=== PATIENT | male | born 1955 ===

== ENCOUNTER 2020-08-02 | Outpatient (REF) | payer MEDICARE, MEDICAID, SELFPAY ==
[2020-08-02 14:32] LABS: Alanine Aminotransferase 22 U/L (0-40); Albumin Level 4.6 g/dL (3.5-5.0); Alkaline Phosphatase 84 U/L (39-117); Anion Gap 13 (12-20); Aspartate Amino Transferase 15 U/L (5-37); Bilirubin Total 0.4 mg/dL (0.0-1.0); Blood Urea Nitrogen 16 mg/dL (9-16); Calcium 9.2 mg/dL (8.4-10.2); Carbon Dioxide 32 mmol/L (22-29); Chloride 97 mmol/L (96-108); Cholesterol 198 mg/dL; Estimated Glomerular Filt Rate > 60; Glucose Fasting 120 mg/dL (60-99); HDL Cholesterol 45 mg/dL; LDL Cholesterol Calculated 120 mg/dl; Potassium 3.4 mmol/l (3.3-5.1); Sodium 139 mmol/L (135-145); Total Protein 7.5 g/dL (6.5-8.0); Triglycerides 167 mg/dL
[2020-08-02 14:53] LABS: Estimated Average Glucose 140 mg/dL; Hemoglobin A1c % 6.5 %
[2020-08-02 14:56] LABS: TSH reflex Free T4 0.88 mIU/mL (0.32-4.0)
[2020-08-03 19:42] LABS: LDL Cholesterol Direct 146 mg/dL (<100)
== END 2020-08-02 00:01 | disposition home or self-care (01) ==
LOC: HO.WFDLDS
PROVIDERS: Visit Provider Family Medicine
DX: Z00.00 Encounter for general adult medical examination without abnormal findings (principal); E11.9 Type 2 diabetes mellitus without complications; E78.00 Pure hypercholesterolemia, unspecified; I10 Essential (primary) hypertension; R03.0 Elevated blood-pressure reading, without diagnosis of hypertension
CPT/HCPCS: 80053; 80061; 83036; 83721; 84443

== ENCOUNTER 2020-10-31 13:04 | Outpatient (REF) | payer MEDICARE, MEDICAID, SELFPAY ==
[2020-10-31 14:03] LABS: Alanine Aminotransferase 23 U/L (0-40); Albumin Level 4.5 g/dL (3.5-5.0); Alkaline Phosphatase 82 U/L (39-117); Aspartate Amino Transferase 24 U/L (5-37); Bilirubin Direct < 0.2 mg/dL (0.0-0.5); Bilirubin Total 0.4 mg/dL (0.0-1.0); Total Protein 7.4 g/dL (6.5-8.0)
== END 2020-10-31 13:05 | disposition home or self-care (01) ==
LOC: HO.LAB 13:04
PROVIDERS: PCP Family Medicine; Visit Provider Psychiatry & Neurology Neurology
DX: Q01.9 Encephalocele, unspecified (principal)
CPT/HCPCS: 36415; 80076

== ENCOUNTER 2021-02-09 18:25 | Outpatient (REF) | payer MEDICARE, MEDICAID, SELFPAY | END 2021-02-09 18:26 | disposition home or self-care (01) | LOC: HO.LNP 18:25 | PROVIDERS: Visit Provider Family Medicine | DX: R05 Cough (principal); Z20.822 Contact with and (suspected) exposure to COVID-19 | CPT/HCPCS: U0003; U0005 ==

== ENCOUNTER 2021-02-23 12:40 | Outpatient (REF) | payer MEDICARE, MEDICAID, SELFPAY ==
[2021-02-23 14:35] LABS: Anion Gap 12 (12-20); Blood Urea Nitrogen 19 mg/dL (9-16); Carbon Dioxide 33 mmol/L (22-29); Chloride 96 mmol/L (96-108); Estimated Glomerular Filt Rate > 60; Glucose Random 108 mg/dL (60-115); Potassium 3.3 mmol/L (3.3-5.1); Sodium 138 mmol/L (135-145)
== END 2021-02-23 12:41 | disposition home or self-care (01) ==
LOC: HO.WFDLDS 12:40
PROVIDERS: Visit Provider Family Medicine
DX: Z00.00 Encounter for general adult medical examination without abnormal findings (principal); I10 Essential (primary) hypertension
CPT/HCPCS: 36415; 80048

== ENCOUNTER 2021-05-24 10:01 | Outpatient (REF) | payer MEDICARE, MEDICAID, SELFPAY ==
[2021-05-24 13:34] LABS: MANUAL DIFF FLAG NO
[2021-05-24 13:38] LABS: Basophils Percent Auto 0.3 % (0-2); Eosinophils Absolute Auto 0.1 X10*3/uL (0.0-0.4); Eosinophils Percent Auto 1.3 % (0-4); Hemoglobin 12.8 g/dl (14.0-18.0); Imm Gran Abs Auto 0.05 X10*3/uL (0.00-0.03); Imm Gran Pct Auto 0.5 % (0.0-0.4); Lymphocytes Percent Auto 32.4 % (20-40); Mean Corpuscular HGB Conc 33.7 g/dl (31.0-36.0); Mean Corpuscular Hemoglobin 30.2 pg (27.0-33.0); Mean Corpuscular Volume 89.6 fL (80-98); Mean Platelet Volume 10.6 fL (9.4-12.4); Monocytes Absolute Auto 0.7 X10*3/uL (0.1-1.2); Monocytes Percent Auto 7.2 % (2-11); Neutrophils Absolute Auto 5.4 X10*3/uL (2.0-8.3); Neutrophils Percent Auto 58.3 % (45-73); Platelet Count 233 X10*3/uL (160-400); Red Blood Count 4.24 X10*6/uL (4.60-5.80); Red Cell Distribution Width 13.5 % (11.0-16.0); White Blood Count 9.3 X10*3/uL (4.8-10.8)
[2021-05-24 14:19] LABS: Alanine Aminotransferase 22 U/L (0-40); Albumin Level 4.4 g/dL (3.5-5.0); Alkaline Phosphatase 70 U/L (39-117); Anion Gap 13 (12-20); Aspartate Amino Transferase 20 U/L (5-37); Bilirubin Total 0.5 mg/dL (0.0-1.0); Blood Urea Nitrogen 18 mg/dL (9-16); Calcium 9.9 mg/dL (8.4-10.2); Carbon Dioxide 32 mmol/L (22-29); Chloride 99 mmol/L (96-108); Estimated Glomerular Filt Rate > 60; Glucose Random 119 mg/dL (60-115); Potassium 3.4 mmol/L (3.3-5.1); Sodium 141 mmol/L (135-145); Total Protein 7.2 g/dL (6.5-8.0)
[2021-05-24 14:42] LABS: TSH reflex Free T4 1.02 uIU/mL (0.32-4.0)
[2021-05-29 10:19] LABS: Levetiracetam Keppra 20.2 mcg/mL (12.0-46.0)
== END 2021-05-24 10:02 | disposition home or self-care (01) ==
LOC: HO.WFDLDS 10:01
PROVIDERS: Visit Provider Family Medicine
DX: Z00.00 Encounter for general adult medical examination without abnormal findings (principal); E11.9 Type 2 diabetes mellitus without complications; G40.909 Epilepsy, unspecified, not intractable, without status epilepticus
CPT/HCPCS: 36415; 80053; 80177; 84443; 85025

== ENCOUNTER 2021-05-30 12:21 | Outpatient (REF) | payer MEDICARE, MEDICAID, SELFPAY ==
[2021-05-30 13:49] LABS: MANUAL DIFF FLAG NO
[2021-05-30 14:03] LABS: Basophils Percent Auto 0.3 % (0-2); Eosinophils Absolute Auto 0.1 X10*3/uL (0.0-0.4); Eosinophils Percent Auto 0.9 % (0-4); Hematocrit 36.5 % (42-52); Hemoglobin 12.3 g/dl (14.0-18.0); Imm Gran Abs Auto 0.05 X10*3/uL (0.00-0.03); Imm Gran Pct Auto 0.6 % (0.0-0.4); Lymphocytes Absolute Auto 2.6 X10*3/uL (1.2-4.9); Lymphocytes Percent Auto 29.6 % (20-40); Mean Corpuscular HGB Conc 33.7 g/dl (31.0-36.0); Mean Corpuscular Hemoglobin 30.1 pg (27.0-33.0); Mean Corpuscular Volume 89.2 fL (80-98); Mean Platelet Volume 10.7 fL (9.4-12.4); Monocytes Absolute Auto 0.6 X10*3/uL (0.1-1.2); Monocytes Percent Auto 6.5 % (2-11); Neutrophils Absolute Auto 5.5 X10*3/uL (2.0-8.3); Neutrophils Percent Auto 62.1 % (45-73); Platelet Count 244 X10*3/uL (160-400); Red Blood Count 4.09 X10*6/uL (4.60-5.80); Red Cell Distribution Width 13.3 % (11.0-16.0); White Blood Count 8.8 X10*3/uL (4.8-10.8)
[2021-05-30 14:41] LABS: Anion Gap 15 (12-20); Blood Urea Nitrogen 16 mg/dL (9-16); Calcium 9.2 mg/dL (8.4-10.2); Carbon Dioxide 26 mmol/L (22-29); Chloride 100 mmol/L (96-108); Estimated Glomerular Filt Rate 57; Glucose Random 244 mg/dL (60-115); Potassium 3.5 mmol/L (3.3-5.1); Sodium 137 mmol/L (135-145)
== END 2021-05-30 12:22 | disposition home or self-care (01) ==
LOC: HO.WFDLDS 12:21
PROVIDERS: Visit Provider Family Medicine
DX: I10 Essential (primary) hypertension (principal); D64.9 Anemia, unspecified
CPT/HCPCS: 36415; 80048; 85025

== ENCOUNTER → 2021-07-10 13:22 | Outpatient (BNVA) | payer MEDICARE, MEDICAID, SELFPAY | PROVIDERS: PCP Family Medicine; Referring Provider Family Medicine; Visit Provider Internal Medicine Cardiovascular Disease | DX: I48.0 Paroxysmal atrial fibrillation (principal); I10 Essential (primary) hypertension | CPT/HCPCS: 93005; 99212 ==

== ENCOUNTER → 2021-08-30 13:01 | Outpatient (REF) | payer MEDICARE, MEDICAID, SELFPAY ==
--- NOTE | 2021-08-30 13:10 | CA_ITS ---
Transthoracic Echocardiogram Patient (Last, First, Middle): Amrik Bateman, Gender: Male Date of : 1955 Age: 65 Procedure Date: 08/30/2021 Procedure Type: Transthoracic Echocardiogram Location: OP Height: 167.64 cm Weight: 77.11 kg BSA: 1.87 m2 Heart Rate: bpm BP: 118 / 70 mmHg Fishing Worker: ELLE Barlow MD: Brijesh Arriola MD Technician Trainee: Samuel Seya MD Symptoms: I48.0 - Paroxysmal atrial fibrillation Study Quality: Good ECG Rhythm: Sinus Conclusions: - 1. Normal LV systolic function with grade 1 diastolic dysfunction with possible inferior wall motion abnormality 2. Mild aortic regurgitation 3. Normal RV systolic pressure 4. No gross pericardial effusion Findings Left Ventricle Normal left ventricular size, thickness, and systolic function. The visually estimated ejection fraction is between 55-60%. Spectral Doppler is indicative of an impaired relaxation filling pattern. E/E prime ratio is <8, consistent with normal filling pressures. Evidence suggests grade I (mild) diastolic dysfunction. Wall Motion Rest Echo Findings The inferoseptal wall, the basal inferior, and mid inferior segments are hypokinetic. All other scored wall segments showed normal motion. Right Ventricle Normal right ventricular cavity size and systolic function. Atria The left atrium is normal in size. There is lipomatous hypertrophy of the interatrial septum. There is no evidence of interatrial shunt. The right atrium is normal in size. Aortic Valve There is mild calcification of the aortic valve. There is mild thickening of the aortic valve. There is no aortic valve stenosis. There is mild aortic valve regurgitation. Mitral Valve There is mild anterior and moderate posterior mitral leaflet thickening. There is moderate mitral annular calcification. There is trace mitral valve regurgitation. There is no mitral valve stenosis. Pulmonic Valve The pulmonic valve was not well visualized. Tricuspid Valve Likely normal tricuspid valve structure and function. There is trace tricuspid valve regurgitation. The right ventricular systolic pressure is normal. The right ventricular systolic pressure is 23 mmHg. Normal right atrial pressure. There is no evidence of pulmonary hypertension. Great Vessels All visible segments of the aorta are normal in size. The pulmonary artery was not well visualized. Venous The inferior vena cava is normal in size and collapses greater than 50% with inspiration. Pericardium/Pleural There is no evidence of pericardial effusion. Prior Study Comparison Changes noted compared to prior study dated: 07/22/2019. Inferior wall motion abnormality noted Measurements 2D Linear Measurements IVSd: 1.07 0.6-0.9/0.6-1.0 cm LVIDd: 3.22 3.9-5.3/4.2-5.9 cm LVIDd Index: 1.72 2.4-3.2/2.2-3.1 cm/m2 LVIDs: 2.12 2.0-3.6 cm LVPWd: 1.01 0.7-1.1 cm Ao Root: 3.90 2.1-3.5 cm LA Diam: 2.70 2.7-3.8/3.0-4.0 cm LAIDs Index: 1.44 1.5-2.3 cm/m2 LV Mass: 120.11 67-162/88-224 g LV Mass Index: 64.23 43-95/49-115 g/m2 LVOT Diam: 2.00 3.0+(-)1.3 cm 2D Systolic Function EF 4C: 56.20 >55% EF 2C: 54.10 >55% EF BiP: 55.90 >55% Mitral Valve MV Pk E: 0.65 MV PK A: 0.97 MV Decel Time: 201.00 E/A: 0.70 E'Lateral: 5.55 E'Medial: 5.98 E/E' Med: 10.90 E/E' Lat: 11.70 PHT: 59.00 MVA PHT: 3.73 Decel Yolo: 3.24 Aortic Valve AoV Pk Curtis: 1.42 AoV Mn Curtis: 0.99 AoV VTI: 0.26 AoV Pk Grad: 8.00 Aov Mn Grad: 4.00 SHEILA Cont.VTI: 3.03 LVOT LVOT Pk Curtis: 1.38 LVOT Mn Curtis: 0.89 LVOT VTI: 0.25 LVOT Pk Grad: 8.00 LVOT Mn Grad: 4.00 LVOT Diam: 2.00 LVOT Area: 3.14 Diastolic Function MV Pk E: 0.65 MV Pk A: 0.97 E/A: 0.70 E'Medial: 5.98 E/E' Med: 10.90 E' Laterial: 5.55 E/E' Lat: 11.70 Right Ventricle TAPSE (mm): 1.65 Tricuspid Valve TR Pk Curtis: 2.24 TR Pk Grad: 20.00 RA Press: 3.00 RVSP: 23.00 Great Vessels Aorta Ao Root-2D: 3.90 2.0-3.7 cm Ao Asc: 3.40 2.1-3.4 cm Ao Arch: 2.20 Updated in Other Vendor System with Status of Final Samuel Seay MD electronically signed on 09/06/2021 9:03:04 AM with status of Final
--- NOTE | 2021-08-30 13:10 | CA_ITS ---
INDICATIONS: PAROXYSMAL ATRIAL FIBRILLATION HT: 5'6 WT: 170 BP: 118/70 STENOGRAPHER: YR STUDY QUALITY: ECG RHYTHM: CONCLUSIONS: FINDINGS: M-MODE/2D MEASUREMENTS: LVd: 3.22 LVs: 2.12 IVSd: 1.07 IVSs: LVPWd: 1.01 ASC Aorta: 3..4 RVd: 2.81 AO Root: 3.9 LA: 2.7 LVOT: 2.0 EF%: TAPSE: 1.65 OTHER: RVSP: 23 mmHg Mitral E/A: 65.1 / 96.8 = 0.7 E Med: 5.98 E Lat. 5.55 DOPPLER MEASUREMENTS: AORTIC PP mmHg MP mmHg Velocity: 142 m/s Valve Area: 3.03 cm^2 TRICUSPID: PP mmHg Velocity: 224 m/s RA Vol: 11.6 IVC: 1.53 LA Vol.` 25.2 RVS: 12.5 MTDD
== END ==
LOC: HO.CARD 13:01
PROVIDERS: Visit Provider Internal Medicine
DX: I48.0 Paroxysmal atrial fibrillation (principal)
CPT/HCPCS: 93306

== ENCOUNTER → 2021-09-27 09:51 | Outpatient (REF) | payer MEDICARE, MEDICAID, SELFPAY ==
--- NOTE | ~2021-09-27 | NM_ITS ---
Exercise Myocardial perfusion study Indication: Abnormal stress test evaluate for myocardial ischemia Technique: The patient was brought in for an exercise perfusion study on 09/27/2021. Patient performed exercise as per Jesu protocol and was injected 25 mCi of sestamibi was given intravenously one target HR was achieved. Images were obtained using the SPECT gamma camera interlaced with the gating device. Images were obtained in supine position. Resting perfusion study was performed on 09/28/2021. Patient was administered 25 mCi of sestamibi intravenously at rest. Images were then obtained in supine position. Images obtained with and without CT attenuation. Total DLP 84 mGy-cm. Images were processed with the software and compared side to side in short axis, horizontal long axis and vertical long axis views. Findings: The stress perfusion study showed non attenuated images show mildly reduced in the basal septum as well as mildly reduced uptake in the basal inferior wall of the LV myocardium. Remainder of the LV myocardium is normally perfused. Attenuation corrected images show some thinning of the apex of the LV myocardium. The gated study shows normal LV systolic function with calculated LVEF of 60%. LV cavity is normal in size. The gated study shows normal systolic wall thickening and contraction of all segments. There is no transient ischemic dilation. Resting study shows attenuated corrected images show some thinning of the apex of the LV myocardium.. Gating at rest reveals normal systolic wall motion with ejection fraction at 65%. The findings are consistent with no clear significant reversible defect suggestive of ischemia.. NM/NM cardiolite stress test Impression: 1. Likely normal myocardial perfusion 2. Gated LVEF is 60% 3. Transient ischemic dilatation not present Stress EKG is equivocal for ischemia
--- NOTE | 2021-09-27 09:54 | CA_ITS ---
Acquisition Time: 2021-09-27 10:51:27 Total Exercise Time: 00:05:01 Test Indications: ABN ECHO, R/O CAD Medications: SEE CHART Protocol: ALVAREZ Max HR: 166 BPM 106% of Pred: 156 BPM Max BP: 210/068 mmHG Max Work Load: 4.6 METS Exercise stress test with exercise 5 min 1 sec of Alvarez stage 1, without anginal symptoms, with rare isolated PVC, with brisk chronotropic (85% MPHR at 42 sec of walking) and hypertensive response ( max BP 210/68) to exercise, with EKG showing ST/ T wave abnormality leads III, aVF, V5-V6 at baseline which then involves lead II and V4 during exercise and recovery with borderline ST depression. He was recovered for 22 minutes and had no concerning symptoms. Heart rate was elevated at baseline and remained elevated during the entire test. Pulse was down to 116 , BP 150/70 when test ended. He reports that he is not taking Metoprolol any longer. Call placed to Dr Arriola and informed of the above. Nuclear images pending. IV access left in place at this time. EKG tracings brought to Dr Arriola for his review. Referred By: Brijesh Arriola Overread By: SAYDA NAVARRO
== END ==
LOC: HO.CARD 09:51
PROVIDERS: PCP Family Medicine; Visit Provider Internal Medicine Cardiovascular Disease
DX: R93.1 Abnormal findings on diagnostic imaging of heart and coronary circulation (principal)
CPT/HCPCS: 78452; 93017; A9500

== ENCOUNTER → 2021-10-05 12:30 | Outpatient (BNVA) | payer MEDICARE, MEDICAID, SELFPAY | PROVIDERS: PCP Family Medicine; Referring Provider Family Medicine; Visit Provider Nurse Practitioner Family | DX: I48.0 Paroxysmal atrial fibrillation (principal); I10 Essential (primary) hypertension; R00.0 Tachycardia, unspecified; R93.1 Abnormal findings on diagnostic imaging of heart and coronary circulation | CPT/HCPCS: 99212 ==

== ENCOUNTER 2021-12-21 11:10 | Outpatient (REF) | payer MEDICARE, MEDICAID, SELFPAY ==
[2021-12-21 14:39] LABS: Appearance Urine CLEAR; Color Urine YELLOW; Glucose Urine UA NEG (NEG); Leukocyte Esterase Urine NEG (NEG); Nitrite Urine NEG (NEG); Urine Blood NEG (NEG); Urine Ketones NEG (NEG); Urine Protein TRACE MG/DL (NEG-TRACE)
[2021-12-21 14:40] LABS: Alanine Aminotransferase 15 U/L (0-40); Albumin Level 4.3 g/dL (3.5-5.0); Alkaline Phosphatase 76 U/L (39-117); Anion Gap 14 (12-20); Aspartate Amino Transferase 14 U/L (5-37); Bilirubin Total 0.6 mg/dL (0.0-1.0); Blood Urea Nitrogen 13 mg/dL (9-16); Carbon Dioxide 31 mmol/L (22-29); Chloride 97 mmol/L (96-108); Estimated Glomerular Filt Rate > 60; Glucose Fasting 109 mg/dL (60-99); Potassium 3.4 mmol/L (3.3-5.1); Sodium 139 mmol/L (135-145); Total Protein 7.2 g/dL (6.5-8.0)
[2021-12-21 14:41] LABS: Estimated Average Glucose 151 mg/dL; Hemoglobin A1c % 6.9 %
[2021-12-21 14:54] LABS: Creatinine Urine 83.36 mg/dL; Microalbum/Creatinine Ratio Ur 136.7 ug/mg cr
[2021-12-21 15:01] LABS: TSH reflex Free T4 1.22 uIU/mL (0.32-4.0)
== END 2021-12-21 11:11 | disposition home or self-care (01) ==
LOC: HO.WFDLDS 11:10
PROVIDERS: Visit Provider Family Medicine
DX: Z00.00 Encounter for general adult medical examination without abnormal findings (principal); E11.9 Type 2 diabetes mellitus without complications; I10 Essential (primary) hypertension
CPT/HCPCS: 36415; 80053; 81003; 82043; 83036; 84443

== ENCOUNTER → 2022-01-04 12:27 | Outpatient (BNVA) | payer MEDICARE, MEDICAID, SELFPAY | PROVIDERS: PCP Family Medicine; Referring Provider Family Medicine; Visit Provider Internal Medicine Cardiovascular Disease | DX: I48.0 Paroxysmal atrial fibrillation (principal); I10 Essential (primary) hypertension; R93.1 Abnormal findings on diagnostic imaging of heart and coronary circulation; Z79.01 Long term (current) use of anticoagulants | CPT/HCPCS: 99212 ==

== ENCOUNTER 2022-02-06 11:18 | Outpatient (REF) | payer MEDICARE, MEDICAID, SELFPAY ==
[2022-02-06 14:02] LABS: Creatinine Urine 64.47 mg/dL; Microalbum/Creatinine Ratio Ur 229.5 ug/mg cr
[2022-02-06 14:07] LABS: Anion Gap 11 (12-20); Blood Urea Nitrogen 16 mg/dL (9-16); Calcium 9.9 mg/dL (8.4-10.2); Carbon Dioxide 32 mmol/L (22-29); Chloride 97 mmol/L (96-108); Estimated Glomerular Filt Rate 60; Glucose Random 283 mg/dL (60-115); Potassium 3.2 mmol/L (3.3-5.1); Sodium 137 mmol/L (135-145); Uric Acid 7.8 mg/dL (3.4-7.0)
[2022-02-06 14:30] LABS: Prostate Specific Antigen Scr 1.01 ng/mL (<0.05-4.0)
== END 2022-02-06 11:19 | disposition home or self-care (01) ==
LOC: HO.WFDLDS 11:18
PROVIDERS: Visit Provider Family Medicine
DX: Z00.00 Encounter for general adult medical examination without abnormal findings (principal); M10.9 Gout, unspecified; I10 Essential (primary) hypertension; Z12.5 Encounter for screening for malignant neoplasm of prostate
CPT/HCPCS: 36415; 80048; 82043; 84153; 84550

== ENCOUNTER → 2022-08-23 14:34 | Outpatient (BNVA) | payer MEDICARE, MEDICAID, SELFPAY | PROVIDERS: PCP Family Medicine; Referring Provider Family Medicine; Visit Provider Nurse Practitioner Family | DX: R93.1 Abnormal findings on diagnostic imaging of heart and coronary circulation (principal); I48.0 Paroxysmal atrial fibrillation; I10 Essential (primary) hypertension | CPT/HCPCS: 93005; 99212 ==

== ENCOUNTER 2022-10-04 09:30 | Outpatient (REF) | payer MEDICARE, MEDICAID, SELFPAY ==
[2022-10-04 11:42] LABS: Alanine Aminotransferase 14 U/L (0-40); Albumin Level 4.5 g/dL (3.5-5.0); Alkaline Phosphatase 80 U/L (39-117); Anion Gap 15 (12-20); Aspartate Amino Transferase 13 U/L (5-37); Bilirubin Total 0.4 mg/dL (0.0-1.0); Blood Urea Nitrogen 20 mg/dL (9-16); Calcium 9.8 mg/dL (8.4-10.2); Carbon Dioxide 31 mmol/L (22-29); Chloride 100 mmol/L (96-108); Cholesterol 202 mg/dL; Estimated Glomerular Filt Rate > 60; Glucose Random 137 mg/dL (60-115); HDL Cholesterol 40 mg/dL; LDL Cholesterol Calculated 142 mg/dl; Potassium 3.6 mmol/L (3.3-5.1); Sodium 142 mmol/L (135-145); Total Protein 7.3 g/dL (6.5-8.0); Triglycerides 101 mg/dL
[2022-10-04 12:04] LABS: Creatinine Urine 84.73 mg/dL; Microalbum/Creatinine Ratio Ur 311.5 ug/mg cr
== END 2022-10-04 09:31 | disposition home or self-care (01) ==
LOC: HO.WFDLDS 09:30
PROVIDERS: Visit Provider Family Medicine
DX: Z00.00 Encounter for general adult medical examination without abnormal findings (principal); I10 Essential (primary) hypertension; R80.9 Proteinuria, unspecified; Z87.39 Personal history of other diseases of the musculoskeletal system and connective tissue
CPT/HCPCS: 36415; 80053; 80061; 82043; 84550

== ENCOUNTER 2022-12-20 08:28 | Outpatient (REF) | payer MEDICARE, MEDICAID, SELFPAY ==
[2022-12-20 12:09] LABS: Appearance Urine Clear; Color Urine Yellow; Glucose Urine UA Negative (Negative); Leukocyte Esterase Urine Negative (Negative); Nitrite Urine Negative (Negative); Specific Gravity - Urine 1.015 (1.005-1.025); UMIC TRIGGER UA YES; Urine Blood Negative (Negative); Urine Ketones Negative (Negative); Urine Protein 100 (2+) mg/dL (Neg-Trace)
[2022-12-20 12:12] LABS: Bacteria Urine None Seen (None Seen); Hyaline Casts Urine 0-2 /LPF (0-2); RBC Urine 0-2 /HPF (0-2); Squamous Epithelial Cell Urine 0-2 /HPF (0-2); WBC Urine 0-5 /HPF (0-5)
[2022-12-20 12:49] LABS: Creatinine Urine 66.07 mg/dL
[2022-12-20 15:14] LABS: Microalbum/Creatinine Ratio Ur 800.6 ug/mg cr
[2022-12-20 16:07] LABS: Alanine Aminotransferase 12 U/L (0-40); Albumin Level 4.3 g/dL (3.5-5.0); Alkaline Phosphatase 71 U/L (39-117); Anion Gap 15 (12-20); Aspartate Amino Transferase 12 U/L (5-37); Bilirubin Total 0.6 mg/dL (0.0-1.0); Blood Urea Nitrogen 15 mg/dL (9-16); Calcium 9.8 mg/dL (8.4-10.2); Carbon Dioxide 30 mmol/L (22-29); Chloride 100 mmol/L (96-108); Estimated Glomerular Filt Rate > 60; Glucose Fasting 128 mg/dL (60-99); Potassium 3.2 mmol/L (3.3-5.1); Sodium 142 mmol/L (135-145); Total Protein 6.9 g/dL (6.5-8.0)
[2022-12-20 16:12] LABS: Prostate Specific Antigen Scr 1.08 ng/mL (<0.05-4.0); TSH reflex Free T4 1.31 uIU/mL (0.32-4.0)
== END 2022-12-20 08:29 | disposition home or self-care (01) ==
LOC: HO.WFDLDS 08:28
PROVIDERS: Visit Provider Family Medicine
DX: Z00.00 Encounter for general adult medical examination without abnormal findings (principal); I10 Essential (primary) hypertension; Z12.5 Encounter for screening for malignant neoplasm of prostate
CPT/HCPCS: 36415; 80053; 81001; 81003; 82043; 84153; 84443

== ENCOUNTER 2023-01-10 12:03 | Outpatient (REF) | payer MEDICARE, MEDICAID, SELFPAY ==
[2023-01-10 14:43] LABS: Color Urine Yellow; Glucose Urine UA 100 mg/dL (Negative); Leukocyte Esterase Urine Negative (Negative); Nitrite Urine Negative (Negative); PH 8.5 (5.0-9.0); UMIC TRIGGER UA YES; Urine Blood Negative (Negative); Urine Ketones Negative (Negative); Urine Protein 30 (1+) mg/dL (Neg-Trace)
[2023-01-10 14:44] LABS: Appearance Urine Clear
[2023-01-10 14:47] LABS: Bacteria Urine None Seen (None Seen); Hyaline Casts Urine 0-2 /LPF (0-2); RBC Urine 0-2 /HPF (0-2); Squamous Epithelial Cell Urine 0-2 /HPF (0-2); WBC Urine 0-5 /HPF (0-5)
[2023-01-10 14:59] LABS: Anion Gap 14 (12-20); Blood Urea Nitrogen 11 mg/dL (9-16); Calcium 9.6 mg/dL (8.4-10.2); Carbon Dioxide 30 mmol/L (22-29); Chloride 99 mmol/L (96-108); Estimated Glomerular Filt Rate > 60; Glucose Random 142 mg/dL (60-115); Potassium 3.5 mmol/L (3.3-5.1); Sodium 139 mmol/L (135-145)
== END 2023-01-10 12:04 | disposition home or self-care (01) ==
LOC: HO.WFDLDS 12:03
PROVIDERS: Visit Provider Family Medicine
DX: E87.6 Hypokalemia (principal)
CPT/HCPCS: 36415; 80048; 81001

== ENCOUNTER → 2023-02-28 12:51 | Outpatient (BNVA) | payer MEDICARE, MEDICAID, SELFPAY | PROVIDERS: PCP Family Medicine; Referring Provider Family Medicine; Visit Provider Nurse Practitioner Family | DX: I48.0 Paroxysmal atrial fibrillation (principal); I10 Essential (primary) hypertension; R93.1 Abnormal findings on diagnostic imaging of heart and coronary circulation; I35.1 Nonrheumatic aortic (valve) insufficiency; Z79.01 Long term (current) use of anticoagulants; Z79.899 Other long term (current) drug therapy | CPT/HCPCS: 99212 ==

== ENCOUNTER 2023-04-23 12:08 | Outpatient (AMB) | payer MEDICARE, MEDICAID, SELFPAY ==
[2023-04-23 12:18] VITALS: BP 128/70; PULSE 99; O2SAT 98; BMI 26.3
--- NOTE | 2023-04-23 12:18 | MHC.PC.OV ---
Vital Signs 04/23/23 12:18 Height 5 ft 6 in Weight 163 lb BMI 26.3 BP 128/70 Blood Pressure Location Lt brachial Position Sitting Pulse 99 Pulse Source Pulse Oximeter Pulse Oximetry (%) 98 Oxygen Delivery Method Room Air Intake Visit Reasons: f/u chronic conditions Intake Note: Patient is here to follow up on chronic conditions. Allergies No Known Allergies [No Known Allergies*] Allergy (Verified 04/23/23 12:27) Medication List - Last Reconciled 04/23/23 by Wiley Pablo MD acetaminophen ER 1,300 mg (2 x 650 mg) PO Q8H PRN 90 days allopurinol 100 mg PO QAM 30 days apixaban (Eliquis) 5 mg PO BID 90 days blood sugar diagnostic (FreeStyle Lite Strips) check blood sugar daily and daily prn blood-glucose meter (FreeStyle Lite Meter kit) As directed carvedilol 6.25 mg PO BID 90 days cholecalciferol (vitamin D3) (Vitamin D3) 50 mcg PO QAM ezetimibe (Zetia) 10 mg PO DAILY 90 days fluoride (sodium) 1.1% 0 appl dental glimepiride 1 mg PO QAM hydrochlorothiazide 25 mg PO DAILY 90 days lacosamide (Vimpat) 50 mg (1/2 x 100 mg) PO BEDTIME 90 days lancets As directed levetiracetam 500 mg PO QAM levetiracetam 250 mg PO BEDTIME 90 days lisinopril 40 mg PO DAILY nifedipine ER 60 mg PO BID omega [id number] oil 1,000 mg (120 mg-180 mg) 1 cap PO DAILY 90 days varicella-zoster [id number] (PF) 50 mcg/0.5 mL IM Tobacco use date assessed: 04/23/23 Fall risk assessment: No Falls in past year Last assessed Fall Risk: 04/23/23 Dental Screening Dental Screen Date: 04/23/23 Did you have a dental visit in the last 12 months?: Yes Did you have a dental problem in the last 6 months where you did not have access to dental care?: Yes Was dental information given to patient?: No HPI f/u chronic conditions HPI Details 67 y/o male presents to f/u chronic conditions. Had started him on Zetia for his hyperlipidemia and microalbuminuria. Blood pressure today is 128/70. He is on lisinopril 40mg, hydrochlorothiazide 25mg daily and nifedipine 60mg b.i.d. A1c today 04/23/23 is 6.3%. [facility] Medical History Diabetes type 2, controlled Epilepsy Essential hypertension History of CVA (cerebrovascular accident) History of gout History of seizures Paroxysmal atrial fibrillation White coat syndrome with diagnosis of hypertension Surgical History No pertinent past surgical history Family History Father No problems noted. Mother No problems noted. Brother No problems noted. Sister No problems noted. Sister No problems noted. Social History Housing: House Alcohol intake: current Alcohol intake frequency: holidays/special occasions only Patient Tobacco Use Status: Never used Tobacco e-Cigarette/Vaping Use: Never Used Second Hand Smoke Exposure: No Advance Directives Date on File: 08/02/20 service: No Current occupational status: unemployed Current occupation: Patient does not want to answer Current occupational exposures/hazards: No Cognitive needs: No Hearing needs: No Vision needs: No Questionnaire PHQ-9 Over the last 2 weeks, how often have you been bothered by any of the following problems? 1. Little interest or pleasure in doing things: not at all 2. Feeling down, depressed, or hopeless: not at all 3. Trouble falling or staying asleep, or sleeping too much: not at all 4. Feeling tired or having little energy: not at all 5. Poor appetite or overeating: not at all 6. Feeling bad about yourself - or that you are a failure or have let yourself or your family down: not at all 7. Trouble concentrating on things, such as reading the newspaper or watching television: not at all 8. Moving or speaking so slowly that other people could have noticed. Or the opposite - being so fidgety or restless that you have been moving around a lot more than usual: not at all 9. Thoughts that you would be better off or of hurting yourself in some way: not at all Total score: 0 Source: Developed by Drs. Darien Higginbotham, Erin Vargas, Dony Arevalo and colleagues, with an educational otilia from [employer]. FRANC-7 AMB Questionnaire FRANC-7 Date FRANC - 7 assessed: 07/03/22 Source: Developed by Drs. Darien Higginbotham, Erin Vargas, Dony Arevalo and colleagues, with an educational otilia from [employer]. Review of Systems Const Denies chills, Denies fatigue, Denies fever(s), Denies headache(s) and Denies weakness ENT Denies dizziness and Denies headache(s) Card Denies chest pain, Denies lightheadedness, Denies dyspnea and Denies other (Palpitations) Resp Denies cough, Denies dyspnea, Denies wheezing and Denies other ( shortness of breath) Musc Denies numbness and Denies tingling Neuro Denies dizziness, Denies headache(s), Denies numbness, Denies tingling, Denies paresthesias and Denies weakness Psych Denies anxiety and Denies depression Endo Denies fatigue Aller/Immun Denies wheezing Physical exam (Primary Care) Vital Signs: Last Vital Signs Pulse 99 04/23/23 12:18 BP 128/70 04/23/23 12:18 Pulse Ox 98 04/23/23 12:18 Oxygen Delivery Method Room Air 04/23/23 12:18 BMI result Body Mass Index 26.3 Tobacco/Smoking Status: Tobacco use Status Tobacco use date assessed 04/23/23 04/23/23 12:29 Patient Tobacco Use Status Never used Tobacco 04/23/23 12:27 e-Cigarette/Vaping Use Never Used 04/23/23 12:27 PHQ-9: PHQ-9 Score PHQ-9: Total score 0 04/23/23 12:35 Const General: no acute distress and well developed Nutritional Appearance: well nourished Orientation/consciousness: patient oriented x3 HENMT Head: Yes normocephalic and Yes atraumatic Eyes General: appearance normal, both eyes and all related structures Pupils: Equal, round and reactive pupils present EOM: EOMs intact bilaterally Resp Effort & Inspection: normal respiratory effort Auscultation: clear to auscultation bilaterally Cardio Rate: regular rate Rhythm: regular rhythm Heart sounds: S1 normal heart sound present, S2 normal heart sound present, no gallops, no murmurs and no rubs Neuro General: patient oriented x3 and gait normal Cranial nerves: Yes Equal, round and reactive pupils present Psych Affect: normal affect Results AMB Hemoglobin A1c AMB Hemoglobin A1c 6.3 % Last Edit by Bety Pride CMA on 04/23/23 12:53 Assessment and Plan Assessment & Plan (1) Diabetes type 2, controlled: Code(s): E11.9 - Type 2 diabetes mellitus without complications Plan: A1c is 6.3%. Stable and well controlled. Goal is less than 7.0% Continue current medication regimen (2) Essential hypertension: Code(s): I10 - Essential (primary) hypertension Plan: Blood pressure is well controlled. Goal is less than 130/80 Continue current medication regimen (3) Hypercholesterolemia: Code(s): E78.00 - Pure hypercholesterolemia, unspecified Plan: As well and has not had his lipids drawn yet but can do so today or this week and we can follow-up at his next visit. (4) History of CVA (cerebrovascular accident): Code(s): Z86.73 - Personal history of transient ischemic attack (TIA), and cerebral infarction without residual deficits Plan: Patient receives services and programs through [facility]. He had previously had guardianship placed over him by [employer] and his brother was ordered as his guardian. Amrik is able to manage his own medications and financial affairs. He speaks with me with understanding and is able to articulate the consequences of his actions had decisions. [employer] personnel inform me that his brother is no longer involved with his care at all. [facility] also feel that he is able to make his own decisions competently. I will write a letter to this effect in support of having removal of a guardian for this patient. Orders: Orders AMB Hemoglobin A1c Today Z13.9 - Encounter for screening, unspecified Coding Level of Care Code Est Pt Level 4 (70871) Diagnoses Diabetes type 2, controlled E11.9 Essential hypertension I10 Hypercholesterolemia E78.00 History of CVA (cerebrovascular accident) Z86.73
== END 2023-04-23 13:09 | disposition home or self-care (01) ==
PROVIDERS: Visit Provider Family Medicine
DX: E11.9 Type 2 diabetes mellitus without complications (principal); I10 Essential (primary) hypertension; E78.00 Pure hypercholesterolemia, unspecified; Z86.73 Personal history of transient ischemic attack (TIA), and cerebral infarction without residual deficits; Z13.9 Encounter for screening, unspecified
CPT/HCPCS: 83036; 99214

== ENCOUNTER 2023-07-11 07:31 | Outpatient (REF) | payer MEDICARE, MEDICAID, SELFPAY ==
[2023-07-11 11:24] LABS: Appearance Urine Clear; Color Urine Yellow; Glucose Urine UA Negative (Negative); Leukocyte Esterase Urine Negative (Negative); Nitrite Urine Negative (Negative); PH 7.5 (5.0-9.0); Specific Gravity - Urine 1.015 (1.005-1.025); UMIC TRIGGER UA YES; Urine Blood Negative (Negative); Urine Ketones Negative (Negative); Urine Protein 30 (1+) mg/dL (Neg-Trace)
[2023-07-11 11:56] LABS: Bacteria Urine None Seen (None Seen); Hyaline Casts Urine 0-2 /LPF (0-2); RBC Urine 0-2 /HPF (0-2); Squamous Epithelial Cell Urine 0-2 /HPF (0-2); WBC Urine 0-5 /HPF (0-5)
[2023-07-11 12:11] LABS: Creatinine Urine 73.99 mg/dL; Microalbum/Creatinine Ratio Ur 374.3 ug/mg cr (<30)
[2023-07-11 14:56] LABS: Alanine Aminotransferase 13 U/L (0-40); Albumin Level 4.3 g/dL (3.5-5.0); Alkaline Phosphatase 69 U/L (39-117); Anion Gap 18 (12-20); Aspartate Amino Transferase 14 U/L (5-37); Bilirubin Total 0.4 mg/dL (0.0-1.0); Blood Urea Nitrogen 14 mg/dL (9-16); Carbon Dioxide 27 mmol/L (22-29); Chloride 102 mmol/L (96-108); Cholesterol 171 mg/dL (<200); Estimated Glomerular Filt Rate > 60; Glucose Fasting 137 mg/dL (60-99); HDL Cholesterol 40 mg/dL (>40); LDL Cholesterol Calculated 113 mg/dL (<100); Potassium 3.5 mmol/L (3.3-5.1); Sodium 143 mmol/L (135-145); Total Protein 7.5 g/dL (6.5-8.0); Triglycerides 91 mg/dL (<150)
== END 2023-07-11 07:32 | disposition home or self-care (01) ==
LOC: HO.WFDLDS 07:31
PROVIDERS: Visit Provider Family Medicine
DX: Z00.00 Encounter for general adult medical examination without abnormal findings (principal); E78.00 Pure hypercholesterolemia, unspecified; I10 Essential (primary) hypertension; R80.9 Proteinuria, unspecified
CPT/HCPCS: 36415; 80053; 80061; 81001; 82043; 82570

== ENCOUNTER 2023-07-23 11:35 | Outpatient (AMB) | payer MEDICARE, MEDICAID, SELFPAY ==
--- NOTE | 2023-07-23 11:36 | MHC.PC.OV ---
Vital Signs 07/23/23 11:39 07/23/23 12:36 Height 5 ft 6 in Weight 166 lb BMI 26.8 BP 160/84 H 132/62 Blood Pressure Location Lt brachial Rt brachial Position Sitting Respiration 13 Pulse 104 H Pulse Source Pulse Oximeter Temp 97.8 F Temp Source Temporal Artery Scan Pulse Oximetry (%) 99 Oxygen Delivery Method Room Air Intake Visit Reasons: Follow-up diabetes, hypertension and lipids Intake Note: Patient would like to go over blood work. Managing Manager Required: No Accompanied by: Self / Same As Patient Allergies No Known Allergies [No Known Allergies*] Allergy (Verified 07/23/23 11:44) Tobacco use date assessed: 04/23/23 Fall risk assessment: No Falls in past year Last assessed Fall Risk: 07/23/23 Dental Screening Dental Screen Date: 07/23/23 Did you have a dental visit in the last 12 months?: Yes Did you have a dental problem in the last 6 months where you did not have access to dental care?: No Was dental information given to patient?: Patient has dentist HPI Follow-up diabetes, hypertension and lipids HPI Details 67 y/o male presents to f/u diabetes, hypertension and lipids. Blood pressure today is 160/84, 104p. He is on lisinopril 40mg and hydrochlorothiazide 25mg daily. Also on nifedipine and carvedilol. BP upon relaxation is 132/62. He notes he does get stressed out whenever he sees new faces. A1c today 07/23/23 is 6.8%. Labs were drawn 07/11/23. TC 171. Triglycerides 91. TC 113. HDL 40. He is on Zetia 10mg daily. [facility] Medical History Epilepsy History of gout Paroxysmal atrial fibrillation History of seizures History of CVA (cerebrovascular accident) White coat syndrome with diagnosis of hypertension Essential hypertension Diabetes type 2, controlled Surgical History No pertinent past surgical history Family History Father No problems noted. Mother No problems noted. Brother No problems noted. Sister No problems noted. Sister No problems noted. Social History Housing: House Alcohol intake: current Alcohol intake frequency: holidays/special occasions only Patient Tobacco Use Status: Never used Tobacco e-Cigarette/Vaping Use: Never Used Second Hand Smoke Exposure: No Advance Directives Date on File: 08/02/20 service: No Current occupational status: unemployed Current occupation: Patient does not want to answer Current occupational exposures/hazards: No Cognitive needs: No Hearing needs: No Vision needs: No Questionnaire FRANC-7 AMB Questionnaire FRANC-7 Date FRANC - 7 assessed: 07/03/22 Source: Developed by Drs. Darien Higginbotham, Erin Vargas, Dony Arevalo and colleagues, with an educational otilia from [employer]. Review of Systems Const Denies chills, Denies fatigue, Denies fever(s), Denies headache(s) and Denies weakness ENT Denies dizziness and Denies headache(s) Card Denies chest pain, Denies lightheadedness, Denies dyspnea and Denies other (Palpitations) Resp Denies cough, Denies dyspnea, Denies wheezing and Denies other ( shortness of breath) Musc Denies numbness and Denies tingling Neuro Denies dizziness, Denies headache(s), Denies numbness, Denies tingling, Denies paresthesias and Denies weakness Psych Denies anxiety and Denies depression Endo Denies fatigue Aller/Immun Denies wheezing Physical exam (Primary Care) Vital Signs: Last Vital Signs Temp 97.8 F 07/23/23 11:39 Pulse 104 H 07/23/23 11:39 Resp 13 07/23/23 11:39 BP 160/84 H 07/23/23 11:39 Pulse Ox 99 07/23/23 11:39 Oxygen Delivery Method Room Air 07/23/23 11:39 BMI result Body Mass Index 26.8 Tobacco/Smoking Status: Tobacco use Status Tobacco use date assessed 04/23/23 07/23/23 11:43 Patient Tobacco Use Status Never used Tobacco 07/23/23 11:43 e-Cigarette/Vaping Use Never Used 07/23/23 11:43 Const General: no acute distress and well developed Nutritional Appearance: well nourished Orientation/consciousness: patient oriented x3 HENMT Head: Yes normocephalic and Yes atraumatic Eyes General: appearance normal, both eyes and all related structures Pupils: Equal, round and reactive pupils present EOM: EOMs intact bilaterally Resp Effort & Inspection: normal respiratory effort Auscultation: clear to auscultation bilaterally Cardio Rate: regular rate Rhythm: regular rhythm Heart sounds: S1 normal heart sound present, S2 normal heart sound present, no gallops, no murmurs and no rubs Neuro General: patient oriented x3 and gait normal Cranial nerves: Yes Equal, round and reactive pupils present Psych Affect: normal affect Results AMB Hemoglobin A1c AMB Hemoglobin A1c 6.8 % Last Edit by Bety Pride CMA on 07/23/23 12:03 Results Reviewed Results Reviewed: Laboratory Last Values Hgb A1c (Clinic) 6.8 % (4.0-6.0) H 07/23/23 11:59 Assessment and Plan Assessment & Plan (1) Diabetes type 2, controlled: Code(s): E11.9 - Type 2 diabetes mellitus without complications Plan: A1c?shows?good?control. Goal?is?less?than?7.0% Continue?current?medication?regimen Work?at?diabetic?diet,?exercise?and?weight?loss (2) Essential hypertension: Code(s): I10 - Essential (primary) hypertension Plan: He?has?always?had?a?volatile?blood?pressures?when?he?gets?upset/irritate?or?anxious. Blood?pressure?returns?to?controlled?range?with?relaxation.??Goal?is?less?than 130/80 Continue?current?medication?regimen (3) Hypercholesterolemia: Code(s): E78.00 - Pure hypercholesterolemia, unspecified Plan: LDL?cholesterol?is?above?goal?of?less?than?100?for?patient?with?diabetes?and?goal?may?need?to?be?as?low?as?less?than?70?for?patient?with?history?of?CVA He?is?on?Zetia He?will?work?on?a?diet?low?in?saturated?fats?and?cholesterol. We?can?recheck?this?prior?to?his?physical?and?if?still?elevated?we?can?discuss?additional?medication. (4) Microalbuminuria: Code(s): R80.9 - Proteinuria, unspecified Plan: Currently?following?this. Keeping?blood?sugars?controlled?and?advised?that?he?work?on?keeping?his?blood?pressure?is?controlled?with?good?relaxation?and?continuing?blood?pressure?medications. He?is?already?on?an?KAY?inhibitor We?will?continue?to?follow Creatinine?and?GFR?are?okay.??If?this?changes,?will?refer Orders: Orders AMB Hemoglobin A1c Today Z13.9 - Encounter for screening, unspecified Coding Level of Care Code Est Pt Level 4 (03154) Diagnoses Diabetes type 2, controlled E11.9 Essential hypertension I10 Hypercholesterolemia E78.00 Microalbuminuria R80.9
[2023-07-23 11:39] VITALS: BP 160/84; PULSE 104; RESP 13; TEMP 36.6; O2SAT 99; BMI 26.8
[2023-07-23 12:36] VITALS: BP 132/62
== END 2023-07-23 13:01 | disposition home or self-care (01) ==
PROVIDERS: PCP Family Medicine; Visit Provider Family Medicine
DX: E11.9 Type 2 diabetes mellitus without complications (principal); I10 Essential (primary) hypertension; E78.00 Pure hypercholesterolemia, unspecified; R80.9 Proteinuria, unspecified
CPT/HCPCS: 83036; 99214

== ENCOUNTER → 2023-08-08 12:55 | Outpatient (REF) | payer MEDICARE, MEDICAID, SELFPAY ==
--- NOTE | 2023-08-08 12:58 | CA_ITS ---
Transthoracic Echocardiogram Patient (Last, First, Middle): Amrik Baetman, Gender: Male Date of : 1955 Age: 67 Procedure Date: 08/08/2023 Procedure Type: Transthoracic Echocardiogram Location: OP Height: 167.64 cm Weight: 77.11 kg BSA: 1.87 m2 Heart Rate: bpm BP: 124 / 68 mmHg [employer] Vendor: MALI Referring MD: Sara Nickerson JOINT MACHINE OPERATOR-C Music Publisher: Samuel Seay MD Symptoms: I48.0 - Paroxysmal atrial fibrillation Study Quality: Fair ECG Rhythm: Sinus Conclusions: - 1. Normal LV ejection fraction of 60-65% with impaired relaxation filling pattern 2. Mild aortic regurgitation 3. Normal RV systolic pressure 4. No gross pericardial effusion Findings Left Ventricle Normal left ventricular size, thickness, and systolic function. The visually estimated ejection fraction is between 60-65%. Spectral Doppler is indicative of an impaired relaxation filling pattern. E/E prime ratio is between 8 and 15 consistent with indeterminate filling pressures. Peak GLS is -17.7%, borderline normal. Right Ventricle Normal right ventricular cavity size and systolic function. Atria The left atrium is normal in size. There is lipomatous hypertrophy of the interatrial septum. Interatrial shunt cannot be excluded. The right atrium is normal in size. Aortic Valve Normal aortic valve structure and function. There is no aortic valve stenosis. There is mild aortic valve regurgitation. Mitral Valve There is mild anterior and posterior mitral leaflet thickening. There is mild mitral annular calcification. There is trace mitral valve regurgitation. There is no mitral valve stenosis. Pulmonic Valve The pulmonic valve was not well visualized. Tricuspid Valve Likely normal tricuspid valve structure and function. There is trace tricuspid valve regurgitation. The right ventricular systolic pressure is normal. The right ventricular systolic pressure is 17 mmHg. Normal right atrial pressure. There is no evidence of pulmonary hypertension. Great Vessels All visible segments of the aorta are normal in size. The pulmonary artery was not well visualized. There is no dilatation of the ascending aorta. Venous The inferior vena cava is normal in size and collapses greater than 50% with inspiration. Pericardium/Pleural There is no evidence of pericardial effusion. Prior Study Comparison No significant change compared to prior study dated: 08/30/2021. Measurements 2D Linear Measurements IVSd: 0.99 0.6-0.9/0.6-1.0 cm LVIDd: 4.11 3.9-5.3/4.2-5.9 cm LVIDd Index: 2.20 2.4-3.2/2.2-3.1 cm/m2 LVIDs: 2.84 2.0-3.6 cm LVPWd: 0.95 0.7-1.1 cm LA Diam: 2.70 2.7-3.8/3.0-4.0 cm LAIDs Index: 1.44 1.5-2.3 cm/m2 LV Mass: 157.41 67-162/88-224 g LV Mass Index: 84.18 43-95/49-115 g/m2 LVOT Diam: 2.00 3.0+(-)1.3 cm 2D Systolic Function EF 4C: 59.00 >55% EF 2C: 63.90 >55% EF BiP: 61.80 >55% Mitral Valve MV Pk E: 0.73 MV PK A: 0.87 MV Decel Time: 210.00 E/A: 0.80 E'Lateral: 6.74 E'Medial: 4.90 E/E' Med: 15.00 E/E' Lat: 10.90 PHT: 61.00 MVA PHT: 3.61 Decel [place]: 3.49 Aortic Valve AoV Pk Curtis: 1.29 AoV Mn Curtis: 0.94 AoV VTI: 0.31 AoV Pk Grad: 7.00 Aov Mn Grad: 4.00 SHEILA Cont.VTI: 2.21 LVOT LVOT Pk Curtis: 1.05 LVOT Mn Curtis: 0.69 LVOT VTI: 0.22 LVOT Pk Grad: 4.00 LVOT Mn Grad: 2.00 LVOT Diam: 2.00 LVOT Area: 3.14 Diastolic Function MV Pk E: 0.73 MV Pk A: 0.87 E/A: 0.80 E'Medial: 4.90 E/E' Med: 15.00 E' Laterial: 6.74 E/E' Lat: 10.90 Right Ventricle TAPSE (mm): 20.80 TVS' Curtis: 11.50 Tricuspid Valve TR Pk Curtis: 1.50 TR Pk Grad: 9.00 RA Press: 8.00 RVSP: 17.00 Great Vessels Aorta Sinus of Valsalva: 3.95 2.0-3.[address] [place]: 2.59 1.7-3.4 cm Ao Asc: 3.30 2.1-3.4 cm Updated in Other Vendor System with Status of Final Samuel Seay MD electronically signed on 08/09/2023 4:14:55 PM with status of Final
== END ==
LOC: HO.CARD 12:55
PROVIDERS: PCP Family Medicine; Visit Provider Nurse Practitioner Family
DX: I48.0 Paroxysmal atrial fibrillation (principal); I35.1 Nonrheumatic aortic (valve) insufficiency
CPT/HCPCS: 93306; 93356

== ENCOUNTER → 2023-08-08 12:58 | Outpatient (BNV) | payer MEDICARE, MEDICAID, SELFPAY | PROVIDERS: PCP Family Medicine; Visit Provider Internal Medicine Cardiovascular Disease | DX: I35.1 Nonrheumatic aortic (valve) insufficiency (principal); I48.0 Paroxysmal atrial fibrillation | CPT/HCPCS: 93306 ==

== ENCOUNTER 2023-08-22 13:10 | Outpatient (AMB) | payer MEDICARE, MEDICAID, SELFPAY ==
[2023-08-22 13:14] VITALS: BP 120/82; PULSE 80; BMI 27.5
--- NOTE | 2023-08-22 13:14 | MHC.OFFVIS ---
Intake Vital Signs 08/22/23 13:14 Height 5 ft 6 in Weight 170 lb 3.15 oz BMI 27.5 BP 120/82 Blood Pressure Location Lt brachial Position Sitting Pulse 80 Intake Visit Reasons: 6 month follow up Radio Commentator Required: No Allergies No Known Allergies [No Known Allergies*] Allergy (Verified 08/22/23 13:16) Medication List - Last Reconciled 08/22/23 by Sara Nickerson POWER LINE INSTALLER AND REPAIRER-C acetaminophen ER 1,300 mg (2 x 650 mg) PO Q8H PRN 90 days allopurinol 100 mg PO QAM 30 days apixaban (Eliquis) 5 mg PO BID 90 days blood sugar diagnostic (FreeStyle Lite Strips) check blood sugar daily and daily prn blood-glucose meter (FreeStyle Lite Meter kit) As directed carvedilol 6.25 mg PO BID 90 days cholecalciferol (vitamin D3) (Vitamin D3) 50 mcg PO QAM ezetimibe (Zetia) 10 mg PO DAILY 90 days glimepiride 1 mg PO QAM hydrochlorothiazide 25 mg PO DAILY 90 days lacosamide (Vimpat) 50 mg (1/2 x 100 mg) PO BEDTIME 90 days lancets As directed levetiracetam 500 mg PO QAM levetiracetam 250 mg PO BEDTIME 90 days lisinopril 40 mg PO DAILY nifedipine ER 60 mg PO BID omega [id number]-[id number]-fish oil 1,000 mg (120 mg-180 mg) 1 cap PO DAILY 90 days HPI 6 month follow up HPI Details Amrik is a 67-year-old male with past medical history of hypertension, hyperlipidemia, diabetes, paroxysmal AFib who presents for follow-up after recent echocardiogram. Today he reports been doing well since his last visit. He denies having any chest discomfort at rest with activity. No heart palpitations. No shortness of breath, PND, orthopnea, edema, presyncope, syncope, falls. He does light physical activity. Takes all meds as directed. No bleeding issues reported with Eliquis use. [facility] Medical History Epilepsy History of gout Paroxysmal atrial fibrillation History of seizures History of CVA (cerebrovascular accident) White coat syndrome with diagnosis of hypertension Essential hypertension Diabetes type 2, controlled Surgical History No pertinent past surgical history Family History Father No problems noted. Mother No problems noted. Brother No problems noted. Sister No problems noted. Sister No problems noted. Social History Housing: House Alcohol intake: current Alcohol intake frequency: holidays/special occasions only Patient Tobacco Use Status: Never used Tobacco e-Cigarette/Vaping Use: Never Used Second Hand Smoke Exposure: No Advance Directives Date on File: 08/02/20 service: No Current occupational status: unemployed Current occupation: Patient does not want to answer Current occupational exposures/hazards: No Cognitive needs: No Hearing needs: No Vision needs: No Review of Systems Const All systems reviewed & are unremarkable except as noted in HPI and below ENT Denies dizziness Card Denies chest pain, Denies chest pain at rest, Denies chest pain with activity, Denies rapid heart rate, Denies pedal edema, Denies edema, Denies leg edema, Denies lightheadedness, Denies palpitations, Denies dyspnea, Denies dyspnea on exertion and Denies orthopnea Resp Denies cough, Denies dyspnea and Denies dyspnea on exertion GI Denies hematochezia and Denies change in stool character Musc Denies abnormal gait, Denies limited range of motion, Denies muscle cramps, Denies muscle weakness, Denies numbness, Denies radiating pain into limb, Denies stiffness and Denies tingling Neuro Denies abnormal gait, Denies dizziness, Denies numbness and Denies tingling Endo Denies palpitations Physical Exam Vital Signs: Last Vital Signs Pulse 80 08/22/23 13:14 BP 120/82 08/22/23 13:14 BMI result Body Mass Index 27.5 Const General: cooperative, healthy appearing, comfortable and no acute distress Orientation/consciousness: patient oriented x3 Neck Neck: Yes normal visual inspection Resp Effort & Inspection: normal respiratory effort Auscultation: clear to auscultation bilaterally, no crackles, no rales, no rhonchi and no wheezes Cardio Jugular venous distension: no JVD Rate: regular rate Rhythm: regular rhythm Heart sounds: S1 normal heart sound present, S2 normal heart sound present, no murmurs and no rubs Neuro General: patient oriented x3 Extrem General: Yes normal to inspection and No no pedal edema Psych Appearance: grossly normal Mental Status: mental status grossly normal Speech and movement: Normal speech and movement present Office Procedures EKG Details: Today, read by me, normal sinus rhythm, first-degree AV block, minimal voltage criteria for LVH, nonspecific T-wave abnormality, rate 80, QTC 422 millisecond [id number], Complete Assessment & Plan Assessment & Plan (1) Paroxysmal atrial fibrillation: Code(s): I48.0 - Paroxysmal atrial fibrillation Plan: History of paroxysmal atrial fibrillation. EKG done today showing normal sinus rhythm, first-degree AV block, minimal voltage for LVH, nonspecific T-wave abnormality, rate 80, QTC 422 millisecond. Echocardiogram done 08/08/2023 showing EF 60-65%, mild aortic regurgitation, normal RV. Patient denies any heart palpitations or chest discomfort. He continues on carvedilol for heart rate and blood pressure control. He is on Eliquis for anticoagulation. No bleeding issues reported. Labs done 07/11/2023 shows creatinine 0.99. Continue current meds without change. (2) Essential hypertension: Code(s): I10 - Essential (primary) hypertension Plan: History of hypertension. BP adequately controlled at present. Continue carvedilol, hydrochlorothiazide, lisinopril, nifedipine. Labs 07/11/23 K 3.5. normal Cr. He should have repeat labs followed twice yearly. Cardiology follow-up in 1 year sooner if needed (3) Abnormal echocardiogram: Code(s): R93.1 - Abnormal findings on diagnostic imaging of heart and coronary circulation Plan: Echocardiogram done 08/30/2021 showing EF 55-60%, grade 1 diastolic dysfunction, possible inferior wall motion abnormality, mild AR. Followed by Nuclear stress test on 10/08/21 showing normal myocardial perfusion imaging. Repeat echo recently done, as above, no reported wall motion abnormality . Denies any concerning symptoms today. Does not appear fluid overloaded. (4) Aortic regurgitation: Code(s): I35.1 - Nonrheumatic aortic (valve) insufficiency Plan: Mild aortic regurgitation. Did not change between 2020 and now. Patient Instructions: Time this visit spent on chart review, documentation, interview and assessment Coding Level of Care Code Est Pt Level 3 (74495) Diagnoses Paroxysmal atrial fibrillation I48.0 Essential hypertension I10 Abnormal echocardiogram R93.1 Aortic regurgitation I35.1 CPT Codes EKG - CPT: [id number], Complete ([id number]) Time Spent (min) 24
== END 2023-08-22 13:43 | disposition home or self-care (01) ==
PROVIDERS: Visit Provider Nurse Practitioner Family
DX: I48.0 Paroxysmal atrial fibrillation (principal); I10 Essential (primary) hypertension; R93.1 Abnormal findings on diagnostic imaging of heart and coronary circulation; I35.1 Nonrheumatic aortic (valve) insufficiency
CPT/HCPCS: 93010; 99213

== ENCOUNTER → 2023-08-22 13:10 | Outpatient (BNVA) | payer MEDICARE, MEDICAID, SELFPAY | PROVIDERS: Visit Provider Nurse Practitioner Family | DX: I48.0 Paroxysmal atrial fibrillation (principal); I35.1 Nonrheumatic aortic (valve) insufficiency; I10 Essential (primary) hypertension; R93.1 Abnormal findings on diagnostic imaging of heart and coronary circulation | CPT/HCPCS: 93005; 99212 ==

== ENCOUNTER 2023-10-22 11:51 | Outpatient (AMB) | payer MEDICARE, MEDICAID, SELFPAY ==
--- NOTE | 2023-10-22 12:05 | MHC.PC.OV ---
Vital Signs 10/22/23 12:07 Height 5 ft 6 in Weight 170 lb BMI 27.4 BP 150/80 H Blood Pressure Location Lt brachial Position Sitting Respiration 12 Pulse 90 Pulse Source Pulse Oximeter Pulse Oximetry (%) 97 Oxygen Delivery Method Room Air Intake Visit Reasons: Follow-up diabetes, hypertension Intake Note: Patient is here to follow up for diabetes and high blood pressure. Patient is concerned about his blood pressure being elevated. Patient has paperwork for todays visit for provider to review and sign. Inspector Final Assembly Conveyor Line Required: No Accompanied by: Self / Same As Patient Allergies No Known Allergies [No Known Allergies*] Allergy (Verified 10/22/23 12:17) Tobacco use date assessed: 04/23/23 HPI Follow-up diabetes, hypertension HPI Details 67 y/o male presents to f/u diabetes, hypertension. Hx of CVA. A1c today 10/22/23 7.0%, which worsened from 6.8%. He is on glimepiride 1mg. Blood pressure today 150/80. He is on lisinopril 40mg, nifedipine 60mg b.i.d., carvedilol 6.25mg b.i.d, hydrochlorothiazide 25mg. Pt states he is able to check his blood pressure at home. It has been in the 120s systolic at home. [facility] Medical History Epilepsy History of gout Paroxysmal atrial fibrillation History of seizures History of CVA (cerebrovascular accident) White coat syndrome with diagnosis of hypertension Essential hypertension Diabetes type 2, controlled Surgical History No pertinent past surgical history Family History Father No problems noted. Mother No problems noted. Brother No problems noted. Sister No problems noted. Sister No problems noted. Social History Housing: House Alcohol intake: current Alcohol intake frequency: holidays/special occasions only Patient Tobacco Use Status: Never used Tobacco e-Cigarette/Vaping Use: Never Used Second Hand Smoke Exposure: No Advance Directives Date on File: 08/02/20 service: No Current occupational status: unemployed Current occupation: Patient does not want to answer Current occupational exposures/hazards: No Cognitive needs: No Hearing needs: No Vision needs: No Questionnaire FRANC-7 AMB Questionnaire FRANC-7 Date FRANC - 7 assessed: 07/03/22 Source: Developed by Drs. Darien Higginbotham, Erin Vargas, Dony Arevalo and colleagues, with an educational otilia from [employer]. Review of Systems Const Denies chills, Denies fatigue, Denies fever(s), Denies headache(s) and Denies weakness ENT Denies dizziness and Denies headache(s) Card Denies dyspnea Resp Denies cough, Denies dyspnea, Denies wheezing and Denies other (shortness of breath) Musc Denies numbness and Denies tingling Neuro Denies dizziness, Denies headache(s), Denies numbness, Denies tingling and Denies weakness Psych Denies anxiety and Denies depression Endo Denies fatigue Aller/Immun Denies wheezing Physical exam (Primary Care) Vital Signs: Last Vital Signs Pulse 90 10/22/23 12:07 Resp 12 10/22/23 12:07 BP 150/80 H 10/22/23 12:07 Pulse Ox 97 10/22/23 12:07 Oxygen Delivery Method Room Air 10/22/23 12:07 BMI result Body Mass Index 27.4 Tobacco/Smoking Status: Tobacco use Status Tobacco use date assessed 04/23/23 10/22/23 12:16 Patient Tobacco Use Status Never used Tobacco 10/22/23 12:16 e-Cigarette/Vaping Use Never Used 10/22/23 12:16 Const General: well developed; No acute distress Nutritional Appearance: well nourished Orientation/consciousness: patient oriented x3 HENMT Head: Yes normocephalic and Yes atraumatic Eyes General: appearance normal, both eyes and all related structures Pupils: Equal, round and reactive pupils present EOM: EOMs intact bilaterally Resp Effort & Inspection: normal respiratory effort Auscultation: clear to auscultation bilaterally Cardio Rate: regular rate Rhythm: regular rhythm Heart sounds: S1 normal heart sound present, S2 normal heart sound present, no gallops, no murmurs and no rubs Neuro General: patient oriented x3 and gait normal Cranial nerves: Yes Equal, round and reactive pupils present Psych Affect: normal affect Results AMB Hemoglobin A1c AMB Hemoglobin A1c 7.0 % Last Edit by Krupa Grover CMA on 10/22/23 12:30 Results Reviewed Results Reviewed: Laboratory Last Values Hgb A1c (Clinic) 7.0 % (4.0-6.0) H 10/22/23 12:28 Assessment and Plan Assessment & Plan (1) Diabetes type 2, controlled: Code(s): E11.9 - Type 2 diabetes mellitus without complications Plan: A1c?7.0%.??Fairly?good?control. ?Goal?7.0%?or?less Continue?glyburide?as?prescribed Encouraged?diabetic?diet (2) Essential hypertension: Code(s): I10 - Essential (primary) hypertension Plan: Patient?has?history?of?white?coat?syndrome?and?fluctuating?blood?pressures?in?office. Prior?logs?of?his?blood?pressures?at?home?have?shown?good?control?and?patient?is?able?to?monitor?this. He?notes?blood?pressures?at?home?show?good?control?with?systolic?blood?pressures?in?the?120s. Blood?pressure?in?the?office?is?elevated. Encouraged?him?to?watch?blood?pressures?at?home?and?let?me?know?if?still?high. (3) History of CVA (cerebrovascular accident): Code(s): Z86.73 - Personal history of transient ischemic attack (TIA), and cerebral infarction without residual deficits Plan: Known?history?of?CVA. Stable Orders: Orders AMB Hemoglobin A1c Today E11.9 - Type 2 diabetes mellitus without complications Coding Level of Care Code Est Pt Level 3 (35336) Diagnoses Diabetes type 2, controlled E11.9 Essential hypertension I10 History of CVA (cerebrovascular accident) Z86.73
[2023-10-22 12:07] VITALS: BP 150/80; PULSE 90; RESP 12; O2SAT 97; BMI 27.4
== END 2023-10-22 13:05 | disposition home or self-care (01) ==
PROVIDERS: PCP Family Medicine; Visit Provider Family Medicine
DX: E11.9 Type 2 diabetes mellitus without complications (principal); I10 Essential (primary) hypertension; Z86.73 Personal history of transient ischemic attack (TIA), and cerebral infarction without residual deficits
CPT/HCPCS: 83036; 99213

== ENCOUNTER 2024-01-09 09:09 | Outpatient (REF) | payer MEDICARE, MEDICAID, SELFPAY ==
[2024-01-09 11:25] LABS: MANUAL DIFF FLAG NO
[2024-01-09 11:28] LABS: Basophils Percent Auto 0.4 % (0-2); Eosinophils Absolute Auto 0.1 X10*3/uL (0.0-0.4); Eosinophils Percent Auto 1.4 % (0-4); Hemoglobin 13.6 g/dl (14.0-18.0); Imm Gran Abs Auto 0.04 X10*3/uL (0.00-0.03); Imm Gran Pct Auto 0.4 % (0.0-0.4); Lymphocytes Percent Auto 31.3 % (20-40); Mean Corpuscular HGB Conc 33.2 g/dl (31.0-36.0); Mean Corpuscular Hemoglobin 29.2 pg (27.0-33.0); Mean Corpuscular Volume 88.2 fL (80.0-98.0); Mean Platelet Volume 10.5 fL (9.4-12.4); Monocytes Absolute Auto 0.7 X10*3/uL (0.1-1.2); Monocytes Percent Auto 7.1 % (2-11); Neutrophils Absolute Auto 5.7 x10*3/uL (2.0-8.3); Neutrophils Percent Auto 59.4 % (45-73); Platelet Count 257 X10*3/uL (160-400); Red Blood Count 4.65 X10*6/uL (4.60-5.80); Red Cell Distribution Width 13.9 % (11.0-16.0); White Blood Count 9.5 X10*3/uL (4.8-10.8)
[2024-01-09 11:29] LABS: Appearance Urine Clear; Color Urine Yellow; Glucose Urine UA Negative (Negative); Leukocyte Esterase Urine Negative (Negative); Nitrite Urine Negative (Negative); UMIC TRIGGER UA YES; Urine Blood Negative (Negative); Urine Ketones Negative (Negative); Urine Protein 100 (2+) mg/dL (Neg-Trace)
[2024-01-09 11:32] LABS: Bacteria Urine None Seen (None Seen); Hyaline Casts Urine 0-2 /LPF (0-2); RBC Urine 0-2 /HPF (0-2); Squamous Epithelial Cell Urine 0-2 /HPF (0-2); WBC Urine 0-5 /HPF (0-5)
[2024-01-09 11:37] LABS: Estimated Average Glucose 146 mg/dL; Hemoglobin A1c % 6.7 % (<6.0)
[2024-01-09 12:03] LABS: Microalbum/Creatinine Ratio Ur 738.7 ug/mg cr (<30)
[2024-01-09 12:07] LABS: Alanine Aminotransferase 23 U/L (0-40); Albumin Level 4.5 g/dL (3.5-5.0); Alkaline Phosphatase 77 U/L (39-117); Anion Gap 16 (12-20); Aspartate Amino Transferase 20 U/L (5-37); Bilirubin Total 0.5 mg/dL (0.0-1.0); Blood Urea Nitrogen 11 mg/dL (9-16); Calcium 10.2 mg/dL (8.4-10.2); Carbon Dioxide 31 mmol/L (22-29); Chloride 99 mmol/L (96-108); Cholesterol 199 mg/dL (<200); Estimated Glomerular Filt Rate > 60; Glucose Fasting 143 mg/dL (60-99); HDL Cholesterol 51 mg/dL (>40); LDL Cholesterol Calculated 130 mg/dL (<100); Potassium 3.3 mmol/L (3.3-5.1); Sodium 143 mmol/L (135-145); TSH reflex Free T4 1.75 uIU/mL (0.32-4.0); Total Protein 7.9 g/dL (6.5-8.0); Triglycerides 90 mg/dL (<150); Vitamin D 25-OH Total 60.9 ng/mL (>30)
[2024-01-09 12:20] LABS: Prostate Specific Antigen Scr 1.38 ng/mL (<0.05-4.0)
== END 2024-01-09 09:10 | disposition home or self-care (01) ==
LOC: HO.WFDLDS 09:09
PROVIDERS: Visit Provider Family Medicine
DX: Z00.00 Encounter for general adult medical examination without abnormal findings (principal); E55.9 Vitamin D deficiency, unspecified; I10 Essential (primary) hypertension; R73.01 Impaired fasting glucose; Z12.5 Encounter for screening for malignant neoplasm of prostate
CPT/HCPCS: 36415; 80053; 80061; 81001; 82043; 82306; 82570; 83036; 84153; 84443; 85025

== ENCOUNTER 2024-01-20 15:55 | Outpatient (AMB) | payer MEDICARE, MEDICAID, SELFPAY ==
--- NOTE | 2024-01-20 16:00 | MHC.PC.OV ---
Vital Signs 01/20/24 16:01 01/20/24 16:53 Height 5 ft 6 in Weight 169 lb 8 oz BMI 27.4 BP 140/78 H Blood Pressure Location Lt brachial Position Sitting Respiration 14 Pulse 108 H 96 Pulse Source Pulse Oximeter Auscultation Pulse Oximetry (%) 98 Oxygen Delivery Method Room Air Intake Visit Reasons: PE Intake Note: Patient is here for his physical today. Allergies No Known Allergies [No Known Allergies*] Allergy (Verified 01/20/24 16:07) Medication List - Last Reconciled 01/20/24 by Wiley Pablo MD acetaminophen ER 1,300 mg (2 x 650 mg) PO Q8H PRN 90 days allopurinol 100 mg PO QAM 30 days apixaban (Eliquis) 5 mg PO BID 90 days blood sugar diagnostic (FreeStyle Lite Strips) check blood sugar daily and daily prn blood-glucose meter (FreeStyle Lite Meter kit) As directed carvedilol 6.25 mg PO BID 90 days cholecalciferol (vitamin D3) (Vitamin D3) 50 mcg PO QAM ezetimibe (Zetia) 10 mg PO DAILY 90 days glimepiride 1 mg PO QAM hydrochlorothiazide 25 mg PO DAILY 90 days lacosamide (Vimpat) 50 mg (1/2 x 100 mg) PO BEDTIME 90 days lancets As directed levetiracetam 500 mg PO QAM levetiracetam 250 mg PO BEDTIME 90 days lisinopril 40 mg PO DAILY miscellaneous medical supply Diabetic Shoes, Daily As directed, 999 days nifedipine ER 60 mg PO BID omega 9-osc-atj-fish oil 1,000 mg (120 mg-180 mg) 1 cap PO DAILY 90 days Tobacco use date assessed: 01/20/24 Fall risk assessment: No Falls in past year Last assessed Fall Risk: 01/20/24 Dental Screening Dental Screen Date: 07/23/23 HPI PE HPI Details 68 y/o male presents for an extended exam with f/u labs and health maintenance. Labs were drawn 01/09/24. Reviewed labs with pt. Mild anemia. Fasting glucose of 143 - A1c 6.7%. He is on glimepiride 1mg. Triglycerides 90. TC 190. LDL 130. HDL 51. Microalbuminuria. Blood pressure today 140/78, 108p. He is on nifedipine 60mg b.i.d, lisinopril 40mg, carvedilol 6.25mg b.i.d. Mental status exam shows some mild concentration/memory difficulties. Pt is unsteady today and pt states he is waiting for custom shoes from podiatry. HPI Comments History of Present Illness Details Documentation assistance for Wiley Pablo MD, was provided by Idris Wayne,? Hvac Mechanical Engineer on 01/20/2024 4:29 PM EST. I, Dr. Pablo, have read, observed, and verified documentation. [facility] Medical History Epilepsy History of gout Paroxysmal atrial fibrillation History of seizures History of CVA (cerebrovascular accident) White coat syndrome with diagnosis of hypertension Essential hypertension Diabetes type 2, controlled Surgical History No pertinent past surgical history Family History Father No problems noted. Mother No problems noted. Brother No problems noted. Sister No problems noted. Sister No problems noted. Social History Housing: House Alcohol intake: current Alcohol intake frequency: holidays/special occasions only Patient Tobacco Use Status: Never used Tobacco e-Cigarette/Vaping Use: Never Used Second Hand Smoke Exposure: No Advance Directives Date on File: 08/02/20 service: No Current occupational status: unemployed Current occupation: Patient does not want to answer Current occupational exposures/hazards: No Cognitive needs: No Hearing needs: No Vision needs: No Questionnaire PHQ-9 Over the last 2 weeks, how often have you been bothered by any of the following problems? 1. Little interest or pleasure in doing things: nearly every day 2. Feeling down, depressed, or hopeless: more than half the days 3. Trouble falling or staying asleep, or sleeping too much: several days 4. Feeling tired or having little energy: not at all 5. Poor appetite or overeating: not at all 6. Feeling bad about yourself - or that you are a failure or have let yourself or your family down: not at all 7. Trouble concentrating on things, such as reading the newspaper or watching television: not at all 8. Moving or speaking so slowly that other people could have noticed. Or the opposite - being so fidgety or restless that you have been moving around a lot more than usual: not at all 9. Thoughts that you would be better off or of hurting yourself in some way: not at all Total score: 6 Depression Screening Interpretation: Positive Depression Screening Follow-up: Declines treatment Depression Screening Done: Yes 30751 - PHQ-9 Billing: Yes Source: Developed by Drs. Darien Higginbotham, Erin Vargas, Dony Arevalo and colleagues, with an educational otilia from [employer]. AUDIT C Alcohol Use Questionnaire (AUDIT-C) 1. How often do you have a drink containing alcohol?: Never 3. How often do you have six or more drinks on one occasion?: Never Total Score: 0 FRANC-7 AMB Questionnaire FRANC-7 Date FRANC - 7 assessed: 01/20/24 Feeling nervous, anxious, or on edge: 3 = Nearly every day Not being able to stop or control worryin = Nearly every day Worrying too much about different things: 3 = Nearly every day Trouble relaxin = Nearly every day Being so restless that it is hard to sit still: 3 = Nearly every day Becoming easily annoyed or irritable: 3 = Nearly every day Feeling afraid as if something awful might happen: 3 = Nearly every day Total FRANC-7 score (0-4 normal; 5-9 mild; 10-14 moderate; 15-21 severe): 21 Source: Developed by Drs. Darien Higginbotham, Erin Vargas, Dony Arevalo and colleagues, with an educational otilia from [employer]. FRANC-7 Assessment Billing FRANC-7 Assessment Tool: FRANC-7 Assessment 25807 Review of Systems Const Denies chills, Denies fatigue, Denies fever(s), Denies headache(s) and Denies weakness Eyes Denies change in vision ENT Denies dizziness, Denies headache(s), Denies hearing loss, Denies nasal congestion, Denies sinus pain, Denies sinus pressure and Denies sore throat Card Denies chest pain, Denies lightheadedness, Denies dyspnea and Denies other (palpitations) Resp Denies cough, Denies dyspnea and Denies wheezing GI Denies abdominal pain, Denies melena, Denies hematochezia, Denies change in bowel habits, Denies dyspepsia and Denies nausea Denies hematuria and Denies dysuria Musc Denies abnormal gait, Denies myalgias, Denies arthralgias, Denies numbness and Denies tingling Skin/Breast Denies rash, Denies unusual bruising and Denies wounds Neuro Denies abnormal gait, Denies dizziness, Denies headache(s), Denies memory loss, Denies numbness, Denies Sensory deficit (Neuro), Denies tingling and Denies weakness Psych Denies anxiety, Denies depression and Denies memory loss Endo Denies cold intolerance, Denies fatigue, Denies heat intolerance, Denies polydipsia and Denies polyuria Ashish/Lymph Denies easy bleeding and Denies easy bruising Aller/Immun Denies wheezing Physical exam (Primary Care) Vital Signs: Last Vital Signs Pulse 108 H 01/20/24 16:01 Resp 14 01/20/24 16:01 BP 140/78 H 01/20/24 16:01 Pulse Ox 98 01/20/24 16:01 Oxygen Delivery Method Room Air 01/20/24 16:01 BMI result Body Mass Index 27.4 Tobacco/Smoking Status: Tobacco use Status Tobacco use date assessed 01/20/24 01/20/24 16:12 Patient Tobacco Use Status Never used Tobacco 01/20/24 16:04 e-Cigarette/Vaping Use Never Used 01/20/24 16:04 PHQ-9: PHQ-9 Score PHQ-9: Total score 6 01/20/24 16:28 Depression Screening Interpretation: Positive Depression Screening Follow-up: Declines treatment Const General: no acute distress, well developed, alert and awake Nutritional Appearance: well nourished Orientation/consciousness: patient oriented x3 HENMT Head: Yes normocephalic and Yes atraumatic Ears: hearing grossly normal bilaterally and TM's normal bilaterally General nose exam: Normal external nose present and Normal nares present Mouth: Normal oral and palatal mucosa present and moist mucous membranes Teeth and gingiva: dentition normal Throat: Yes posterior oropharynx normal Eyes General: appearance normal, both eyes and all related structures Pupils: Equal, round and reactive pupils present and Pupil accommodation reflex normal EOM: EOMs intact bilaterally Neck Neck: Yes normal visual inspection, Yes no lymphadenopathy and Yes trachea midline Thyroid: Thyroid normal Carotids: no bruits Lymphatic: no lymphadenopathy noted Chest Chest palpation & inspection: normal inspection of the chest Resp Effort & Inspection: normal respiratory effort Auscultation: clear to auscultation bilaterally Cardio Rate: regular rate Rhythm: regular rhythm Heart sounds: S1 normal heart sound present, S2 normal heart sound present, no gallops, no murmurs and no rubs Bruits: no abdominal aortic bruits and no carotid bruits GI Palpation (GI): No Abdominal aortic bruit present, Soft to palpation, nontender, No hepatosplenomegaly present and No Rebound tenderness present Auscultation: normal bowel sounds General: Yes no CVA tenderness Back/Spine/Pelvis Back: no CVA tenderness Cervical Spine: cervical ROM normal and No Cervical spine tenderness Thoracic/Lumbar Spine: thoraco-lumbar ROM normal, No pain with thoraco-lumbar ROM, No thoracic spinal tenderness and No lumbar spinal tenderness Skin Lesions: no lesions Rashes: no rashes Trauma: no lacerations or abrasions Wounds: no wounds Nails: normal Neuro Other: MMSE 2/3 on 3-item recall. Some difficulties with Serial 7s. Good orientation and judgment appropriate. General: patient oriented x3 and No gait normal Cranial nerves: Yes Equal, round and reactive pupils present Cognition (Neuro): normal cognition Gait exam (Neuro): gait abnormal Motor exam (neuro): 5/5 motor strength present throughout Sensory Exam: No Sensory deficit (Neuro) Deep tendon reflexes (DTR's): Right patellar reflex intensity grade: 2+ and Left patellar reflex intensity grade: 2+ Extrem General: Yes normal to inspection and No edema Psych Appearance: grossly normal Affect: normal affect Attitude: cooperative Thought process: Normal thought process present Results AMB Hemoglobin A1c AMB Hemoglobin A1c 7.8 % Last Edit by Bety Pride CMA on 01/20/24 16:45 Assessment and Plan Assessment & Plan (1) Essential hypertension: Code(s): I10 - Essential (primary) hypertension Plan: Blood?pressure?mildly?elevated Encouraged?weight?loss?and?lifestyle?changes.??Continue?current?medications (2) Mild anemia: Code(s): D64.9 - Anemia, unspecified Plan: No?bleeding Stable (3) Diabetes type 2, controlled: Code(s): E11.9 - Type 2 diabetes mellitus without complications Plan: A1c?by?blood?was?6.7%?recently. His?blood?sugars?at?home?show?good?control Will?have?him?return?to?follow-up?on?this?in?a?month Continue?current?medications?and?work?at?a?diet?low?in?sugars?and?starches (4) Hypercholesterolemia: Code(s): E78.00 - Pure hypercholesterolemia, unspecified Plan: He?is?on?Zetia Encouraged?diet?lower?in?saturated?fats?and?cholesterol (5) Unsteady gait: Code(s): R26.81 - Unsteadiness on feet Plan: Patient?is?awaiting?custom?shoes?from?Podiatry Will?request?report (6) Memory changes: Code(s): R41.3 - Other amnesia Plan: History?of?CVA?and?some?mild?issues?with?memory?and?focus. Good?orientation Good?judgment (7) History of CVA (cerebrovascular accident): Code(s): Z86.73 - Personal history of transient ischemic attack (TIA), and cerebral infarction without residual deficits Plan: History?of?CVA Now?stable (8) Microalbuminuria: Code(s): R80.9 - Proteinuria, unspecified Plan: Discussed?improving?blood?sugar,?blood?pressure?and?cholesterol?control Encouraged?lifestyle?changes (9) Screening for colon cancer: Code(s): Z12.11 - Encounter for screening for malignant neoplasm of colon Plan: Due?for?follow-up?and?referred?to?Gastroenterology (10) Screening for prostate cancer: Code(s): Z12.5 - Encounter for screening for malignant neoplasm of prostate Plan: PSA?is?within?normal (11) Adult general medical exam: Code(s): Z00.00 - Encounter for general adult medical examination without abnormal findings Plan: 68-year-old?male?presents?for?an?extended?exam Stable (12) Anxiety: Code(s): F41.9 - Anxiety disorder, unspecified Plan: Have?discussed?with?patient?before. Declines?treatment Encouraged?relaxation Orders: Orders AMB Hemoglobin A1c Today Z13.9 - Encounter for screening, unspecified Lipid Panel Today Z00.00 - Encounter for general adult medical examination without abnormal findings Uric Acid Today Z87.39 - Personal history of other diseases of the musculoskeletal system and connective tissue Hemoglobin A1c Today R73.01 - Impaired fasting glucose Comprehensive [place]. Panel Fast Today Z00.00 - Encounter for general adult medical examination without abnormal findings Microalbumin, Random (w Creat) Today I10 - Essential (primary) hypertension Referrals Gastroenterology Referral Z12.11 - Encounter for screening for malignant neoplasm of colon Coding Level of Care Code Est Pt Level 4 (99536) Diagnoses Essential hypertension I10 Mild anemia D64.9 Diabetes type 2, controlled E11.9 Hypercholesterolemia E78.00 Unsteady gait R26.81 Memory changes R41.3 History of CVA (cerebrovascular accident) Z86.73 Microalbuminuria R80.9 Screening for colon cancer Z12.11 Screening for prostate cancer Z12.5 Adult general medical exam Z00.00 Anxiety F41.9 Additional Codes FRANC-7 Assessment Billing - FRANC-7 Assessment Tool: FRANC-7 Assessment [id number] ([id number])
[2024-01-20 16:01] VITALS: BP 140/78; PULSE 108; RESP 14; O2SAT 98; BMI 27.4
[2024-01-20 16:53] VITALS: PULSE 96
== END 2024-01-20 17:11 | disposition home or self-care (01) ==
PROVIDERS: PCP Family Medicine; Visit Provider Family Medicine
DX: E11.9 Type 2 diabetes mellitus without complications (principal)
CPT/HCPCS: 83036; 99397

== ENCOUNTER 2024-02-27 09:33 | Outpatient (REF) | payer MEDICARE, MEDICAID, SELFPAY ==
[2024-02-27 11:55] LABS: Estimated Average Glucose 148 mg/dL; Hemoglobin A1c % 6.8 % (<6.0)
[2024-02-27 12:27] LABS: Appearance Urine Clear; Color Urine Yellow; Glucose Urine UA Negative (Negative); Leukocyte Esterase Urine Negative (Negative); Nitrite Urine Negative (Negative); Specific Gravity - Urine 1.015 (1.005-1.025); UMIC TRIGGER UA YES; Urine Blood Negative (Negative); Urine Ketones Negative (Negative); Urine Protein 100 (2+) mg/dL (Neg-Trace)
[2024-02-27 12:36] LABS: Alanine Aminotransferase 17 U/L (0-40); Albumin Level 4.3 g/dL (3.5-5.0); Alkaline Phosphatase 65 U/L (39-117); Anion Gap 12 (12-20); Aspartate Amino Transferase 13 U/L (5-37); Bilirubin Total 0.3 mg/dL (0.0-1.0); Blood Urea Nitrogen 14 mg/dL (9-16); Calcium 9.8 mg/dL (8.4-10.2); Carbon Dioxide 31 mmol/L (22-29); Chloride 102 mmol/L (96-108); Cholesterol 181 mg/dL (<200); Estimated Glomerular Filt Rate > 60; Glucose Fasting 118 mg/dL (60-99); HDL Cholesterol 42 mg/dL (>40); LDL Cholesterol Calculated 118 mg/dL (<100); Potassium 3.2 mmol/L (3.3-5.1); Sodium 142 mmol/L (135-145); Total Protein 7.4 g/dL (6.5-8.0); Triglycerides 106 mg/dL (<150); Uric Acid 7.2 mg/dL (3.4-7.0)
[2024-02-27 13:00] LABS: Creatinine Urine 146.58 mg/dL; Microalbum/Creatinine Ratio Ur 302.2 ug/mg cr (<30)
[2024-02-27 13:16] LABS: Bacteria Urine None Seen (None Seen); Hyaline Casts Urine 0-2 /LPF (0-2); RBC Urine 0-2 /HPF (0-2); Squamous Epithelial Cell Urine 0-2 /HPF (0-2); WBC Urine 0-5 /HPF (0-5)
== END 2024-02-27 09:34 | disposition home or self-care (01) ==
LOC: HO.WFDLDS 09:33
PROVIDERS: Visit Provider Family Medicine
DX: Z00.00 Encounter for general adult medical examination without abnormal findings (principal); R73.01 Impaired fasting glucose; I10 Essential (primary) hypertension; Z87.39 Personal history of other diseases of the musculoskeletal system and connective tissue
CPT/HCPCS: 36415; 80053; 80061; 81001; 81003; 82043; 82570; 83036; 84550

== ENCOUNTER 2024-03-12 10:45 | Outpatient (AMB) | payer MEDICARE, MEDICAID, SELFPAY ==
--- NOTE | 2024-03-12 10:56 | MHC.PC.OV ---
Vital Signs 03/12/24 10:57 03/12/24 11:07 Height 5 ft 6 in Weight 172 lb 8 oz BMI 27.8 BP 154/80 H 140/80 H Blood Pressure Location Rt brachial Lt brachial Position Sitting Sitting Respiration 14 Pulse Source Pulse Oximeter Temp 98 F Temp Source Temporal Artery Scan Pulse Oximetry (%) 99 Oxygen Delivery Method Room Air Intake Visit Reasons: Hypertension/Diabetes/Lipids?and?uric?acid Logging Assistant Required: No Accompanied by: Self / Same As Patient Allergies No Known Allergies [No Known Allergies*] Allergy (Verified 03/12/24 11:02) Medication List - Last Reconciled 03/12/24 by Wiley Pablo MD acetaminophen ER 1,300 mg (2 x 650 mg) PO Q8H PRN 90 days allopurinol 100 mg PO QAM 30 days apixaban (Eliquis) 5 mg PO BID 90 days blood sugar diagnostic (FreeStyle Lite Strips) check blood sugar daily and daily prn blood-glucose meter (FreeStyle Lite Meter kit) As directed carvedilol 6.25 mg PO BID 90 days cholecalciferol (vitamin D3) (Vitamin D3) 50 mcg PO QAM ezetimibe (Zetia) 10 mg PO DAILY 90 days glimepiride 1 mg PO QAM hydrochlorothiazide 25 mg PO DAILY 90 days lacosamide (Vimpat) 50 mg (1/2 x 100 mg) PO BEDTIME 90 days lancets As directed levetiracetam 500 mg PO QAM levetiracetam 250 mg PO BEDTIME 90 days lisinopril 40 mg PO DAILY miscellaneous medical supply Diabetic Shoes, Daily As directed, 999 days nifedipine ER 60 mg PO BID omega 5-twz-chx-fish oil 1,000 mg (120 mg-180 mg) 1 cap PO DAILY 90 days Tobacco use date assessed: 01/20/24 Fall risk assessment: No Falls in past year Last assessed Fall Risk: 03/12/24 Dental Screening Dental Screen Date: 03/12/24 Did you have a dental visit in the last 12 months?: Yes Did you have a dental problem in the last 6 months where you did not have access to dental care?: No HPI Hypertension/Diabetes/Lipids?and?uric?acid HPI Details 68 y/o male presents to f/u hypertension, diabetes, lipids and uric acid. Blood pressure today 140/80. He is on lisinopril 40mg, nifedipine 60mg b.i.d, HCTZ 25 mg, carvedilol 6.25mg b.i.d. Labs were drawn 02/27/24. Reviewed labs with pt. A1c 6.8%. Uric acid elevated at 7.2. Trigycerides 106. TC 181. LDL 118. HDL 42. HPI Comments History of Present Illness Details Documentation assistance for Wiley Pablo MD, was provided by Idris Wayne,? Fleet Manager/Dispatch on 03/12/2024 at 11:55 AM EST. I, Dr. Pablo, have read, observed, and verified documentation. [facility] Medical History Epilepsy History of gout Paroxysmal atrial fibrillation History of seizures History of CVA (cerebrovascular accident) White coat syndrome with diagnosis of hypertension Essential hypertension Diabetes type 2, controlled Surgical History No pertinent past surgical history Family History Father No problems noted. Mother No problems noted. Brother No problems noted. Sister No problems noted. Sister No problems noted. Social History Housing: House Alcohol intake: current Alcohol intake frequency: holidays/special occasions only Patient Tobacco Use Status: Never used Tobacco e-Cigarette/Vaping Use: Never Used Second Hand Smoke Exposure: No Advance Directives Date on File: 08/02/20 service: No Current occupational status: unemployed Current occupation: Patient does not want to answer Current occupational exposures/hazards: No Cognitive needs: No Hearing needs: No Vision needs: No Questionnaire FRANC-7 AMB Questionnaire FRANC-7 Date FRANC - 7 assessed: 01/20/24 Source: Developed by Drs. Darien Higginbotham, Erin Vargas, Dony Arevalo and colleagues, with an educational otilia from [employer]. Physical exam (Primary Care) Vital Signs: Last Vital Signs Temp 98 F 03/12/24 10:57 Resp 14 03/12/24 10:57 BP 140/80 H 03/12/24 11:07 Pulse Ox 99 03/12/24 10:57 Oxygen Delivery Method Room Air 03/12/24 10:57 BMI result Body Mass Index 27.8 Tobacco/Smoking Status: Tobacco use Status Tobacco use date assessed 01/20/24 03/12/24 10:57 Patient Tobacco Use Status Never used Tobacco 03/12/24 10:57 e-Cigarette/Vaping Use Never Used 03/12/24 10:57 Assessment and Plan Assessment & Plan (1) Diabetes type 2, controlled: Code(s): E11.9 - Type 2 diabetes mellitus without complications Plan: A1c?6.8%.??Good?control.??Goal?is?less?than?7.0% Continue?glimepiride?as?prescribed (2) Essential hypertension: Code(s): I10 - Essential (primary) hypertension Plan: Log?of?blood?pressures?shows?good?control?at?home. White?coat?syndrome?and?his?blood?pressure?is?in?the?office?are?often?elevated. He?is?at?goal?at?home?of?less?than?130/80 Continue?current?medication?regimen He?may?have?his?blood?pressures?monitored?3?times?a?week?in?the?mornings (3) Hypercholesterolemia: Code(s): E78.00 - Pure hypercholesterolemia, unspecified Plan: LDL?cholesterol?is?above?goal?for?patient?with?history?of?CVA He?is?on?Zetia Declines?statin?medication?at?this?time I?encouraged?a?diet?lower?in?saturated?fats?and?cholesterol,?exercise?and?weight?loss. Will?recheck?lipids?prior?to?next?visit (4) History of CVA (cerebrovascular accident): Code(s): Z86.73 - Personal history of transient ischemic attack (TIA), and cerebral infarction without residual deficits Plan: Stable (5) History of gout: Code(s): Z87.39 - Personal history of other diseases of the musculoskeletal system and connective tissue Plan: Uric?acid?level?is?elevated?but?he?has?not?had?any?flare-ups No?changes?to?allopurinol Orders: Orders Lipid Panel Today Z00.00 - Encounter for general adult medical examination without abnormal findings Comprehensive [place]. Panel Fast Today Z00.00 - Encounter for general adult medical examination without abnormal findings Hemoglobin A1c Today R73.01 - Impaired fasting glucose Microalbumin, Random (w Creat) Today I10 - Essential (primary) hypertension Coding Level of Care Code Est Pt Level 4 (00161) Diagnoses Diabetes type 2, controlled E11.9 Essential hypertension I10 Hypercholesterolemia E78.00 History of CVA (cerebrovascular accident) Z86.73 History of gout Z87.39
[2024-03-12 10:57] VITALS: BP 154/80; RESP 14; TEMP 36.6; O2SAT 99; BMI 27.8
[2024-03-12 11:07] VITALS: BP 140/80
== END 2024-03-12 12:26 | disposition home or self-care (01) ==
PROVIDERS: PCP Family Medicine; Visit Provider Family Medicine
DX: E11.9 Type 2 diabetes mellitus without complications (principal); I10 Essential (primary) hypertension; E78.00 Pure hypercholesterolemia, unspecified; Z86.73 Personal history of transient ischemic attack (TIA), and cerebral infarction without residual deficits; Z87.39 Personal history of other diseases of the musculoskeletal system and connective tissue
CPT/HCPCS: 99214

== ENCOUNTER 2024-05-28 09:36 | Outpatient (REF) | payer MEDICARE, MEDICAID, SELFPAY ==
[2024-05-28 11:19] LABS: Appearance Urine Clear; Color Urine Yellow; Glucose Urine UA Negative (Negative); Leukocyte Esterase Urine Negative (Negative); Nitrite Urine Negative (Negative); PH 7.5 (5.0-9.0); Specific Gravity - Urine 1.015 (1.005-1.025); UMIC TRIGGER UA YES; Urine Blood Negative (Negative); Urine Ketones Negative (Negative); Urine Protein 100 (2+) mg/dL (Neg-Trace)
[2024-05-28 11:29] LABS: Bacteria Urine None Seen (None Seen); Hyaline Casts Urine 0-2 /LPF (0-2); RBC Urine 0-2 /HPF (0-2); Squamous Epithelial Cell Urine 0-2 /HPF (0-2); WBC Urine 0-5 /HPF (0-5)
[2024-05-28 11:39] LABS: Estimated Average Glucose 148 mg/dL; Hemoglobin A1c % 6.8 % (<6.0)
[2024-05-28 11:53] LABS: Alanine Aminotransferase 18 U/L (0-40); Albumin Level 4.3 g/dL (3.5-5.0); Alkaline Phosphatase 69 U/L (39-117); Anion Gap 12 (12-20); Aspartate Amino Transferase 15 U/L (5-37); Bilirubin Total 0.4 mg/dL (0.0-1.0); Blood Urea Nitrogen 14 mg/dL (9-16); Carbon Dioxide 31 mmol/L (22-29); Chloride 101 mmol/L (96-108); Cholesterol 187 mg/dL (<200); Estimated Glomerular Filt Rate > 60; Glucose Fasting 137 mg/dL (60-99); HDL Cholesterol 41 mg/dL (>40); LDL Cholesterol Calculated 127 mg/dL (<100); Potassium 3.4 mmol/L (3.3-5.1); Sodium 141 mmol/L (135-145); Total Protein 7.4 g/dL (6.5-8.0); Triglycerides 98 mg/dL (<150)
[2024-05-28 12:05] LABS: Creatinine Urine 108.43 mg/dL
[2024-05-28 12:30] LABS: Microalbum/Creatinine Ratio Ur 490.6 ug/mg cr (<30)
== END 2024-05-28 09:37 | disposition home or self-care (01) ==
LOC: HO.WFDLDS 09:36
PROVIDERS: Visit Provider Family Medicine
DX: Z00.00 Encounter for general adult medical examination without abnormal findings (principal); I10 Essential (primary) hypertension; R73.01 Impaired fasting glucose
CPT/HCPCS: 36415; 80053; 80061; 81001; 82043; 82570; 83036

== ENCOUNTER 2024-06-04 08:29 | Emergency (ER) | payer MEDICARE, MEDICAID, SELFPAY ==
--- NOTE | ~2024-06-04 | XR_ITS ---
EXAMINATION: XR CHEST CLINICAL INFORMATION: Fall, chest trauma. COMPARISON: None available. TECHNIQUE: Frontal view of the chest was obtained. FINDINGS: Normal appearance of the cardiomediastinal silhouette. No focal consolidation, pleural effusion or pneumothorax. No displaced osseous fractures. Visualized upper abdomen is within normal limits. XR/XR chest 1V IMPRESSION: 1. No acute cardiopulmonary findings. 2. No displaced osseous fractures. Electronically signed by: Althea Jasso MD 06/04/2024 11:23 AM EDT
--- NOTE | ~2024-06-04 | CT_ITS ---
EXAMINATION: CT HEAD WITHOUT CONTRAST CT CERVICAL SPINE WITHOUT CONTRAST CLINICAL INFORMATION: Pain, fall. COMPARISON: MR brain 10/23/2019. TECHNIQUE: Contiguous axial imaging was performed from the skull base to vertex without intravenous administration of contrast. Contiguous axial imaging was performed from the upper chest through the skull base without intravenous administration of contrast. Coronal and sagittal reformats were obtained at the acquisition workstation. This CT examination was performed using dose optimization techniques as appropriate, variously including the following: *Automated exposure control *Adjustment of mA and/or kV according to patient size (this includes techniques or standardized protocols for targeted exams where dose is matched to indication/reason for exam; i.e. extremities or head) *Use of iterative reconstruction technique DLP: 1110 mGy-cm FINDINGS: Head: There is no evidence of acute intracranial hemorrhage or edematous territorial infarction. A few foci of hypoattenuation in the periventricular and deep white matter are consistent with mild microangiopathy. Few chronic bilateral lacunar infarcts are noted in the basal ganglia. Salazar-white matter differentiation is preserved. Proportional prominence of the ventricles and sulcal spaces. No evidence for obstructive hydrocephalus. No abnormal mass effect or midline shift. No extra-axial fluid collections. Trace mineralization of the bilateral basal ganglia. Scalp hematoma and laceration in the right parieto-occipital region. No displaced calvarial fracture. Redemonstration of prominent arachnoid granulations along the floor of the middle cranial fossa. Again seen focal osseous defect along the floor of the left middle cranial fossa with a small portion of the left inferior temporal gyrus herniating through the defect as well as additional very small cephalocele in the floor of the left middle cranial fossa with associated encephalomalacia, these changes are best characterized on prior MRI from 2019. There is redemonstration of fluid opacification of the left middle ear and left mastoid. Cervical Spine: The atlantooccipital and atlantoaxial articulations remain well aligned. No evidence of acute compression deformity or subluxation. Moderate multilevel cervical spondylosis with intervertebral disc height loss, marginal osteophyte complexes and uncovertebral hypertrophy leading to varying degrees of neural foraminal encroachment. There is no prevertebral soft tissue swelling. Nonspecific asymmetric fullness in the left base of the tongue, possibly related with patient's positioning. The thyroid gland and remaining cervical soft tissues are normal in appearance. The lung apices demonstrate no abnormalities. CT/CT cervical spine wo IV con IMPRESSION: 1. Scalp hematoma and laceration in the right parieto-occipital region without acute intracranial abnormalities. 2. Chronic microangiopathy with generalized cerebral volume loss. Chronic bilateral lacunar infarcts. 3. No acute cervical spinal fractures or malalignment. 4. Cervical spondylosis. 5. Redemonstration of left middle cranial fossa osseous defects with regions of herniation/encephalomalacia and associated fluid opacification of the left middle ear and left mastoid, suspicious for chronic CSF leak. These would be better characterized with MRI as clinically warranted. 6. Nonspecific asymmetric fullness in the left base of the tongue, possibly related with patient's positioning. Correlate with direct visualization. Electronically signed by: Althea Jasso MD 06/04/2024 09:52 AM EDT
[2024-06-04 08:36] VITALS: BP 170/90; BP 170/92; PULSE 107; PULSE 118; RESP 18; TEMP 36.6; O2SAT 95; O2SAT 97; BMI 22.8
--- NOTE | 2024-06-04 08:39 | ED_ITS ---
HPI - General Adult General Chief complaint: Fall Stated complaint: UNWIT FALL,HIT HEAD,+LOC,+ELIQUIS FROM [facility] Source: patient and EMS Mode of arrival: EMS Limitations: no limitations History of Present Illness ED Provider: Sekou JOE HPI narrative: 67-year-old male with past medical history of HTN, diabetes, aortic regurgitation, anemia, epilepsy, BPH, GERD, gout, atrial fibrillation (on eliquis) presenting to the emergency department after fall this morning at assisted. Per EMS, staff members at the assisted report patient did lose consciousness for about 1 minute and that his fall was unwitnessed stating that he might have fainted or tripped, last known well time per EMS was 0745 this morning. Patient currently has no medical complaints states that he does everything independently at the assisted. Patient denies any symptoms leading up to fall such as dizziness, vision changes, weakness. Denies cp, sob, nausea, vomiting, headaches, visual changes, dizziness. Related Data Home Medications ?Medication ?Instructions ?Recorded ?Confirmed lancets 28 gauge #100 ea 08/02/20 03/12/24 Previous Rx's ?Medication ?Instructions ?Recorded blood-glucose meter (FreeStyle #1 ea 03/26/22 Lite Meter kit) cholecalciferol (vitamin D3) 50 50 mcg PO QAM #90 caps 01/03/23 mcg (2,000 unit) capsule (Vitamin D3) lisinopril 40 mg tablet 40 mg PO DAILY #90 tabs 08/01/23 acetaminophen 650 mg 1,300 mg (2 x 650 mg) PO Q8H PRN 09/18/23 tablet,extended release pain 90 days #180 tabs omega 1-tvp-ihx-fish oil 1,000 mg 1 cap PO DAILY 90 days #90 caps 10/04/23 (120 mg-180 mg) capsule lacosamide 100 mg tablet (Vimpat) 50 mg (1/2 x 100 mg) PO BEDTIME 90 12/20/23 days #45 tabs levetiracetam 250 mg tablet 250 mg PO BEDTIME 90 days #90 tabs 12/28/23 miscellaneous medical supply #1 ea 01/02/24 apixaban 5 mg tablet (Eliquis) 5 mg PO BID 90 days #180 tabs 01/21/24 allopurinol 100 mg tablet 100 mg PO QAM 30 days #30 tabs 01/22/24 blood sugar diagnostic (FreeStyle #50 ea 03/11/24 Lite Strips) carvedilol 6.25 mg tablet 6.25 mg PO BID 90 days #180 tabs 04/09/24 hydrochlorothiazide 25 mg tablet 25 mg PO DAILY 90 days #90 tabs 04/10/24 ezetimibe 10 mg tablet (Zetia) 10 mg PO DAILY 90 days #90 tabs 04/29/24 glimepiride 1 mg tablet 1 mg PO QAM #30 tabs 05/25/24 levetiracetam 500 mg tablet 500 mg PO QAM #30 tabs 05/25/24 nifedipine 60 mg tablet,extended 60 mg PO BID #60 tabs 05/25/24 release Allergies Allergy/AdvReac Type Severity Reaction Status Date / Time No Known Allergies Allergy Verified 06/04/24 08:45 [No Known Allergies*] Review of Systems 2 Review of Systems: Yes all other systems are reviewed and are negative [facility] Past Medical History Attestation statement: The following information was validated with the patient. Source: old records reviewed and nursing notes reviewed Medical History Epilepsy History of gout Paroxysmal atrial fibrillation History of seizures History of CVA (cerebrovascular accident) White coat syndrome with diagnosis of hypertension Essential hypertension Diabetes type 2, controlled Surgical History No pertinent past surgical history Family History Family History Father No problems noted. Mother No problems noted. Brother No problems noted. Sister No problems noted. Sister No problems noted. Social History Social History Housing: House Alcohol intake: current Alcohol intake frequency: holidays/special occasions only Patient Tobacco Use Status: Never used Tobacco Smoked in Last 30 Days: No e-Cigarette/Vaping Use: Never Used Second Hand Smoke Exposure: No Use of substances other than those prescribed or required for medical reasons: No Advance Directives: Yes Advance Directives on File: Yes Advance Directives Date on File: 08/02/20 Do you have a plan to hurt others: No Plan service: No Current occupational status: unemployed Current occupation: Patient does not want to answer Current occupational exposures/hazards: No Cognitive needs: No Hearing needs: No Vision needs: No Physical Exam ED Vital Signs: Vital Signs - 24 hr 06/04/24 08:36 06/04/24 10:40 Temperature 97.9 F 97.9 F Pulse Rate 107 H 94 Respiratory Rate 18 15 Blood Pressure 170/92 H 143/77 H Pulse Oximetry 97 95 Oxygen Delivery Method Room Air Room Air BMI result Body Mass Index 22.8 vss Appearance: Alert.? Oriented X3.? No acute distress.? Head: Normocephalic, no step-offs or deformities. + head laceration to posterior right side of scalp Eyes: Pupils equal, round and reactive to light.? CVS: Normal heart rate and rhythm.? Pulses normal.? Respiratory: No respiratory distress.? Breath sounds normal.? Abdomen: Soft and nontender.? Skin: Skin warm and dry.? Normal skin color.? Normal skin turgor.? Extremities: No lower extremity edema.? No calf ttp. 5/5 strength to bilateral upper and lower extremities Back: No midline tenderness, no C-spine tenderness, full range of motion, no CVA tenderness bilaterally Neuro: Oriented X 3.? No motor deficit.? No sensory deficit. CN 2-12 intact Course Reevaluation(s) Reevaluation #1: About 5 mins ago nursing reprots patient became altered and ? seizure like activity. AMS present patient went from speaking normally to not speaking at all and becoming confused and diaphoretic. Time: 08:59 Reevaluation #2: Patient now alert and awake, CBC unremarkable normocytic anemia at baseline noted. Chemistry with no acute findings needing intervention. Chronically mild elevation in creatinine however nothing deviating from patient's baseline. Coags unremarkable. CT head with scalp hematoma laceration in the right parietal occipital region without acute intracranial abnormalities chronic microangiopathy with generalized cerebral volume loss, no acute cervical spine fractures or malalignment question chronic CSF leak would be better categorize with an MRI however not emergent at this time as this appears to be chronic. This is likely stemming from left middle cranial fossa osseous defects. Isometric fullness in the left base of the tongue not clinically appreciated. Will repair head lack at this time. Time: 10:03 Reevaluation #3: 4 denis to head. no complicaitons. CXR unremarkable. UA pending Time: 11:19 Additional Reevaluation(s): Ua negative. Mentating well. Plan is for discharge home. Educated patient on diagnosis and treatment plan, answered all question, patient verbalizes understanding. At this time patient will be discharged home, advised to return with new or worsening symptoms. Educated on worrisome signs and symptoms and when to return. At this time I feel comfortable discharge home. Medications Administered Discontinued Medications Generic Name Dose Route Start Last Admin Trade Name Freq PRN Reason Stop Dose Admin Diphtheria/Tetanus/Acell Pertussis 0.5 ml 06/04/24 10:04 06/04/24 10:28 Diphth,Pertus(Acell),Tet Adult 0.5 Ml Syringe IM 06/04/24 10:05 0.5 ml .ONCE ONE Administration Levetiracetam 1,000 mg in 100 mls @ 400 mls/hr 06/04/24 08:59 06/04/24 09:45 Keppra IV 06/04/24 09:13 Infused ONCE ONE Infusion Lorazepam 2 mg 06/04/24 09:00 06/04/24 09:19 Lorazepam 2 Mg/Ml Vial IVPUSH 06/04/24 09:01 2 mg ONCE ONE Administration Procedures Laceration Laceration 1: Site: scalp Side (If applicable): right Size (cm): 4 Description: linear Depth: simple, single layer Medical Decision Making Medical Decision Making [facility] Narrative: 0850 68 year old female presents w/ fall w/ head strike PE benign Hx and pe concenring were concussion with possible intracranial hemorrhage as he is anticoagulated. Will rule this out. Other differentials include trip and fall. Unlikely ACS, PE, dissection, acute respiratory distress. Will rule out metabolic derangements and urinary infection. Plan- labs, urine Differential Diagnosis Differential Diagnoses: The differential diagnosis associated with the presentation includes Hx and pe concenring were concussion with possible intracranial hemorrhage as he is anticoagulated. Will rule this out. Other differentials include trip and fall. Unlikely ACS, PE, dissection, acute respiratory distress. Will rule out metabolic derangements and urinary infection. Admission/Observation Consideration of admission/observation: Escalation of care including admission/observation considered possible Lab Data [facility] Lab Attestation statement: I reviewed the patient's lab results. 06/04/24 09:08 06/04/24 09:08 Labs: Lab Results 06/04/24 06/04/24 Range/Units 09:08 11:34 WBC 9.5 (4.8-10.8) X10*3/uL RBC 4.46 L (4.60-5.80) X10*6/uL Hgb 13.4 L (14.0-18.0) g/dl Hct 38.5 L (42.0-52.0) % MCV 86.3 (80.0-98.0) fL MCH 30.0 (27.0-33.0) pg MCHC 34.8 (31.0-36.0) g/dl RDW 12.9 (11.0-16.0) % Plt Count 227 (160-400) X10*3/uL MPV 9.9 (9.4-12.4) fL Immature Gran % (Auto) 0.4 (0.0-0.4) % Neut % (Auto) 70.4 (45-73) % Lymph % (Auto) 21.4 (20-40) % Davison % (Auto) 6.3 (2-11) % Eos % (Auto) 1.1 (0-4) % Baso % (Auto) 0.4 (0-2) % Lymph # (Auto) 2.0 (1.2-4.9) X10*3/uL Davison # (Auto) 0.6 (0.1-1.2) X10*3/uL Eos # (Auto) 0.1 (0.0-0.4) X10*3/uL Baso # (Auto) 0.0 (0.0-0.2) X10*3/uL Abs Immat Gran (auto) 0.04 H (0.00-0.03) X10*3/uL Absolute Neuts (auto) 6.7 (2.0-8.3) x10*3/uL Absolute Nucleated RBC 0.000 (0.0-0.012) X10*3/uL Nucleated RBC % (auto) 0.0 (0.0-0.2) /100WBC PT 15.9 H (11.1-13.3) SEC INR 1.3 H (0.9-1.1) Sodium 142 (135-145) mmol/L Potassium 3.3 (3.3-5.1) mmol/L Chloride 103 (96-108) mmol/L Carbon Dioxide 30 H (22-29) mmol/L Anion Gap 12 (12-20) BUN 18 H (9-16) mg/dL Creatinine 1.02 (0.5-1.4) mg/dL Estim Creat Clear Calc 75.7 Estimated GFR > 60 Random Glucose 183 H (60-115) mg/dL Calcium 10.1 (8.4-10.2) mg/dL Magnesium 1.9 (1.6-2.6) mg/dL Total Bilirubin 0.4 (0.0-1.0) mg/dL AST 14 (5-37) U/L ALT 16 (0-40) U/L Alkaline Phosphatase 75 (39-117) U/L Total Creatine Kinase 105 (38-174) U/L Total Protein 7.7 (6.5-8.0) g/dL Albumin 4.4 (3.5-5.0) g/dL Urine Color Yellow Urine Appearance Clear Urine pH 7.5 (5.0-9.0) Ur Specific [place] 1.010 (1.005-1.025) Urine Protein 100 (2+) H (Neg-Trace) mg/dL Urine Glucose (UA) Negative (Negative) mg/dL Urine Ketones Negative (Negative) mg/dL Urine Blood Negative (Negative) Urine Nitrite Negative (Negative) Ur Leukocyte Esterase Negative (Negative) Urine RBC 0-2 (0-2) /HPF Urine WBC 0-5 (0-5) /HPF Ur Squamous Epith Cells 0-2 (0-2) /HPF Urine Bacteria None Seen (None Seen) Hyaline Casts 0-2 (0-2) /LPF Independent Interpretation I performed an independent interpretation of an: EKG (Blood Pressure : / mmHG Vent. Rate : 090 BPM Atrial Rate : 090 BPM P-R Int : 194 ms QRS Dur : 080 ms QT Int : 358 ms P-R-T Axes : 046 026 052 degrees QTc Int : 437 ms Normal sinus rhythm Nonspecific T wave abnormality Abnormal ECG No previous ECGs available), Plain X-Ray ( XR/XR chest 1V IMPRESSION: 1. No acute cardiopulmonary findings. 2. No displaced osseous fractures. ) and CT Scan (CT/CT cervical spine wo IV con IMPRESSION: 1. Scalp hematoma and laceration in the right parieto-occipital region without acute intracranial abnormalities. 2. Chronic microangiopathy with generalized cerebral volume loss. Chronic bilateral lacunar infarcts. 3. No acute cervical spinal fractures) Radiology Impression Discussion of test interpretation with radiology: I have reviewed the radiologist's reading. External Record Review External record reviewed: Inpatient record, Office record, Outpatient record, Prior outpatient labs, Prior outpatient radiology, Primary care record and Outside ED record Chronic Conditions Patient?s care impacted by: Hypertension and Other (diabetes, aortic regurgitation, anemia, epilepsy, BPH, GERD, gout, atrial fibrillation (on eliquis) ) Critical Care Time Critical Care Time Critical Care Time: No Discharge Plan Discharge Clinical Impression: Fall on same level from tripping, Concussion, Laceration of head Patient Disposition: Home, Self-Care Instructions: Concussion (ED), Post Concussion Syndrome (ED), Head Laceration (ED) Additional Instructions: Take your medications as prescribed. If you were prescribed antibiotics today, it is important that you take your medication to their entirety, do not skip any doses, do not finish them early. Follow-up with your primary care provider this week. Return to the emergency department with new or worsening symptoms. Such as fevers, chills, chest pain, shortness of breath, nausea, vomiting, dizziness, headache, vision changes, lethargy In case of emergency call 911 Return in a week for staple removal. XR/XR chest 1V IMPRESSION: 1. No acute cardiopulmonary findings. 2. No displaced osseous fractures. Cervical Spine: The atlantooccipital and atlantoaxial articulations remain well aligned. No evidence of acute compression deformity or subluxation. Moderate multilevel cervical spondylosis with intervertebral disc height loss, marginal osteophyte complexes and uncovertebral hypertrophy leading to varying degrees of neural foraminal encroachment. There is no prevertebral soft tissue swelling. Nonspecific asymmetric fullness in the left base of the tongue, possibly related with patient's positioning. The thyroid gland and remaining cervical soft tissues are normal in appearance. The lung apices demonstrate no abnormalities. CT/CT head/brain wo IV con IMPRESSION: 1. Scalp hematoma and laceration in the right parieto-occipital region without acute intracranial abnormalities. 2. Chronic microangiopathy with generalized cerebral volume loss. Chronic bilateral lacunar infarcts. 3. No acute cervical spinal fractures or malalignment. 4. Cervical spondylosis. 5. Redemonstration of left middle cranial fossa osseous defects with regions of herniation/encephalomalacia and associated fluid opacification of the left middle ear and left mastoid, suspicious for chronic CSF leak. These would be better characterized with MRI as clinically warranted. 6. Nonspecific asymmetric fullness in the left base of the tongue, possibly related with patient's positioning. Correlate with direct visualization. Electronically signed by: Althea Jasso MD 06/04/2024 09:52 AM EDT Prescriptions: No Action (DME) blood-glucose meter [FreeStyle Lite Meter] Kit See Rx Instructions .ROUTE .MEDSUPPLY Qty: 1 0RF Rx Instructions: As directed cholecalciferol (vitamin D3) [Vitamin D3] 50 mcg (2,000 unit) capsule 50 mcg PO QAM Qty: 90 3RF lisinopril 40 mg tablet 40 mg PO DAILY Qty: 90 3RF acetaminophen 650 mg tablet extended release 1,300 mg PO Q8H PRN (Reason: pain) 90 Days Qty: 180 1RF omega 1-wmz-xvx-fish oil 1,000 mg (120 mg-180 mg) capsule 1 cap PO DAILY 90 Days Qty: 90 3RF lacosamide [Vimpat] 100 mg tablet 50 mg PO BEDTIME 90 Days Qty: 45 2RF levetiracetam 250 mg tablet 250 mg PO BEDTIME 90 Days Qty: 90 2RF (DME) miscellaneous medical supply Misc See Rx Instructions .ROUTE .MEDSUPPLY Qty: 1 0RF Rx Instructions: Diabetic Shoes, Daily As directed, 999 days Eliquis 5 mg tablet 5 mg PO BID 90 Days Qty: 180 2RF allopurinol 100 mg tablet 100 mg PO QAM 30 Days Qty: 30 10RF (DME) FreeStyle Lite Strips Strip See Rx Instructions .ROUTE .MEDSUPPLY Qty: 50 11RF Rx Instructions: check blood sugar daily and daily prn carvedilol 6.25 mg tablet 6.25 mg PO BID 90 Days Qty: 180 3RF Rx Instructions: must administer with a meal/food hydrochlorothiazide 25 mg tablet 25 mg PO DAILY 90 Days Qty: 90 3RF ezetimibe [Zetia] 10 mg tablet 10 mg PO DAILY 90 Days Qty: 90 2RF glimepiride 1 mg tablet 1 mg PO QAM Qty: 30 3RF Rx Instructions: Take one tablet every morning with food. levetiracetam 500 mg tablet 500 mg PO QAM Qty: 30 2RF Rx Instructions: Take one tablet every morning with or without food. nifedipine 60 mg tablet extended release 60 mg PO BID Qty: 60 3RF Rx Instructions: Take one tablet in the morning and one tablet in the evening, without food. (DME) lancets 28 gauge misc See Rx Instructions topical DAILY Qty: 100 Rx Instructions: As directed Referrals: Wiley Pablo MD [Primary Care Provider] - 2 days Print Language: Japanese
--- NOTE | 2024-06-04 08:46 | PC.NURSE ---
Upon arrival pt was a/ox4, speaking in full sentences, equal strength bilaterally, neuros intact. During assessment this RN noticed pt to start shaking and became non-verbal. Pt O2 sat down to 60s with good pleth. Pt placed on NC at 3L. JEREMIAH and MD Quiroga at bedside for assistance. Pt taken to CT scan. Per EMS pt was a/ox4 en route. Per assisted staff, LKW was around 0745. Pt noted to be pulling BP cuff, O2 monitor off, repeating questions.
[2024-06-04 09:12] LABS: MANUAL DIFF FLAG NO
[2024-06-04 09:13] LABS: Basophils Percent Auto 0.4 % (0-2); Eosinophils Absolute Auto 0.1 X10*3/uL (0.0-0.4); Eosinophils Percent Auto 1.1 % (0-4); Hematocrit 38.5 % (42.0-52.0); Hemoglobin 13.4 g/dl (14.0-18.0); Imm Gran Abs Auto 0.04 X10*3/uL (0.00-0.03); Imm Gran Pct Auto 0.4 % (0.0-0.4); Lymphocytes Percent Auto 21.4 % (20-40); Mean Corpuscular HGB Conc 34.8 g/dl (31.0-36.0); Mean Corpuscular Volume 86.3 fL (80.0-98.0); Mean Platelet Volume 9.9 fL (9.4-12.4); Monocytes Absolute Auto 0.6 X10*3/uL (0.1-1.2); Monocytes Percent Auto 6.3 % (2-11); Neutrophils Absolute Auto 6.7 x10*3/uL (2.0-8.3); Neutrophils Percent Auto 70.4 % (45-73); Platelet Count 227 X10*3/uL (160-400); Red Blood Count 4.46 X10*6/uL (4.60-5.80); Red Cell Distribution Width 12.9 % (11.0-16.0); White Blood Count 9.5 X10*3/uL (4.8-10.8)
[2024-06-04 09:18] LABS: INTERNATIONAL NORM RATIO 1.3 (0.9-1.1); Prothrombin Time 15.9 SEC (11.1-13.3)
[2024-06-04] MEDS: levETIRAcetam in NaCl (iso-os) 1,000 MG/100 ML PIGGYBACK 400 MG IV (09:19)
[2024-06-04] MEDS: LORazepam 2 MG/ML VIAL IVPUSH (09:19)
[2024-06-04 09:26] LABS: Alanine Aminotransferase 16 U/L (0-40); Albumin Level 4.4 g/dL (3.5-5.0); Alkaline Phosphatase 75 U/L (39-117); Anion Gap 12 (12-20); Aspartate Amino Transferase 14 U/L (5-37); Bilirubin Total 0.4 mg/dL (0.0-1.0); Blood Urea Nitrogen 18 mg/dL (9-16); Calcium 10.1 mg/dL (8.4-10.2); Carbon Dioxide 30 mmol/L (22-29); Chloride 103 mmol/L (96-108); Creatinine Clr Calc Pharmacy 75.7; Estimated Glomerular Filt Rate > 60; Glucose Random 183 mg/dL (60-115); Magnesium 1.9 mg/dL (1.6-2.6); Potassium 3.3 mmol/L (3.3-5.1); Sodium 142 mmol/L (135-145); Total Protein 7.7 g/dL (6.5-8.0)
--- NOTE | 2024-06-04 09:57 | PC.NURSE ---
Pt back to his baseline, a/ox4, speaking in full sentences. O2 sat maintained 95%-98% on RA. Pt medicated per MAR with Keppra IV and Ativan IV. Family member at bedside, pending CT scan report. Call jenkins within reach, all needs met at this time.
--- NOTE | 2024-06-04 10:01 | ECG_ITS ---
Test Reason : FALL Blood Pressure : / mmHG Vent. Rate : 090 BPM Atrial Rate : 090 BPM P-R Int : 194 ms QRS Dur : 080 ms QT Int : 358 ms P-R-T Axes : 046 026 052 degrees QTc Int : 437 ms Poor data quality, interpretation may be adversely affected Normal sinus rhythm Nonspecific T wave abnormality Abnormal ECG No previous ECGs available Referred By: Tammy Murcia Electronically Signed By:JUVENAL JACOBO
--- NOTE | 2024-06-04 10:07 | PC.NURSE ---
C-Collar removed per provider okay. Stapler and suture kit at bedside for PA
[2024-06-04] MEDS: Diphth,Pertus(ACell),Tet Adult 0.5 ML SYRINGE IM (10:28)
[2024-06-04 10:40] VITALS: BP 143/77; PULSE 94; RESP 15; TEMP 36.6; O2SAT 95
[2024-06-04 11:41] LABS: Appearance Urine Clear; Color Urine Yellow; Glucose Urine UA Negative (Negative); Leukocyte Esterase Urine Negative (Negative); Nitrite Urine Negative (Negative); PH 7.5 (5.0-9.0); UMIC TRIGGER UACC YES; Urine Blood Negative (Negative); Urine Ketones Negative (Negative); Urine Protein 100 (2+) mg/dL (Neg-Trace)
[2024-06-04 11:43] LABS: Bacteria Urine None Seen (None Seen); Hyaline Casts Urine 0-2 /LPF (0-2); RBC Urine 0-2 /HPF (0-2); Squamous Epithelial Cell Urine 0-2 /HPF (0-2); WBC Urine 0-5 /HPF (0-5)
[2024-06-04 12:09] VITALS: BP 150/75; PULSE 92; RESP 13; O2SAT 97
[2024-06-04 12:59] VITALS: BP 150/75; PULSE 72; RESP 18; TEMP 36.7; O2SAT 98
== END 2024-06-04 13:00 | disposition home or self-care (01) ==
PROVIDERS: Physician Assistant; Emergency Provider Emergency Medicine; PCP Family Medicine
DX: S06.0X1A Concussion with loss of consciousness of 30 minutes or less, initial encounter (principal); S01.01XA Laceration without foreign body of scalp, initial encounter; W01.0XXA Fall on same level from slipping, tripping and stumbling without subsequent striking against object, initial encounter; Y93.89 Activity, other specified; Y92.049 Unspecified place in boarding-house as the place of occurrence of the external cause; Y99.9 Unspecified external cause status; Z23 Encounter for immunization; E11.9 Type 2 diabetes mellitus without complications; I10 Essential (primary) hypertension; E78.00 Pure hypercholesterolemia, unspecified; I48.0 Paroxysmal atrial fibrillation; Z79.01 Long term (current) use of anticoagulants; Z79.899 Other long term (current) drug therapy
CPT/HCPCS: 12002; 36415; 70450; 71045; 72125; 80053; 81001; 82550; 83735; 85025; 85610; 90471; 90715; 93005; 96365; 96375; 99285; J1953; J2060

== ENCOUNTER 2024-06-11 12:52 | Outpatient (AMB) | payer MEDICARE, MEDICAID, SELFPAY ==
--- NOTE | 2024-06-11 13:08 | MHC.PC.OV ---
Vital Signs 06/11/24 13:12 06/11/24 13:15 Height 5 ft 6 in Weight 169 lb 8 oz BMI 27.4 BP 172/88 H 139/76 Blood Pressure Location Rt brachial Rt brachial Position Sitting Sitting Respiration 16 Pulse 100 Pulse Source Pulse Oximeter Temp 96.2 F L Temp Source Tympanic Pulse Oximetry (%) 98 Oxygen Delivery Method Room Air Intake Visit Reasons: 3 MN F/U Diabetes hnt/hld Intake Note: follow up with DM and ER f/u Allergies No Known Allergies [No Known Allergies*] Allergy (Verified 06/04/24 08:45) Medication List - Last Reconciled 06/11/24 by Wiley Pablo MD acetaminophen ER 1,300 mg (2 x 650 mg) PO Q8H PRN 90 days allopurinol 100 mg PO QAM 30 days apixaban (Eliquis) 5 mg PO BID 90 days blood sugar diagnostic (FreeStyle Lite Strips) check blood sugar daily and daily prn blood-glucose meter (FreeStyle Lite Meter kit) As directed carvedilol 6.25 mg PO BID 90 days ezetimibe (Zetia) 10 mg PO DAILY 90 days glimepiride 1 mg PO QAM hydrochlorothiazide 25 mg PO DAILY 90 days lacosamide (Vimpat) 50 mg (1/2 x 100 mg) PO BEDTIME 90 days lancets As directed levetiracetam 500 mg PO QAM levetiracetam 250 mg PO BEDTIME 90 days lisinopril 40 mg PO DAILY miscellaneous medical supply Diabetic Shoes, Daily As directed, 999 days nifedipine ER 60 mg PO BID omega 6-vcq-cng-fish oil 1,000 mg (120 mg-180 mg) 1 cap PO DAILY 90 days Tobacco use date assessed: 01/20/24 Dental Screening Dental Screen Date: 03/12/24 HPI 3 MN F/U Diabetes hnt/hld HPI Details 68 y/o male presents to f/u diabetes, hypertension, HLD. Blood pressure today 139/76, 100p. He is on lisinopril 40mg, nifedipine 60mg b.i.d, hydrochlorothiazide 25mg. Labs drawn 06/04/24. Lipid panel drawn 05/28/24. Reviewed labs with pt. Mild anemia. Triglycerides 98. TC 187. LDL 127. HDL 41. A1c 6.8%. Recent ED visit 06/04/24 for a fall. Had lost consciousness x [address] head showed scalp helmatoma and laceration in R parieto-occipital region without acute intracranial abnormalities. Scalp laceration repaired with 4 denis. Denies any fogginess today and cognition/mental faculties at baseline. HPI Comments History of Present Illness Details Documentation assistance for Wiley Pablo MD, was provided by Idris Wayne,? Investment Accountant on 06/11/2024 at 1:43 PM EST. I, Dr. Pablo, have read, observed, and verified documentation. [facility] Medical History Epilepsy History of gout Paroxysmal atrial fibrillation History of seizures History of CVA (cerebrovascular accident) White coat syndrome with diagnosis of hypertension Essential hypertension Diabetes type 2, controlled Surgical History No pertinent past surgical history Family History Father No problems noted. Mother No problems noted. Brother No problems noted. Sister No problems noted. Sister No problems noted. Social History Housing: House Alcohol intake: current Alcohol intake frequency: holidays/special occasions only Patient Tobacco Use Status: Never used Tobacco e-Cigarette/Vaping Use: Never Used Second Hand Smoke Exposure: No Advance Directives Date on File: 08/02/20 service: No Current occupational status: unemployed Current occupation: Patient does not want to answer Current occupational exposures/hazards: No Cognitive needs: No Hearing needs: No Vision needs: No Questionnaire FRANC-7 AMB Questionnaire FRANC-7 Date FRANC - 7 assessed: 01/20/24 Source: Developed by Drs. Darien Higginbotham, Erin Vargas, Dony Arevalo and colleagues, with an educational otilia from [employer]. Review of Systems Const Denies chills, Denies fatigue, Denies fever(s), Denies headache(s) and Denies weakness ENT Denies dizziness and Denies headache(s) Card Denies dyspnea Resp Denies cough, Denies dyspnea, Denies wheezing and Denies other (shortness of breath) Musc Denies numbness and Denies tingling Neuro Denies dizziness, Denies headache(s), Denies numbness, Denies tingling and Denies weakness Psych Reports anxiety and Reports depression Endo Denies fatigue Aller/Immun Denies wheezing Physical exam (Primary Care) Vital Signs: Last Vital Signs Temp 96.2 F L 06/11/24 13:12 Pulse 100 06/11/24 13:12 Resp 16 06/11/24 13:12 BP 139/76 06/11/24 13:15 Pulse Ox 98 06/11/24 13:12 Oxygen Delivery Method Room Air 06/11/24 13:12 BMI result Body Mass Index 27.4 Tobacco/Smoking Status: Tobacco use Status Tobacco use date assessed 01/20/24 06/11/24 13:17 Patient Tobacco Use Status Never used Tobacco 06/11/24 13:17 e-Cigarette/Vaping Use Never Used 06/11/24 13:17 Const General: well developed; No acute distress Nutritional Appearance: well nourished Orientation/consciousness: patient oriented x3 HENMT Head: Yes normocephalic and Yes atraumatic Eyes General: appearance normal, both eyes and all related structures Pupils: Equal, round and reactive pupils present EOM: EOMs intact bilaterally Resp Effort & Inspection: normal respiratory effort Neuro General: patient oriented x3 and gait normal Cranial nerves: Yes Equal, round and reactive pupils present Psych Affect: normal affect Assessment and Plan Assessment & Plan (1) Essential hypertension: Code(s): I10 - Essential (primary) hypertension Plan: Blood?pressure?today?is?controlled.??Goal?is?less?than?140/90 Continue?current?medications Patient?has?white?coat?and?often?has?elevated?blood?pressures?initially?in?the?office. Blood?pressure?is?also?spike?when?he?is?frustrated. Offered?referral?to?a?therapist?and?patient?agrees. (2) Diabetes type 2, controlled: Code(s): E11.9 - Type 2 diabetes mellitus without complications (3) Concussion: Code(s): S06.0XAA - Concussion with loss of consciousness status unknown, initial encounter Plan: Mechanical?trip?and?fall?1?week?ago?with?impact?to?head?and?loss?of?consciousness?for?about?1?minute. +concussion.??+scalp?laceration. Scalp?laceration?repaired?with?4?denis?and?these?were?removed?today.??Wound?is?healing?well. Can?shower.??Do?not?scrub?yet. Cognition/mental?faculties?at?baseline. No?need?for?changes?in?level?of?care - he?lives?in?assisted?living?and?is?able?to?manage?his?own?affairs?and?take?his?medications?on?his?own. (4) History of CVA (cerebrovascular accident): Code(s): Z86.73 - Personal history of transient ischemic attack (TIA), and cerebral infarction without residual deficits Plan: Stable (5) Anxiety with depression: Code(s): F41.8 - Other specified anxiety disorders Plan: Patient?notes?that?he?sometimes?gets?frustrated?and?blood?pressures?spike?quite?high. He?would?like?referral?to?a?therapist?for?help?with?relaxation?techniques. Orders: Referrals Psychiatry Outpatient Consultation Service F41.8 - Other specified anxiety disorders Coding Level of Care Code TCM Mod MDM <= 7 Days Diagnoses Essential hypertension I10 Diabetes type 2, controlled E11.9 Concussion S06.0XAA History of CVA (cerebrovascular accident) Z86.73 Anxiety with depression F41.8
[2024-06-11 13:12] VITALS: BP 172/88; PULSE 100; RESP 16; TEMP 35.7; O2SAT 98; BMI 27.4
[2024-06-11 13:15] VITALS: BP 139/76
== END 2024-06-11 13:57 | disposition home or self-care (01) ==
PROVIDERS: PCP Family Medicine; Visit Provider Family Medicine
DX: I10 Essential (primary) hypertension (principal); E11.9 Type 2 diabetes mellitus without complications; S06.0XAA Concussion with loss of consciousness status unknown, initial encounter; Z86.73 Personal history of transient ischemic attack (TIA), and cerebral infarction without residual deficits; F41.8 Other specified anxiety disorders
CPT/HCPCS: 99214

== ENCOUNTER 2024-07-18 17:26 | Observation (INO) | payer MEDICARE, MEDICAID, SELFPAY ==
[2024-07-18] VITALS (8 sets, daily range): BP systolic 150–196; BP diastolic 82–100; PULSE 81–105; RESP 18–22; TEMP 36.5; O2SAT 97–99; BMI 28.0
--- NOTE | ~2024-07-18 | XR_ITS ---
EXAMINATION: XR CHEST CLINICAL INFORMATION: Syncope COMPARISON: A 2220 TECHNIQUE: AP portable upright (time stamped 1600) view of the chest was obtained. FINDINGS: Stable heart and mediastinum within normal limits for technique. Clear lungs without consolidation, effusion or pneumothorax. Normal gas pattern. Stable degenerative changes in the spine. XR/XR chest 1V IMPRESSION: No acute cardiopulmonary process. Electronically signed by: French Holguin MD 07/18/2024 06:09 PM EDT
--- NOTE | ~2024-07-18 | CT_ITS ---
EXAMINATION: CT CERVICAL SPINE WITHOUT CONTRAST; UNENHANCED CT OF THE HEAD. CLINICAL INFORMATION: Fall with head strike. On thinners. COMPARISON: CT head and cervical spine 07/18/2024. CT head 06/04/2024. TECHNIQUE: Routine unenhanced CT of the head with multiple coronal and sagittal reformatted images; routine unenhanced CT of the cervical spine with multiple coronal and sagittal reformatted images. This CT examination was performed using dose optimization techniques as appropriate, variously including the following: *Automated exposure control *Adjustment of mA and/or kV according to patient size (this includes techniques or standardized protocols for targeted exams where dose is matched to indication/reason for exam; i.e. extremities or head) *Use of iterative reconstruction technique DLP: 1267 mGy-cm FINDINGS: No intracranial hemorrhage, tumors or acute infarcts identified. Moderate diffuse a prominence of ventricles and sulci. Mild scattered subcortical and periventricular white matter patchy hypodensities. Focal cystic encephalomalacia consistent with a chronic lacunar infarct within the head of the left caudate nucleus. Moderate segmental calcific atherosclerosis of the cavernous portions of the internal carotid arteries. Normal appearance of the orbits and globes. No gross extracranial soft tissue inflammatory changes. Opacification of the left mastoid air cells and left middle ear cavity. CT cervical spine: The visualized lung apices are clear. No fractures or acute-appearing subluxations identified. Prominent posterior broad-based disc-osteophyte complex C3-C4 which may result in at least moderate central canal stenosis. Elsewhere, mild-moderate multilevel endplate osteophytosis and facet hypertrophic changes. No prevertebral fluid collections or soft tissue inflammatory changes. Mild bilateral carotid bulb calcific atherosclerosis. CT/CT cervical spine wo IV con IMPRESSION: CT HEAD: 1. No acute intracranial abnormalities. 2. Opacification of the left mastoid air cells and left middle ear cavity which may represent otomastoiditis or aseptic effusions. Findings are unchanged compared with 06/04/2024. 3. Mild white matter chronic small vessel ischemic disease and chronic lacunar infarct within the head of the left caudate nucleus. CT CERVICAL SPINE: 1. No acute abnormalities. 2. Multilevel chronic spondylosis. 3. Prominent posterior broad-based disc-osteophyte complex at C3-C4 which may result in at least moderate central canal stenosis. Electronically signed by: Jese Patrick MD 07/19/2024 04:54 AM EDT
--- NOTE | ~2024-07-18 | CT_ITS ---
EXAMINATION: CT HEAD WITHOUT CONTRAST CT CERVICAL SPINE WITHOUT CONTRAST CLINICAL INFORMATION: Syncope. Fall. COMPARISON: CT head and cervical spine from 06/04/2024. TECHNIQUE: Contiguous axial imaging was performed from the skull base to vertex without intravenous administration of contrast. Contiguous axial imaging was performed from the upper chest through the skull base without intravenous administration of contrast. Coronal and sagittal reformats were obtained at the acquisition workstation. This CT examination was performed using dose optimization techniques as appropriate, variously including the following: *Automated exposure control. *Adjustment of mA and/or kV according to patient size (this includes techniques or standardized protocols for targeted exams where dose is matched to indication/reason for exam; i.e. extremities or head). *Use of iterative reconstruction technique. DLP: 1085 mGy-cm FINDINGS: Head: There is no evidence of acute intracranial hemorrhage or edematous territorial infarction. Salazar-white matter differentiation is preserved. Scattered and partially confluent hypoattenuation in the periventricular and deep white matter are consistent with moderate microangiopathy. Proportional prominence of the ventricles and sulcal spaces without evidence of obstructive hydrocephalus. No abnormal mass effect or midline shift. No extra-axial fluid collections. Calcific atherosclerotic disease of the intracranial internal carotid and vertebral arteries. No hyperdense vessel sign. No acute soft tissue or osseous abnormalities. Mild mucosal thickening of the paranasal sinuses. Chronic moderate left-sided mastoid/middle ear effusion. The right-sided mastoid air cells/middle ear cavity are clear. Cervical Spine: The atlantooccipital and atlantoaxial articulations remain well aligned. Straightening of the normal cervical lordosis. Otherwise, there is anatomic alignment of the vertebral bodies and posterior elements. No evidence of acute fracture or subluxation. The vertebral body heights are maintained. Advanced degenerative disc disease from C2-C4. Moderate degenerative disc disease from C4-C6. Facet and uncovertebral joint arthropathy leads to osseous encroachment on the neural foramina from C2-C6. There is no prevertebral soft tissue swelling. The thyroid gland and remaining cervical soft tissues are within normal limits. Chronic hyperostotic appearance of the cortex of the left 3rd rib. The lung apices demonstrate no abnormalities. CT/CT cervical spine wo IV con IMPRESSION: 1. No evidence of acute intracranial hemorrhage or edematous territorial infarction. Moderate underlying microangiopathy and generalized cerebral volume loss. 2. No evidence of acute fracture or traumatic subluxation of the cervical spine. Moderate multilevel degenerative spondyloarthropathy of the cervical spine. 3. Chronic moderate left-sided mastoid/middle ear effusion. Electronically signed by: Clemente Howard DO 07/18/2024 07:35 PM EDT
--- NOTE | 2024-07-18 17:44 | ECG_ITS ---
Test Reason : SYNCOPE Blood Pressure : / mmHG Vent. Rate : 093 BPM Atrial Rate : 093 BPM P-R Int : 194 ms QRS Dur : 086 ms QT Int : 378 ms P-R-T Axes : 071 038 038 degrees QTc Int : 469 ms Poor data quality, interpretation may be adversely affected Normal sinus rhythm Normal ECG When compared with ECG of 04-JUN-2024 10:31, No significant change was found Referred By: Verito Almendarez Electronically Signed By:JUVENAL JACOBO
--- NOTE | 2024-07-18 17:55 | ED.GENADULT ---
HPI - General Adult General Chief complaint: General Medical Stated complaint: fall wit headstrike Time Seen by Provider: 07/18/24 17:32 Source: patient, family and EMS Mode of arrival: EMS Limitations: no limitations History of Present Illness ED Provider: DR. Almendarez HPI narrative: 68-year-old male PMH significant for seizure, gout, paroxysmal AFib on Eliquis, seizure taking Keppra, CVA, HTN, dm type 2 patient normally active live in independent living, was doing grocery shopping today and witnessed falling down with LOC for 1 minute was no seizure activity No tongue bites, no urinary incontinence was reported, patient regained consciousness immediately after 3-4 minutes with no postictal period, patient do not remember the event of falling or losing consciousness, witnessed by his housing staff who called 911, patient had no headache, no CP, no SOB, no abdominal pain, no rectal bleeding. Related Data Home Medications ?Medication ?Instructions ?Recorded ?Confirmed lancets 28 gauge #100 ea 08/02/20 06/11/24 Previous Rx's ?Medication ?Instructions ?Recorded blood-glucose meter ([employer]Style #1 ea 03/26/22 Lite Meter kit) acetaminophen 650 mg 1,300 mg (2 x 650 mg) PO Q8H PRN 09/18/23 tablet,extended release pain 90 days #180 tabs omega 4-cfl-hcd-fish oil 1,000 mg 1 cap PO DAILY 90 days #90 caps 10/04/23 (120 mg-180 mg) capsule lacosamide 100 mg tablet (Vimpat) 50 mg (1/2 x 100 mg) PO BEDTIME 90 12/20/23 days #45 tabs levetiracetam 250 mg tablet 250 mg PO BEDTIME 90 days #90 tabs 12/28/23 miscellaneous medical supply #1 ea 01/02/24 apixaban 5 mg tablet (Eliquis) 5 mg PO BID 90 days #180 tabs 01/21/24 allopurinol 100 mg tablet 100 mg PO QAM 30 days #30 tabs 01/22/24 blood sugar diagnostic (FreeStyle #50 ea 03/11/24 Lite Strips) carvedilol 6.25 mg tablet 6.25 mg PO BID 90 days #180 tabs 04/09/24 hydrochlorothiazide 25 mg tablet 25 mg PO DAILY 90 days #90 tabs 04/10/24 ezetimibe 10 mg tablet (Zetia) 10 mg PO DAILY 90 days #90 tabs 04/29/24 glimepiride 1 mg tablet 1 mg PO QAM #30 tabs 05/25/24 levetiracetam 500 mg tablet 500 mg PO QAM #30 tabs 05/25/24 nifedipine 60 mg tablet,extended 60 mg PO BID #60 tabs 05/25/24 release lisinopril 40 mg tablet 40 mg PO DAILY #90 tabs 06/30/24 Allergies Allergy/AdvReac Type Severity Reaction Status Date / Time No Known Allergies Allergy Verified 07/18/24 17:36 [No Known Allergies*] Review of Systems Review of Systems: All other systems are reviewed and are negative Constitutional: Reports as per HPI and Reports no additional constitutional complaints Eyes: Reports as per HPI and Reports no additional eye complaints Reports system reviewed and no additional complaints, except as documented Cardiovascular: Reports as per HPI and Reports no additional cardiovascular complaints Respiratory: Reports as per HPI and Reports no additional respiratory complaints Gastrointestinal: Reports as per HPI and Reports no additional gastrointestinal complaints Genitourinary: Reports no additional female genitourinary complaints Musculoskeletal: Reports no additional musculoskeletal complaints Skin/Breast: Reports system reviewed and no additional complaints, except as docu Psychiatric: Reports no additional psychiatric complaints Endocrine: Reports no additional endocrine complaints Hematologic/Lymphatic: Reports no additional hematologic/lymphatic complaints Allergic/Immunologic: Reports no additional allergic/immunologic complaints Reports system reviewed and no additional complaints, except as documented and Reports Abnormal speech present [facility] Past Medical History Medical History Epilepsy History of gout Paroxysmal atrial fibrillation History of seizures History of CVA (cerebrovascular accident) White coat syndrome with diagnosis of hypertension Essential hypertension Diabetes type 2, controlled Surgical History No pertinent past surgical history Family History Family History Father No problems noted. Mother No problems noted. Brother No problems noted. Sister No problems noted. Sister No problems noted. Social History Social History Housing: House Alcohol intake: current Alcohol intake frequency: holidays/special occasions only Patient Tobacco Use Status: Never used Tobacco Smoked in Last 30 Days: No e-Cigarette/Vaping Use: Never Used Second Hand Smoke Exposure: No Use of substances other than those prescribed or required for medical reasons: No Advance Directives: No Advance Directives Information Provided: No Advance Directives Date on File: 08/02/20 service: No Current occupational status: unemployed Current occupation: Patient does not want to answer Current occupational exposures/hazards: No Cognitive needs: No Hearing needs: No Vision needs: No Physical Exam ED Vital Signs: Vital Signs - 24 hr 07/18/24 17:33 07/18/24 17:45 07/18/24 17:48 Temperature 97.7 F Pulse Rate 104 H 99 105 H Respiratory Rate 18 Blood Pressure 178/95 H 181/86 H 181/100 H Pulse Oximetry 97 Oxygen Delivery Method Oxygen Flow Rate 07/18/24 17:51 07/18/24 18:18 Temperature Pulse Rate 105 H 96 Respiratory Rate 22 H Blood Pressure 174/86 H Pulse Oximetry 99 Oxygen Delivery Method Nasal Cannula Oxygen Flow Rate 2 BMI result Body Mass Index 28.0 Vital signs have been reviewed and appear to be correct. Blood pressure elevated. Heart rate normal. Respiratory rate normal. Temperature normal. Oxygen saturation normal. Appearance: Alert. Oriented X3. No acute distress. Head: Normal external exam. Normocephalic. Atraumatic. No Stuart signs noted. No raccoon eyes noted Eyes: PERRLA. EOMI. Conjunctiva and sclera normal. Eyelids normal. ENT: TM's Normal. Pharynx normal. Uvula midline. Moist mucous membranes. No trismus noted. No drooling noted. No muffled voice noted. Neck: Normal inspection. Neck supple. FROM. No adenopathy. Thyroid Normal. No meningeal signs. No neck mass noted. CVS: Normal heart rate and rhythm. Heart sound normal. No murmurs noted. Pulses normal throughout. Respiratory: No respiratory distress. Painless inspiration. Breath sounds normal. No wheezes/rales/rhonchi noted. Chest nontender. No accessory muscle usage noted or decreased air movement noted. Abdomen: Soft and nontender. Bowel sounds normal in all 4 quadrants. No distention noted. No organomegaly noted. No visible injury noted. Back: No CVA tenderness. Full range of motion noted. Skin: Skin warm and dry. Normal skin color. Normal skin turgor. No rashes/lesions/lacerations noted. Extremities: No lower extremity edema. Extremities exhibit normal range of motion. Extremities nontender. Neuro: Oriented X 3. Cranial nerve exam: II-XII are grossly intact No motor deficit. No sensory deficit. Reflexes normal. Course Reevaluation(s) Reevaluation #1: multiple seizure and head injury, Keppra level is pending, otherwise labs are unremarkable, will load 1 dose of Keppra, and will admit the patient. Time: 20:32 Medications Administered Discontinued Medications Generic Name Dose Route Start Last Admin Trade Name Freq PRN Reason Stop Dose Admin Sodium Chloride 1,000 mls @ 999 mls/hr 07/18/24 17:44 07/18/24 18:05 Ns IV 07/18/24 18:44 999 mls/hr .Q1H1M ONE Administration Lorazepam 2 mg 07/18/24 18:31 07/18/24 18:15 Lorazepam 2 Mg/Ml Vial IVPUSH 07/18/24 18:32 2 mg ONCE ONE Administration Medical Decision Making Differential Diagnosis Differential Diagnoses: The differential diagnosis associated with the presentation includes ( Seizure, syncopal episode, ACS, electrolyte derangement, severe anemia.) Admission/Observation Consideration of admission/observation: Escalation of care including admission/observation considered Lab Data MDM Lab Attestation statement: I reviewed the patient's lab results. 07/18/24 18:37 07/18/24 18:37 Labs: Lab Results 07/18/24 Range/Units 18:37 WBC 9.8 (4.8-10.8) X10*3/uL RBC 3.97 L (4.60-5.80) X10*6/uL Hgb 11.9 L (14.0-18.0) g/dl Hct 35.2 L (42.0-52.0) % MCV 88.7 (80.0-98.0) fL MCH 30.0 (27.0-33.0) pg MCHC 33.8 (31.0-36.0) g/dl RDW 13.1 (11.0-16.0) % Plt Count 211 (160-400) X10*3/uL MPV 9.9 (9.4-12.4) fL Immature Gran % (Auto) 0.7 H (0.0-0.4) % Neut % (Auto) 69.3 (45-73) % Lymph % (Auto) 20.8 (20-40) % Kinney % (Auto) 7.9 (2-11) % Eos % (Auto) 1.0 (0-4) % Baso % (Auto) 0.3 (0-2) % Lymph # (Auto) 2.0 (1.2-4.9) X10*3/uL Kinney # (Auto) 0.8 (0.1-1.2) X10*3/uL Eos # (Auto) 0.1 (0.0-0.4) X10*3/uL Baso # (Auto) 0.0 (0.0-0.2) X10*3/uL Abs Immat Gran (auto) 0.07 H (0.00-0.03) X10*3/uL Absolute Neuts (auto) 6.8 (2.0-8.3) x10*3/uL Absolute Nucleated RBC 0.000 (0.0-0.012) X10*3/uL Nucleated RBC % (auto) 0.0 (0.0-0.2) /100WBC Hold Purple Top SEE NOTE PT 12.7 H (10.9-12.4) SEC INR 1.1 (0.9-1.1) Sodium 143 (135-145) mmol/L Potassium 3.4 (3.3-5.1) mmol/L Chloride 103 (96-108) mmol/L Carbon Dioxide 30 H (22-29) mmol/L Anion Gap 13 (12-20) BUN 13 (9-16) mg/dL Creatinine 1.08 (0.5-1.4) mg/dL Estim Creat Clear Calc 63.2 Estimated GFR > 60 Random Glucose 132 H (60-115) mg/dL Calcium 9.2 D (8.4-10.2) mg/dL Total Bilirubin 0.3 (0.0-1.0) mg/dL Direct Bilirubin 0.1 (0.0-0.5) mg/dL AST 16 (5-37) U/L ALT 16 (0-40) U/L Alkaline Phosphatase 68 (39-117) U/L Troponin I High Sens < 2.7 (<3.5-35.0) ng/L B-Natriuretic Peptide 17 (<100) pg/mL Total Protein 6.9 (6.5-8.0) g/dL Albumin 4.1 (3.5-5.0) g/dL Lipase 32 (8-78) U/L Influenza Type A (PCR) NEGATIVE (Negative) Influenza Type B (PCR) NEGATIVE (Negative) RSV RNA Qual (PCR) NEGATIVE (Negative) SARS-CoV-2 RNA (RT-PCR) NEGATIVE (Negative) Independent Interpretation I performed an independent interpretation of an: Plain X-Ray ( Chest: No acute cardiopulmonary disease.) and CT Scan ( Head/C-spine:1. No evidence of acute intracranial hemorrhage or edematous territorial infarction. Moderate underlying microangiopathy and generalized cerebral volume loss. 2. No evidence of acute fracture or traumatic subluxation of the cervical spine. Moderate multilevel degenerative spondyl) Radiology Impression Discussion of test interpretation with radiology: I have reviewed the radiologist's reading. Discharge Plan Discharge Clinical Impression: Seizure Patient Disposition: Admitted As Inpatient Print Language: Stateless
[2024-07-18] MEDS: 0.9 % Sodium Chloride 1,000 ML 999 ML IV (18:05)
[2024-07-18] MEDS: LORazepam 2 MG/ML VIAL IVPUSH (18:15)
--- NOTE | 2024-07-18 18:20 | PC.NURSE ---
at approximately 1810 tech called another RN into the room while she was doing an EKG due to a possible seizure. MD Almendarez also called into the room. Pt has a witnessed seizure lasting approximately one minute. This RN gave IVP ativan 2mg per verbal order by Dr. Almendarez. O2 applied, 100% on 2L.
[2024-07-18 18:42] LABS: MANUAL DIFF FLAG NO
[2024-07-18 18:50] LABS: INTERNATIONAL NORM RATIO 1.1 (0.9-1.1); Prothrombin Time 12.7 SEC (10.9-12.4)
[2024-07-18 18:51] LABS: Basophils Percent Auto 0.3 % (0-2); Eosinophils Absolute Auto 0.1 X10*3/uL (0.0-0.4); Hematocrit 35.2 % (42.0-52.0); Hemoglobin 11.9 g/dl (14.0-18.0); Imm Gran Abs Auto 0.07 X10*3/uL (0.00-0.03); Imm Gran Pct Auto 0.7 % (0.0-0.4); Lymphocytes Percent Auto 20.8 % (20-40); Mean Corpuscular HGB Conc 33.8 g/dl (31.0-36.0); Mean Corpuscular Volume 88.7 fL (80.0-98.0); Mean Platelet Volume 9.9 fL (9.4-12.4); Monocytes Absolute Auto 0.8 X10*3/uL (0.1-1.2); Monocytes Percent Auto 7.9 % (2-11); Neutrophils Absolute Auto 6.8 x10*3/uL (2.0-8.3); Neutrophils Percent Auto 69.3 % (45-73); Platelet Count 211 X10*3/uL (160-400); Red Blood Count 3.97 X10*6/uL (4.60-5.80); Red Cell Distribution Width 13.1 % (11.0-16.0); White Blood Count 9.8 X10*3/uL (4.8-10.8)
[2024-07-18 18:58] LABS: Alanine Aminotransferase 16 U/L (0-40); Albumin Level 4.1 g/dL (3.5-5.0); Alkaline Phosphatase 68 U/L (39-117); Anion Gap 13 (12-20); Aspartate Amino Transferase 16 U/L (5-37); Bilirubin Direct 0.1 mg/dL (0.0-0.5); Bilirubin Total 0.3 mg/dL (0.0-1.0); Blood Urea Nitrogen 13 mg/dL (9-16); Calcium 9.2 mg/dL (8.4-10.2); Carbon Dioxide 30 mmol/L (22-29); Chloride 103 mmol/L (96-108); Creatinine Clr Calc Pharmacy 63.2; Estimated Glomerular Filt Rate > 60; Glucose Random 132 mg/dL (60-115); Lipase 32 U/L (8-78); Potassium 3.4 mmol/L (3.3-5.1); Sodium 143 mmol/L (135-145); Total Protein 6.9 g/dL (6.5-8.0)
[2024-07-18 19:04] LABS: B Type Natriuretic Peptide 17 pg/mL (<100)
[2024-07-18 19:10] LABS: Troponin-I High Sensitivity < 2.7 ng/L (<3.5-35.0)
[2024-07-18 19:24] LABS: Influenza A PCR NEGATIVE (Negative); Influenza B PCR NEGATIVE (Negative); Resp Syncy Virus RNA Qual PCR NEGATIVE (Negative); SARS COV2 PCR INHOUSE NEGATIVE (Negative)
[2024-07-18] MEDS: levETIRAcetam in NaCl (iso-os) 500 MG/100 ML PIGGYBACK 400 MG IV (20:50)
--- NOTE | 2024-07-18 21:19 | P.HPHOSP_ITS ---
History of Present Illness Date of Service: 07/18/24 Attending physician on admission: Aury Moscoso Chief Complaint: Breakthrough seizure Pt is a 68-year-old male with a PMH significant for?HTN, HLD, paroxysmal AFib on Eliquis, unspecified seizure disorder, [id number] type 2 diabetes, hx of gout, hx of TBI with moderate cognitive impairment living at a assisted who presents to the ED for evaluation of episode of unresponsiveness at the grocery store concerning for syncope versus breakthrough seizure. Patient seen and evaluated in his room where he appears with obvious cognitive impairment with delayed response and slow speech. Pt remembers assisted staff bringing him to the store earlier today but uncertain what brought him to the ED. Thinks he fell down while in the store. EMS report having witnessed episode of falling down with LOC for approximately 1 minute without tonic-clonic activity. No reported tongue bite or urinary incontinence, nor apparent postictal . After 3- 4 minutes. Patient had another episode while in the ED of seizure-like activity without generalized tonic clonic movements, that was broken with Ativan 2 mg IV. Was noted to have a postictal state following episode in the ED. Pt himself has no acute medical complaints, and says he feels ?good?. Denies lightheadedness or dizziness. No headache. Denies chest pain/pressure, palpitations. No shortness a breath or difficulty breathing. Denies fever, chills, nausea, vomiting, abdominal pain. Pt is largely independent at assisted but medications are administered by staff and pt reports medication compliance. Does not remember when he last had a seizure. Remembers seeing Dr. Spangler two years ago but does not think he has seen a neurologist since then.? In the ED pt was tachycardic up to 105, tachypneic up to 22, hypertensive up to 181/100. Labs were grossly unremarkable and around baseline for patient. Stable normocytic anemia of 11.9/35.2, around baseline. No leukocytosis. No significant electrolyte abnormalities. Renal function around baseline. Hepatic function WNL. Troponin negative. BNP WNL. Tested negative for flu, RSV, COVID. CXR showed no acute cardiopulmonary process.CT?of head found no evidence of acute intracranial hemorrhage or edematous territorial infarction, but showed moderate underlying microangiopathy and generalized cerebral volume loss, as well as chronic moderate left-sided mastoid/middle ear effusion. CT of cervical spine found no evidence of acute fracture or traumatic subluxation, but showed moderate multilevel degenerative spondyloarthropathy. EKG demonstrated normal sinus rhythm without evidence of significant ST elevations or depressions. Pt was treated with IVF, lorazepam 2 mg IV, and Keppra 500 mg IV. Pt will be admitted to the hospital under observation for treatment and further evaluation of breakthrough seizure. Review of Systems 2 Review of Systems: Seizure-like activity x2 episodes LOC with headstrike No lightheadedness or dizziness Denies headache or acute vision changes No fever, chills, nausea, vomiting, abdominal pain Denies chest pain/pressure, palpitations Denies shortness a breath or difficulty breathing [facility] Medical History Epilepsy History of gout Paroxysmal atrial fibrillation History of seizures History of CVA (cerebrovascular accident) White coat syndrome with diagnosis of hypertension Essential hypertension Diabetes type 2, controlled Family History Father No problems noted. Mother No problems noted. Brother No problems noted. Sister No problems noted. Sister No problems noted. Surgical History No pertinent past surgical history Social History Housing: House Alcohol intake: current Alcohol intake frequency: holidays/special occasions only Patient Tobacco Use Status: Never used Tobacco Smoked in Last 30 Days: No e-Cigarette/Vaping Use: Never Used Second Hand Smoke Exposure: No Use of substances other than those prescribed or required for medical reasons: No Advance Directives: No Advance Directives Information Provided: No Advance Directives Date on File: 08/02/20 service: No Current occupational status: unemployed Current occupation: Patient does not want to answer Current occupational exposures/hazards: No Cognitive needs: No Hearing needs: No Vision needs: No Meds Allergies Allergy/AdvReac Type Severity Reaction Status Date / Time No Known Allergies Allergy Verified 07/18/24 17:36 [No Known Allergies*] Home Medications ?Medication ?Instructions ?Recorded ?Confirmed ?Last Taken ?Type lancets 28 gauge #100 ea 08/02/20 06/11/24 Unknown History Physical Exam 2 Vital Signs and Narrative: Vital Signs: Last Vital Signs Temp 97.7 F 07/18/24 17:33 Pulse 96 07/18/24 18:18 Resp 22 H 07/18/24 18:18 BP 174/86 H 07/18/24 17:51 Pulse Ox 99 07/18/24 18:18 O2 Del Method Nasal Cannula 07/18/24 18:18 O2 Flow Rate 2 07/18/24 18:18 BMI result Body Mass Index 28.0 Constitutional: Alert, in no acute distress. Mental Status: Oriented to person, place and time. Eyes: Pupils are equal, round, and reactive to light. Ear, Nose, and Throat: Oropharynx clear, mucous membranes moist. Ears and nose without deformities. Trachea midline. Respiratory: Clear to auscultation bilaterally. No wheezing, rales, or rhonchi. Cardiovascular: S1, S2 regular. No murmurs, rubs, or gallops. Gastrointestinal: Abdomen soft, non-tender, non-distended. Normal bowel sounds. Neurologic: Moves all extremities spontaneously. Left gaze nystagmus. EOM unable to track to the right. Obvious cognitive impairment with delayed response and slow speech. Skin: Warm, dry. Extremities: No edema. Psychiatric: Pleasantly cooperative, flat affect. Results Labs 07/18/24 18:37 07/18/24 18:37 Labs: Laboratory Results - last 24 hr 07/18/24 18:37 MCV 88.7 MCH 30.0 MCHC 33.8 RDW 13.1 Plt Count 211 MPV 9.9 Immature Gran % (Auto) 0.7 H Neut % (Auto) 69.3 Lymph % (Auto) 20.8 Drew % (Auto) 7.9 Eos % (Auto) 1.0 Baso % (Auto) 0.3 Lymph # (Auto) 2.0 Drew # (Auto) 0.8 Eos # (Auto) 0.1 Baso # (Auto) 0.0 Abs Immat Gran (auto) 0.07 H Absolute Neuts (auto) 6.8 Absolute Nucleated RBC 0.000 Nucleated RBC % (auto) 0.0 Hold Purple Top SEE NOTE PT 12.7 H INR 1.1 Anion Gap 13 Estim Creat Clear Calc 63.2 Estimated GFR > 60 Random Glucose 132 H Calcium 9.2 D Total Bilirubin 0.3 Direct Bilirubin 0.1 AST 16 ALT 16 Alkaline Phosphatase 68 Troponin I High Sens < 2.7 B-Natriuretic Peptide 17 Total Protein 6.9 Albumin 4.1 Lipase 32 Influenza Type A (PCR) NEGATIVE Influenza Type B (PCR) NEGATIVE RSV RNA Qual (PCR) NEGATIVE SARS-CoV-2 RNA (RT-PCR) NEGATIVE Imaging Radiologist's Impressions: Impressions Cervical Spine CT 07/18/24 17:44 IMPRESSION: 1. No evidence of acute intracranial hemorrhage or edematous territorial infarction. Moderate underlying microangiopathy and generalized cerebral volume loss. 2. No evidence of acute fracture or traumatic subluxation of the cervical spine. Moderate multilevel degenerative spondyloarthropathy of the cervical spine. 3. Chronic moderate left-sided mastoid/middle ear effusion. Electronically signed by: Clemente Howard DO 07/18/2024 07:35 PM EDT RP Chest X-Ray 07/18/24 17:44 IMPRESSION: No acute cardiopulmonary process. Electronically signed by: French Holguin MD 07/18/2024 06:09 PM EDT RP Head CT 07/18/24 17:44 IMPRESSION: 1. No evidence of acute intracranial hemorrhage or edematous territorial infarction. Moderate underlying microangiopathy and generalized cerebral volume loss. 2. No evidence of acute fracture or traumatic subluxation of the cervical spine. Moderate multilevel degenerative spondyloarthropathy of the cervical spine. 3. Chronic moderate left-sided mastoid/middle ear effusion. Electronically signed by: Clemente Howard DO 07/18/2024 07:35 PM EDT RP Assessment and Plan (1) Breakthrough seizure: Status: Acute Plan Pt is a 68-year-old male with a PMH significant for?HTN, HLD, paroxysmal AFib on Eliquis, unspecified seizure disorder, [id number]-[id number] type 2 diabetes, hx of gout, hx of TBI with moderate cognitive impairment living at a assisted who presents to the ED for evaluation of episode of unresponsiveness at the grocery store concerning for syncope versus breakthrough seizure. Pt will be admitted to the hospital under observation for treatment and further evaluation of breakthrough seizure. Breakthrough seizures Patient with 2 episodes LOC and seizure-like activity without tonic-clonic movements Episode witnessed in the ED, broken by Ativan IV and followed by postictal state Patient given meds by assisted staff, medication noncompliance less likely Orthostatics negative, patient denies lightheadedness or dizziness CTA of head and cervical spine negative Patient given 500 mg Keppra IV in the ED Will check Keppra levels Patient on Keppra 500 mg in the morning and 250 mg at night, continue for now Seizure precautions Neurology consult Monitor on telemetry Paroxysmal AFib Continue Eliquis, carvedilol HTN Continue lisinopril, hydrochlorothiazide, carvedilol, and nifedipine HLD Continue ezetimibe Gkq-vsvfszg-ufmzmatqg type 2 diabetes Sliding-scale insulin Continue glimepiride Diabetic diet Hx of gout Continue allopurinol Hx of TBI Mentation appears at baseline Full Code Attending:? DVT Prophylaxis: [place] Patient will be admitted to the hospital under observation for treatment of breakthrough seizures that will require overnight cardiac monitoring and Neurology consultation in the morning. Quality Stroke Does the patient have a stroke diagnosis?: No VTE Prior VTE?: No VTE Risk Level:: Medical - moderate - high VTE Device Contraindication: Treatment Not Indicated VTE Drug Contraindication: N/A - Med Ordered
[2024-07-18] MEDS: lisinopriL 40 MG TABLET PO (22:38)
[2024-07-18] MEDS: carvediloL 6.25 MG TABLET PO (22:38)
[2024-07-18] MEDS: Apixaban 5 MG TABLET PO (22:38)
[2024-07-18] MEDS: NIFEdipine ER 60 MG TAB.ER.24 PO (22:39)
--- NOTE | 2024-07-18 23:27 | PC.NURSE ---
Pt requested to use bathroom, t/w encouraged pt to use urinal or bedside commode, pt refused x2 stated he wanted to use the bathroom as he was not able effectively use bathroom otherwise. T/w assisted pt out of bed and to the bathroom to also utilize the opportunity to assess gait. PT gait slow but steady. He denied any lightheadedness or dizziness. PT standing at toilet not swaying or any change in status, while stepping back to provide pt with some privacy, pt fell back and hit the wall. PT assisted to wheelchair with additional staff. PT again denied feeling dizzy or lightheaded just prior to fall. PT brought back to room. Hospitalist and charge notified of inicident. CT scan ordered. PT denies pain, neuro intact. Plan of care ongoing.
--- NOTE | 2024-07-18 23:37 | PM.EVENT ---
Event Note Date of Service: 07/18/24 Event Note: Notified by nursing patient fell while in the bathroom. Patient was being ambulated to the bathroom with a slow and steady gait. Normally ambulates on his own without assistance at home. Was being observed urinating when he tipped back and fell, striking his head on the wall. No loss of consciousness or seizure-like activity. Patient is on Eliquis. Patient denies any acute medical complaints: No lightheadedness or dizziness, no headache. No focal deficits noted upon examination. Will get repeat CT of head and cervical spine. Patient should be on bed rest and urinate with urinal pending PT evaluation. Will repeat orthostatics in the morning. Time Spent With Patient Time: Total time managing care of this patient today ____ minutes.
[2024-07-19] VITALS (8 sets, daily range): BP systolic 138–170; BP diastolic 64–91; PULSE 82–106; RESP 14–18; TEMP 36.2–37.3; O2SAT 95–100
[2024-07-19] MEDS: 0.9 % Sodium Chloride Flush 3 ML SYRINGE IVFLUSH ×4 (00:18→21:10)
[2024-07-19] MEDS: LORazepam 1 MG TABLET PO (00:18)
--- NOTE | 2024-07-19 09:10 | PHA.MEDREC ---
Addendum entered by Mega Lucia 07/19/24 09:40: reviewed Original Note: Pharmacy Consult ? Medication Reconciliation Pharmacy has completed the medication reconciliation.
[2024-07-19 09:18] LABS: Hemoglobin 13.5 g/dl (14.0-18.0); Mean Corpuscular HGB Conc 34.6 g/dl (31.0-36.0); Mean Corpuscular Volume 86.7 fL (80.0-98.0); Platelet Count 259 X10*3/uL (160-400); Red Cell Distribution Width 13.1 % (11.0-16.0); White Blood Count 11.3 X10*3/uL (4.8-10.8)
[2024-07-19 09:25] LABS: Appearance Urine Clear; Color Urine Yellow; Glucose Urine UA Negative (Negative); Leukocyte Esterase Urine Negative (Negative); Nitrite Urine Negative (Negative); PH 8.5 (5.0-9.0); UMIC TRIGGER UACC YES; Urine Blood Negative (Negative); Urine Ketones Negative (Negative); Urine Protein 100 (2+) mg/dL (Neg-Trace)
[2024-07-19 09:30] LABS: Bacteria Urine None Seen (None Seen); Hyaline Casts Urine 0-2 /LPF (0-2); RBC Urine 0-2 /HPF (0-2); Squamous Epithelial Cell Urine 0-2 /HPF (0-2); WBC Urine 0-5 /HPF (0-5)
[2024-07-19 09:50] LABS: Alanine Aminotransferase 18 U/L (0-40); Albumin Level 4.7 g/dL (3.5-5.0); Alkaline Phosphatase 80 U/L (39-117); Anion Gap 14 (12-20); Aspartate Amino Transferase 17 U/L (5-37); Bilirubin Total 0.5 mg/dL (0.0-1.0); Blood Urea Nitrogen 11 mg/dL (9-16); Calcium 9.6 mg/dL (8.4-10.2); Carbon Dioxide 30 mmol/L (22-29); Chloride 100 mmol/L (96-108); Estimated Glomerular Filt Rate > 60; Glucose Random 211 mg/dL (60-115); Potassium 2.9 mmol/L (3.3-5.1); Sodium 141 mmol/L (135-145)
--- NOTE | 2024-07-19 10:12 | PM.NEUROCN ---
History of Present Illness Data of Consult Service Date: 07/19/24 Primary Care Provider: Wiley Pablo MD HPI Reason for consult: Seizure disorder 68-year-old male with a PMH significant for?HTN, HLD, paroxysmal AFib on Eliquis, unspecified seizure disorder, [id number] type 2 diabetes, hx of gout, hx of TBI with moderate cognitive impairment living at a [facility] who presents to the ED for evaluation of episode of unresponsiveness at the grocery store concerning for syncope versus breakthrough seizure. He is known to have a left temporal lesion of unknown etiology, which might be related to a previous injury. Related to that, he suffered from seizure disorder and was maintained on Keppra 500 mg twice a day. I have not seen him for couple of years. This time he was here after he passed out and a departmental store. He said that he was at home when he checked his sugar and it was 60 any took some juice and some other things and then went to the store. Apparently he passed out for about a minute but no convulsion was noted. Review of Systems Review of Systems: No recent cold or flu-like illness. He denied drinking alcohol. [facility] Past Medical History Medical History Epilepsy History of gout Paroxysmal atrial fibrillation History of seizures History of CVA (cerebrovascular accident) White coat syndrome with diagnosis of hypertension Essential hypertension Diabetes type 2, controlled Family History Family History Father No problems noted. Mother No problems noted. Brother No problems noted. Sister No problems noted. Sister No problems noted. Surgical History Surgical History No pertinent past surgical history Social History Social History Household Members: Other Housing: Other Do you presently have visiting nurse or other home services: No Alcohol intake: current Alcohol intake frequency: holidays/special occasions only Patient Tobacco Use Status: Never used Tobacco e-Cigarette/Vaping Use: Never Used Second Hand Smoke Exposure: No Advance Directives Date on File: 08/02/20 service: No Current occupational status: unemployed Current occupation: Patient does not want to answer Current occupational exposures/hazards: No Cognitive needs: No Hearing needs: No Vision needs: No Meds Allergies Allergy/AdvReac Type Severity Reaction Status Date / Time No Known Allergies Allergy Verified 07/18/24 17:36 [No Known Allergies*] Active Medications: Current Medications Acetaminophen (Acetaminophen 325 Mg Tablet) 650 mg PO Q6H PRN PRN Reason: Pain, Mild (Pain Scale 1-3), fever or headache Allopurinol (Allopurinol 100 Mg Tablet) 100 mg PO DAILY AD Apixaban (Apixaban 5 Mg Tablet) 5 mg PO BID AD Benzonatate (Benzonatate 100 Mg Capsule) 100 mg PO TID PRN PRN Reason: Cough Calcium Carbonate (Calcium Carbonate 750 Mg Tab.Chew) 750 mg PO Q4H PRN PRN Reason: Heartburn Carvedilol (Carvedilol 6.25 Mg Tablet) 6.25 mg PO BIDWM AD; Protocol Ezetimibe (Ezetimibe 10 Mg Tablet) 10 mg PO DAILY AD Hydrochlorothiazide (Hydrochlorothiazide 25 Mg Tablet) 25 mg PO DAILY AD; Protocol Potassium Chloride (Potassium Chloride/H20) 10 meq in 100 mls @ 100 mls/hr IV Q1H AD Stop: 07/19/24 13:59 Levetiracetam (Levetiracetam 500 Mg Tablet) 500 mg PO DAILY AD Levetiracetam (Levetiracetam 250 Mg Tablet) 250 mg PO BEDTIME AD Lisinopril (Lisinopril 40 Mg Tablet) 40 mg PO BEDTIME AD; Protocol Magnesium Hydroxide (Milk Of Magnesia 30 Ml Oral.Susp) 30 ml PO DAILY PRN PRN Reason: Constipation Melatonin (Melatonin 3 Mg Tablet) 6 mg PO BEDTIME PRN PRN Reason: Insomnia Nifedipine (Nifedipine Er 60 Mg Tab.Er.24) 60 mg PO BID [facility] Non-Formulary Medication ( Lacosamide 50mg Tablet) 50 each PO BEDTIME [facility] Ondansetron HCl (Ondansetron Hcl 4 Mg/2 Ml Vial) 4 mg IVPUSH Q8H PRN PRN Reason: Nausea and Vomiting Sodium Chloride (0.9 % Sodium Chloride Flush 3 Ml Syringe) 3 ml IVFLUSH QSHIFT [facility] Last Admin: 07/19/24 00:18 Dose: 3 ml Home Medications ?Medication ?Instructions ?Recorded ?Confirmed ?Last Taken ?Type lancets 28 gauge #100 ea 08/02/20 07/19/24 07/18/24 History allopurinol 100 mg tablet 100 mg PO DAILY 07/19/24 07/19/24 07/18/24 History carvedilol 6.25 mg tablet 6.25 mg PO BIDWM 07/19/24 07/19/24 07/18/24 History glimepiride 1 mg tablet 1 mg PO DAILY 07/19/24 07/19/24 07/18/24 History lacosamide 50 mg tablet 50 mg PO BEDTIME 07/19/24 07/19/24 07/18/24 History levetiracetam 500 mg tablet 500 mg PO DAILY 07/19/24 07/19/24 07/18/24 History lisinopril 40 mg tablet 40 mg PO BEDTIME 07/19/24 07/19/24 07/18/24 History omega 5-bfz-ekh-fish oil 1,000 mg 1 cap PO BEDTIME 07/19/24 07/19/24 07/18/24 History (120 mg-180 mg) capsule Physical Exam Vital Signs: Vital Signs: Last Vital Signs Temp 97.6 F 07/19/24 08:00 Pulse 106 H 07/19/24 08:00 Resp 17 07/19/24 08:00 BP 150/80 H 07/19/24 08:00 Pulse Ox 95 07/19/24 08:00 O2 Del Method Room Air 07/19/24 08:00 O2 Flow Rate 2 07/18/24 18:18 BMI result Body Mass Index 28.0 Neuro: Other: He is alert and awake with slightly slow spontaneity and fluency of speech. Comprehension was intact. Affect was flat. Facial expression blinking were diminished. Generalized bradykinesia was noted. Otherwise there was no focal finding. Results Labs 07/19/24 08:45 07/19/24 08:45 Labs: Short CBC 07/18/24 07/19/24 Range/Units 18:37 08:45 WBC 9.8 11.3 H (4.8-10.8) X10*3/uL Hgb 11.9 L 13.5 L (14.0-18.0) g/dl Hct 35.2 L 39.0 L (42.0-52.0) % Plt Count 211 259 (160-400) X10*3/uL BMP 07/18/24 07/19/24 18:37 08:45 Sodium 143 141 Potassium 3.4 2.9 L* Chloride 103 100 Carbon Dioxide 30 H 30 H BUN 13 11 Creatinine 1.08 1.05 Calcium 9.2 D 9.6 Liver Function 07/18/24 07/19/24 Range/Units 18:37 08:45 Total Bilirubin 0.3 0.5 (0.0-1.0) mg/dL Direct Bilirubin 0.1 (0.0-0.5) mg/dL AST 16 17 (5-37) U/L ALT 16 18 (0-40) U/L Alkaline Phosphatase 68 80 (39-117) U/L Albumin 4.1 4.7 (3.5-5.0) g/dL Urine 07/19/24 Range/Units 08:45 Urine Color Yellow Urine Appearance Clear Urine pH 8.5 (5.0-9.0) Ur Specific [place] 1.010 (1.005-1.025) Urine Protein 100 (2+) H (Neg-Trace) mg/dL Urine Glucose (UA) Negative (Negative) mg/dL Kaga-hx-towficlw generalized cerebral atrophy is noted without any acute lesion. Assessment and Plan (1) Breakthrough seizure: Status: Acute 68 years old man with seizure disorder usually treated with Keppra 500 mg twice a day. He might have missed his doses. At this time my recommendation is to increase his regular does to 750 twice a day if he was taking 500,000 twice a day if he was taking 750 twice a day. He should pay attention to hydration and diabetic medicines. Also, he should not drink alcohol. He can make a follow-up appointment in 2-3 weeks for further guidance. Procedures Date of Service Date of Service: 07/19/24
[2024-07-19] MEDS: Ezetimibe 10 MG TABLET PO (10:16)
[2024-07-19] MEDS: Potassium Chloride ER 20 MEQ TAB.ER.PRT 40 MEQ PO ×2 (10:16→21:00)
[2024-07-19] MEDS: levETIRAcetam 500 MG TABLET PO (10:17)
[2024-07-19] MEDS: allopurinoL 100 MG TABLET PO (10:17)
[2024-07-19] MEDS: carvediloL 6.25 MG TABLET PO ×2 (10:17→16:20)
[2024-07-19] MEDS: Apixaban 5 MG TABLET PO ×2 (10:17→21:01)
[2024-07-19] MEDS: NIFEdipine ER 60 MG TAB.ER.24 PO ×2 (10:18→21:00)
[2024-07-19] MEDS: hydroCHLOROthiazide 25 MG TABLET PO (10:19)
[2024-07-19] MEDS: Potassium Chloride/H20 10 MEQ/100 ML PIGGYBACK 100 MEQ IV ×3 (10:20→13:03)
[2024-07-19 10:33] LABS: Estimated Average Glucose 146 mg/dL; Hemoglobin A1C 168.0026 umol/L; Hemoglobin A1c % 6.7 % (<6.0); Total Hemoglobin (HGBA1C) 3413.7034 umol/L
[2024-07-19 10:37] LABS: Amphetamine Screen Urine Not Detected (Not Detect); Barbiturates, Urine Not Detected (Not Detect); Benzodiazepines Screen Urine Not Detected (Not Detect); Buprenorphine Scr Not Detected (Not Detect); Cannabinoid Screen Urine Not Detected (Not Detect); Cocaine Screen Urine Not Detected (Not Detect); Fentanyl, urine Not Detected (Not Detect); Methadone Screen, Urine Not Detected (Not Detect); Opiate Screen Urine Not Detected (Not Detect); Oxycodone Screen Urine Not Detected (Not Detect); Phencyclidine Screen Urine Not Detected (Not Detect)
--- NOTE | 2024-07-19 10:52 | MHC.CM.PN ---
Patient is documented to be moderately Cognitively Impaired; LEONEL attempted to address YEH with only listed Contact/Kira @ [phone], but her VM is full. Original YEH will be mailed to Kira and a copy has been placed on the chart. Patient is from a Custodial and tentative dc plan will be for him to return there. LEONEL has initiated and will follow for dc planning.
[2024-07-19 11:51] LABS: Glucose, Whole Blood 147 mg/dL (60-115)
--- NOTE | 2024-07-19 13:02 | P.PNIM_ITS ---
Subjective Subjective Date of Service: 07/19/24 Interval History: pt denies headache or seizures per [facility] staff member, pt has periodic hypoglycemia to 60s-70s no further seizures fell in bathroom last night because he thought someone was on guard behind him; no LOC Review of Systems Review of Systems: Yes all other systems are reviewed and are negative Physical Exam 2 Vital Signs: Vital Signs: Last Vital Signs Temp 98.6 F 07/19/24 12:00 Pulse 89 07/19/24 12:00 Resp 16 07/19/24 12:00 BP 162/82 H 07/19/24 12:00 Pulse Ox 97 07/19/24 12:00 O2 Del Method Room Air 07/19/24 12:00 O2 Flow Rate 2 07/18/24 18:18 BMI result Body Mass Index 28.0 Gen: in no acute distress HEENT: sclera anicteric, moist mucus membranes Neck: supple Lungs: clear to auscultation bilaterally Heart: regular rate and rhythm, no murmurs Abd: soft, non-tender, non-distended Ext: no edema Skin: warm/well-perfused Neuro: alert and oriented x3, no focal findings Psych: appropriate affect Objective Data Active Medications Acetaminophen (Acetaminophen 325 Mg Tablet) 650 mg PO Q6H PRN PRN Reason: Pain, Mild (Pain Scale 1-3), fever or headache Allopurinol (Allopurinol 100 Mg Tablet) 100 mg PO DAILY [facility] Last Admin: 07/19/24 10:17 Dose: 100 mg Documented By: ELIZ Apixaban (Apixaban 5 Mg Tablet) 5 mg PO BID [facility] Last Admin: 07/19/24 10:17 Dose: 5 mg Documented By: ELIZ Benzonatate (Benzonatate 100 Mg Capsule) 100 mg PO TID PRN PRN Reason: Cough Calcium Carbonate (Calcium Carbonate 750 Mg Tab.Chew) 750 mg PO Q4H PRN PRN Reason: Heartburn Carvedilol (Carvedilol 6.25 Mg Tablet) 6.25 mg PO BIDWM [facility]; Protocol Last Admin: 07/19/24 10:17 Dose: 6.25 mg Documented By: ELIZ Ezetimibe (Ezetimibe 10 Mg Tablet) 10 mg PO DAILY [facility] Last Admin: 07/19/24 10:16 Dose: 10 mg Documented By: ELIZ Hydrochlorothiazide (Hydrochlorothiazide 25 Mg Tablet) 25 mg PO DAILY [facility]; Protocol Last Admin: 07/19/24 10:19 Dose: 25 mg Documented By: ELIZ Potassium Chloride (Potassium Chloride/H20) 10 meq in 100 mls @ 100 mls/hr IV Q1H AD Stop: 07/19/24 13:59 Last Admin: 07/19/24 12:05 Dose: 100 mls/hr Documented By: ELIZ Levetiracetam (Levetiracetam 500 Mg Tablet) 500 mg PO DAILY [facility] Last Admin: 07/19/24 10:17 Dose: 500 mg Documented By: ELIZ Levetiracetam (Levetiracetam 250 Mg Tablet) 250 mg PO BEDTIME AD Lisinopril (Lisinopril 40 Mg Tablet) 40 mg PO BEDTIME [facility]; Protocol Magnesium Hydroxide (Milk Of Magnesia 30 Ml Oral.Susp) 30 ml PO DAILY PRN PRN Reason: Constipation Melatonin (Melatonin 3 Mg Tablet) 6 mg PO BEDTIME PRN PRN Reason: Insomnia Nifedipine (Nifedipine Er 60 Mg Tab.Er.24) 60 mg PO BID [facility] Last Admin: 07/19/24 10:18 Dose: 60 mg Documented By: ELIZ Non-Formulary Medication ( Lacosamide 50mg Tablet) 50 each PO BEDTIME [facility] Ondansetron HCl (Ondansetron Hcl 4 Mg/2 Ml Vial) 4 mg IVPUSH Q8H PRN PRN Reason: Nausea and Vomiting Sodium Chloride (0.9 % Sodium Chloride Flush 3 Ml Syringe) 3 ml IVFLUSH QSHIFT [facility] Last Admin: 07/19/24 10:19 Dose: 3 ml Documented By: ELIZ Labs 07/19/24 08:45 07/19/24 08:45 Labs: Laboratory Results - last 24 hr 07/18/24 07/19/24 07/19/24 18:37 08:45 11:47 MCV 88.7 86.7 MCH 30.0 30.0 MCHC 33.8 34.6 RDW 13.1 13.1 Plt Count 211 259 MPV 9.9 10.0 Immature Gran % (Auto) 0.7 H Neut % (Auto) 69.3 Lymph % (Auto) 20.8 Owen % (Auto) 7.9 Eos % (Auto) 1.0 Baso % (Auto) 0.3 Lymph # (Auto) 2.0 Owen # (Auto) 0.8 Eos # (Auto) 0.1 Baso # (Auto) 0.0 Abs Immat Gran (auto) 0.07 H Absolute Neuts (auto) 6.8 Absolute Nucleated RBC 0.000 0.000 Nucleated RBC % (auto) 0.0 0.0 Hold Purple Top SEE NOTE PT 12.7 H INR 1.1 Anion Gap 13 14 Estim Creat Clear Calc 63.2 65.0 Estimated GFR > 60 > 60 POC Glucose 147 H Random Glucose 132 H 211 H Estimat Average Glucose 146 Hemoglobin A1c % 6.7 H Calcium 9.2 D 9.6 Magnesium 2.0 Total Bilirubin 0.3 0.5 Direct Bilirubin 0.1 AST 16 17 ALT 16 18 Alkaline Phosphatase 68 80 Troponin I High Sens < 2.7 B-Natriuretic Peptide 17 Total Protein 6.9 8.0 Albumin 4.1 4.7 Lipase 32 Urine Color Yellow Urine Appearance Clear Urine pH 8.5 Ur Specific [place] 1.010 Urine Protein 100 (2+) H Urine Glucose (UA) Negative Urine Ketones Negative Urine Blood Negative Urine Nitrite Negative Ur Leukocyte Esterase Negative Urine RBC 0-2 Urine WBC 0-5 Ur Squamous Epith Cells 0-2 Urine Bacteria None Seen Hyaline Casts 0-2 Urine Opiates Screen Not Detected Ur Buprenorphine Scrn Not Detected Ur Oxycodone Screen Not Detected Urine Methadone Screen Not Detected Urine Fentanyl Screen Not Detected Ur Barbiturates Screen Not Detected Ur Phencyclidine Scrn Not Detected Ur Amphetamines Screen Not Detected U Benzodiazepines Scrn Not Detected Urine Cocaine Screen Not Detected U Marijuana (THC) Screen Not Detected Influenza Type A (PCR) NEGATIVE Influenza Type B (PCR) NEGATIVE RSV RNA Qual (PCR) NEGATIVE SARS-CoV-2 RNA (RT-PCR) NEGATIVE ITS Impressions Cervical Spine CT 07/18/24 17:44 IMPRESSION: 1. No evidence of acute intracranial hemorrhage or edematous territorial infarction. Moderate underlying microangiopathy and generalized cerebral volume loss. 2. No evidence of acute fracture or traumatic subluxation of the cervical spine. Moderate multilevel degenerative spondyloarthropathy of the cervical spine. 3. Chronic moderate left-sided mastoid/middle ear effusion. Electronically signed by: Clemente Howard DO 07/18/2024 07:35 PM EDT RP Chest X-Ray 07/18/24 17:44 IMPRESSION: No acute cardiopulmonary process. Electronically signed by: French Holguin MD 07/18/2024 06:09 PM EDT RP Head CT 07/18/24 17:44 IMPRESSION: 1. No evidence of acute intracranial hemorrhage or edematous territorial infarction. Moderate underlying microangiopathy and generalized cerebral volume loss. 2. No evidence of acute fracture or traumatic subluxation of the cervical spine. Moderate multilevel degenerative spondyloarthropathy of the cervical spine. 3. Chronic moderate left-sided mastoid/middle ear effusion. Electronically signed by: Clemente Howard DO 07/18/2024 07:35 PM EDT RP Cervical Spine CT 07/18/24 23:49 IMPRESSION: CT HEAD: 1. No acute intracranial abnormalities. 2. Opacification of the left mastoid air cells and left middle ear cavity which may represent otomastoiditis or aseptic effusions. Findings are unchanged compared with 06/04/2024. 3. Mild white matter chronic small vessel ischemic disease and chronic lacunar infarct within the head of the left caudate nucleus. CT CERVICAL SPINE: 1. No acute abnormalities. 2. Multilevel chronic spondylosis. 3. Prominent posterior broad-based disc-osteophyte complex at C3-C4 which may result in at least moderate central canal stenosis. Electronically signed by: Jese Patrick MD 07/19/2024 04:54 AM EDT RP Head CT 07/18/24 23:49 IMPRESSION: CT HEAD: 1. No acute intracranial abnormalities. 2. Opacification of the left mastoid air cells and left middle ear cavity which may represent otomastoiditis or aseptic effusions. Findings are unchanged compared with 06/04/2024. 3. Mild white matter chronic small vessel ischemic disease and chronic lacunar infarct within the head of the left caudate nucleus. CT CERVICAL SPINE: 1. No acute abnormalities. 2. Multilevel chronic spondylosis. 3. Prominent posterior broad-based disc-osteophyte complex at C3-C4 which may result in at least moderate central canal stenosis. Electronically signed by: Jese Patrick MD 07/19/2024 04:54 AM EDT RP Assessment and Plan (1) Breakthrough seizure: Status: Acute Plan d2 68[facility] M [facility] with HTN, HLD, pAF on apixaban, seizure disorder, DM2, gout, TBI with moderate cognitive impairment presenting after episode of unresponsiveness, LOC per EMS, and witnessed tonic- clonic seizure with postictal state in ED admitted for breakthrough seizure breakthrough seizure - given IV lorazepam in ED - continue levetiracetam + lacosamide; Neurology consult pending hypoK - replete IV/PO, recheck level in AM DM2 with reported hypoglycemia - A1c only 6.7; will d/c glimepiride to avoid hypoglycemia pAF - continue apixaban + carvedilol HTN - continue lisinopril + HCTZ + carvedilol + nifedipine HLD - continue ezetimibe gout - allopurinol dispo - eventual return to VTE prophylaxis - enoxaparin In my clinical judgment, the patient requires continued inpatient hospitalization for the following reasons: neuro workup, K replacement Total time managing care of this patient today: 35 minutes. Quality Stroke Does the patient have a stroke diagnosis?: No VTE Prior VTE?: No VTE Risk Level:: Medical - moderate - high VTE Device Contraindication: Treatment Not Indicated VTE Drug Contraindication: N/A - Med Ordered
[2024-07-19 17:07] LABS: Glucose, Whole Blood 150 mg/dL (60-115)
[2024-07-19 20:51] LABS: Glucose, Whole Blood 175 mg/dL (60-115)
[2024-07-19] MEDS: levETIRAcetam 250 MG TABLET PO (21:00)
[2024-07-19] MEDS: lisinopriL 40 MG TABLET PO (21:00)
[2024-07-19] MEDS: LACOSAMIDE 50 MG 50 EACH PO (21:01)
[2024-07-20 03:44] VITALS: BP 140/77; PULSE 94; RESP 20; TEMP 36.6; O2SAT 97
[2024-07-20 06:39] LABS: Anion Gap 10 (12-20); Blood Urea Nitrogen 14 mg/dL (9-16); Calcium 9.3 mg/dL (8.4-10.2); Carbon Dioxide 27 mmol/L (22-29); Chloride 106 mmol/L (96-108); Creatinine Clr Calc Pharmacy 73.4; Estimated Glomerular Filt Rate > 60; Glucose Random 176 mg/dL (60-115); Magnesium 1.8 mg/dL (1.6-2.6); Potassium 3.1 mmol/L (3.3-5.1); Sodium 140 mmol/L (135-145)
[2024-07-20 07:02] VITALS: BP 136/88; PULSE 98; RESP 17; TEMP 36.4; O2SAT 98
[2024-07-20 07:35] LABS: Glucose, Whole Blood 144 mg/dL (60-115)
[2024-07-20] MEDS: NIFEdipine ER 60 MG TAB.ER.24 PO (07:47)
[2024-07-20] MEDS: hydroCHLOROthiazide 25 MG TABLET PO (07:48)
[2024-07-20] MEDS: levETIRAcetam 500 MG TABLET PO (07:48)
[2024-07-20] MEDS: allopurinoL 100 MG TABLET PO (07:48)
[2024-07-20] MEDS: carvediloL 6.25 MG TABLET PO (07:48)
[2024-07-20] MEDS: Ezetimibe 10 MG TABLET PO (07:48)
[2024-07-20] MEDS: Apixaban 5 MG TABLET PO (07:48)
[2024-07-20] MEDS: 0.9 % Sodium Chloride Flush 3 ML SYRINGE IVFLUSH (07:54)
[2024-07-20] MEDS: Potassium Chloride ER 20 MEQ TAB.ER.PRT 40 MEQ PO (08:07)
[2024-07-20] MEDS: levETIRAcetam 250 MG TABLET 750 MG PO (08:07)
--- NOTE | 2024-07-20 10:45 | PM.DS ---
DS: Providers Provider Date of Service: 07/20/24 Date of admission: 07/18/24 22:11 Date of discharge: 07/20/24 Primary care physician: Wiley Pablo MD Consults: 07/18/24 22:11 Consult to Neurology Routine Consulting Provider: [facility] Reason for consultation: Breakthrough seizures DS: Diagnosis Discharge Diagnosis (1) Breakthrough seizure: Status: Acute (2) Type 2 diabetes mellitus with hypoglycemia: Status: Acute (3) Hypokalemia: Status: Acute DS: Summary Hospital Course Hospital Course: From the history and physical by the admitting hospitalist, JEREMIAH Menard, 07/18/24: Pt is a 68-year-old male with a PMH significant for?HTN, HLD, paroxysmal AFib on Eliquis, unspecified seizure disorder, pvu-wwibkol-pmaubjxtu type 2 diabetes, hx of gout, hx of TBI with moderate cognitive impairment living at a jail who presents to the ED for evaluation of episode of unresponsiveness at the grocery store concerning for syncope versus breakthrough seizure. Patient seen and evaluated in his room where he appears with obvious cognitive impairment with delayed response and slow speech. Pt remembers jail staff bringing him to the store earlier today but uncertain what brought him to the ED. Thinks he fell down while in the store. EMS report having witnessed episode of falling down with LOC for approximately 1 minute without tonic-clonic activity. No reported tongue bite or urinary incontinence, nor apparent postictal . After 3-4 minutes. Patient had another episode while in the ED of seizure-like activity without generalized tonic clonic movements, that was broken with Ativan 2 mg IV. Was noted to have a postictal state following episode in the ED. Pt himself has no acute medical complaints, and says he feels ?good?. Denies lightheadedness or dizziness. No headache. Denies chest pain/pressure, palpitations. No shortness a breath or difficulty breathing. Denies fever, chills, nausea, vomiting, abdominal pain. Pt is largely independent at jail but medications are administered by staff and pt reports medication compliance. Does not remember when he last had a seizure. Remembers seeing Dr. Spangler two years ago but does not think he has seen a neurologist since then.? In the ED pt was tachycardic up to 105, tachypneic up to 22, hypertensive up to 181/100. Labs were grossly unremarkable and around baseline for patient. Stable normocytic anemia of 11.9/35.2, around baseline. No leukocytosis. No significant electrolyte abnormalities. Renal function around baseline. Hepatic function WNL. Troponin negative. BNP WNL. Tested negative for flu, RSV, COVID. CXR showed no acute cardiopulmonary process.CT?of head found no evidence of acute intracranial hemorrhage or edematous territorial infarction, but showed moderate underlying microangiopathy and generalized cerebral volume loss, as well as chronic moderate left-sided mastoid/middle ear effusion. CT of cervical spine found no evidence of acute fracture or traumatic subluxation, but showed moderate multilevel degenerative spondyloarthropathy. EKG demonstrated normal sinus rhythm without evidence of significant ST elevations or depressions. Pt was treated with IVF, lorazepam 2 mg IV, and Keppra 500 mg IV. Pt will be admitted to the hospital under observation for treatment and further evaluation of breakthrough seizure. 68yo M jail resident with HTN, HLD, pAF on apixaban, seizure disorder, DM2, gout, and TBI with moderate cognitive impairment presenting after episode of unresponsiveness, LOC per EMS, and witnessed tonic-clonic seizure with postictal state in ED; admitted to telemetry unit for breakthrough seizure. Seizures did not recur. No orthostasis. Neurology was consulted. Keppra was increased from 500 to 750 mg qam, and from 250 to 500 mg qpm. Lacosamide [Vimpat] was continued. He should follow up with Neurology in 2-3 weeks. nursing home staff reported recurrent hypoglycemia; A1c was only 6.7, so glimepiride was discontinued. He was started on potassium supplementation for hypokalemia and BMP should be repeated in 1 week. Time Attestation Discharge Coordination Time (in mins): 40 Quality: Safe Use of Opioids Does Pt have an Active Cancer Diagnosis on the Problem List?: No Quality: Stroke Does the patient have a stroke diagnosis?: No Physical Exam Vital Signs: Vital Signs: Last Vital Signs Temp 97.6 F 07/20/24 07:02 Pulse 98 07/20/24 07:02 Resp 17 07/20/24 07:02 BP 136/88 07/20/24 07:02 Pulse Ox 98 07/20/24 07:02 O2 Del Method Room Air 07/20/24 07:02 O2 Flow Rate 2 07/18/24 18:18 BMI result Body Mass Index 28.0 Gen: in no acute distress HEENT: sclera anicteric, moist mucus membranes Neck: supple Lungs: clear to auscultation bilaterally Heart: regular rate and rhythm, no murmurs Abd: soft, non-tender, non-distended Ext: no edema Skin: warm/well-perfused Neuro: alert and oriented x3, no focal findings Psych: appropriate affect DS: Data Data Completed and Pending Completed studies during hospitalization [Text1]: Laboratory Results WBC 11.3 X10*3/uL (4.8-10.8) H 07/19/24 08:45 RBC 4.50 X10*6/uL (4.60-5.80) L 07/19/24 08:45 Hgb 13.5 g/dl (14.0-18.0) L 07/19/24 08:45 Hct 39.0 % (42.0-52.0) L 07/19/24 08:45 MCV 86.7 fL (80.0-98.0) 07/19/24 08:45 MCH 30.0 pg (27.0-33.0) 07/19/24 08:45 MCHC 34.6 g/dl (31.0-36.0) 07/19/24 08:45 RDW 13.1 % (11.0-16.0) 07/19/24 08:45 Plt Count 259 X10*3/uL (160-400) 07/19/24 08:45 MPV 10.0 fL (9.4-12.4) 07/19/24 08:45 Immature Gran % (Auto) 0.7 % (0.0-0.4) H 07/18/24 18:37 Neut % (Auto) 69.3 % (45-73) 07/18/24 18:37 Lymph % (Auto) 20.8 % (20-40) 07/18/24 18:37 Falls % (Auto) 7.9 % (2-11) 07/18/24 18:37 Eos % (Auto) 1.0 % (0-4) 07/18/24 18:37 Baso % (Auto) 0.3 % (0-2) 07/18/24 18:37 Lymph # (Auto) 2.0 X10*3/uL (1.2-4.9) 07/18/24 18:37 Falls # (Auto) 0.8 X10*3/uL (0.1-1.2) 07/18/24 18:37 Eos # (Auto) 0.1 X10*3/uL (0.0-0.4) 07/18/24 18:37 Baso # (Auto) 0.0 X10*3/uL (0.0-0.2) 07/18/24 18:37 Abs Immat Gran (auto) 0.07 X10*3/uL (0.00-0.03) H 07/18/24 18:37 Absolute Neuts (auto) 6.8 x10*3/uL (2.0-8.3) 07/18/24 18:37 Absolute Nucleated RBC 0.000 X10*3/uL (0.0-0.012) 07/19/24 08:45 Nucleated RBC % (auto) 0.0 /100WBC (0.0-0.2) 07/19/24 08:45 Hold Purple Top SEE NOTE 07/18/24 18:37 PT 12.7 SEC (10.9-12.4) H 07/18/24 18:37 INR 1.1 (0.9-1.1) 07/18/24 18:37 Sodium 140 mmol/L (135-145) 07/20/24 05:53 Potassium 3.1 mmol/L (3.3-5.1) L 07/20/24 05:53 Chloride 106 mmol/L (96-108) 07/20/24 05:53 Carbon Dioxide 27 mmol/L (22-29) 07/20/24 05:53 Anion Gap 10 (12-20) L 07/20/24 05:53 BUN 14 mg/dL (9-16) 07/20/24 05:53 Creatinine 0.93 mg/dL (0.5-1.4) 07/20/24 05:53 Estim Creat Clear Calc 73.4 07/20/24 05:53 Estimated GFR > 60 07/20/24 05:53 POC Glucose 144 mg/dL (60-115) H 07/20/24 07:04 Random Glucose 176 mg/dL (60-115) H 07/20/24 05:53 Estimat Average Glucose 146 mg/dL 07/19/24 08:45 Hemoglobin A1c % 6.7 % (<6.0) H 07/19/24 08:45 Calcium 9.3 mg/dL (8.4-10.2) 07/20/24 05:53 Magnesium 1.8 mg/dL (1.6-2.6) 07/20/24 05:53 Total Bilirubin 0.5 mg/dL (0.0-1.0) 07/19/24 08:45 Direct Bilirubin 0.1 mg/dL (0.0-0.5) 07/18/24 18:37 AST 17 U/L (5-37) 07/19/24 08:45 ALT 18 U/L (0-40) 07/19/24 08:45 Alkaline Phosphatase 80 U/L (39-117) 07/19/24 08:45 Troponin I High Sens < 2.7 ng/L (<3.5-35.0) 07/18/24 18:37 B-Natriuretic Peptide 17 pg/mL (<100) 07/18/24 18:37 Total Protein 8.0 g/dL (6.5-8.0) 07/19/24 08:45 Albumin 4.7 g/dL (3.5-5.0) 07/19/24 08:45 Lipase 32 U/L (8-78) 07/18/24 18:37 Urine Color Yellow 07/19/24 08:45 Urine Appearance Clear 07/19/24 08:45 Urine pH 8.5 (5.0-9.0) 07/19/24 08:45 Ur Specific [place] 1.010 (1.005-1.025) 07/19/24 08:45 Urine Protein 100 (2+) mg/dL (Neg-Trace) H 07/19/24 08:45 Urine Glucose (UA) Negative mg/dL (Negative) 07/19/24 08:45 Urine Ketones Negative mg/dL (Negative) 07/19/24 08:45 Urine Blood Negative (Negative) 07/19/24 08:45 Urine Nitrite Negative (Negative) 07/19/24 08:45 Ur Leukocyte Esterase Negative (Negative) 07/19/24 08:45 Urine RBC 0-2 /HPF (0-2) 07/19/24 08:45 Urine WBC 0-5 /HPF (0-5) 07/19/24 08:45 Ur Squamous Epith Cells 0-2 /HPF (0-2) 07/19/24 08:45 Urine Bacteria None Seen (None Seen) 07/19/24 08:45 Hyaline Casts 0-2 /LPF (0-2) 07/19/24 08:45 Urine Opiates Screen Not Detected (Not Detect) 07/19/24 08:45 Ur Buprenorphine Scrn Not Detected ng/mL (Not Detect) 07/19/24 08:45 Ur Oxycodone Screen Not Detected ng/mL (Not Detect) 07/19/24 08:45 Urine Methadone Screen Not Detected ng/mL (Not Detect) 07/19/24 08:45 Urine Fentanyl Screen Not Detected (Not Detect) 07/19/24 08:45 Ur Barbiturates Screen Not Detected (Not Detect) 07/19/24 08:45 Ur Phencyclidine Scrn Not Detected (Not Detect) 07/19/24 08:45 Ur Amphetamines Screen Not Detected (Not Detect) 07/19/24 08:45 U Benzodiazepines Scrn Not Detected (Not Detect) 07/19/24 08:45 Urine Cocaine Screen Not Detected (Not Detect) 07/19/24 08:45 U Marijuana (THC) Screen Not Detected (Not Detect) 07/19/24 08:45 Influenza Type A (PCR) NEGATIVE (Negative) 07/18/24 18:37 Influenza Type B (PCR) NEGATIVE (Negative) 07/18/24 18:37 RSV RNA Qual (PCR) NEGATIVE (Negative) 07/18/24 18:37 SARS-CoV-2 RNA (RT-PCR) NEGATIVE (Negative) 07/18/24 18:37 Impressions Chest X-Ray 07/18/24 17:44 IMPRESSION: No acute cardiopulmonary process. Electronically signed by: French Holguin MD 07/18/2024 06:09 PM EDT Cervical Spine CT 07/18/24 23:49 IMPRESSION: CT HEAD: 1. No acute intracranial abnormalities. 2. Opacification of the left mastoid air cells and left middle ear cavity which may represent otomastoiditis or aseptic effusions. Findings are unchanged compared with 06/04/2024. 3. Mild white matter chronic small vessel ischemic disease and chronic lacunar infarct within the head of the left caudate nucleus. CT CERVICAL SPINE: 1. No acute abnormalities. 2. Multilevel chronic spondylosis. 3. Prominent posterior broad-based disc-osteophyte complex at C3-C4 which may result in at least moderate central canal stenosis. Electronically signed by: Jese Patrick MD 07/19/2024 04:54 AM EDT RP Head CT 07/18/24 23:49 IMPRESSION: CT HEAD: 1. No acute intracranial abnormalities. 2. Opacification of the left mastoid air cells and left middle ear cavity which may represent otomastoiditis or aseptic effusions. Findings are unchanged compared with 06/04/2024. 3. Mild white matter chronic small vessel ischemic disease and chronic lacunar infarct within the head of the left caudate nucleus. CT CERVICAL SPINE: 1. No acute abnormalities. 2. Multilevel chronic spondylosis. 3. Prominent posterior broad-based disc-osteophyte complex at C3-C4 which may result in at least moderate central canal stenosis. Electronically signed by: Jese Patrick MD 07/19/2024 04:54 AM EDT RP Discharge Plan Discharge Anticipated Discharge Date/Time: 07/20/24 10:32 Patient Disposition: Xfer Other Discharge Diagnosis: breakthrough seizure diabetes with hypoglycemia hypokalemia Referrals: Wiley Pablo MD [Primary Care Provider] - 1 Week Indira Spangler MD [Physician] - 2 Weeks Discharge Medications: New levetiracetam 500 mg Tablet 500 mg PO BEDTIME Qty: 30 0RF Rx Instructions: replaces prior dose of 250 mg potassium chloride 20 mEq Tablet,Er Particles/Crystals 40 meq PO DAILY Qty: 30 0RF levetiracetam 250 mg Tablet 750 mg PO DAILY Qty: 90 0RF Continued (DME) blood-glucose meter [FreeStyle Lite Meter] Kit See Rx Instructions .ROUTE .MEDSUPPLY Qty: 1 0RF Rx Instructions: As directed (DME) miscellaneous medical supply Misc See Rx Instructions .ROUTE .MEDSUPPLY Qty: 1 0RF Rx Instructions: Diabetic Shoes, Daily As directed, 999 days Eliquis 5 mg tablet 5 mg PO BID 90 Days Qty: 180 2RF (DME) FreeStyle Lite Strips Strip See Rx Instructions .ROUTE .MEDSUPPLY Qty: 50 11RF Rx Instructions: check blood sugar daily and daily prn hydrochlorothiazide 25 mg tablet 25 mg PO DAILY 90 Days Qty: 90 3RF ezetimibe [Zetia] 10 mg tablet 10 mg PO DAILY 90 Days Qty: 90 2RF nifedipine 60 mg tablet extended release 60 mg PO BID Qty: 60 3RF Rx Instructions: Take one tablet in the morning and one tablet in the evening, without food. lacosamide 50 mg tablet 50 mg PO BEDTIME carvedilol 6.25 mg tablet 6.25 mg PO BIDWM Rx Instructions: must administer with a meal/food allopurinol 100 mg tablet 100 mg PO DAILY lisinopril 40 mg tablet 40 mg PO BEDTIME omega 3-oak-ovd-fish oil 1,000 mg (120 mg-180 mg) capsule 1 cap PO BEDTIME (DME) lancets 28 gauge misc See Rx Instructions topical DAILY Qty: 100 Rx Instructions: As directed Discontinued levetiracetam 250 mg tablet 250 mg PO BEDTIME 90 Days Qty: 90 2RF levetiracetam 500 mg tablet 500 mg PO DAILY Rx Instructions: Take one tablet every morning with or without food. glimepiride 1 mg tablet 1 mg PO DAILY Rx Instructions: Take one tablet every morning with food. Discharge Orders: Discharge Order (Routine); Ordered 07/20/24 Ordered By: Vandana Cody Diet: Diabetic diet Activity on Discharge: As tolerated Stand Alone Forms: Patient Portal Discharge page Print Language: Chinese Other Ambulatory Orders: Basic Metabolic Panel (Routine) Timeframe: 1 Week Facility: [facility] - Location: Laboratory Ordered By: Vandana Cody Care Plan Goals: seizure control avoid hypoglycemia normal potassium Health Concerns: breakthrough seizure diabetes with hypoglycemia hypokalemia Plan of Treatment: increase levetiracetam [Keppra] to 750 mg every morning, 500 mg at bedtime stop glimepiride; follow diabetic diet take potassium chloride 40 mEq daily and recheck BMP in 1 week Please follow up with your primary care doctor within 1 week. Return to the hospital if you experience recurrent or worsening symptoms. Assessment: See Discharge Summary.
--- NOTE | 2024-07-20 10:52 | MHC.CM.PN ---
RAO 07/19/24 Patient is discharged today. The snf was contacted. S/W spoke with staff member, Cori. She was notified of the discharge. She stated that she would provide transportation home. lieutenant shift supervisor is scheduled for 12:30pm. notified to send the Silvanora script to the pts pharmacy on file. Also informed of transport time.
[2024-07-20 11:42] LABS: Glucose, Whole Blood 184 mg/dL (60-115)
[2024-07-22 20:28] LABS: Levetiracetam Keppra 21.3 mcg/mL (6.0-46.0)
== END 2024-07-20 12:58 | disposition other institution (70) ==
LOC: HO.ED 20:35 → HO.EDOVER 22:17 → HO.IMC 07-19 02:49
PROVIDERS: Admitting Provider Student in an Organized Health Care Education/Training Program; Emergency Provider Emergency Medicine; PCP Family Medicine; Visit Provider Family Medicine
DX: G40.919 Epilepsy, unspecified, intractable, without status epilepticus (principal); E87.6 Hypokalemia; E11.649 Type 2 diabetes mellitus with hypoglycemia without coma; R55 Syncope and collapse; S09.90XA Unspecified injury of head, initial encounter; W01.0XXA Fall on same level from slipping, tripping and stumbling without subsequent striking against object, initial encounter; Y93.89 Activity, other specified; Y92.231 Patient bathroom in hospital as the place of occurrence of the external cause; Y99.9 Unspecified external cause status; I10 Essential (primary) hypertension; I48.0 Paroxysmal atrial fibrillation; M10.9 Gout, unspecified; Z79.01 Long term (current) use of anticoagulants; Z79.899 Other long term (current) drug therapy; Z87.820 Personal history of traumatic brain injury; Z03.818 Encounter for observation for suspected exposure to other biological agents ruled out
CPT/HCPCS: 0241U; 36415; 70450; 71045; 72125; 80048; 80053; 80076; 80177; 80307; 81001; 82947; 83036; 83690; 83735; 83880; 84484; 85025; 85027; 85610; 93005; 96361; 96365; 96366; 96375; 97162; 99222; 99285; J1953; J2060; J3480

== ENCOUNTER → 2024-07-18 22:11 | Outpatient (BNV) | payer MEDICARE, MEDICAID, SELFPAY | PROVIDERS: Admitting Provider Student in an Organized Health Care Education/Training Program; Emergency Provider Emergency Medicine; PCP Family Medicine; Visit Provider Student in an Organized Health Care Education/Training Program | DX: G40.919 Epilepsy, unspecified, intractable, without status epilepticus (principal); E11.649 Type 2 diabetes mellitus with hypoglycemia without coma; E87.6 Hypokalemia | CPT/HCPCS: 99222; 99232; 99239 ==

== ENCOUNTER → 2024-07-18 22:11 | Outpatient (BNV) | payer MEDICARE, MEDICAID, SELFPAY | PROVIDERS: Admitting Provider Student in an Organized Health Care Education/Training Program; Emergency Provider Emergency Medicine; PCP Family Medicine; Visit Provider Psychiatry & Neurology Neurology | DX: G40.919 Epilepsy, unspecified, intractable, without status epilepticus (principal) | CPT/HCPCS: 99222 ==

== ENCOUNTER 2024-07-27 09:24 | Outpatient (REF) | payer MEDICARE, MEDICAID, SELFPAY ==
[2024-07-27 10:40] LABS: Anion Gap 12 (12-20); Blood Urea Nitrogen 14 mg/dL (9-16); Carbon Dioxide 31 mmol/L (22-29); Chloride 100 mmol/L (96-108); Estimated Glomerular Filt Rate > 60; Glucose Random 206 mg/dL (60-115); Potassium 3.6 mmol/L (3.3-5.1); Sodium 139 mmol/L (135-145)
== END 2024-07-27 09:25 | disposition home or self-care (01) ==
LOC: HO.LAB 09:24
PROVIDERS: PCP Family Medicine; Visit Provider Family Medicine
DX: E87.6 Hypokalemia (principal)
CPT/HCPCS: 36415; 80048

== ENCOUNTER 2024-07-28 13:44 | Outpatient (AMB) | payer MEDICARE, MEDICAID, SELFPAY ==
--- NOTE | 2024-07-28 13:48 | MHC.PC.OV ---
Vital Signs 07/28/24 14:00 Height 5 ft 6 in Weight 171 lb 2 oz BMI 27.6 BP 133/77 Blood Pressure Location Lt brachial Position Sitting Respiration 16 Pulse 90 Pulse Source Pulse Oximeter Temp 98.6 F Temp Source Temporal Artery Scan Pulse Oximetry (%) 100 Oxygen Delivery Method Room Air Intake Visit Reasons: Discharged from [facility] Intake Note: discharge f/u Allergies No Known Allergies [No Known Allergies*] Allergy (Verified 07/28/24 14:00) Tobacco use date assessed: 01/20/24 Dental Screening Dental Screen Date: 03/12/24 HPI Discharged from [facility] HPI Details Date?of?admission: ?07/18/2024 Date?of?discharge: ?07/20/2024 Patient?went ?to the emergency department after fall with impact to head and loss of consciousness. At ED, patient was noted to have slowed verbal responses time and some confusion consistent with postictal state. Patient also had another episode of unresponsiveness which was broken by Ativan and diagnosed with breakthrough seizures. Had CT did not show acute finding except left mastoids/middle ear effusion. Cervical CT scan showed no trauma. EKG was negative for arrhythmia or ACS. Pt was treated with IVF, lorazepam 2 mg IV, and Keppra 500 mg IV. Pt was admitted to the hospital under observation for treatment and further evaluation of breakthrough seizure. Neurology increased his Keppra from 500 to 750 mg qam, and from 250 to 500 mg qpm. Lacosamide [Vimpat] was continued. He should follow up with Neurology in 2-3 weeks. senior living staff reported recurrent hypoglycemia; A1c was only 6.7, so glimepiride was discontinued. He was started on potassium supplementation for hypokalemia and BMP should be repeated in 1 week. Has complaints of a ? cellulitis today on his R reese. TCM TCM Information Date of Discharge 07/20/24 Discharged From [facility] Interactive Contact Date (Reference documentation from this date) 07/28/24 FORMERLY [facility], [facility] Medical History Epilepsy History of gout Paroxysmal atrial fibrillation History of seizures History of CVA (cerebrovascular accident) White coat syndrome with diagnosis of hypertension Essential hypertension Diabetes type 2, controlled Surgical History No pertinent past surgical history Family History Father No problems noted. Mother No problems noted. Brother No problems noted. Sister No problems noted. Sister No problems noted. Social History Household Members: Other Housing: Other Do you presently have visiting nurse or other home services: No Alcohol intake: current Alcohol intake frequency: holidays/special occasions only Patient Tobacco Use Status: Never used Tobacco e-Cigarette/Vaping Use: Never Used Second Hand Smoke Exposure: No Advance Directives Date on File: 08/02/20 service: No Current occupational status: unemployed Current occupation: Patient does not want to answer Current occupational exposures/hazards: No Cognitive needs: No Hearing needs: No Vision needs: No Questionnaire Thrive Questionnaire Date Thrive assessed: 07/19/24 I am a: Patient What is your living situation today?: I have a steady place to live Within the past 12 months, did the food you bought not last and you didn't have the money to get more?: I choose not to answer this question Within the past 12 months, did you worry whether your food would run out before you got money to buy more?: I choose not to answer this question Do you have trouble paying for medicines?: No Do you have trouble getting transportation to medical appointments?: No Do you have trouble paying your heating and electricity bill?: No Do you have trouble taking care of your child, family member or friend?: No Do you have trouble with day-to-day activities such as bathing, preparing meals, shopping, managing finances, etc.?: No Are you currently unemployed and looking for a job?: I choose not to answer this question Are you interested in more education?: I choose not to answer this question Please select the resources that you would like help with: None Currently or been in a relationship where the following occur: I choose not to answer THRIVE Score: 0 AUDIT C Alcohol Use Questionnaire (AUDIT-C) 1. How often do you have a drink containing alcohol?: Never Total Score: 0 FRANC-7 AMB Questionnaire FRANC-7 Date FRANC - 7 assessed: 01/20/24 Feeling nervous, anxious, or on edge: 0 = Not at all Not being able to stop or control worryin = Not at all Worrying too much about different things: 0 = Not at all Trouble relaxin = Not at all Being so restless that it is hard to sit still: 0 = Not at all Becoming easily annoyed or irritable: 0 = Not at all Feeling afraid as if something awful might happen: 0 = Not at all Total FRANC-7 score (0-4 normal; 5-9 mild; 10-14 moderate; 15-21 severe): 0 Source: Developed by Drs. Darien Higginbotham, Erin Vargas, Dony Arevalo and colleagues, with an educational otilia from [employer]. Review of Systems Const Denies chills, Denies fatigue, Denies fever(s), Denies headache(s) and Denies weakness ENT Denies dizziness and Denies headache(s) Card Denies dyspnea Resp Denies cough, Denies dyspnea, Denies wheezing and Denies other (shortness of breath) Musc Denies numbness and Denies tingling Skin/Breast Details: R reese cellulitis Neuro Denies dizziness, Denies headache(s), Denies numbness, Denies tingling and Denies weakness Psych Denies anxiety and Denies depression Endo Denies fatigue Aller/Immun Denies wheezing Physical exam (Primary Care) Vital Signs: Last Vital Signs Temp 98.6 F 07/28/24 14:00 Pulse 90 07/28/24 14:00 Resp 16 07/28/24 14:00 BP 133/77 07/28/24 14:00 Pulse Ox 100 07/28/24 14:00 Oxygen Delivery Method Room Air 07/28/24 14:00 BMI result Body Mass Index 27.6 Tobacco/Smoking Status: Tobacco use Status Tobacco use date assessed 01/20/24 07/28/24 13:50 Patient Tobacco Use Status Never used Tobacco 07/28/24 13:50 e-Cigarette/Vaping Use Never Used 07/28/24 13:50 Thrive Assessment: Date of Thrive Assessment Date Thrive assessed 07/19/24 07/28/24 13:50 Currently or been in a relationship where the following occur: I choose not to answer Const General: well developed; No acute distress Nutritional Appearance: well nourished Orientation/consciousness: patient oriented x3 HENMT Head: Yes normocephalic and Yes atraumatic Eyes General: appearance normal, both eyes and all related structures Pupils: Equal, round and reactive pupils present EOM: EOMs intact bilaterally Resp Effort & Inspection: normal respiratory effort Neuro General: patient oriented x3 and gait normal Cranial nerves: Yes Equal, round and reactive pupils present Psych Affect: normal affect Coding Level of Care Code TCM Mod MDM <= 7 Days Diagnoses Breakthrough seizure G40.919 Type 2 diabetes mellitus with hypoglycemia E11.649 Hypokalemia E87.6 Cellulitis L03.90 Assessment & Plan Assessment & Plan (1) Breakthrough seizure: Code(s): G40.919 - Epilepsy, unspecified, intractable, without status epilepticus Category: Medical Plan: Keppra?was?increased?to?750?mg?a.m.?and?500?mg?p.m. Vimpat?was?continued Follow-up?with?Neurology?as?recommended (2) Type 2 diabetes mellitus with hypoglycemia: Code(s): E11.649 - Type 2 diabetes mellitus with hypoglycemia without coma Category: Medical Plan: Glimepiride?was?discontinued?due?to?low?blood?sugars He?will?try?metformin. He?has?an?upcoming?appointment?we?can?follow-up?to?ensure?he?is?tolerating?metformin?and?ensure?that?blood?sugar?is?being?controlled (3) Hypokalemia: Code(s): E87.6 - Hypokalemia Category: Medical Plan: Potassium?was?low?and?he?was?started?on?a?potassium?supplement Checking?potassium?today (4) Cellulitis: Code(s): L03.90 - Cellulitis, unspecified Category: Medical Plan: Right?lower?extremity?swelling?readiness?excess?warmth?and?tenderness?at?anterior?reese Start?Bactrim?DS Elevate?leg Call?or?return?to?office?if?any?problems?occur?or?if?not?improving Orders: Orders Comprehensive Met. Panel Today G40.909 - Epilepsy, unspecified, not intractable, without status epilepticus Medications: New metformin 250 mg (1/2 x 500 mg) PO DAILY 30 days 15 tabs 3RF sulfamethoxazole-trimethoprim 800-160 mg (Bactrim DS) 1 tab PO Q12H 10 days 20 tabs 0RF Changed From lacosamide (Vimpat) Take in evening 50 mg (1/2 x 100 mg) PO DAILY 90 days 45 tabs 2RF G40.909 - Epilepsy, unspecified, not intractable, without status epilepticus To lacosamide Take in evening 50 mg PO DAILY 90 days 90 tabs 2RF G40.909 - Epilepsy, unspecified, not intractable, without status epilepticus
[2024-07-28 14:00] VITALS: BP 133/77; PULSE 90; RESP 16; TEMP 37; O2SAT 100; BMI 27.6
== END 2024-07-28 15:18 | disposition home or self-care (01) ==
PROVIDERS: PCP Family Medicine; Visit Provider Family Medicine
DX: G40.919 Epilepsy, unspecified, intractable, without status epilepticus (principal); E11.649 Type 2 diabetes mellitus with hypoglycemia without coma; E87.6 Hypokalemia; L03.90 Cellulitis, unspecified

== ENCOUNTER → 2024-07-28 13:44 | Outpatient (BNVA) | payer MEDICARE, MEDICAID, SELFPAY | PROVIDERS: PCP Family Medicine; Visit Provider Family Medicine | DX: G40.909 Epilepsy, unspecified, not intractable, without status epilepticus (principal) ==

== ENCOUNTER 2024-07-28 15:01 | Outpatient (REF) | payer MEDICARE, MEDICAID, SELFPAY ==
[2024-07-28 17:56] LABS: Alanine Aminotransferase 19 U/L (0-40); Albumin Level 4.4 g/dL (3.5-5.0); Alkaline Phosphatase 66 U/L (39-117); Anion Gap 14 (12-20); Aspartate Amino Transferase 14 U/L (5-37); Bilirubin Total 0.3 mg/dL (0.0-1.0); Blood Urea Nitrogen 13 mg/dL (9-16); Calcium 10.4 mg/dL (8.4-10.2); Carbon Dioxide 30 mmol/L (22-29); Chloride 102 mmol/L (96-108); Estimated Glomerular Filt Rate > 60; Glucose Random 108 mg/dL (60-115); Potassium 3.7 mmol/L (3.3-5.1); Sodium 142 mmol/L (135-145); Total Protein 7.7 g/dL (6.5-8.0)
== END 2024-07-28 15:02 | disposition home or self-care (01) ==
LOC: HO.WFDLDS 15:01
PROVIDERS: Visit Provider Family Medicine
DX: G40.919 Epilepsy, unspecified, intractable, without status epilepticus (principal); E11.649 Type 2 diabetes mellitus with hypoglycemia without coma; E87.6 Hypokalemia; L03.90 Cellulitis, unspecified; Z79.899 Other long term (current) drug therapy
CPT/HCPCS: 36415; 80053; 99212

== ENCOUNTER 2024-08-19 13:03 | Outpatient (AMB) | payer MEDICARE, MEDICAID, SELFPAY ==
[2024-08-19 13:17] VITALS: BP 126/62; PULSE 93; BMI 27.0
--- NOTE | 2024-08-19 13:17 | MHC.OFFVIS ---
Vital Signs 08/19/24 13:17 Height 5 ft 6 in Weight 167 lb 8.821 oz BMI 27.0 BP 126/62 Blood Pressure Location Lt brachial Position Sitting Pulse 93 Pulse Source Monitor Intake Visit Reasons: 1 yr fu Backroom Associate Required: No Allergies No Known Allergies [No Known Allergies*] Allergy (Verified 07/28/24 14:00) Medication List - Last Reconciled 08/19/24 by Brijesh Arriola MD allopurinol 100 mg PO DAILY apixaban (Eliquis) 5 mg PO BID 90 days blood sugar diagnostic (FreeStyle Lite Strips) check blood sugar daily and daily prn blood-glucose meter (FreeStyle Lite Meter kit) As directed carvedilol 6.25 mg PO BIDWM ezetimibe (Zetia) 10 mg PO DAILY 90 days hydrochlorothiazide 25 mg PO DAILY 90 days lacosamide 50 mg PO DAILY 90 days lancets As directed levetiracetam 750 mg (3 x 250 mg) PO DAILY levetiracetam 500 mg PO BEDTIME lisinopril 40 mg PO BEDTIME metformin 250 mg (1/2 x 500 mg) PO DAILY 30 days miscellaneous medical supply Diabetic Shoes, Daily As directed, 999 days nifedipine ER 60 mg PO BID omega 7-cfk-plu-fish oil 1,000 mg (120 mg-180 mg) 1 cap PO BEDTIME potassium chloride ER 40 mEq (2 x 20 mEq) PO DAILY sulfamethoxazole-trimethoprim 800-160 mg (Bactrim DS) 1 tab PO Q12H 10 days HPI Comments Details: 68-year-old gentleman who is here for follow-up. He has background history of hypertension, hyperlipidemia, diabetes and paroxysmal atrial fibrillation. He has been on Eliquis. He previously had stress test where he had hypertensive response to exercise with blood pressure of 210/68. he has EKG was abnormal before exercise any his baseline ST changes were exaggerated. Overall he had high blood pressure and tachycardia. His medications after that were adjusted. His blood pressure since then has been very well controlled. He is denying any chest pain or shortness of breath. He is saying his walking and has no issues with ambulation. Overall doing well. Tolerating medications well. 08/19/2024: He is here for follow-up. No chest pain or shortness of breath. Blood pressure is well controlled on multiple medications right now. He is on Eliquis for anticoagulation for atrial fibrillation. Clinically he has been doing well. [facility] Medical History Epilepsy History of gout Paroxysmal atrial fibrillation History of seizures History of CVA (cerebrovascular accident) White coat syndrome with diagnosis of hypertension Essential hypertension Diabetes type 2, controlled Surgical History No pertinent past surgical history Family History Father No problems noted. Mother No problems noted. Brother No problems noted. Sister No problems noted. Sister No problems noted. Social History Household Members: Other Housing: Other Do you presently have visiting nurse or other home services: No Alcohol intake: current Alcohol intake frequency: holidays/special occasions only Patient Tobacco Use Status: Never used Tobacco e-Cigarette/Vaping Use: Never Used Second Hand Smoke Exposure: No Advance Directives Date on File: 08/02/20 service: No Current occupational status: unemployed Current occupation: Patient does not want to answer Current occupational exposures/hazards: No Cognitive needs: No Hearing needs: No Vision needs: No Review of Systems Const Denies weakness ENT Denies dizziness Card Denies chest pain, Denies chest pain with activity, Denies syncope, Denies rapid heart rate, Denies pedal edema, Denies edema, Denies leg edema, Denies lightheadedness, Denies palpitations, Denies dyspnea, Denies dyspnea on exertion and Denies orthopnea Resp Denies cough, Denies dyspnea and Denies dyspnea on exertion GI Denies hematochezia and Denies change in stool character Musc Denies abnormal gait, Denies muscle cramps, Denies muscle weakness, Denies numbness, Denies radiating pain into limb and Denies tingling Neuro Denies abnormal gait, Denies dizziness, Denies syncope, Denies numbness, Denies tingling and Denies weakness Endo Denies palpitations Physical Exam Vital Signs: Last Vital Signs Pulse 93 08/19/24 13:17 BP 126/62 08/19/24 13:17 BMI result Body Mass Index 27.0 GENERAL APPEARANCE: in no acute distress, pleasant. NECK: no carotid bruit, no jugular venous distention. SKIN: no suspicious lesions, warm and dry. HEART: no murmurs, regular rate and rhythm. LUNGS: clear to auscultation bilaterally. ABDOMEN: soft, nontender. EXTREMITIES: no edema. PERIPHERAL PULSES: equal. NEUROLOGIC: No gross deficits, AAO X 3 Office Procedures EKG Details: Sinus rhythm 93 beats per minute, normal axis, nonspecific ST changes, QTC 430 milliseconds. [id number], Complete Assessment & Plan Assessment & Plan (1) Essential hypertension: Code(s): I10 - Essential (primary) hypertension Category: Medical (2) Paroxysmal atrial fibrillation: Code(s): I48.0 - Paroxysmal atrial fibrillation Category: Medical Plan 68-year-old gentleman who is here for follow-up. Blood pressure is well controlled on multiple medicines. He is compliant with medicines. No chest discomfort or shortness of breath. He is on Eliquis for anticoagulation. He has been noted to be hypokalemic and has been on potassium supplements. If this is an ongoing issue then 25 mg spironolactone can be added. He is saying that he will get repeat blood workup with Dr. Pablo. Follow-up with us in 1 year. Thank you for allowing me to participate in the care of your patient. Please feel free to contact me if you have any questions. Coding Level of Care Code Est Pt Level 4 (25834) Diagnoses Essential hypertension I10 Paroxysmal atrial fibrillation I48.0 CPT Codes EKG - CPT: 85988-[id number], Complete ([id number])
== END 2024-08-19 13:44 | disposition home or self-care (01) ==
LOC: HO.HCS 13:04
PROVIDERS: PCP Family Medicine; Visit Provider Internal Medicine Cardiovascular Disease
DX: I10 Essential (primary) hypertension (principal); I48.0 Paroxysmal atrial fibrillation
CPT/HCPCS: 93010; 99214

== ENCOUNTER → 2024-08-19 13:03 | Outpatient (BNVA) | payer MEDICARE, MEDICAID, SELFPAY | PROVIDERS: PCP Family Medicine; Visit Provider Internal Medicine Cardiovascular Disease | DX: I10 Essential (primary) hypertension (principal); I48.0 Paroxysmal atrial fibrillation; E78.5 Hyperlipidemia, unspecified; Z79.01 Long term (current) use of anticoagulants | CPT/HCPCS: 93005; 99212 ==

== ENCOUNTER 2024-09-03 14:24 | Outpatient (AMB) | payer MEDICARE, MEDICAID, SELFPAY ==
--- NOTE | 2024-09-03 14:26 | A.OFFPC_ITS ---
Vital Signs 09/03/24 14:39 Height 5 ft 6 in Weight 168 lb 2 oz BMI 27.1 BP 150/60 H Blood Pressure Location Lt brachial Position Sitting Respiration 16 Pulse 103 H Pulse Source Pulse Oximeter Temp 98.5 F Temp Source Oral Pulse Oximetry (%) 96 Oxygen Delivery Method Room Air Intake Visit Reasons: f/u diabetes, htn, chronic conditions - comment Intake Note: f/u for DM and HTN and chronic conditions Allergies No Known Allergies [No Known Allergies*] Allergy (Verified 09/03/24 14:35) Medication List - Last Reconciled 09/03/24 by Wiley Pablo MD allopurinol 100 mg PO DAILY apixaban (Eliquis) 5 mg PO BID 90 days blood sugar diagnostic (FreeStyle Lite Strips) check blood sugar daily and daily prn blood-glucose meter (FreeStyle Lite Meter kit) As directed carvedilol 6.25 mg PO BIDWM ezetimibe (Zetia) 10 mg PO DAILY 90 days hydrochlorothiazide 25 mg PO DAILY 90 days lacosamide 50 mg PO DAILY 90 days lancets As directed levetiracetam 500 mg PO BEDTIME 90 days levetiracetam 750 mg (3 x 250 mg) PO DAILY 90 days lisinopril 40 mg PO BEDTIME metformin 250 mg (1/2 x 500 mg) PO DAILY 30 days miscellaneous medical supply Diabetic Shoes, Daily As directed, 999 days nifedipine ER 60 mg PO BID omega 0-zmm-txz-fish oil 1,000 (120-180) mg 1 cap PO BEDTIME potassium chloride ER 20 mEq PO DAILY 30 days Tobacco use date assessed: 01/20/24 Dental Screening Dental Screen Date: 03/12/24 HPI f/u diabetes, htn, chronic conditions - comment HPI Details 68 y/o male presents to f/u diabetes, HT N, chronic conditions. Blood pressure today 150/60, 103p. He is on nifedipine 60mg b.i.d, lisinopril 40mg Notes his blood pressure this morning was in the 120s systolic range. A1c today 09/03/24 6.9%. He is on metformin 250mg Denies any issues with metformin. Notes he has been taking potassium tablets 40mg. [facility] Medical History Epilepsy History of gout Paroxysmal atrial fibrillation History of seizures History of CVA (cerebrovascular accident) White coat syndrome with diagnosis of hypertension Essential hypertension Diabetes type 2, controlled Surgical History No pertinent past surgical history Family History Father No problems noted. Mother No problems noted. Brother No problems noted. Sister No problems noted. Sister No problems noted. Social History Household Members: Other Housing: Other Do you presently have visiting nurse or other home services: No Alcohol intake: current Alcohol intake frequency: holidays/special occasions only Patient Tobacco Use Status: Never used Tobacco e-Cigarette/Vaping Use: Never Used Second Hand Smoke Exposure: No Advance Directives Date on File: 08/02/20 service: No Current occupational status: unemployed Current occupation: Patient does not want to answer Current occupational exposures/hazards: No Cognitive needs: No Hearing needs: No Vision needs: No Questionnaire PHQ-9 Over the last 2 weeks, how often have you been bothered by any of the following problems? 1. Little interest or pleasure in doing things: several days 3. Trouble falling or staying asleep, or sleeping too much: not at all Source: Developed by Drs. Darien Higginbotham, Erin Vargas, Dony Arevalo and colleagues, with an educational otilia from [employer]. Thrive Questionnaire Date Thrive assessed: 07/28/24 I am a: Patient What is your living situation today?: I have a steady place to live Within the past 12 months, did the food you bought not last and you didn't have the money to get more?: I choose not to answer this question Within the past 12 months, did you worry whether your food would run out before you got money to buy more?: I choose not to answer this question Do you have trouble paying for medicines?: No Do you have trouble getting transportation to medical appointments?: No Do you have trouble paying your heating and electricity bill?: No Do you have trouble taking care of your child, family member or friend?: No Do you have trouble with day-to-day activities such as bathing, preparing meals, shopping, managing finances, etc.?: No Are you currently unemployed and looking for a job?: I choose not to answer this question Are you interested in more education?: I choose not to answer this question Please select the resources that you would like help with: None Currently or been in a relationship where the following occur: I choose not to answer THRIVE Score: 0 FRANC-7 AMB Questionnaire FRANC-7 Date FRANC - 7 assessed: 01/20/24 Source: Developed by Drs. Darien Higginbotham, Erin Vargas, Dony Arevalo and colleagues, with an educational otilia from [employer]. Review of Systems Const Denies chills, Denies fatigue, Denies fever(s), Denies headache(s) and Denies weakness ENT Denies dizziness and Denies headache(s) Card Denies dyspnea Resp Denies cough, Denies dyspnea, Denies wheezing and Denies other (shortness of breath) Musc Denies numbness and Denies tingling Neuro Denies dizziness, Denies headache(s), Denies numbness, Denies tingling and Denies weakness Psych Reports anxiety and Denies depression Endo Denies fatigue Aller/Immun Denies wheezing Physical exam (Primary Care) Vital Signs: Last Vital Signs Temp 98.5 F 09/03/24 14:39 Pulse 103 H 09/03/24 14:39 Resp 16 09/03/24 14:39 BP 150/60 H 09/03/24 14:39 Pulse Ox 96 09/03/24 14:39 Oxygen Delivery Method Room Air 09/03/24 14:39 BMI result Body Mass Index 27.1 Tobacco/Smoking Status: Tobacco use Status Tobacco use date assessed 01/20/24 09/03/24 14:44 Patient Tobacco Use Status Never used Tobacco 09/03/24 14:44 e-Cigarette/Vaping Use Never Used 09/03/24 14:44 Thrive Assessment: Date of Thrive Assessment Date Thrive assessed 07/28/24 09/03/24 14:44 Currently or been in a relationship where the following occur: I choose not to a nswer Const General: well developed; No acute distress Nutritional Appearance: well nourished Orientation/consciousness: patient oriented x3 HENMT Head: Yes normocephalic and Yes atraumatic Eyes General: appearance normal, both eyes and all related structures Pupils: Equal, round and reactive pupils present EOM: EOMs intact bilaterally Resp Effort & Inspection: normal respiratory effort Neuro General: patient oriented x3 and gait normal Cranial nerves: Yes Equal, round and reactive pupils present Psych Affect: normal affect Coding Level of Care Code Est Pt Level 4 (42852) Diagnoses Essential hypertension I10 Diabetes type 2, controlled E11.9 Hypokalemia E87.6 Anxiety with depression F41.8 Assessment & Plan Assessment & Plan (1) Essential hypertension: Code(s): I10 - Essential (primary) hypertension Category: Medical Plan: Blood?pressure?is?high?in?the?office?but?was?well?controlled?earlier?today. Has?a?long?history?of?white?coat?syndrome No?changes?to?his?blood?pressure?medication?regimen?today. Advised?he?continue?checking?at?home?and?if?consistently?above?140/90?he?will?ca ll (2) Diabetes type 2, controlled: Code(s): E11.9 - Type 2 diabetes mellitus without complications Category: Medical Plan: A1c?6.9%?is?controlled.??Goal?is?less?than?7.0% Continue?metformin?as?prescribed Metformin?was?not?included?on?his?healthcare?visit?and?health?car e?providers?order?form?and?I?have?asked?that?this?be?amended (3) Hypokalemia: Code(s): E87.6 - Hypokalemia Category: Medical Plan: Had?decreased?patient's?potassium?from?40?mEq?daily?to?20?mEq?daily?at?last?refi ll.??However?staff?has?not?made?this?change?yet. Advise?they?make?a?change?and?I?am?checking?his?potassium?levels?today. (4) Anxiety with depression: Code(s): F41.8 - Other specified anxiety disorders Category: Medical Plan: Mildly?anxious?today Denies?SI/HI Has therapist & will f/u w/ therapist Orders: Orders Basic Metabolic Panel Today E87.6 - Hypokalemia, Z00.00 - Encounter for general adult medical examination without abnormal findings
[2024-09-03 14:39] VITALS: BP 150/60; PULSE 103; RESP 16; TEMP 36.9; O2SAT 96; BMI 27.1
== END 2024-09-03 15:48 | disposition home or self-care (01) ==
PROVIDERS: PCP Family Medicine; Visit Provider Family Medicine
DX: I10 Essential (primary) hypertension (principal); E11.9 Type 2 diabetes mellitus without complications; E87.6 Hypokalemia; F41.8 Other specified anxiety disorders

== ENCOUNTER 2024-09-03 15:37 | Outpatient (REF) | payer MEDICARE, MEDICAID, SELFPAY ==
[2024-09-03 18:15] LABS: Anion Gap 14 (12-20); Blood Urea Nitrogen 14 mg/dL (9-16); Calcium 10.3 mg/dL (8.4-10.2); Carbon Dioxide 27 mmol/L (22-29); Chloride 102 mmol/L (96-108); Estimated Glomerular Filt Rate > 60; Glucose Random 120 mg/dL (60-115); Potassium 3.2 mmol/L (3.3-5.1); Sodium 140 mmol/L (135-145)
== END 2024-09-03 15:38 | disposition home or self-care (01) ==
LOC: HO.WFDLDS 15:37
PROVIDERS: Visit Provider Family Medicine
DX: Z00.00 Encounter for general adult medical examination without abnormal findings (principal); E87.6 Hypokalemia; I10 Essential (primary) hypertension; E11.9 Type 2 diabetes mellitus without complications; F41.8 Other specified anxiety disorders; Z79.84 Long term (current) use of oral hypoglycemic drugs
CPT/HCPCS: 36415; 80048; 99212

== ENCOUNTER 2024-10-16 09:48 | Outpatient (REF) | payer MEDICARE, MEDICAID, SELFPAY ==
[2024-10-16 11:42] LABS: Alanine Aminotransferase 16 U/L (0-40); Albumin Level 4.2 g/dL (3.5-5.0); Alkaline Phosphatase 76 U/L (39-117); Anion Gap 9 (12-20); Aspartate Amino Transferase 17 U/L (5-37); Bilirubin Total 0.4 mg/dL (0.0-1.0); Blood Urea Nitrogen 14 mg/dL (9-16); Calcium 9.4 mg/dL (8.4-10.2); Carbon Dioxide 29 mmol/L (22-29); Chloride 106 mmol/L (96-108); Estimated Glomerular Filt Rate > 60; Glucose Random 136 mg/dL (60-115); Potassium 3.9 mmol/L (3.3-5.1); Sodium 140 mmol/L (135-145); Total Protein 7.1 g/dL (6.5-8.0)
[2024-10-16 14:09] LABS: Appearance Urine Clear; Color Urine Yellow; Glucose Urine UA Negative (Negative); Leukocyte Esterase Urine Negative (Negative); Nitrite Urine Negative (Negative); PH 6.5 (5.0-9.0); Specific Gravity - Urine 1.015 (1.005-1.025); UMIC TRIGGER UA YES; Urine Blood Negative (Negative); Urine Ketones Negative (Negative); Urine Protein 30 (1+) mg/dL (Neg-Trace)
[2024-10-16 14:17] LABS: Bacteria Urine None Seen (None Seen); Hyaline Casts Urine 0-2 /LPF (0-2); RBC Urine 0-2 /HPF (0-2); Squamous Epithelial Cell Urine 0-2 /HPF (0-2); WBC Urine 0-5 /HPF (0-5)
== END 2024-10-16 09:49 | disposition home or self-care (01) ==
LOC: HO.WFDLDS 09:48
PROVIDERS: Visit Provider Family Medicine
DX: E11.649 Type 2 diabetes mellitus with hypoglycemia without coma (principal)
CPT/HCPCS: 36415; 80053; 81001

== ENCOUNTER 2024-10-27 16:04 | Outpatient (AMB) | payer MEDICARE, MEDICAID, SELFPAY ==
[2024-10-27 16:06] VITALS: BP 138/72; PULSE 116; O2SAT 99; BMI 25.9
--- NOTE | 2024-10-27 16:06 | A.OFFVIS_ITS ---
Vital Signs 10/27/24 16:06 Height 5 ft 6 in Weight 160 lb 7.944 oz BMI 25.9 BP 138/72 Blood Pressure Location Lt brachial Position Sitting Pulse 116 H Pulse Source Pulse Oximeter Pulse Oximetry (%) 99 Oxygen Delivery Method Room Air Intake Visit Reasons: Colonoscopy Consult - R/S Intake Note: NEW PATIENT Reason; [facility] scrn Prior hx of colo/egd? '19 w/ Marie. Hx of constipation + polypectomy Concerns/Questions? Constipation. Pt has been treating PRN with mylanta. Allergies No Known Allergies [No Known Allergies*] Allergy (Verified 10/27/24 16:06) HPI HPI Colonoscopy Consult - R/S: Details: 68-year-old male with past medical history of diabetes, seizure disorder, anxiety, aortic regurgitation, hypokalemia, constipation, tachycardia, anemia, BPH, depression, GERD, PAF, history of CVA, hypercholesteremia, diabetes, hypertension is here today for pre colonoscopy screening.? Patient was sent to us by his PCP.? ? Patient denies any gastrointestinal symptoms in the past or at present.? Denies any personal or family history of gastrointestinal disease or CRC.? Denies history of difficulty with sedation or anesthesia in the past.? Negative for history of sleep apnea.? Denies any history of cardiac, renal, pulmonary, or hepatic disease.?? No history of infectious? diseases like hepatitis A, B, C, HIV or tuberculosis.? Patient is on Eliquis. Patient reports occasional constipation, otherwise denies any GI concerning symptoms. Patient denies any cardiac or respiratory symptoms. Follows up with Cardiology annually. Last visit in August of 2024. Patient does not have a follow-up appointment until August of this year. [facility] Medical History Epilepsy History of gout Paroxysmal atrial fibrillation History of seizures History of CVA (cerebrovascular accident) White coat syndrome with diagnosis of hypertension Essential hypertension Diabetes type 2, controlled Surgical History No pertinent past surgical history Family History Father No problems noted. Mother No problems noted. Brother No problems noted. Sister No problems noted. Sister No problems noted. Social History Household Members: Other Housing: Other Do you presently have visiting nurse or other home services: No Alcohol intake: current Alcohol intake frequency: holidays/special occasions only Patient Tobacco Use Status: Never used Tobacco e-Cigarette/Vaping Use: Never Used Second Hand Smoke Exposure: No Advance Directives Date on File: 08/02/20 service: No Current occupational status: unemployed Current occupation: Patient does not want to answer Current occupational exposures/hazards: No Cognitive needs: No Hearing needs: No Vision needs: No Review of Systems Const Denies weight gain and Denies weight loss ENT Reports no additional complaints, Denies dysphagia and Denies odynophagia Card Reports no additional complaints Resp Reports no additional complaints GI Denies abdominal pain, Denies belching, Denies melena, Denies bloating, Denies change in bowel habits, Reports constipation (Occasional), Denies dysphagia, Denies excessive flatus, Denies dyspepsia, Denies heartburn, Denies diarrhea, Denies loose stools, Denies nausea, Denies odynophagia and Denies vomiting Reports no additional complaints Musc Reports no additional complaints Neuro Reports no additional complaints Psych Reports no additional complaints Endo Reports no additional complaints Physical Exam Const General: healthy appearing, no acute distress and well developed Nutritional Appearance: well nourished Orientation/consciousness: patient oriented x3 Resp Effort & Inspection: normal respiratory effort, able to speak in complete sentences, no tracheal deviation and symmetric chest movement Auscultation: clear to auscultation bilaterally Cardio Rate: regular rate GI Inspection: Yes normal to inspection and No distended Palpation (GI): Soft to palpation, not firm, nontender and No hepatosplenomegaly present Auscultation: normal bowel sounds General: Yes no CVA tenderness Back/Spine/Pelvis Back: no CVA tenderness Skin General skin exam: elasticity normal, turgor normal and dry skin Neuro General: patient oriented x3 Psych Appearance: grossly normal Mental Status: mental status grossly normal Assessment & Plan Assessment & Plan (1) Screening for colon cancer: Code(s): Z12.11 - Encounter for screening for malignant neoplasm of colon Category: Medical Plan Patient denies any GI, cardiac or respiratory symptoms.? Occasional constipation. Will send script for Dulcolax and patient can start taking 4 days before procedure to make sure that he has a good prep. Split MiraLax and Dulcolax prep sent to pharmacy. Denies any issues with anesthesia in the past.? Denies any history of sleep apnea.? No history infectious diseases in the past or present.? Patient is on Eliquis. Please hold for 48 hours before the procedure.? No family or personal history of colon cancer.? Patient denies melena, hematochezia, unintentional weight loss or ribbon like stools.? Discussed at length the pre-procedure,? prep, diet & medications as well as what to expect prior, during and after the procedure.?? Stressed the importance of good bowel prep.? Recommended the use of Vaseline or Calmoseptine OTC & baby wipes with bowel movements to promote comfort.? ?Patient verbalizes understanding and agrees to plan of care.? He was given the opportunity to ask questions and all questions answered.? We will see him after the procedure.? Medications: New bisacodyl (Dulcolax (bisacodyl)) Start taking 2 tablet every night 6 days before the procedure and 1 day before procedure take 2 tablets at noon time followed by MiraLax prep 10 mg (2 x 5 mg) PO BEDTIME 14 tabs 0RF Z12.11 - Encounter for screening for malignant neoplasm of colon polyethylene glycol 3350 (Miralax) As directed by gastro[facility]ology [facility] at [facility] 238 grams PO ONCE 238 grams 0RF Z12.11 - Encounter for screening for malignant neoplasm of colon Coding Level of Care Code New Pt Level 3 (55068) Diagnoses Screening for colon cancer Z12.11 Time Spent (min) 40 Comment 30 minutes spent with patient and additional 10 minutes spent reviewing his records
== END 2024-10-27 17:25 | disposition home or self-care (01) ==
PROVIDERS: PCP Family Medicine; Visit Provider Nurse Practitioner Family
DX: Z01.818 Encounter for other preprocedural examination (principal); Z12.11 Encounter for screening for malignant neoplasm of colon
CPT/HCPCS: 99024

== ENCOUNTER → 2024-10-27 16:04 | Outpatient (BNVA) | payer MEDICARE, MEDICAID, SELFPAY | PROVIDERS: PCP Family Medicine; Visit Provider Nurse Practitioner Family | DX: Z01.818 Encounter for other preprocedural examination (principal); K59.00 Constipation, unspecified; K21.9 Gastro-esophageal reflux disease without esophagitis; Z86.73 Personal history of transient ischemic attack (TIA), and cerebral infarction without residual deficits; Z79.01 Long term (current) use of anticoagulants | CPT/HCPCS: 99212 ==

== ENCOUNTER 2024-12-03 11:53 | Outpatient (AMB) | payer MEDICARE, MEDICAID, SELFPAY ==
--- NOTE | 2024-12-03 11:55 | A.OFFPC_ITS ---
Vital Signs 12/03/24 12:10 Height 5 ft 6 in Weight 159 lb BMI 25.7 BP 130/66 Blood Pressure Location Lt brachial Position Sitting Respiration 16 Pulse 78 Pulse Source Pulse Oximeter Temp 97.9 F Temp Source Oral Pulse Oximetry (%) 99 Oxygen Delivery Method Room Air Intake Visit Reasons: f/u diabetes, labs Intake Note: f/u DM and labs Skid Adzer Required: No Allergies No Known Allergies [No Known Allergies*] Allergy (Verified 12/03/24 12:10) Medication List - Last Reconciled 12/03/24 by Wiley Pablo MD allopurinol 100 mg PO DAILY apixaban (Eliquis) 5 mg PO BID 90 days bisacodyl (Dulcolax (bisacodyl)) 10 mg (2 x 5 mg) PO BEDTIME blood sugar diagnostic (FreeStyle Lite Strips) check blood sugar daily and daily prn blood-glucose meter (FreeStyle Lite Meter kit) As directed carvedilol 6.25 mg PO BIDWM ezetimibe (Zetia) 10 mg PO DAILY 90 days hydrochlorothiazide 25 mg PO DAILY 90 days lacosamide 50 mg PO DAILY 90 days lancets As directed levetiracetam 500 mg PO BEDTIME 90 days levetiracetam 750 mg (3 x 250 mg) PO DAILY 90 days lisinopril 40 mg PO BEDTIME metformin 250 mg (1/2 x 500 mg) PO DAILY 30 days miscellaneous medical supply Diabetic Shoes, Daily As directed, 999 days nifedipine ER 60 mg PO BID omega [id number] oil 1,000 (120-180) mg 1 cap PO BEDTIME 30 days polyethylene glycol 3350 (Miralax) 238 grams PO ONCE potassium chloride ER 20 mEq PO DAILY 30 days spironolactone 25 mg PO DAILY 30 days Tobacco use date assessed: 01/20/24 Dental Screening Dental Screen Date: 03/12/24 [facility] Medical History Epilepsy History of gout Paroxysmal atrial fibrillation History of seizures History of CVA (cerebrovascular accident) White coat syndrome with diagnosis of hypertension Essential hypertension Diabetes type 2, controlled Surgical History No pertinent past surgical history Family History Father No problems noted. Mother No problems noted. Brother No problems noted. Sister No problems noted. Sister No problems noted. Social History Household Members: Other Housing: Other Do you presently have visiting nurse or other home services: No Alcohol intake: current Alcohol intake frequency: holidays/special occasions only Patient Tobacco Use Status: Never used Tobacco e-Cigarette/Vaping Use: Never Used Second Hand Smoke Exposure: No Advance Directives Date on File: 08/02/20 service: No Current occupational status: unemployed Current occupation: Patient does not want to answer Current occupational exposures/hazards: No Cognitive needs: No Hearing needs: No Vision needs: No Questionnaire Thrive Questionnaire Date Thrive assessed: 07/28/24 I am a: Patient What is your living situation today?: I choose not to answer this question Within the past 12 months, did the food you bought not last and you didn't have the money to get more?: I choose not to answer this question Within the past 12 months, did you worry whether your food would run out before you got money to buy more?: I choose not to answer this question Do you have trouble paying for medicines?: No Do you have trouble getting transportation to medical appointments?: No Do you have trouble paying your heating and electricity bill?: No Do you have trouble taking care of your child, family member or friend?: No Do you have trouble with day-to-day activities such as bathing, preparing meals, shopping, managing finances, etc.?: I choose not to answer this question Are you currently unemployed and looking for a job?: No Are you interested in more education?: No Please select the resources that you would like help with: None Currently or been in a relationship where the following occur: I choose not to answer THRIVE Score: 0 AUDIT C Alcohol Use Questionnaire (AUDIT-C) 1. How often do you have a drink containing alcohol?: Never Total Score: 0 FRANC-7 AMB Questionnaire FRANC-7 Date FRANC - 7 assessed: 01/20/24 Feeling nervous, anxious, or on edge: 0 = Not at all Not being able to stop or control worryin = Not at all Worrying too much about different things: 0 = Not at all Trouble relaxin = Not at all Being so restless that it is hard to sit still: 0 = Not at all Becoming easily annoyed or irritable: 0 = Not at all Feeling afraid as if something awful might happen: 0 = Not at all Total FRANC-7 score (0-4 normal; 5-9 mild; 10-14 moderate; 15-21 severe): 0 Source: Developed by Drs. Darien Higginbotham, Erin Vargas, Dony Arevalo and colleagues, with an educational otilia from [employer]. Review of Systems Const Denies chills, Denies fatigue, Denies fever(s), Denies headache(s) and Denies weakness ENT Denies dizziness and Denies headache(s) Card Denies dyspnea Resp Denies cough, Denies dyspnea, Denies wheezing and Denies other (shortness of breath) Musc Denies numbness and Denies tingling Neuro Denies dizziness, Denies headache(s), Denies numbness, Denies tingling and Denies weakness Psych Denies anxiety and Denies depression Endo Denies fatigue Aller/Immun Denies wheezing Physical exam (Primary Care) Vital Signs: Last Vital Signs Temp 97.9 F 12/03/24 12:10 Pulse 78 12/03/24 12:10 Resp 16 12/03/24 12:10 BP 130/66 12/03/24 12:10 Pulse Ox 99 12/03/24 12:10 Oxygen Delivery Method Room Air 12/03/24 12:10 BMI result Body Mass Index 25.7 Tobacco/Smoking Status: Tobacco use Status Tobacco use date assessed 01/20/24 12/03/24 11:57 Patient Tobacco Use Status Never used Tobacco 12/03/24 11:57 e-Cigarette/Vaping Use Never Used 12/03/24 11:57 Thrive Assessment: Date of Thrive Assessment Date Thrive assessed 07/28/24 12/03/24 11:57 Currently or been in a relationship where the following occur: I choose not to answer Const General: well developed; No acute distress Nutritional Appearance: well nourished Orientation/consciousness: patient oriented x3 HENMT Head: Yes normocephalic and Yes atraumatic Eyes General: appearance normal, both eyes and all related structures Pupils: Equal, round and reactive pupils present EOM: EOMs intact bilaterally Resp Effort & Inspection: normal respiratory effort Neuro General: patient oriented x3 and gait normal Cranial nerves: Yes Equal, round and reactive pupils present Psych Affect: normal affect Coding Level of Care Code Est Pt Level 4 (90443) Diagnoses Diabetes type 2, controlled E11.9 Essential hypertension I10 Hypokalemia E87.6 Screening for prostate cancer Z12.5 History of seizures Z87.898 Assessment & Plan Assessment & Plan (1) Diabetes type 2, controlled: Code(s): E11.9 - Type 2 diabetes mellitus without complications Category: Medical Plan: A1c?6.9%.??Goal?is?less?than?7%. Good?control Continue?current?medications (2) Essential hypertension: Code(s): I10 - Essential (primary) hypertension Category: Medical Plan: Blood?pressure?shows?good?control?today. Goal?is?less?than?140/90 Continue?current?medication (3) Hypokalemia: Code(s): E87.6 - Hypokalemia Category: Medical Plan: Potassium?level?has?been?controlled?on?current?potassium?supplement Will?recheck?this?with?next?blood?draw He?will?continue?potassium?as?prescribed (4) Screening for prostate cancer: Code(s): Z12.5 - Encounter for screening for malignant neoplasm of prostate Category: Medical Plan: Patient?had?PSA?level?drawn?in?12/03/2023.??This?was?within?normal?limits. He?can?get?this?drawn?again?with?his?next?blood?draw.??Continuing?amira al?screening (5) History of seizures: Code(s): Z87.898 - Personal history of other specified conditions Category: Medical Plan: Patient?requests?referral?to?neurology?to?discuss?his?anti?seizure?medication Referred Plan Patient?inquires?as?to?whether?he?is?healthy?enough?for?sexual?activity?and?I?se e no?contraindications. Orders: Orders Prostate Specific Antigen Scr Today Z12.5 - Encounter for screening for malignant neoplasm of prostate TSH reflex Free T4 Today I48.0 - Paroxysmal atrial fibrillation, Z00.00 - Encounter for general adult medical examination without abnormal findings Microalbumin, Random (w Creat) Today E11.649 - Type 2 diabetes mellitus with hypoglycemia without coma, I10 - Essential (primary) hypertension Comprehensive [place]. Panel Fast Today E11.649 - Type 2 diabetes mellitus with hypoglycemia without coma, Z00.00 - Encounter for general adult medical examination without abnormal findings UA and rflx microscopic Today I10 - Essential (primary) hypertension, Z00.00 - Encounter for general adult medical examination without abnormal findings Complete Blood Count Auto Diff Today D64.9 - Anemia, unspecified, Z00.00 - Encounter for general adult medical examination without abnormal findings Referrals Neurology Referral G40.909 - Epilepsy, unspecified, not intractable, without status epilepticus, Z86.73 - Personal history of transient ischemic attack (TIA), and cerebral infarction without residual deficits, Z87.898 - Personal history of other specified conditions Medications: New sildenafil administer 30 minutes to 4 hours before activity 25 mg PO DAILY 30 days PRN 4 tabs 0RF sexual activity
[2024-12-03 12:10] VITALS: BP 130/66; PULSE 78; RESP 16; TEMP 36.6; O2SAT 99; BMI 25.7
--- OUTSIDE RECORDS SUMMARY | 2024-12-03 13:03 | XMS_ITS ---
Author Organization [facility] willie Woody Address [address] [place] [address] Care Team Providers Care Secretary Bookkeeper Name Role Phone Wiley Pablo MD Primary Care Provider Arcelia Mcdonough Unavailable [phone] Allergies No Known Allergies REASON FOR VISIT At Risk Footcare, Foot pain, Wart(s), Skin problem(s), Toe Irritation Medications Medication SIG (Take, Route, Frequency, Duration) Notes Start Date End Date Status Fish Oil 1000 MG 1 capsule Orally Onc e a day Active Vimpat 50 MG 2 tablets Orally Twi ce a day Active Keppra 500 MG 1 tablet Orally ever y 12 hrs Active Amaryl Active Allopurinol 100 MG 1 tablet Orally Once a day for 30 day(s) Active Keppra 250 MG 1 tablet Orally ever y 12 hrs Not-Taking Ammonium Lactate 12 % 1 application Exte rnally to affected areas of dry skin to feet except for between the toes Twice a day for 30 days Active Zyloprim Not-Taking Microzide Active Extra Depth Orthopedic Shoes (1 Pair) with Customized Heat Molded Multidensity Innersoles (3 Pair) as directed Dx: NIDDM/Polyneuropathy (E11.42), Hammertoe Foot Deformity (M20.41,M20.42), Preulcerative Skin Lesion(s) (L85.1 Active Eliquis 5 MG 1 tablet Orally Twic e a day Active Tylenol Active Adalat CC Active Carvedilol 6.25 MG 1 tablet with food Orally Twice a day Active Zestril 40 MG 1 tablet Orally Once a day Active Zetia 10 MG 1 tablet Orally Once a day Active Social History Tobacco Use: Social History Observation Description Date Details (start date - stop date) Never Smoker NA - NA Tobacco Use/Smoking Question Answer Notes Are you a: nonsmoker Additional Findings: Tobacco Non-User Current no n-smoker Alcohol Screen Question Answer Notes Did you have a drink contain ing alcohol in the past year? Yes How often did you have a dri nk containing alcohol in the past year? Monthly or less (1 point) Points 1 Interpretation Negative Tobacco use other than smoking: Question Answer Notes Are you an other tobacco user? No Vital Signs Height 5ft 6in in 10/01/2024 Weight 165 lbs 10/01/2024 BMI 26.63 kg/m2 10/01/2024 Blood pressure systolic 127 mm Hg 10/01/20 24 Blood pressure diastolic 71 mm Hg 024 Encounters Encounter Location Date Provider Diagnosis [facility] [address] 10/01/2024 Arcelia Ogden Other hammer toe(s) (acquired), right foot M20.41 ; Xerosis of skin L85.3 ; Other hammer toe(s) (acquired), left foot M20.42 ; Type 2 diabetes mellitus with polyneuropathy E11.42 ; Tinea unguium B35.1 ; Right foot pain M79.671 and Plantar wart B07.0 Assessments Encounter Date Diagnosis (ICD Code) Assessment Notes Treatment Notes Treatment Clinical Notes Section Notes 10/01/2024 Other hammer toe(s) (acquired), right foot (ICD-10 - M20.41) 10/01/2024 Xerosis of skin (ICD-10 - L85.3) 10/01/2024 Other hammer toe(s) (acquired), left foot (ICD-10 - M20.42) 10/01/2024 Type 2 diabetes mellitus with polyneuropathy (ICD-10 - E11.42) 10/01/2024 Tinea unguium (ICD-10 - B35.1) 10/01/2024 Right foot pain (ICD-10 - M79.671) 10/01/2024 Plantar wart (ICD-10 - B07.0) Plan Of Treatment Medication Medication Name Sig Start Date Stop Date Notes Ammonium Lactate 12 % 1 application Exte rnally to affected areas of dry skin to feet except for between the toes Twice a day for 30 days Next Appt Details Follow Up: 3 Months, Reason: Provider Name:Arcelia Gabe lange, 12/31/2024 01:00:00 PM, [address] [facility], [place], [address], Procedure Notes * Category Sub-Category Detail Notes Wart Treatment Procedure Verrucae were de brided to pin-point bleeding margins with sterile 15 surgical blade, silver nitrate chemocautery applied, recomm. immune-boosting meds such as zinc, recomm. follow up with topical chemosurgical agents, Pt defers any other forms of tx - 32882 Debride Nail 6-10 Nail debridement Due to the cl inical pathology outlined in the exam findings, performance of this nail treatment is medically necessary as its management by an unskilled/untrained nonprofessional would put this patients foot and overall health at risk. Therefore, debridement to affected nail(s), as described in exam ( TA, T1, T2, T3, T4, T5, T6, T7, T8, T9, ), was performed exclusively by the physician of record to reduce/remove overall nail length, girth, thickness, subungual debris, and necrotic tissue, by manual and/or electrical means through the use of a nail nipper and/or dremel-type grinder operator, to a more viable healthy nail plate or bed tissue 6-10 nails in total. Silver nitrate was used for any petechial bleeding as necessary. Definitive antifungal treatment options, both pharmaceutical and surgical, have been reviewed and discussed with the patient. The patient solely prefers the use of intermittent/as needed professional debridement services for their nail condition and understands the need for additional periodic treatments to maintain effectiveness in symptomatic relief - 13589 Keratoma Treatment Parring or Cutting o f Benign Hyperkeratotic Lesion(s) (-57) More than 4 Lesions - Due to the at risk nature of the patients medical condition as documented in the exam findings, performance of this keratoderma treatment is medically necessary as its management by an unskilled/untrained nonprofessional would put this patients foot and overall health at risk. Therefore, the benign hyperkeratotic lesions, ( 7) in total, locations as stated and described in the exam ( TA, T1, T5, SUB MTH (s), 2, 3, Left, Heel(s), B/L ), were pared, and/or cut utilizing a sterile 15 blade, tissue nippers, and/or power dremel instrumentation by the physician of record - 86973 Progress Notes * JORDANAmrik MOORE GDOB:1955 (68 yo M)Acc No.[id number]:10/01/2024 Progress Note Patient:?Amrik BATEMAN Provider:?Arcelia Ogden DPM :1955???Age:68 Y???Sex:Male Magdi e:10/01/2024 Address:[address] [place], [place] [address] , [place], [place] Pcp:Wiley Pablo MD Subjective: * Chief Complaints: * ???At Risk FootcareFoot pain Wart(s)Skin problem(s)Toe Irritation * HPI: ???At Risk footcare:?Pt States Last PCP Visit:?Date?08/20/2024 ???Skin problems:?Pt States PCP Visit: ?DATE?08/20/2024 ?Nature:?dryness , scaling.?Location:?B/L .?Duration:?several weeks.?Course:?worse.?Toe pain:?Location:?B/L feet.?Duration:?several years.?Course:?worse.?Aggravated by:?shoes, any pressure.?Treatments:?change in shoes.? * ROS:?General/Constitutional:?Nausea?denies.?Vomiting?denies.?Hunger Thirst?denies.?Loss appetite?denies.?Chills?denies.?Fatigue?denies.?Fever?denies.?Night Sweats?denies.?Unexplained weight loss?denies.?Unexplained weight gain?denies.?HEENTM:?Dentures?denies.?Dizziness?denies.?Glasses/contacts?admits.?Retinopathy?den ies.?Blurred/double vision?admits.?TMJ?denies.?Discharge/drainage?denies.?Implants?denies.?Sore throat?denies.?Dental implants?denies.?Hard of hearing ?denies.?Difficulty chewing/swallowing/speaking?denies.?Nose bleeds?denies.?Sore mouth?denies.?Respiratory:?On O xygen?denies.?Pneumonia/pleurisy?denies.?Bronchitis?denies.?Emphysema?denies.?Co ughing?denies.?Cough blood?denies.?Shortness of breath?denies.?Wheezing?denies.?Cardiovascular:?Pacemaker?denies.?MVP?denies.?WPW?denies.?CHF?denies.?Heart attack?denies.?Septal defect?denies.?Rapid beat?denies.?Chest pain ?denies.?Atrial Fib.?denies.?Murmur/Palpitations?denies.?Gastrointestinal:?Hemorrhoids?denies.?Stomach/Abdominal pain?denies.?Dark blood stool?denies.?Irritable bowel ?denies.?Constipation?denies.?Diarrhea?denies.?Hematology:?Swelling?denies.?Clots?denies.?Varicose Veins?denies.?Bruising?denies.?Bleeding problem?denies.?Genitourinary:?Blood urine?denies.?Frequent/Painfu/urination/bladder control?denies.?Kidney stones?denies.?Infection (UTI)?denies.?Nephropathy?denies.?sex trans dis (STD)?denies.?Prostate?denies.?Musculoskeletal:?Hammertoes?denies.?Bunions?denies.?Back Pain?denies.?Muscle Cramps/ Resting?denies.?Muscle cramps / walking?denies.?Generalized aches and pains?denies.?Weakness?denies.?Integ.:?Subramanian?denies.?Scars?denies.?Corns/calluses?admits.?Ingrown nails?denies.?Painful nails?denies.?Open Sores?denies.?Rashes?denies.?Neurologic:?Difficulty sleeping?denies.?Brain disorder?denies.?Numbness?denies.?Balance t rouble?denies.?Confusion?denies.?Fainting/blackouts?denies.?Tingling?denies.?Antonio mors?denies.? * Medical History:? * Surgical History:?Denies Pas t Surgical History * Hospitalization/Major Diagno stic Procedure:?Denies Past Hospitalization * Family History:?Mother: dece ased.?Father: .? * Social History:?Tobacco Use:?Tobacco Use/Smoking?Are you a:?nonsmoker ?Additional Findings: Tobacco Non-User?Current non-smoker ?Tobacco use other than smoking?Are you an other tobacco user??No ???Drugs/Alcohol:?Drugs?Have you used drugs other than those for medical reasons in the past 12 months??No ?Alcohol Screen?Did you have a drink containing alcohol in the past year??Yes ?How often did you have a drink containing alcohol in the past year??Monthly or less (1 point) ?Points?1 ?Interpretation?Negative ???Miscellaneous:?Caffeine: yes, frequency:tea 1-2 cups per day. ?Children: no. ?Exercise: yes, walking. ?Marital status: single. ?Occupation: Retired. * Medications:?TakingAmaryl Al lopurinol 100 MG Tablet 1 tablet Orally Once a day Fish Oil 1000 MG Capsule 1 capsule Orally Once a day Vimpat 50 MG Tablet 2 tablets Orally Twice a day Keppra 500 MG Tablet 1 tablet Orally every 12 hrs Zetia 10 MG Tablet 1 tablet Orally Once a day Adalat CC Eliquis 5 MG Tablet 1 tablet Orally Twice a day Tylenol Carvedilol 6.25 MG Tablet 1 tablet with food Orally Twice a day Zestril 40 MG Tablet 1 tablet Orally Once a day Microzide Extra Depth Orthopedic Shoes (1 Pair) with Customized Heat Molded Multidensity Innersoles (3 Pair) as directed Dx: NIDDM/Polyneuropathy (E11.42), Hammertoe Foot Deformity (M20.41,M20.42), Preulcerative Skin Lesion(s) (L85.1 Taking Amaryl Taking Allopurinol 100 MG Tablet 1 tablet Orally Once a day Taking Fish Oil 1000 MG Capsule 1 capsule Orally Once a day Taking Vimpat 50 MG Tablet 2 tablets Orally Twice a day Taking Keppra 500 MG Tablet 1 tablet Orally every 12 hrs Taking Zetia 10 MG Tablet 1 tablet Orally Once a day Taking Adalat CC Taking Eliquis 5 MG Tablet 1 tablet Orally Twice a day Taking Tylenol Taking Carvedilol 6.25 MG Tablet 1 tablet with food Orally Twice a day Taking Zestril 40 MG Tablet 1 tablet Orally Once a day Taking Microzide Taking Extra Depth Orthopedic Shoes (1 Pair) with Customized Heat Molded Multidensity Innersoles (3 Pair) as directed Dx: NIDDM/Polyneuropathy (E11.42), Hammertoe Foot Deformity (M20.41,M20.42), Preulcerative Skin Lesion(s) (L85.1 Not-Taking/PRNZyloprim Keppra 250 MG Tablet 1 tablet Orally every 12 hrs Medication List reviewed and reconciled with the patientNot-Taking/PRN Zyloprim Not-Taking/PRN Keppra 250 MG Tablet 1 tablet Orally every 12 hrs Medication List reviewed and reconciled with the patient * Allergies:?N.K.D.A.yes[Aller gies Verified] Objective: * Vitals:?Ht: 5ft 6in, Wt:165, BMI:26.63, Shoe size: 9, BP:127/71mm Hg, BS: 108, Ht-cm: 167.64 cm, Wt-k.84 kg. * ???Past Orders: ???Lab:HEMOGLOBIN A1C (GLYCO HEMOGLOBIN) (Order Date - 05/28/2024) (Collection Date & Time - 05/28/2024 01:35 PM) ? Value Reference Range ?TOTAL HEMOGLOBIN (HGBA1C) 6.5 * Examination: ???Ophthalmology Referral: ?DIABETES EYE EXAM?Neurological: ?SENSORY:? Neurological exam demonstrates, reduced light touch sensation, reduced sharp/dull pin prick discrimination , B/L, 5.07 monofilament test performed at plantar aspects of 5 varied sites per foot shows sensation, reduced , B/L.?Nails: ?NAILS are:?Elongated, overgrown, dystrophic, lytic, greater than 3mm thick, discolored and friable with crumbly malodorous subungual debris, with dull to no pain on palpation due to neuropathy, TA, T1, T2, T3, T4, T5, T6, T7, T8, T9.?Dermatologic: ?SKIN FINDINGS:? Skin exam reveals Keratotic lesion(s) located at, TA, T1, T5, SUB MTH (s), 2, 3, Left, Heel(s), B/L , Skin shows sign(s) of, dryness, scaling, in a stocking fashion, no fissure(s) present, B/L.?VERRUCA:?Reveals a Single , multi-loculated , mosaic-patterned, round, raised, flat-topped, petechial bleeding papule(s), with cauliflower appearance and interruption of skin lines, pain to lateral compression, and size estimated at 5 mm diameter , plantar Forefoot , RIGHT.?Vascular: ?DP PULSES (B):?3/4, B/L.?PT PULSES (B):?3/4, B/L.?CAPILLARY FILL TIME:?immediate, all digits, B/L.?TROPHIC CONDITION-TEXTURE/ELASTICITY/TURGOR/HAIR GROWTH (B):?normal, B/L.?TEMPERTURE GRADIENT (C):?normal, warm to cool, proximal to distal, B/L, B/L.?PIGMENTATION:?normal, B/L.?EDEMA (C):?absent, B/L.?Orthopedic: ?MUSCLE STRENGTH:?5/5 all groups in a symmetrical fashion, B/L.?BUNION:? Medially prominent 1st MPJ, Lateral tracking 1st MPJ incompletely reducible, LEFT.?DIGITAL DEFORMITIES:?Digital contracture, PIPJ, 2-5 B/L, incompl-reducible to push-up test, no over, nor underlapping, with evidence of shoe producing skin irritation , Digital contracture, PIPJ, 2-5 B/L, incompl-reducible to push-up test, no over, nor underlapping,?there is?evidence of shoe producing skin irritation.?FOOTWEAR:?worn, non-supportive, shoe gear properties exacerbate patient's foot/toe deformity , shoe gear properties exacerbate patients foot/toe deformity , worn, non-supportive, shoe gear properties exacerbate patient's foot/toe deformity.?General Examination: ?GENERAL APPEARANCE:?Reveals a pleasant, alert, well nourished, well- developed, well hydrated individual, who demonstrates proper attention to hygiene/body habitus, and is in no acute distress, Pt serves as own historian for office visit today.?ORIENTED:?person, place, and time.?FOOT EXAM:?Footwear Evaluation? Assessment: * Assessment: 1.?Other hammer toe(s) (acqu ired), right foot - M20.41???Specify :Chronic problem, Worse (4),Rx Management (4)???2.?Xerosis of skin - L85.3 (Primary)???Specify :Acute problem, Uncomplicated (3),Rx Management (4)???3.?Other hammer toe(s) (acquired), left foot - M20.42???Specify :Chronic problem, Worse (4),Rx Management (4)???4.?Type 2 diabetes mellitus with polyneuropathy - E11.42???5.?Tinea unguium - B35.1???6.?Right foot pain - M79.671???7. Plantar wart - B07.0??? Plan: * Treatment: * Procedures:?Debride Nail 6-10:?Nail debridement?Due to the clinical pathology outlined in the exam findings, performance of this nail treatment is medically necessary as its management by an unskilled/untrained nonprofessional would put this patients foot and overall health at risk. Therefore, debridement to affected nail(s), as described in exam ( TA, T1, T2, T3, T4, T5, T6, T7, T8, T9, ), was performed exclusively by the physician of record to reduce/remove overall nail length, girth, thickness, subungual debris, and necrotic tissue, by manual and/or electrical means through the use of a nail nipper and/or dremel-type grinder operator, to a more viable healthy nail plate or bed tissue 6- 10 nails in total. Silver nitrate was used for any petechial bleeding as necessary. Definitive antifungal treatment options, both pharmaceutical and surgical, have been reviewed and discussed with the patient. The patient solely prefers the use of intermittent/as needed professional debridement services for their nail condition and understands the need for additional periodic treatments to maintain effectiveness in symptomatic relief - 38869.?Keratoma Treatment:?Parring or Cutting of Benign Hyperkeratotic Lesion(s)?(-57) More than 4 Lesions - Due to the at risk nature of the patients medical condition as documented in the exam findings, performance of this keratoderma treatment is medically necessary as its management by an unskilled/untrained nonprofessional would put this patients foot and overall health at risk. Therefore, the benign hyperkeratotic lesions, ( 7) in total, locations as stated and described in the exam (?TA,?T1,?T5,?SUB MTH (s),?2,?3,?Left,?Heel(s),?B/L?), were pared, and/or cut utilizing a sterile 15 blade, tissue nippers, and/or power dremel instrumentation by the physician of record - 50719.?Wart Treatment:?Procedure?Verrucae were debrided to pin-point bleeding margins with sterile 15 surgical blade, silver nitrate chemocautery applied, recomm. immune-boosting meds such as zinc, recomm. follow up with topical chemosurgical agents, Pt defers any other forms of tx - 44519.? * Procedure Codes:?38268 DEBRI DE NAIL, 6 OR MORE, Modifiers: XS 90973 Wart Destruction, 1-14, Modifiers: XS [id number] TRIM SKIN LESIONS, OVER 4, Modifiers: XS * Preventive Medicine:? ??Counseling:?Discussion:?-14: Office or other outpatient visit for the evaluation and management of an established patient, which required a medically appropriate history and/or examination and MODERATE level of DECISION MAKING for: 1 OR MORE CHRONIC PROBLEM(S) THATS WORSENING, 2 STABLE CHRONIC PROBLEMS, A NEWLY DIAGNOSED PROBLEM WITH UNCERTAIN PROGNOSIS, AN ACUTE COMPLICATED INJURY WITH MULTIPLE TREATMENT OPTIONS, OR AN ACUTE PROBLEM WITH ACCOMPANYING SYSTEMIC SYMPTOMS, THAT POSE(S) A MODERATE RISK OF MORBIDITY. THIS CONDITION MAY ALSO INCLUDE RX DRUG MANAGEMENT, OR A DECISON FOR MINOR SURGERY. The visit on the day of the encounter encompassed interpreting the data and educating the patient as to the nature of their condition, treatment options available according to their individual PMH, meds, allergies, and overall health/living conditions, as well as any potential risks or complications that may occur from a failure to adhere to, and participate in, the recommended course of therapy. The discussion included a complete verbal, and/or written explanation of the examination results, any x-rays taken, the proposed diagnosis, and outline of the treatment plan. A schedule for future care needs was also explained. The patient verbalized an understanding of the instructions at this time and agreed to be an active participant in their treatment. If the patient should think of any questions or concerns after the visit, I have encouraged the patient to call the office.?Digital Surgery:?Digital surgery was discussed with the patient, We elected to try conservative treatment at the present time, due to the patients medical history and increased asssociated post-operative risks.?Digital Treatment:?HT- I explained to the patient the possible etiologies of Hammertoes, including genetics/foot type/shoegear/activity level/exercise routine and the risks/benefits of all the different treatment options for their pain including: No treatment at all, Rest, Ice, New/supportive/wider/deeper Shoegear, Digital Padding/Strapping/Taping/Bracing/Gel protective sleeves, Foot/Ankle AFO Bracing, Stretching exercises, Deep Tissue Massage, Arch support/shoe inserts with splay metatarsal padding, and Custom orthoses. I insisted that any digital devices be removed daily and not worn overnight for safety. The patient is to carefully examine the toes daily for any skin irritation while using any splinting or padding device. The advantages and disadvantages of each option were discussed and the patients questions re: shoegear, padding, custom vs prefabricated inserts, activity level, and consistency in home treatment regimens for optimal success were answered to their verbally confirmed satisfaction.?Shoe Gear Counseling:?The patient and I reviewed the types of shoes they should be wearing. My recommendation included obtaining a well-fitted shoe with a good supportive, non-foldable nor twistable sole, plenty of toe/room for the forefoot, and proper arch support. Based on todays examination, I recommended the patient look for new shoes, by having their feet professionally measured. We discussed that generally the best time of the day for a shoe fitting is the afternoon. Different shoes types and brands to best match the patients occupation and vocation were discussed. Specific brand selection will be up to the patient, their individual foot condition/deformities, and fit. The patient and I reviewed the standard new shoe break in period by wearing them for a few hours a day while checking for redness or sores as wear time is increased. The patient verbally confirmed to understanding the information discussed.?Xerosis:?The patient was counseled on the diagnosis, potential etiologies, and treatment options for their skin condition. We discussed the risks and benefits of each option from performing no treatment, to utilizing OTC topical skin creams/ointments, to utilizing prescription topical creams/ointments, to utilizing customized compounded topical medications and use of nocturnal occlusion with any/all previously detailed therapies. We discussed the advantages and disadvantages of each possible treatment and importance for adherence to all the recommended therapies for optimum success and avoid potential complications such as open sore/infection/possible hospitalization. We discussed the potential effectiveness of each topical preparation as well as each ones possible side effects and/or patient medication interactions. Patient questions re: use, dosage, successful outcomes, and application consistency were reviewed and the patient verbalized that all answers were clearly understood. The patient has decided to apply Rx skin creams to their feet save the interspaces while paying special attention to the heels. Such was sent to their pharmacy at the time of visit.? * Follow Up:?3 Months * Images: * Sign off status: Completed true * Provider:?Arcelia Ogden DPM Date:? Generated for Thompson harris/Miri/Jacob on:?12/03/2024 01:03 PM EST History and Physical Notes * HPI (History of Present Illness) Category Sub-Category Detail Notes Category Not es Toe pain Location: B/L feet Duration: several years Course: worse Aggravated by: shoes, any pressure Treatments: change in shoes Skin problems Nature: dryness , scaling Location: B/L Duration: several weeks Course: worse Pt States PCP Visit: DATE: 08/20/2024 At Risk footcare Pt States Last PCP Visit: Date: 4 Examination Category Sub-Category Detail Notes Category Not es Neurological SENSORY: Neurological exa m demonstrates, reduced light touch sensation, reduced sharp/dull pin prick discrimination , B/L, 5.07 monofilament test performed at plantar aspects of 5 varied sites per foot shows sensation, reduced , B/L Dermatologic SKIN FINDINGS: Skin exam reveal s Keratotic lesion(s) located at, TA, T1, T5, SUB MTH (s), 2, 3, Left, Heel(s), B/L , Skin shows sign(s) of, dryness, scaling, in a stocking fashion, no fissure(s) present, B/L VERRUCA: Reveals a Single , m ulti-loculated , mosaic-patterned, round, raised, flat-topped, petechial bleeding papule(s), with cauliflower appearance and interruption of skin lines, pain to lateral compression, and size estimated at 5 mm diameter , plantar Forefoot , RIGHT Orthopedic BUNION: Medially promine nt 1st MPJ, Lateral tracking 1st MPJ incompletely reducible, LEFT FOOTWEAR: worn, non-supportive , shoe gear properties exacerbate patient's foot/toe deformity , shoe gear properties exacerbate patients foot/toe deformity , worn, non-supportive, shoe gear properties exacerbate patient's foot/toe deformity DIGITAL DEFORMITIES: Digital contracture , PIPJ, 2-5 B/L, incompl-reducible to push-up test, no over, nor underlapping, with evidence of shoe producing skin irritation , Digital contracture, PIPJ, 2-5 B/L, incompl- reducible to push-up test, no over, nor underlapping, there is evidence of shoe producing skin irritation MUSCLE STRENGTH: 5/5 all groups in a symmetrical fashion, B/L General Examination GENERAL APPEARANCE: Reveals a pleasant, alert, well nourished, well-developed, well hydrated individual, who demonstrates proper attention to hygiene/body habitus, and is in no acute distress, Pt serves as own historian for office visit today FOOT EXAM: Lower Extremity Neurological Exa m performed:: Yes ORIENTED: person, place, and t farooq Footwear Evaluation Footwear Evaluation performe d:: Yes Ophthalmology Referral DIABETES EYE EXAM Procedure Perform ed:: Yes ?Date of Exam Performed: 05/14/2024 Findings of Diabetic Eye Exam:: no retin opathy Vascular DP PULSES (B): 3/4, B/L PT PULSES (B): 3/4, B/L CAPILLARY FILL TIME: immediate, all digi ts, B/L TEMPERTURE GRADIENT (C): normal, warm to cool, proximal to distal, B/L, B/L TROPHIC CONDITION-TEXTURE/ELASTICITY/TURGOR/HAIR GROWTH (B): normal, B/L EDEMA (C): absent, B/L PIGMENTATION: normal, B/L Nails NAILS are: Elongated, overg rown, dystrophic, lytic, greater than 3mm thick, discolored and friable with crumbly malodorous subungual debris, with dull to no pain on palpation due to neuropathy, TA, T1, T2, T3, T4, T5, T6, T7, T8, T9
--- OUTSIDE RECORDS SUMMARY | 2024-12-03 13:03 | XMS_ITS ---
Author Organization [facility] Address [address] [place] [address] Care Team Providers Care Chart Picker Name Role Phone Wiley Pablo MD Primary Care Provider Arcelia Mcdonough [phone] REASON FOR VISIT Ammonium Lactate (12 % Cream) Encounters Encounter Location Date Provider Diagnosis [facility] [address] [place] [address] 10/06/2024 Arcelia Ogden Plan Of Treatment Next Appt Details Provider Name:Arcelia lange, 12/31/2024 01:00:00 PM, [address] [place], [address], Progress Notes * Amrik BATEMAN GDOB:1955 (68 yo M)Acc No.[id number]:10/06/2024 Patient:?Amrik BATEMAN :1955???Age:68 Y???Sex:Male Address:[address] [place] [address], [place], [address] * true * Date:? Generated for Printi ng/Faroseg/eTransmitting on:?12/03/2024 01:03 PM EST
--- OUTSIDE RECORDS SUMMARY | 2024-12-03 13:03 | XMS_ITS | Continuity of Care Document ---
Author Organization [id number] Address [address] [place] [address] Phone Care Team Providers Care Automation Mechanic Name Role Phone Sanju Marroquin MD Unavailable Unavailable Procedures Procedure Date Init [facility] 7 12 Advance Directives Directive Yes / No Effective Date File Name No Information Encounters Encounter Description Practice Location Reason(s) For Visit Diagnoses Date Provider Providers Copied on Encounter Init [id number], [address], [place], [place], [id number], tel:[phone] [facility] No Information Lopez Bills. [address] [place] [address] [address], [address]. tel:[phone] Referring Provider: Denver Burdick, [address], [place], [address]. tel:[phone] Family History Family Member Type Diagnosis Age At Onset No Information Payers Payer name Insurance type Covered green party ID Usman haynes(s) [facility] CI [id number] Social History Type Description Quantity Date Captured Comments Sex Male Smoking Status No Information Chief Complaint And Reason For Visit No Information Reason For Referral Reason For Referral No Information History Of Present Illness Encounter Date Complaint History Of Prese nt Illness No Information Functional Status Date Functional Assessmen t No Information Instructions Date Instruction Additional Infor mation No Information Assessments Type Assessment Date No Information Patient Care Teams Name Effective Dates (start - stop) Status Members No Information
--- OUTSIDE RECORDS SUMMARY | 2024-12-03 13:03 | XMS_ITS ---
Author Organization [facility] Address [address] [place] [address] Care Team Providers Care Lead Engineer Name Role Phone Wiley Pablo MD Primary Care Provider Arcelia Mcdonough [phone] REASON FOR VISIT Noncovered RX Encounters Encounter Location Date Provider Diagnosis [facility] [address] [place] [address] 10/05/2024 Arcelia Ogden Plan Of Treatment Next Appt Details Provider Name:Arcelia lange, 12/31/2024 01:00:00 PM, [address] [place] [address], [phone], Progress Notes * Amrik BATEMAN GDOB:1955 (68 yo M)Acc No.[id number]:10/05/2024 Patient:?Amrik BATEMAN :1955???Age:68 Y???Sex:Male Address:[address] [place] [address], [place], [address] * true * Date:? Generated for Vyi steven/Miri/eTransmitting on:?12/03/2024 01:03 PM EST
--- OUTSIDE RECORDS SUMMARY | 2024-12-03 13:03 | XMS_ITS | Encounter Summary ---
Author Organization [facility] Address [address] [place] [address] Care Team Providers Care Development Technical Lead Name Role Phone Carole Olivares MD Primary Care Provider Unavaila George Arnold MD Primary Care Provider Unavail able Stevan Grubbs MD Primary Care Provider [phone] Declan Meneses MD Primary Care Provide r Unavailable Encounter Details Date Type Department Care Team Description 02/28/2016 [facility] Medical Records [address] [place] [address] Social History Tobacco Use Types Packs/Day Years Used Date Smoking Tobacco: Never Smokeless Tobacco: Never Alcohol Use Standard Drinks/Week Comments Yes 0 (1 standard drink = 0.6 oz pure alcohol) 1/daily - previously heavy etoh abuse Sex Assigned at Date Recorded Not on file documented as of this encounter Plan of Treatment Not on file documented as of this encounter Visit Diagnoses Not on filedocumented in this encounter Care Teams Development Technical Lead Relationship Specialty Start Date End Date Carole Olivares MD PCP - General Internal Medicine 06/17/15 04/09/16 George Marroquin MD PCP - General Internal Medicine 04/10/16 09/26/16 Stevan Grubbs MD [address] [place] [address] [id number] PCP - General Internal Medicine 09/27/16 03/23/19 Declan Meneses MD [address] [place] [address] PCP - General Internal Medicine 03/24/19 documented as of this encounter
--- OUTSIDE RECORDS SUMMARY | 2024-12-03 13:03 | XMS_ITS | Clinical Summary ---
Author Organization [facility] Address [address] [place] [address] Care Team Providers Care Ct Scan Technologist Name Role Phone Declan Meneses MD Primary Care Provide r Unavailable Allergies No known active allergies Medications Medication Sig Dispensed Refills Start Date End Date Status acetaminophen (TYLENOL ARTHRITIS PAIN) 650 MG CR tablet Take 1 Tab by mouth every 8 hours as needed for Pain. 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 100 Each 5 01/31/2016 Active lisinopril (PRINIVIL,ZESTRIL) 5 MG tablet Take 1 Tab by mouth Daily before dinner. 90 Tab 1 02/02/2016 Active potassium chloride SA (K-DUR,KLOR-CON) 20 MEQ tablet Take 2 Tabs by mouth daily. 60 Tab 5 02/28/2016 Active trazodone (DESYREL) 50 MG tablet Take 1 Tab by mouth at bedtime. 30 Tab 1 04/10/2016 Active thiamine 100 MG tablet Take 1 Tab by mouth daily. 30 Tab 11 05/10/2016 Active folic acid (FOLVITE) 1 MG tablet Take 1 Tab by mouth daily. 30 Tab 12 05/10/2016 Active Multiple Vitamins-Minerals (MULTIVITAMIN WITH MINERALS) tablet Take 1 tablet by mouth daily. 0 05/10/2016 Active magnesium oxide (MAG-OX) 400 MG tablet Take 1 Tab by mouth 2 times daily. 60 Tab 11 05/10/2016 Active levetiracetam (KEPPRA) 500 MG tablet Take 1 Tab by mouth 2 times daily. 60 Tab 11 05/10/2016 Active metoprolol (LOPRESSOR) 25 MG tablet Take 1 Tab by mouth 2 times daily. 60 Tab 5 05/10/2016 Active NIFEdipine (ADALAT CC) 60 MG 24 hr tablet Take 2 Tabs by mouth daily. 60 Tab 0 11/26/2016 Active FREESTYLE LITE strip USE ONE STRIP TO CHECK GLUCOSE TWICE DAILY 100 Each 0 12/10/2016 Active Active Problems Patient Care Coordination No te Formatting of this note is d ifferent from the original. Checking Your Blood Sugars Please check your blood sugars every day. Please check your sugars at the following times of day: before breakfast Your Blood Sugar Goals Pre Meal: 90-130 2 hours after meals: 110-160 Bedtime: 110-150 Use the Results ?? Bring your glucometer to every appointment ?? Write your fingerstick blood sugars down on a log sheet or record book. Bring them to your appointment ?? Look for patterns in the numbers. The results help you and your provider make decisions about your diabetes treatment plan. Your Results and your Goals Your Result / Date of Completion Your Goal / How Often to Assess Component Value Date HGBA1C 6.1 10/04/2015 Less than 7% --- 2-4 times per year BP Readings from Last 1 Encounters: 11/03/15 130/70 Less than 140/90 --- once per year Component Value Date MALBCR 28.1 03/10/2015 Less than 30 --- once per year Component Value Date LDL 127 06/22/2015 Less than 100 --- once per year Wt Readings from Last 1 Encounters: 11/03/15 157 lb 12.8 oz (71.578 kg) Your goal weight by next visit: 160 --- reassess 2-4 times a year There are no preventive care reminders to display for this patient. Your Action Plan Check blood glucose as directed and write down all results. Review blood pressure medications Make appointment to see your eye doctor Check feet for sores every day Contact me if you experience any barriers to care such as inability to purchase your medication, difficulty getting to your appointments or difficulty understanding your care plan When to Call your Healthcare Provider If your blood sugar falls below 70 and you do not know why or you become unconscious If you are sick and unable to take liquids because or nausea or vomiting If you have a fever over 101 If your blood sugar is 300 or higher on greater than 3 separate occasions during the same week If you are just unsure what to do Educational Resources [place] Diabetes [employer] (www.diabetes.org) Centers for Disease Control and Prevention (www.cdc.gov/diabetes) This care plan was created in collaboration with Amrik Pickard on 11/03/2015 Problem Noted Date Subdural hematoma 05/10/2016 Overview: 04/28, no surgical intervention ETOH abuse 05/02/2016 Overview: ED evaluations for acute intoxication & altered mental status CKD (chronic kidney disease) 02/02/2016 Anxiety 05/27/2015 Proteinuria 01/26/2015 DM (diabetes mellitus), type 2 with noelle l complications 07/28/2014 Overview: Eye exam 08/03: no diabetic retinopathy, nml slit lamp, intraocular pressures normal Hyperlipemia 07/28/2014 HTN (hypertension) 07/28/2014 Overview: 02/2016 CT ? High grade stenosis/near occlusion of left M2 level branch vessel ? 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 Dumont ECHO EF 65-70% Gout 07/28/2014 Immunizations Name Administration Dates Next Due Influenza (> 6 Months) 07/15/2015,08/25/2014 Pneumoccoccal(Adult) Polysaccharide PPSV23 07/08 Tdap 07/08/2014 Family History Medical History Relation Name Comments heart attack [Other] Father Relation Name Status Comments Father Social History Tobacco Use Types Packs/Day Years Used Date Smoking Tobacco: Never Smokeless Tobacco: Never Alcohol Use Standard Drinks/Week Comments Yes 0 (1 standard drink = 0.6 oz pure alcohol) 1/daily - previously heavy etoh abuse Sex Assigned at Date Recorded Not on file Last Filed Vital Signs Vital Sign Reading Time Taken Comments Blood Pressure 126/70 05/01/2016 12:56 PM EDT RT ARM ,SM CUFF Pulse 82 05/01/2016 12:56 PM EDT Temperature 36.9 ??C (98.4 ??F) 05/01/2016 1 2:56 PM EDT Respiratory Rate 16 08/25/2014 3:57 PM EST Oxygen Saturation - - Inhaled Oxygen Concentration - - Weight 71 kg (156 lb 9.6 oz) 05/01/2016 12:56 PM EDT Height 167.6 cm (5' 6 ) 05/01/2016 12:5 6 PM EDT Body Mass Index 25.28 05/01/2016 12:56 PM EDT Plan of Treatment Health Maintenance Due Date Last Done Comments Covid-19 Vaccine (#1) 06/10/1956 DEPRESSION SCREEN 1968 SHINGLES VACCINE (1 of 2) 2006 DIABETES: BLOOD SUGAR CONTRO L TEST (HGBA1C) 04/18/2016 01/18/2016, 10/04/2015, 05/16/2015, Additional history exists DIABETES: ANNUAL EYE EXAM 04/25/20162014, 08/03/2014, 08/03/2014 (Completed), Additional history exists DIABETES: ANNUAL FOOT EXAM 11/03/2016 11/03/2015, DIABETES/HEART DISEASE: BORA KO CHOLESTEROL (LDL) 01/17/2017 01/18/2016, 06/22/2015, 01/26/2015, Additional history exists DIABETES: ANNUAL URINE PROTE IN TEST (MICROALBUMIN) 05/01/2017 05/01/2016, 03/10/2015, 10/20/2014, Additional history exists PNEUMOCOCCAL VACCINE (2 - PCV) 2021 07/08/2014 INFLUENZA (#1) 2024 07/15/2015, 08/25/2014 DTAP/TDAP/TD (2 - Td or Tdap) 07/08/2024 07/08/2014 BMI CHECK/ADVISE 10/14/2024 05/01/2016, , 02/02/2016, Additional history exists COLON CANCER SCREENING 09/14/2025 09/14/2015 HEPATITIS C SCREENING Completed 07/21/[address] Scan Technologist Relationship Specialty Start Date End Date Declan Meneses MD PCP - General Internal Medicine 03/24/19
--- OUTSIDE RECORDS SUMMARY | 2024-12-03 13:03 | XMS_ITS | Encounter Summary ---
Author Organization [facility] Address [address] [place] [address] Care Team Providers Care Route Sales Trainee Name Role Phone Danni Joe MD Primary Care Provider UnaCarole Cervantes MD Primary Care Provider Unavaila George Arnold MD Primary Care Provider Unavail able Stevan Grubbs MD Primary Care Provider [phone] Declan Meneses MD Primary Care Provide r Unavailable Encounter Details Date Type Department Care Team Description 07/12/2014 Release of Information Medical Records [address] [place] [id number] Abstract, Provider Social History Tobacco Use Types Packs/Day Years [...] on filedocumented in this encounter Care Teams Route Sales Trainee Relationship Specialty Start Date End Date Danni Joe MD PCP - General Internal Medicine 06/24/14 06/16/15 Carole Olivares MD PCP - General Internal Medicine 06/17/15 04/09/16 George Marroquin MD PCP - General Internal Medicine 04/10/16 09/26/16 Stevan Grubbs MD [address] [place] [address] PCP - General Internal Medicine 09/27/16 03/23/19 Declan Meneses MD [address] [place] [address] PCP - General Internal Medicine 03/24/19 documented as of this encounter
--- OUTSIDE RECORDS SUMMARY | 2024-12-03 13:03 | XMS_ITS | Patient Health Record ---
Author Organization [facility] Address [address] [facility] [place] [address] Care Team Providers Care Salad Counter Attendant Name Role Phone Wiley Pablo MD Primary Care Provider Arcelia Mcdonough Unavailable [phone] Allergies No Known Allergies Results Component Value Reference Range Notes HEMOGLOBIN A1C (GLYCOHEMOGLO BIN) Reviewed date:07/02/2024 01:37:08 PM Interpretation: Performing Lab: Notes/Report: TOTAL HEMOGLOBIN (HGBA1C) 6.5 Reason For Referral No Information Medications Medication SIG (Take, Route, Frequency, Duration) Notes Start Date End Date Status Vimpat 50 MG 2 tablets Orally Twi ce a day Active Keppra 250 MG 1 tablet Orally ever y 12 hrs Not-Taking Ammonium Lactate 12 % 1 application Exte rnally to affected areas of dry skin to feet except for between the toes Twice a day for 30 days Active Keppra 500 MG 1 tablet Orally ever y 12 hrs Active Zyloprim Not-Taking Eliquis 5 MG 1 tablet Orally Twic e a day Active Tylenol Active Zetia 10 MG 1 tablet Orally Once a day Active Adalat CC Active Amaryl Active Microzide Active Allopurinol 100 MG 1 tablet Orally Once a day for 30 day(s) Active Extra Depth Orthopedic Shoes (1 Pair) with Customized Heat Molded Multidensity Innersoles (3 Pair) as directed Dx: NIDDM/Polyneuropathy (E11.42), Hammertoe Foot Deformity (M20.41,M20.42), Preulcerative Skin Lesion(s) (L85.1 Active Carvedilol 6.25 MG 1 tablet with food Orally Twice a day Active Zestril 40 MG 1 tablet Orally Once a day Active Fish Oil 1000 MG 1 capsule Orally Onc e a day Active Immunizations Vaccine Route Administration Date Status Comme nts Influenza Unknown 08/30/2023 Administered Social History Tobacco Use: Social History Observation [...] Are you an other tobacco user? No Problems Problem Type SNOMED Code ICD Code Onset Dates Problem Status W/U Status Risk Notes Problem Acquired hammer toe of right foot (991081627952 9105) Other hammer toe(s) (acquired), right foot (M20.41) Active confirmed Problem Acquired hammer toe of left foot (676171001184 9103) Other hammer toe(s) (acquired), left foot (M20.42) Active confirmed Problem Plantar wart (17172101) Plantar wart (B07.0) Active confirmed Problem [id number] Type 2 diabetes mellitus with polyneuropathy (E11.42) Active confirmed Vital Signs Heart Rate 81 /min 01/17/2024 Blood pressure diastolic 71 mm Hg 10/01/2024 Height 5ft 6in in 10/01/2024 Blood pressure systolic 127 mm Hg 10/01/2024 Weight 165 lbs 10/01/2024 BMI 26.63 kg/m2 10/01/2024 Encounters Encounter Location Date Provider Diagnosis [facility] [address] [place] [address] 01/17/2024 Arcelia Ogden Other hammer toe(s) (acquired), right foot M20.41 ; Other hammer toe(s) (acquired), left foot M20.42 ; Type 2 diabetes mellitus with polyneuropathy E11.42 ; Tinea unguium B35.1 and Metatarsalgia, left foot M77.42 [facility] [address] [address] 03/26/2024 Arcelia Ogden Other hammer toe(s) (acquired), right foot M20.41 ; Other hammer toe(s) (acquired), left foot M20.42 ; Type 2 diabetes mellitus with polyneuropathy E11.42 ; Tinea unguium B35.1 and Metatarsalgia, left foot M77.[address] [address] 07/02/2024 Arcelia Ogden Other hammer toe(s) (acquired), right foot M20.41 ; Other hammer toe(s) (acquired), left foot M20.42 ; Type 2 diabetes mellitus with polyneuropathy E11.42 ; Tinea unguium B35.1 ; Right foot pain M79.671 ; Plantar wart B07.0 and Metatarsalgia, right foot M77.[address] [address] 10/01/2024 Arcelia Ogden Other hammer toe(s) (acquired), right foot M20.41 ; Xerosis of skin L85.3 ; Other hammer toe(s) (acquired), left foot M20.42 ; Type 2 diabetes mellitus with polyneuropathy E11.42 ; Tinea unguium B35.1 ; Right foot pain M79.671 and Plantar wart B07.[address] [address] 10/05/2024 Arcelia Ogden [address] [address] 10/06/2024 Arcelia Ogden Assessments Encounter Date Diagnosis (ICD Code) Assessment Notes Treatment Notes Treatment Clinical Notes Section Notes 01/17/2024 Other hammer toe(s) (acquired), right foot (ICD-10 - M20.41) Patient Educated with: DIABETIC FOOT CARE INSTRUCTIONS. pdf (DIABETIC FOOT CARE INSTRUCTIONS. pdf) 01/17/2024 Other hammer toe(s) (acquired), left foot (ICD-10 - M20.42) 03/26/2024 Other hammer toe(s) (acquired), right foot (ICD-10 - M20.41) 07/02/2024 Other hammer toe(s) (acquired), right foot (ICD-10 - M20.41) 07/02/2024 Other hammer toe(s) (acquired), left foot (ICD-10 - M20.42) 10/01/2024 Other hammer toe(s) (acquired), right foot (ICD-10 - M20.41) 10/01/2024 Xerosis of skin (ICD-10 - L85.3) 10/01/2024 Other hammer toe(s) (acquired), left foot (ICD-10 - M20.42) 07/02/2024 Type 2 diabetes mellitus with polyneuropathy (ICD-10 - E11.42) 03/26/2024 Other hammer toe(s) (acquired), left foot (ICD-10 - M20.42) 01/17/2024 Type 2 diabetes mellitus with polyneuropathy (ICD-10 - E11.42) 01/17/2024 Tinea unguium (ICD-10 - B35.1) 03/26/2024 Type 2 diabetes mellitus with polyneuropathy (ICD-10 - E11.42) 07/02/2024 Tinea unguium (ICD-10 - B35.1) 10/01/2024 Type 2 diabetes mellitus with polyneuropathy (ICD-10 - E11.42) 10/01/2024 Tinea unguium (ICD-10 - B35.1) 07/02/2024 Right foot pain (ICD-10 - M79.671) 03/26/2024 Tinea unguium (ICD-10 - B35.1) 01/17/2024 Metatarsalgia, left foot (ICD-10 - M77.42) 03/26/2024 Metatarsalgia, left foot (ICD-10 - M77.42) 07/02/2024 Plantar wart (ICD-10 - B07.0) 10/01/2024 Right foot pain (ICD-10 - M79.671) 10/01/2024 Plantar wart (ICD-10 - B07.0) 07/02/2024 Metatarsalgia, right foot (ICD-10 - M77.41) Plan Of Treatment Pending Test Test Name Order Date X ray : Foot, left 3V 11/11/2023 Next Appt Details Provider Name:Arcelia Lange Jagjit lange, 12/31/2024 01:00:00 PM, [address] [facility], [place], [address], Insurance Providers Payer Name Payer Address Payer Phone Subscriber Number Group Number Insured Name Patient Relationship to Insured Coverage Start Date Coverage End Date Medicare National [employer] [address] [place] [address] [id number] Amrik Bateman Self - patient is the insured Medical (General) History Medical History History ICD Code Back,Hip,and Knee pain Depression Diabetic High blood pressure Brain Injury Alcohol abuse Seizures Surgical History Surgery Date(Month/Year)
--- OUTSIDE RECORDS SUMMARY | 2024-12-03 13:03 | XMS_ITS | Encounter Summary ---
Author Organization [facility] Address [address] [place] [address] Care Team Providers Care Preparatory Technician Name Role Phone Stevan Grubbs MD Primary Care Provider [phone] Declan Meneses MD Primary Care Provide r Unavailable Encounter Details Date Type Department Care Team Description 01/27/2017 Release of Information Medical Records [address] [place] [address] Abstract, Provider Social History Tobacco Use Types [...] on filedocumented in this encounter Care Teams Preparatory Technician Relationship Specialty Start Date End Date Stevan Grubbs MD [address] [place] [address] [id number] PCP - General Internal Medicine 09/27/16 03/23/19 Declan Meneses MD [address] [place] [address] PCP - General Internal Medicine 03/24/19 documented as of this encounter
--- OUTSIDE RECORDS SUMMARY | 2024-12-03 13:04 | XMS_ITS | Encounter Summary ---
Author Organization [facility] Address [address] [place] [address] Care Team Providers Care Prepress Supervisor Name Role Phone Danni Joe MD Primary Care Provider Carole Diehl MD Primary Care Provider Unavaila George Arnold MD Primary Care Provider Unavail able Stevan Grubbs MD Primary Care Provider [phone] Declan Meneses MD Primary Care Provide r Unavailable Encounter Details Date Type Department Care Team Description 10/05/2014 [facility] Medical Records [address] [place] [address] Abstract, Provider Social History Tobacco Use Types Packs/Day Years Used Date Smoking Tobacco: Never Smokeless Tobacco: Never Alcohol Use Standard Drinks/Week Comments Yes 0 (1 standard drink = 0.6 oz pure alcohol) 1/daily - previously heavy etoh abuse Sex Assigned at Date Recorded Not on file documented as of this encounter Plan of Treatment Not on file documented as of this encounter Procedures Procedure Name Priority Date/Time Associated Diagnosis Comments OUTSIDE EYE EXAM Routine 08/03/2014 documented in this encounter Results * OUTSIDE EYE EXAM (08/03/2014) Provider Abstract PROCEDURES documented in this encounter Visit Diagnoses Not on filedocumented in this encounter Care Teams Prepress Supervisor Relationship Specialty Start Date End Date Danni Joe MD PCP - General Internal Medicine 06/24/14 06/16/15 Carole Olivares MD PCP - General Internal Medicine 06/17/15 04/09/16 George Marroquin MD PCP - General Internal Medicine 04/10/16 09/26/16 Steavn Grubbs MD [address] [place] [address] PCP - General Internal Medicine 09/27/16 03/23/19 Declan Meneses MD [address] [place] [address] PCP - General Internal Medicine 03/24/19 documented as of this encounter
--- OUTSIDE RECORDS SUMMARY | 2024-12-03 13:04 | XMS_ITS | Encounter Summary ---
Author Organization [facility] Address [address] [place] [address] Care Team Providers Care Political Cartoonist Name Role Phone Danni Joe MD Primary Care Provider UnaCarole Cervantes MD Primary Care Provider Unavaila George Arnold MD Primary Care Provider Unavail able Stevan Grubbs MD Primary Care Provider [phone] Declan Meneses MD Primary Care Provide r Unavailable Encounter Details Date Type Department Care Team Description 10/22/2014 Orders Only Adult Medicine B - [place] [address] [place] [address] Danni Joe MD Proteinuria (Primary Dx) Social History Tobacco Use Types Packs/Day Years Used Date Smoking Tobacco: Never Smokeless Tobacco: Never Alcohol Use Standard Drinks/Week Comments Yes 0 (1 standard drink = 0.6 oz pure alcohol) 1/daily - previously heavy etoh abuse Sex Assigned at Date Recorded Not on file documented as of this encounter Plan of Treatment Scheduled Orders Name Type Priority Associated Diagnoses Orde r Schedule IMMUNOFIX ELECTROPHORESIS,URIN Lab Routine Proteinuria Expected: 10/22/2014, Expires: 10/22/2015 documented as of this encounter Results * CREATININE, URINE RANDOM (11/11/2014 11:37 AM EST) CREAT,RANDOM URINE 357 mg/dL 11/12/2014 11:55 AM EST [facility] 11/11/2014 11:3 7 AM EST 11/11/2014 11:38 AM EST Danni Joe MD LAB [address] * PROTEIN, RANDOM URINE (11/11/2014 11:37 AM EST) TOTAL PROTEIN, RANDOM URINE 98 mg/dL 11/11/2014 4:35 PM EST [facility] 11/11/2014 11:3 7 AM EST 11/11/2014 11:38 AM EST Narrative [facility] - 11/11/2014 4:35 PM EST Specify Random or 24Hr->Random Danni Joe MD LAB Performing Organization Address City/[facility] Co de Phone Number [facility] [employer] documented in this encounter Visit Diagnoses Diagnosis Proteinuria- Primary documented in this encounter Care Teams Political Cartoonist Relationship Specialty Start Date End Date Danni Joe MD PCP - General Internal Medicine 06/24/14 06/16/15 Carole Olivares MD PCP - General Internal Medicine 06/17/15 04/09/16 George Marroquin MD PCP - General Internal Medicine 04/10/16 09/26/16 Stevan Grubbs MD [address] [place] [id number] PCP - General Internal Medicine 09/27/16 03/23/19 Declan Meneses MD [address] [place] [id number] PCP - General Internal Medicine 03/24/19 documented as of this encounter
--- OUTSIDE RECORDS SUMMARY | 2024-12-03 13:04 | XMS_ITS | Encounter Summary ---
[facility] Address [address] [place] [address] Care Team Providers Care Strategic Marketing Leader Name Role Phone Carole Olivares MD Primary Care Provider Unavaila George Arnold MD Primary Care Provider Unavail able Stevan Grubbs MD Primary Care Provider [phone] Declan Meneses MD Primary Care Provide r Unavailable Reason for Visit * Reason Onset Date Comments Provider Call Back 01/27/2016 Encounter Details Date Type Department Care Team Description 01/27/2016 Telephone Adult Medicine A [facility] [address] [place] [address] Zackary Cruz PA-C Provider Call Back Social History Tobacco Use Types Packs/Day Years Used Date Smoking Tobacco: Never Smokeless Tobacco: Never Alcohol Use Standard Drinks/Week Comments Yes 0 (1 standard drink = 0.6 oz pure alcohol) 1/daily - previously heavy etoh abuse Sex Assigned at Date Recorded Not on file documented as of this encounter Miscellaneous Notes * Telephone Encounter - Carole Olivares MD - 01/30/2016 9:27 AM EDT Loop monitor is ordered. * Telephone Encounter - Marko Bhatti MD - 01/27/2016 1:27 PM EDT Can wait to Saturday * Telephone Encounter - Felicita Liz M.A. - 01/27/2016 1:16 PM EDT Spoke with Bianka from [facility] Zackary Cruz PA-C ordered a non loop monitor (event monitor) the pt doesnot have a land line so they cannot use this type of monitor. They are asking if they can do a loopmonitor instead. Ordering provider is out of the office and PCP is out of the office. Forwarded to covering provider * Telephone Encounter - Radhika Smith - 01/27/2016 12:45 PM EDT Caller requesting call back from provider: Is the caller the patient? NO If caller is not the patient, what is the callers name? Bianka Callers relationship to patient? [facility] If person calling is not the patient themselves, is there a verbal release in FY or permanent comments for this person: NO Reason for call back: Bianka called from [facility] and state the a order was receivedfrom Zackary Cruz for patient a None Looping Heart Monitor. Bianka state that patient does not havea land line. Bianka wanted to know if it would be all right if she order a Looping Monitor? Please call Bianka at [phone]. Caller offered to speak with the nurse for assistance: YES Response: Patient offered to speak with nurse for assistance and patient agreed. Message forwarded to nurse. documented in this encounter Plan of Treatment Scheduled Orders Name Type Priority Associated Diagnoses Orde r Schedule ECG MONITOR/24 HRS, REVIEW/INTERP Cardiology Routine Palpitation Expected: 01/30/2016, Expires: 04/29/2016 ECG MONITOR/24 HRS, REVIEW/INTERP Cardiology Routine Palpitation Expected: 01/30/2016, Expires: 04/29/2016 documented as of this encounter Visit Diagnoses Diagnosis Palpitation- Primary Palpitations documented in this encounter Care Teams Strategic Marketing Leader Relationship Specialty Start Date End Date Carole Olivares MD PCP - General Internal Medicine 06/17/15 04/09/16 George Marroquin MD PCP - General Internal Medicine 04/10/16 09/26/16 Stevan Grubbs MD [address] [place] [id number] PCP - General Internal Medicine 09/27/16 03/23/19 Declan Meneses MD [address] [place] [id number] PCP - General Internal Medicine 03/24/19 documented as of this encounter
== END 2024-12-03 12:44 | disposition home or self-care (01) ==
PROVIDERS: PCP Family Medicine; Visit Provider Family Medicine
DX: E11.9 Type 2 diabetes mellitus without complications (principal); I10 Essential (primary) hypertension; E87.6 Hypokalemia; Z12.5 Encounter for screening for malignant neoplasm of prostate; Z87.898 Personal history of other specified conditions; E11.649 Type 2 diabetes mellitus with hypoglycemia without coma

== ENCOUNTER → 2024-12-03 11:53 | Outpatient (BNVA) | payer MEDICARE, MEDICAID, SELFPAY | PROVIDERS: PCP Family Medicine; Visit Provider Family Medicine | DX: E11.9 Type 2 diabetes mellitus without complications (principal); E87.6 Hypokalemia; I10 Essential (primary) hypertension; Z87.898 Personal history of other specified conditions | CPT/HCPCS: 83036; 99212 ==

== ENCOUNTER 2025-01-07 09:31 | Outpatient (REF) | payer MEDICARE, MEDICAID, SELFPAY ==
[2025-01-07 11:02] LABS: MANUAL DIFF FLAG NO
[2025-01-07 11:15] LABS: Basophils Percent Auto 0.4 % (0-2); Eosinophils Absolute Auto 0.1 X10*3/uL (0.0-0.4); Eosinophils Percent Auto 1.1 % (0-4); Hematocrit 35.8 % (42.0-52.0); Imm Gran Abs Auto 0.02 X10*3/uL (0.00-0.03); Imm Gran Pct Auto 0.3 % (0.0-0.4); Lymphocytes Absolute Auto 2.3 X10*3/uL (1.2-4.9); Lymphocytes Percent Auto 29.2 % (20-40); Mean Corpuscular HGB Conc 33.5 g/dl (31.0-36.0); Mean Corpuscular Hemoglobin 29.7 pg (27.0-33.0); Mean Corpuscular Volume 88.6 fL (80.0-98.0); Mean Platelet Volume 10.6 fL (9.4-12.4); Monocytes Absolute Auto 0.7 X10*3/uL (0.1-1.2); Monocytes Percent Auto 8.7 % (2-11); Neutrophils Absolute Auto 4.8 x10*3/uL (2.0-8.3); Neutrophils Percent Auto 60.3 % (45-73); Platelet Count 237 X10*3/uL (160-400); Red Blood Count 4.04 X10*6/uL (4.60-5.80); Red Cell Distribution Width 13.1 % (11.0-16.0)
[2025-01-07 11:20] LABS: Appearance Urine Clear; Color Urine Yellow; Glucose Urine UA Negative (Negative); Leukocyte Esterase Urine Negative (Negative); Nitrite Urine Negative (Negative); Specific Gravity - Urine 1.015 (1.005-1.025); Urine Blood Negative (Negative); Urine Ketones Negative (Negative); Urine Protein Trace mg/dL (Neg-Trace)
[2025-01-07 11:45] LABS: Creatinine Urine 99.13 mg/dL; Microalbum/Creatinine Ratio Ur 151.3 ug/mg cr (<30)
[2025-01-07 11:49] LABS: Alanine Aminotransferase 14 U/L (0-40); Albumin Level 4.3 g/dL (3.5-5.0); Alkaline Phosphatase 67 U/L (39-117); Anion Gap 10 (12-20); Aspartate Amino Transferase 15 U/L (5-37); Bilirubin Total 0.5 mg/dL (0.0-1.0); Blood Urea Nitrogen 18 mg/dL (9-16); Calcium 10.2 mg/dL (8.4-10.2); Carbon Dioxide 29 mmol/L (22-29); Chloride 104 mmol/L (96-108); Estimated Glomerular Filt Rate > 60; Glucose Fasting 125 mg/dL (60-99); Potassium 3.9 mmol/L (3.3-5.1); Sodium 139 mmol/L (135-145); TSH reflex Free T4 1.61 uIU/mL (0.32-4.0); Total Protein 7.4 g/dL (6.5-8.0)
[2025-01-07 11:52] LABS: Prostate Specific Antigen Scr 10.94 ng/mL (<0.05-4.0)
== END 2025-01-07 09:32 | disposition home or self-care (01) ==
LOC: HO.WFDLDS 09:31
PROVIDERS: Visit Provider Family Medicine
DX: Z00.00 Encounter for general adult medical examination without abnormal findings (principal); Z12.5 Encounter for screening for malignant neoplasm of prostate; I10 Essential (primary) hypertension; E11.649 Type 2 diabetes mellitus with hypoglycemia without coma; D64.9 Anemia, unspecified; I48.0 Paroxysmal atrial fibrillation
CPT/HCPCS: 36415; 80053; 81003; 82043; 82570; 84153; 84443; 85025

== ENCOUNTER 2025-01-13 10:37 | Outpatient (REF) | payer MEDICARE, MEDICAID, SELFPAY ==
--- OUTSIDE RECORDS SUMMARY | 2025-01-13 12:33 | XMS_ITS ---
Author Organization [facility] Address [address] [place] [address] Care Team Providers Care Front Window Cashier Name Role Phone Wiley Pablo MD Primary Care Provider Arcelia Mcdonough [phone] REASON FOR VISIT Ammonium Lactate (12 % Cream) Encounters Encounter Location Date Provider Diagnosis [facility] [address] [place] [address] 10/06/2024 Arcelia Ogden Plan Of Treatment Next Appt Details Provider Name:Arcelia lange, 04/01/2025 01:30:00 PM, [address] [place], [address], Progress Notes * Amrik BATEMAN GDOB:1955 (68 yo M)Acc No.[id number]:10/06/2024 Patient:?Amrik BATEMAN :1955???Age:68 Y???Sex:Male Address:[address] [place] [address], [place], [address] * true * Date:? Generated for Printi ng/Faroseg/eTransmitting on:?01/13/2025 12:33 PM EDT
--- OUTSIDE RECORDS SUMMARY | 2025-01-13 12:33 | XMS_ITS | Encounter Summary ---
Author Organization [facility] Address [address] [place] [address] Care Team Providers Care Agricultural Engineering Teacher Name Role Phone Carole Olivares MD Primary Care Provider Unavaila George Arnold MD Primary Care Provider Unavail able Stevan Grubbs MD Primary Care Provider [phone] Declan Meneses MD Primary Care Provide r Unavailable Encounter Details Date Type Department Care Team Description 02/28/2016 [facility] Medical Records [address] [place] [address] Social History Tobacco Use Types Packs/Day Years [...] on filedocumented in this encounter Care Teams Agricultural Engineering Teacher Relationship Specialty Start Date End Date Carole Olivares MD PCP - General Internal Medicine 06/17/15 04/09/16 George Marroquin MD PCP - General Internal Medicine 04/10/16 09/26/16 Stevan Grubbs MD [address] [place] [address] [id number] PCP - General Internal Medicine 09/27/16 03/23/19 Declan Meneses MD [address] [place] [id number] PCP - General Internal Medicine 03/24/19 documented as of this encounter
--- OUTSIDE RECORDS SUMMARY | 2025-01-13 12:34 | XMS_ITS | Encounter Summary ---
Author [facility] Address [address] [place] [address] Care Team Providers Care Life Sciences Instructor Name Role Phone Danni Joe MD Primary Care Provider Carole Diehl MD Primary Care Provider Unavaila George Arnold MD Primary Care Provider Unavail able Stevan Grubbs MD Primary Care Provider [phone] Declan Meneses MD Primary Care Provide r Unavailable Reason for Referral * Specialist (Routine) - Authorized/Booked Specialty Diagnoses / Procedures Referred By Contac t Referred To Contact Gastroenterology Diagnoses Screening for colon cancer Procedures REFERRAL TO GASTROENTEROLOGY Edgar Gilbert MD [address] [place] [address] Darien Marie MD [address] [place] [id number] Referral ID Status Reason Start Date Expiration Date V isits Requested Visits Authorized SEE NOTE Authorized/B ooked 04/01/2015 07/02/2015 1 1 Reason for Visit * Reason Onset Date Comments Pre-colonoscopy Instructions 03/31/2015 Encounter Details Date Type Department Care Team Description 03/31/2015 Telephone [place] [address] Edgar Gilbert MD Pre-colonoscopy Instructions Social History Tobacco Use Types Packs/Day Years Used Date Smoking Tobacco: Never Smokeless Tobacco: Never Alcohol Use Standard Drinks/Week Comments Yes 0 (1 standard drink = 0.6 oz pure alcohol) 1/daily - previously heavy etoh abuse Sex Assigned at Date Recorded Not on file documented as of this encounter Miscellaneous Notes * Telephone Encounter - Liliya Leblanc R.N. - 04/01/2015 12:42 PM EDT Encounter routed to GI schedulers * Telephone Encounter - Edgar Gilbert MD - 04/01/2015 9:38 AM EDT Outside referral made. * Telephone Encounter - Amie Ken - 04/01/2015 9:17 AM EDT Pt called in today returning nurses call. Was informed that Doctor would like this procedure done at the hospital under propofol, he expressed understanding. Pt does have [facility] for insurance, which [facility] does not accept. If the recommendation still stands for the pt to be done in a Hospital setting, an external referral will need to be placed for this pt. He also expresses understanding of this.I will leave the appt on 04/20/15 on the schedule until I hear back from you. Thank you. * Telephone Encounter - Liliya Leblanc R.N. - 03/31/2015 3:38 PM EDT Left message for patient to call me back. * Telephone Encounter - Edgar Gilbert MD - 03/31/2015 3:31 PM EDT Please re-schedule under propofol. * Telephone Encounter - Liliya Leblanc R.N. - 03/31/2015 3:[address] Gilbert, This patient is scheduled to have a CN with you on 04/20/15. He was seen in the office on 03/25/[address] Joe noted that he has been having severe recurrent depression with psychosis. He has been having both visual and auditory hallucinations. He has been started on Risperidone for this. Please review to determine whether you would like to proceed as planned. Thanks documented in this encounter Plan of Treatment Not on file documented as of this encounter Visit Diagnoses Diagnosis Screening for colon cancer- Primary Special screening for malignant neoplasms, colon documented in this encounter Care Teams Life Sciences Instructor Relationship Specialty Start Date End Date Danni Joe MD PCP - General Internal Medicine 06/24/14 06/16/15 Carole Olivares MD PCP - General Internal Medicine 06/17/15 04/09/16 George Marroquin MD PCP - General Internal Medicine 04/10/16 09/26/16 Stevan Grubbs MD [address] [place] [id number] PCP - General Internal Medicine 09/27/16 03/23/19 Declan Meneses MD [address] [place] [id number] PCP - General Internal Medicine 03/24/19 documented as of this encounter
--- OUTSIDE RECORDS SUMMARY | 2025-01-13 12:34 | XMS_ITS | Encounter Summary ---
Author Organization [facility] Address [address] [place] [address] Care Team Providers Care Radio Mechanic Helper Name Role Phone Carole Olivares MD Primary Care Provider Unavaila George Arnold MD Primary Care Provider Unavail able Stevan Grubbs MD Primary Care Provider [phone] Declan Meneses MD Primary Care Provide r Unavailable Reason for Visit * Reason Onset Date Comments Provider Call Back 01/27/2016 Encounter Details Date Type Department Care Team Description 01/27/2016 Telephone Adult Medicine A [facility] [address] [place] [address] Zackary Cruz PA-C Provider Call Back Social [...] 1:16 PM EDT Spoke with Bianka from [facility] Zackary Cruz PA-C ordered a non [...] callers name? Bianka Callers relationship to patient? [facility] If person calling is not the patient themselves, is there a verbal release in FY or permanent comments for this person: NO Reason for call back: Bianka called from [facility] and state the a order was receivedfrom Zackary Cruz for patient a None Looping Heart Monitor. Bianka state that patient does not havea land line. Bianka wanted to know if it would be all right if she order a Looping Monitor? Please call Bianka at [phone]. Caller offered to speak with the nurse [...] Palpitations documented in this encounter Care Teams Radio Mechanic Helper Relationship Specialty Start Date End Date Carole Olivares MD PCP - General Internal Medicine 06/17/15 04/09/16 George Marroquin MD PCP - General Internal Medicine 04/10/16 09/26/16 Stevan Grubbs MD [address] [place] [id number] PCP - General Internal Medicine 09/27/16 03/23/19 Declan Meneses MD [address] [place] [id number] PCP - General Internal Medicine 03/24/19 documented as of this encounter
--- OUTSIDE RECORDS SUMMARY | 2025-01-13 12:34 | XMS_ITS | Encounter Summary ---
Author Organization [employer] [facility] Address [address] [place] [address] Care Team Providers Care Quality Improvement Engineer Name Role Phone Danni Joe MD Primary Care Provider UnaCarole Cervantes MD Primary Care Provider Unavaila George Arnold MD Primary Care Provider Unavail able Stevan Grubbs MD Primary Care Provider [phone] Declan Meneses MD Primary Care Provide r Unavailable Encounter Details Date Type Department Care Team Description 10/22/2014 Orders Only Adult Medicine B - [place] [address] [place] [address] Danni Joe MD Proteinuria (Primary Dx) Social [...] URINE 357 mg/dL 11/12/2014 11:55 AM EST [facility] 11/11/2014 11:3 7 AM EST 11/11/2014 11:38 AM EST Danni Joe MD LAB [address] * PROTEIN, RANDOM URINE (11/11/2014 11:37 AM EST) TOTAL PROTEIN, RANDOM URINE 98 mg/dL 11/11/2014 4:35 PM EST [facility] 11/11/2014 11:3 7 AM EST 11/11/2014 11:38 AM EST Narrative [facility] - 11/11/2014 4:35 PM EST Specify Random or 24Hr->Random Danni Joe MD LAB Performing Organization Address City/[facility] Co de Phone Number [facility] [employer] documented in this encounter Visit Diagnoses Diagnosis Proteinuria- Primary documented in this encounter Care Teams Quality Improvement Engineer Relationship Specialty Start Date End Date Danni Joe MD PCP - General Internal Medicine 06/24/14 06/16/15 Carole Olivares MD PCP - General Internal Medicine 06/17/15 04/09/16 George Marroquin MD PCP - General Internal Medicine 04/10/16 09/26/16 Stevan Grubbs MD [address] [place] [address] PCP - General Internal Medicine 09/27/16 03/23/19 Declan Meneses MD [address] [place] [id number] PCP - General Internal Medicine 03/24/19 documented as of this encounter
--- OUTSIDE RECORDS SUMMARY | 2025-01-13 12:34 | XMS_ITS | Encounter Summary ---
Author Organization [facility] Address [address] [place] [address] Care Team Providers Care Grades 9 12 Tutor Name Role Phone Carole Olivares MD Primary Care Provider Unavaila George Arnold MD Primary Care Provider Unavail able Stevan Grubbs MD Primary Care Provider [phone] Declan Mensees MD Primary Care Provide r Unavailable Reason for Visit * Reason Onset Date Comments LAB WORK 06/22/2015 Encounter Details Date Type Department Care Team Description 06/22/2015 Telephone Nephrology - [place] [address] [place] [address] Teddy Aguilar MD LAB WORK Social History Tobacco Use Types Packs/Day Years Used Date Smoking Tobacco: Never Smokeless Tobacco: Never Alcohol Use Standard Drinks/Week Comments Yes 0 (1 standard drink = 0.6 oz pure alcohol) 1/daily - previously heavy etoh abuse Sex Assigned at Date Recorded Not on file documented as of this encounter Miscellaneous Notes * Telephone Encounter - Alejandra Grove - 06/22/2015 9:12 AM EDT Caller requesting call back from provider: Is the caller the patient? YES If caller is not the patient, what is the callers name? N/A Callers relationship to patient? N/A If person calling is not the patient themselves, is there a verbal release in FYI or permanent comments for this person: YES Reason for call back: Patient stopped in and was wondering if there is any blood work is he supposeto be getting done. He thought Dr. Aguilar had told him that he was going to place some. Patient would like to be called Caller offered to speak with the nurse for assistance: YES Response: Patient offered to speak with nurse for assistance and patient agreed. Message forwarded to nurse. documented in this encounter Plan of Treatment Not on file documented as of this encounter Visit Diagnoses Not on filedocumented in this encounter Care Teams Grades 9 12 Tutor Relationship Specialty Start Date End Date Carole Olivares MD PCP - General Internal Medicine 06/17/15 04/09/16 George Marroquin MD PCP - General Internal Medicine 04/10/16 09/26/16 Stevan Grubbs MD [address] [place] [id number] PCP - General Internal Medicine 09/27/16 03/23/19 Declan Meneses MD [address] [place] [id number] PCP - General Internal Medicine 03/24/19 documented as of this encounter
--- OUTSIDE RECORDS SUMMARY | 2025-01-13 12:34 | XMS_ITS | Patient Health Record ---
Author Organization [facility] Address [address] [facility] [place] [address] Care Team Providers Care Grader Meat Name Role Phone Wiley Pablo MD Primary Care Provider Arcelia Mcdonough Unavailable [phone] Allergies No Known Allergies Results Component Value Reference Range Notes HEMOGLOBIN A1C (GLYCOHEMOGLO BIN) Reviewed date:07/02/2024 01:37:08 PM Interpretation: Performing Lab: Notes/Report: TOTAL HEMOGLOBIN (HGBA1C) 6.5 HEMOGLOBIN A1C (GLYCOHEMOGLO BIN) Reviewed date:12/31/2024 01:15:24 PM Interpretation: Performing Lab: Notes/Report: HEMOGLOBIN A1C % (HH) 6.3 Reason For Referral No Information Medications Medication SIG (Take, Route, Frequency, Duration) Notes Start Date End Date Status Vimpat 50 MG 2 tablets Orally Twice a day Active Zyloprim Not-Taking Keppra 500 MG 1 tablet Orally ever y 12 hrs Active Keppra 250 MG 1 tablet Orally ever y 12 hrs Not-Taking Zetia 10 MG 1 tablet Orally Once a day Active Adalat CC Not-Taking metFORMIN HCl Active Zestril 40 MG 1 tablet Orally Once a day Active Amaryl Not-Taking Microzide Not-Taking Allopurinol 100 MG 1 tablet Orally Once a day for 30 day(s) Active Extra Depth Orthopedic Shoes (1 Pair) with Customized Heat Molded Multidensity Innersoles (3 Pair) as directed Dx: NIDDM/Polyneuropathy (E11.42), Hammertoe Foot Deformity (M20.41,M20.42), Preulcerative Skin Lesion(s) (L85.1 Active Fish Oil 1000 MG 1 capsule Orally Onc e a day Active Ammonium Lactate 12 % 1 application Externally to affected areas of dry skin to feet except for between the toes Twice a day for 30 days Active Tylenol Active NIFEdipine ER 60 MG 1 tablet on an empty stomach Orally Once a day Active Carvedilol 6.25 MG 1 tablet with food Orally Twice a day Active hydroCHLOROthiazide 25 MG 1 tablet in th e morning Orally Once a day Active Eliquis 5 MG 1 tablet Orally Twic e a day Active Spironolactone 25 MG 1 tablet Orally Active Immunizations Vaccine Route Administration Date Status Comme nts Influenza Unknown 08/30/2023 Administered Social History Tobacco Use: Social History Observation Description Date Details (start date - stop date) Never Smoker NA - NA Tobacco use other than smoking: Question Answer Notes Are you an other tobacco user? No Tobacco Control (Standard) Question Answer Notes Tobacco use: Nonsmoker Additional Findings: Tobacco non-user Current no nsmoker AUDIT-C (Standard) Question Answer Notes Did you have a drink containing alcohol in the p ast year? No Points 0 Interpretation Negative Problems Problem Type SNOMED Code ICD Code Onset Dates Problem Status W/U Status Risk Notes Problem Acquired hammer toe of right foot (209389453589 9105) Other hammer toe(s) (acquired), right foot (M20.41) Active confirmed Problem Acquired hammer toe of left foot (252583827438 9103) Other hammer toe(s) (acquired), left foot (M20.42) Active confirmed Problem Plantar wart (83590615) Plantar wart (B07.0) Active confirmed Problem [id number] Type 2 diabetes mellitus with polyneuropathy (E11.42) Active confirmed Vital Signs Heart Rate 81 /min 01/17/2024 Blood pressure diastolic 66 mm Hg 12/31/2024 Height 5ft 6in in 12/31/2024 Blood pressure systolic 120 mm Hg 12/31/2024 Weight 165 lbs 12/31/2024 BMI 26.63 kg/m2 12/31/2024 Encounters Encounter Location Date Provider Diagnosis [facility] [address] [place] [address] 01/17/2024 Arcelia Ogden Other hammer toe(s) (acquired), right foot M20.41 ; Other hammer toe(s) (acquired), left foot M20.42 ; Type 2 diabetes mellitus with polyneuropathy E11.42 ; Tinea unguium B35.1 and Metatarsalgia, left foot M77.[address] [place] [address] 03/26/2024 Arcelia Perica Other hammer toe(s) (acquired), right foot M20.41 ; Other hammer toe(s) (acquired), left foot M20.42 ; Type 2 diabetes mellitus with polyneuropathy E11.42 ; Tinea unguium B35.1 and Metatarsalgia, left foot M77.[address] [address] 07/02/2024 Arcelia Perica Other hammer toe(s) (acquired), right foot M20.41 ; Other hammer toe(s) (acquired), left foot M20.42 ; Type 2 diabetes mellitus with polyneuropathy E11.42 ; Tinea unguium B35.1 ; Right foot pain M79.671 ; Plantar wart B07.0 and Metatarsalgia, right foot M77.[address] [address] 10/01/2024 Arcelia Perica Other hammer toe(s) (acquired), right foot M20.41 ; Xerosis of skin L85.3 ; Other hammer toe(s) (acquired), left foot M20.42 ; Type 2 diabetes mellitus with polyneuropathy E11.42 ; Tinea unguium B35.1 ; Right foot pain M79.671 and Plantar wart B07.[address] [address] 12/31/2024 Arcelia Perica Xerosis of skin L85. 3 ; Type 2 diabetes mellitus with polyneuropathy E11.42 ; Tinea unguium B35.1 ; Right foot pain M79.671 and Plantar wart B07.[address] [address] 10/05/2024 Arcelia Perica [address] [address] 10/06/2024 Arcelia Ogden Assessments Encounter Date Diagnosis [...] 10/01/2024 Xerosis of skin (ICD-10 - L85.3) 12/31/2024 Xerosis of skin (ICD-10 - L85.3) 12/31/2024 Type 2 diabetes mellitus with polyneuropathy (ICD-10 - E11.42) 12/31/2024 Tinea unguium (ICD-10 - B35.1) 07/02/2024 Type 2 diabetes mellitus with polyneuropathy (ICD-10 - E11.42) 10/01/2024 Other hammer toe(s) (acquired), left foot (ICD-10 - M20.42) 03/26/2024 Other hammer toe(s) (acquired), left foot (ICD-10 - M20.42) 01/17/2024 Type 2 diabetes mellitus with polyneuropathy (ICD-10 - E11.42) 01/17/2024 Tinea unguium (ICD-10 - B35.1) 03/26/2024 Type 2 diabetes mellitus with polyneuropathy (ICD-10 - E11.42) 07/02/2024 Tinea unguium (ICD-10 - B35.1) 10/01/2024 Type 2 diabetes mellitus with polyneuropathy (ICD-10 - E11.42) 12/31/2024 Right foot pain (ICD-10 - M79.671) 12/31/2024 Plantar wart (ICD-10 - B07.0) 10/01/2024 Tinea unguium (ICD-10 - B35.1) 07/02/2024 [...] 3V 11/11/2023 Next Appt Details Provider Name:Arcelia lange, 04/01/2025 01:30:00 PM, [address] [facility], [place], [address], Insurance Providers Payer Name Payer Address Payer Phone Subscriber Number Group Number Insured Name Patient Relationship to Insured Coverage Start Date Coverage End Date Medicare National [employer] [address] [place] [address] [id number] Amrik Bateman Self - patient is the insured Medical (General) History Medical History History ICD Code Back,Hip,and Knee pain Depression Diabetic High blood pressure Brain Injury Alcohol abuse Seizures Surgical History Surgery Date(Month/Year)
--- OUTSIDE RECORDS SUMMARY | 2025-01-13 12:34 | XMS_ITS ---
Author Organization [facility] willie Cassandra Address [address] [place] [address] Care Team Providers Care Applications System Analyst Name Role Phone Wiley Pablo MD Primary Care Provider Arcelia Mcdonough Unavailable [phone] Allergies No Known Allergies REASON FOR VISIT At Risk Footcare, Wart(s), Skin problem(s) Medications Medication SIG (Take, Route, Frequency, Duration) Notes Start Date End Date Status Vimpat 50 MG 2 tablets Orally Twice a day Active Keppra 500 MG 1 tablet Orally ever y 12 hrs Active Amaryl Not-Taking Allopurinol 100 MG 1 tablet Orally Once a day for 30 day(s) Active Fish Oil 1000 MG 1 capsule Orally Onc e a day Active Keppra 250 MG 1 tablet Orally ever y 12 hrs Not-Taking metFORMIN HCl Active NIFEdipine ER 60 MG 1 tablet on an empty stomach Orally Once a day Active hydroCHLOROthiazide 25 MG 1 tablet in th e morning Orally Once a day Active Spironolactone 25 MG 1 tablet Orally Active Zyloprim Not-Taking Zestril 40 MG 1 tablet Orally Once a day Active Microzide Not-Taking Extra Depth Orthopedic Shoes (1 Pair) with Customized Heat Molded Multidensity Innersoles (3 Pair) as directed Dx: NIDDM/Polyneuropathy (E11.42), Hammertoe Foot Deformity (M20.41,M20.42), Preulcerative Skin Lesion(s) (L85.1 Active Ammonium Lactate 12 % 1 application Externally to affected areas of dry skin to feet except for between the toes Twice a day for 30 days Active Zetia 10 MG 1 tablet Orally Once a day Active Adalat CC Not-Taking Tylenol Active Carvedilol 6.25 MG 1 tablet with food Orally Twice a day Active Eliquis 5 MG 1 tablet Orally Twic e a day Active Social History Tobacco Use: [...] ast year? No Points 0 Interpretation Negative Vital Signs Height 5ft 6in in 12/31/2024 Weight 165 lbs 12/31/2024 BMI 26.63 kg/m2 12/31/2024 Blood pressure systolic 120 mm Hg 01/01/20 Blood pressure diastolic 66 mm Hg 025 Encounters Encounter Location Date Provider Diagnosis [facility] [address] [place] [address] 12/31/2024 Arcelia Ogden Xerosis of skin L85. 3 ; Type 2 diabetes mellitus with polyneuropathy E11.42 ; Tinea unguium B35.1 ; Right foot pain M79.671 and Plantar wart B07.0 Assessments Encounter Date Diagnosis (ICD Code) Assessment Notes Treatment Notes Treatment Clinical Notes Section Notes 12/31/2024 Xerosis of skin (ICD-10 - L85.3) 12/31/2024 Type 2 diabetes mellitus with polyneuropathy (ICD-10 - E11.42) 12/31/2024 Tinea unguium (ICD-10 - B35.1) 12/31/2024 Right foot pain (ICD-10 - M79.671) 12/31/2024 Plantar wart (ICD-10 - B07.0) Plan Of Treatment Next Appt Details Follow Up: 3 Months, Reason: Provider Name:Arcelia lange, 04/01/2025 01:30:00 PM, [address] [facility], [place], [address], Procedure Notes * Category Sub-Category Detail Notes Wart Treatment Procedure Verrucae were de brided to pin-point bleeding margins with sterile 15 surgical blade, silver nitrate chemocautery applied, recomm. immune-boosting meds such as zinc, recomm. follow up with topical chemosurgical agents, Pt defers any other forms of tx - 51648 Debride Nail 6-10 Nail debridement Due to [...] use of a nail nipper and/or dremel-type air grinder, to a more viable healthy nail plate [...] to maintain effectiveness in symptomatic relief - 03302 Keratoma Treatment Parring or Cutting o f [...] risk. Therefore, the benign hyperkeratotic lesions, ( 6) in total, locations as stated and described in the exam ( SUB MTH (s), 2, 3, B/L, Heel(s), B/L ), were pared, and/or cut utilizing a sterile 15 blade, tissue nippers, and/or power dremel instrumentation by the physician of record - 08379 Progress Notes * Amrik BAETMAN GDOB:1955 (69 yo M)Acc No.[id number]:12/31/2024 Progress Note Patient:?Amrik BATEMAN Tulio Provider:?Arcelia Ogden DPM :1955???Age:69 Y???Sex:Male Magdi e:12/31/2024 Address:[address] [place] [address], [place] [address] Pcp:Wiley Pablo MD Subjective: * Chief Complaints: * ???At Risk FootcareWart(s)Sk in problem(s) * HPI: ???At Risk footcare:?Pt States Last PCP Visit:?Date?11/16/2024 ???Skin problems:?Pt States PCP Visit: ?DATE?11/16/2024 ?Nature:?dryness , scaling.?Location:?B/L .?Course:?improved.? * ROS:?General/Constitutional:?Nausea?denies.?Vomiting?denies.?Hunger Thirst?denies.?Loss appetite?denies.?Chills?denies.?Fatigue?denies.?Fever?denies.?Night Sweats?denies.?Unexplained weight loss?denies.?Unexplained [...] dece ased.?Father: .? * Social History:?Tobacco Use:?Tobacco use other than smoking?Are you an other tobacco user??No ?Tobacco Control (Standard)?Tobacco use:?Nonsmoker ?Additional Findings: Tobacco non-user?Current nonsmoker ???Drugs/Alcohol:?Drugs?Have you used drugs other than those for medical reasons in the past 12 months??No ???Miscellaneous:?Caffeine: yes, frequency:tea 1-2 cups per day. ?Children: no. ?Exercise: yes, walking. ?Marital status: single. ?Occupation: Retired. ???Drug/Alcohol:?AUDIT-C (Standard)?Did you have a drink containing alcohol in the past year??No ?Points?0 ?Interpretation?Negative * Medications:?TakinghydroCHLO ROthiazide 25 MG Tablet 1 tablet in the morning Orally Once a day Spironolactone 25 MG Tablet 1 tablet Orally NIFEdipine ER 60 MG Tablet Extended Release 24 Hour 1 tablet on an empty stomach Orally Once a day metFORMIN HCl Allopurinol 100 MG Tablet 1 tablet Orally Once a day Fish Oil 1000 MG Capsule 1 capsule Orally Once a day Vimpat 50 MG Tablet 2 tablets Orally Twice a day Keppra 500 MG Tablet 1 tablet Orally every 12 hrs Zetia 10 MG Tablet 1 tablet Orally Once a day Eliquis 5 MG Tablet 1 tablet Orally Twice a day Tylenol Carvedilol 6.25 MG Tablet 1 tablet with food Orally Twice a day Zestril 40 MG Tablet 1 tablet Orally Once a day Extra Depth Orthopedic Shoes (1 Pair) with Customized Heat Molded Multidensity Innersoles (3 Pair) as directed Dx: NIDDM/Polyneuropathy (E11.42), Hammertoe Foot Deformity (M20.41,M20.42), Preulcerative Skin Lesion(s) (L85.1 Ammonium Lactate 12 % Cream 1 application Externally to affected areas of dry skin to feet except for between the toes Twice a day Taking hydroCHLOROthiazide 25 MG Tablet 1 tablet in the morning Orally Once a day Taking Spironolactone 25 MG Tablet 1 tablet Orally Taking NIFEdipine ER 60 MG Tablet Extended Release 24 Hour 1 tablet on an empty stomach Orally Once a day Taking metFORMIN HCl Taking Allopurinol 100 MG Tablet 1 tablet Orally Once a day Taking Fish Oil 1000 MG Capsule 1 capsule Orally Once a day Taking Vimpat 50 MG Tablet 2 tablets Orally Twice a day Taking Keppra 500 MG Tablet 1 tablet Orally every 12 hrs Taking Zetia 10 MG Tablet 1 tablet Orally Once a day Taking Eliquis 5 MG Tablet 1 tablet Orally Twice a day Taking Tylenol Taking Carvedilol 6.25 MG Tablet 1 tablet with food Orally Twice a day Taking Zestril 40 MG Tablet 1 tablet Orally Once a day Taking Extra Depth Orthopedic Shoes (1 Pair) with Customized Heat Molded Multidensity Innersoles (3 Pair) as directed Dx: NIDDM/Polyneuropathy (E11.42), Hammertoe Foot Deformity (M20.41,M20.42), Preulcerative Skin Lesion(s) (L85.1 Taking Ammonium Lactate 12 % Cream 1 application Externally to affected areas of dry skin to feet except for between the toes Twice a day Not-Taking/PRNAmaryl Adalat CC Microzide Zyloprim Keppra 250 MG Tablet 1 tablet Orally every 12 hrs Medication List reviewed and reconciled with the patientNot-Taking/PRN Amaryl Not-Taking/PRN Adalat CC Not-Taking/PRN Microzide Not-Taking/PRN Zyloprim Not-Taking/PRN Keppra 250 MG Tablet 1 tablet Orally every 12 hrs Medication List reviewed and reconciled with the patient * Allergies:?N.K.D.A.yes[Aller gies Verified] Objective: * Vitals:?Ht: 5ft 6in, Wt:165, BMI:26.63, Shoe size: 9, BP:120/66mm Hg, BS: 106, Ht-cm: 167.64 cm, Wt-k.84 kg. * ???Past Orders: ???Lab:HEMOGLOBIN A1C (GLYCO HEMOGLOBIN) (Order Date - 11/16/2024) (Collection Date & Time - 12/31/2024 01:14 PM) ? Value Reference Range ?HEMOGLOBIN A1C % (HH) 6.3 * Examination: ???Ophthalmology Referral: ?DIABETES EYE EXAM?Procedure Performed:?Yes ?Date of Exam Performed?12/17/2024 ?Findings of Diabetic Eye Exam:?no retinopathy?Neurological: ?SENSORY:? Neurological exam demonstrates, reduced light touch [...] Skin exam reveals Keratotic lesion(s) located at, SUB MTH (s), 2, 3, B/L Heel(s), B/L , Skin shows approximately 50? percent LESS, sign(s) of, dryness, scaling, in a stocking [...] for office visit today.?ORIENTED:?person, place, and time.?FOOT EXAM:?Lower Extremity Neurological Exam performed:?Yes ?Visual exam of foot performed:?Yes ?Date?12/31/2024 ?Footwear Evaluation?Footwear Evaluation performed:?Yes??? Assessment: * Assessment: 1.?Xerosis of skin - L85.3 ( Primary)???Specify :Acute problem, Uncomplicated (3)???2.?Type 2 diabetes mellitus with polyneuropathy - E11.42???3.?Tinea unguium - B35.1???4.?Right foot pain - M79.671???5.?Plantar wart - B07.0??? Plan: * Treatment: * [...] use of a nail nipper and/or dremel-type air grinder, to a more viable healthy nail plate [...] to maintain effectiveness in symptomatic relief - 10400.?Keratoma Treatment:?Parring or Cutting of Benign Hyperkeratotic Lesion(s)?(-57) More than 4 Lesions - Due to the at risk nature of the patients medical condition as documented in the exam findings, performance of this keratoderma treatment is medically necessary as its management by an unskilled/untrained nonprofessional would put this patients foot and overall health at risk. Therefore, the benign hyperkeratotic lesions, ( 6) in total, locations as stated and described in the exam (??SUB MTH (s),?2,?3,?B/L,?Heel(s),?B/L?), were pared, and/or cut utilizing a sterile 15 blade, tissue nippers, and/or power dremel instrumentation by the physician of record - 21587.?Wart Treatment:?Procedure?Verrucae were debrided to pin-point bleeding margins with sterile 15 surgical blade, silver nitrate chemocautery applied, recomm. immune-boosting meds such as zinc, recomm. follow up with topical chemosurgical agents, Pt defers any other forms of tx - 32327.? * Procedure Codes:?47526 DEBRI DE NAIL, 6 OR MORE, Modifiers: XS 45623 Wart Destruction, 1-14, Modifiers: XS 45496 TRIM SKIN LESIONS, OVER 4, Modifiers: XS * Preventive Medicine:? ??Counseling:?Discussion:?-13: Office or other outpatient visit for the evaluation and management of an established patient, which required a medically appropriate history and/or examination and LOW level of DECISION MAKING for: 1 STABLE ACUTE UNCOMPLICATED PROBLEM, 2 OR MORE MINOR PROBLEMS, OR 1 STABLE CHRONIC PROBLEM, THAT POSE(S) A LOW RISK FOR MORBIDITY/MORTALITY. The visit on the day of the [...] have encouraged the patient to call the office.?Xerosis:?Given recent successful results to treatment, The patient is to cont cream as directed.? * Follow Up:?3 Months * Images: * Sign off status: Completed true * Provider:Quyen Ogden DPM Date:? Generated for Thompson harris/Miri/eTmarcieitting on:?01/13/2025 12:33 PM EDT History and Physical Notes * HPI (History of Present Illness) Category Sub-Category Detail Notes Category Not es Skin problems Nature: dryness , scaling Location: B/L Course: improved Pt States PCP Visit: DATE: 11/16/2024 At Risk footcare Pt States Last PCP Visit: Date: Examination Category Sub-Category Detail Notes Category Not es Neurological SENSORY: Neurological exa m demonstrates, reduced light touch sensation, reduced sharp/dull pin prick discrimination , B/L, 5.07 monofilament test performed at plantar aspects of 5 varied sites per foot shows sensation, reduced , B/L Dermatologic SKIN FINDINGS: Skin exam reveal s Keratotic lesion(s) located at, SUB MTH (s), 2, 3, B/L Heel(s), B/L , Skin shows approximately 50 percent LESS, sign(s) of, dryness, scaling, in a stocking [...] Lateral tracking 1st MPJ incompletely reducible, LEFT FOOTWEAR EVALUATION: worn, non-supportiv e, shoe gear properties exacerbate patient's foot/toe deformity [...] Lower Extremity Neurological Exa m performed:: Yes Visual exam of foot performed:: Yes Date: 12/31/2024 ORIENTED: person, place, and t farooq Footwear Evaluation Footwear Evaluation performe d:: Yes Ophthalmology Referral DIABETES EYE EXAM Procedure Perform ed:: Yes ?Date of Exam Performed: 12/17/2024 Findings of Diabetic Eye Exam:: no retin [...]
--- OUTSIDE RECORDS SUMMARY | 2025-01-13 12:34 | XMS_ITS ---
Author Organization [facility] Address [address] [place] [address] Care Team Providers Care Field Health Officer Name Role Phone Wiley Pablo MD Primary Care Provider Arcelia Mcdonough [phone] REASON FOR VISIT Noncovered RX Encounters Encounter Location Date Provider Diagnosis [facility] [address] [place] [address] 10/05/2024 Arcelia Ogden Plan Of Treatment Next Appt Details Provider Name:Arcelia lange, 04/01/2025 01:30:00 PM, [address] [place] [address], [address], Progress Notes * Amrik BATEMAN GDOB:1955 (68 yo M)Acc No.[id number]:10/05/2024 Patient:?Amrik BATEMAN :1955???Age:68 Y???Sex:Male Address:[address] [place] [address], [place], [address] * true * Date:? Generated for Printi steven/Miri/eTransmitting on:?01/13/2025 12:33 PM EDT
--- OUTSIDE RECORDS SUMMARY | 2025-01-13 12:34 | XMS_ITS | Data Portability ---
Author Organization [facility], Main Office Address [address] [facility] [address] [place] [address] Care Team Providers Care Exchange Operator Name Role Phone [facility] Insurance Adj uster Assessment Encounter Date Assessment Date Assessment LastModified by Organization Details LastModified Time 01/01/2019 01/01/201905/26 bun 5, creat 1.0, wbc 10.79, hgb 12.8, hct 40.4 2/ Labs: bun 10, creat 0.9, na 145, k 4.1, wbc 8.1, hgb 13.2, hct 40.4, TSH 1.29 [email or web address] Not available 01/01/2019 12:59:02 01/30/2019 01/30/2019 2/ Labs: bun 10, creat 0.9, na 145, k 4.1, wbc 8.1, hgb 13.2, hct 40.4, TSH 1.29 Not available 01/30/2019 15:44:13 02/24/2019 02/24/201902/06: na 143, k 3.6, bun 12, creat 0.90 2 Labs: bun 10, creat 0.9, na 145, k 4.1, wbc 8.1, hgb 13.2, hct 40.4, TSH 1.29 glord Not available 02/24/2019 15:12:34 03/23/2019 03/23/201902/06: na 143, k 3.6, bun 12, creat 0.90 2 Labs: bun 10, creat 0.9, na 145, k 4.1, wbc 8.1, hgb 13.2, hct 40.4, TSH 1.29 05/26 bun 5, creat 1.0, wbc 10.79, hgb 12.8, hct 40.4 2/ Labs: bun 10, creat 0.9, na 145, k 4.1, wbc 8.1, hgb 13.2, hct 40.4, TSH 1.29 All rxs written for usp 2/ Labs: bun 10, creat 0.9, na 145, k 4.1, wbc 8.1, hgb 13.2, hct 40.4, TSH 1.29 l[place] Not available 03/23/2019 23:16:29 03/30/2019 03/30/201902/06: na 143, k 3.6, bun 12, creat 0.90 2 Labs: bun 10, creat 0.9, na 145, k 4.1, wbc 8.1, hgb 13.2, hct 40.4, TSH 1.29 05/26 bun 5, creat 1.0, wbc 10.79, hgb 12.8, hct 40.4 2 Labs: bun 10, creat 0.9, na 145, k 4.1, wbc 8.1, hgb 13.2, hct 40.4, TSH 1.29 11/19 Labs: bun 10, creat 0.9, na 145, k 4.1, wbc 8.1, hgb 13.2, hct 40.4, TSH 1.29 All RXs written last visit for [facility] glord Not available 03/30/2019 08:38:08 Plan of Treatment Reminders Order Date Submit Date Provider Last Modified By Organization Details Last Modified Time Details Appointments None record ed. Lab None record ed. Referral None record ed. Procedures None record ed. Surgeries None record ed. Imaging None record ed. Medication Orders None record ed. Patient TargetsNo targets recorded. Patient InstructionsNo instructions recorded. Reason for Referral None Reported. Problems Name Problem SNOMED Code Status Onset Date Resolution Date Notes Provider Name and Address Organization Details Recorded Time History of traumatic brain injury 672040580873 00 Active 2017 Jacinta costello [facility] 8 14:42:20 Seizure disorder 774222332 Active 2017 [facility] 8 14:42:29 Gout 24826982 Active 2017 Jacinta costello [facility] 8 14:42:37 Diabetes mellitus 83706066 Active 2017 Jacinta costello, [facility] 8 14:42:50 Essential hypertens ion 49243821 Active 2017 Jacinta costello, [facility] 8 14:43:04 Gastroeso phageal reflux disease without esophagit is 900141001 Active 2017 Jacinta costello, [facility] 8 14:43:12 Depressiv e disorder 88922555 Active 2017 Jacintatana costello, [facility] 8 14:43:21 Allergic rhinitis 59707426 Active 2017 ADRIEN NINO [address] [place] [address], [address], [place], [address], [facility] 8 10:38:37 Alcoholis m 9443201 Active 2017 Rudi Villasenor MD [address] [facility], [address], [place], [address], [facility] 8 14:44:16 Atrial fibrillat ion 01297054 Active [address], [address], [place], [address], [facility] [employer] [facility] 8 14:50:41 Pneumonia 304361461 Active [address], [address], [place], [address], [facility] [employer] [facility] 8 14:51:19 Diarrhea 94651460 Completed 201705/21/[address], [address], [place], [address], [facility] [employer] [facility] 8 14:59:24 Diarrhea 00238325 Active [address], [address], [place], [address], [facility] [employer] [facility] 8 14:59:24 Constipat ion 87348463 Active 2018 Cathi Alvarado MD [address] [facility], [address], [place], [address], [facility] 9 13:04:59 Mixed hyperlipi demia 762387896 Active 2018 Cathi Alvarado MD [address] [facility], [address], [place], [address], [facility] 9 23:19:38 Problem Notes None recorded. Medical Equipment None Reported. Allergies No known drug allergies Vitals Date Recorded Body weight Body mass index (BMI) Body height Heart rate Respiratory rate Body temperature Oxygen saturation Oxygen saturation in Arterial blood by Pulse oximetry Systolic blood pressure Diastolic blood pressure Provider Name and Address Organization Details Last Updated DateTime 9 78283.3 4 g 25.8 kg/m2 167.64 cm 88 /min 20 /min 98.7 [degF] 97 % 97 % 138 mm[Hg] 88 mm[Hg] Cathi Alvarado MD [address] [facility], [address], [place], [address], [facility] 9 12:40:55 Date Recorded Body height Systolic blood pressure Diastolic blood pressure Provider Name and Address Organization Details Last Updated DateTime 01/30/2019 167.64 cm 163 mm[Hg] 88 mm[Hg] Jacinta Hendrix [facility] 01/30/2019 15:46:45 Date Recorded Body height Body temperature Heart rate Respiratory rate Oxygen saturation Oxygen saturation in Arterial blood by Pulse oximetry Systolic blood pressure Diastolic blood pressure Provider Name and Address Organization Details Last Updated DateTime 9 167.64 cm 98.7 [degF] 92 /min 20 /min 95 % 95 % 142 mm[Hg] 77 mm[Hg] ADRIEN NINO [address] [facility], [address], [place], [address], [facility] 9 15:06:16 Date Recorded Body height Body mass index (BMI) Body weight Heart rate Respiratory rate Body temperature Oxygen saturation Oxygen saturation in Arterial blood by Pulse oximetry Systolic blood pressure Diastolic blood pressure Provider Name and Address Organization Details Last Updated DateTime 9 167.64 cm 25.6 kg/m2 93601.7 5 g 72 /min 20 /min 98.7 [degF] 95 % 95 % 132 mm[Hg] 76 mm[Hg] Cathi Alvarado MD [address] [facility], [address], [place], [address], [facility] [employer] [facility] 9 23:01:23 Date Recorded Body height Body temperature Systolic blood pressure Diastolic blood pressure Provider Name and Address Organization Details Last Updated DateTime 03/30/2019 167.64 cm 98.7 [degF] 132 mm[Hg] 76 mm[Hg] ADRIEN NINO [address] [facility], [address], [place], [address] , [facility] [employer] [facility] 9 08:34:04 Social History Question Answer Notes LastModified by Organizat ion Details LastModified Time Tobacco Smoking Status Never Smoker Jacnita Hendrix trang, [facility] 01/14/2018 15:13:13 Do You Have An Advance Directive? Yes DNR/DNI, Ok To Hospitalize, No Dialysis, No Art. Nutrition Or Hydration. Information not available 01/14/2018 What Is Your Level Of Alcohol Consumption? None Information not available 01/14/2018 How Much Tobacco Do You Chew? None Information not available 01/14/2018 Do You Have A Medical Power Of Collar Baster Jumpbasting? Yes Guardianship In Place Ji Pickard [phone] [email or web address] Information not available 07/22/2018 What Was The Date Of Your Most Recent Tobacco Screening? 03/30/2019 Information not available 05/06/2019 Has Tobacco Cessation Counseling Been Provided? No [email or web address] Information not available 01/01/2019 Sex: Unknown Functional Status None recorded. Mental Status None recorded. Family History Relationship Description Onset Age of this Age Resolved Age Notes LastModified by Organization Details LastModified Time Father No current problems or disability glord Not available 02/24 15:06:31 Mother No current problems or disability glord Not available 02/24 15:06:31 Notes:N/C Medical History No medical history recorded. Past Encounters Encounter ID Performer Location Encounter Start Date Encounter Closed Date Diagnosis/Indication Diagnosis SNOMED-CT Code Diagnosis ICD10 Code Diagnosis Note [id number] Jacinta Hendrix [facility] on [address] [place] [address] 01/14/2018 14:32:50 01/23/2018 11:08:37 History of traumatic brain injury 1096443542 9100 Z87.820 Hx of TBISupport sudhir care Seizure disorder 7365521 02 G40.822 Keppra 750 mg BIDVimpat 100 mg BIDMonitor for activity Gout 00712776 Z87.39 Cont. allopurino lMonitor for sxs Diabetes mellitus 039828 09 E11.9 Glimepirid e 1 mg daily Essential hypertension 01725013 I10 Norvasc 10 mg dailyHydra lazine 25 mg TIDLisinop ril 40 mg dailyMetop rolol 25 mg QAM, 50 mg QPMNifedip ine 60 mg dailyMonit or bp and labs Gastroesop hageal reflux disease without esophagitis 277813587 K21.9 Protonix 40 mg dailyMonit or sxs Depressive disorder 3548 9007 F33.8 Zoloft 100 mg dailyMonit or moodPsych eval prn Mixed hyperlipidemia 267 745632 E78.2 Atorvastat in 80 mg dailyRepea t lipid panel with next visit Constipation 42560864 K5 9.09 Encourage patient to take colaceCont . miralaxBow el regimen prn Pruritic disorder 841814 002 L29.8 Scar mid-abdome n-reports itchAdd hydrocorti [place]one 1% [place] [id number] Jacinta Hendrix [facility] on [address] [place] [address] 01/16/2018 12:08:57 01/23/2018 11:41:09 History of traumatic brain injury 5488015728 9100 Z87.820 Hx of TBISupport sudhir care Diabetes mellitus 137382 09 E11.9 Glimepirid e 1 mg dailyAccuc hecks rpmGxO6p 5.3 in March, will repeat now Essential hypertension 07359761 I10 Norvasc 10 mg dailyHydra lazine 25 mg TIDLisinop ril 40 mg dailyMetop rolol 25 mg QAM, 50 mg QPMNifedip ine 60 mg dailyMonit or bp and labs Constipation 95657348 K5 9.09 BS present, abd softCont. colace and miralaxAdd senna QHSBowel regimen prnMonitor [id number] ADRIEN NINO [facility] on [address] [place] [address] 03/04/2018 10:33:25 03/09/2018 10:00:00 Diabetes mellitus 52372091 E11.9 Glimepirid e 1 mg dailyAccuc hecks imzSmV9c 5.8 Constipation 25261512 K5 9.09 BS present, abd soft, resolvedD/ C colace and senna and change to PRN at this timeBowel regimen prnMonitor Essential hypertension 73227513 I10 Norvasc 10 mg dailyHydra lazine 25 mg TIDLisinop ril 40 mg dailyMetop rolol 25 mg QAM, 50 mg QPMNifedip ine 60 mg dailyMonit or bp and labs Allergic rhinitis 858417 04 J30.2 add refresh tears BID PRNloratid ine qd Gastroesop hageal reflux disease without esophagitis 113333975 K21.9 Previously on Pantoprazo le, would like to try discontinu ing to see if he needs itD/C today [id number] Rudi Villasenor MD [facility] on [address] [place] [address] 04/01/2018 14:42:07 04/08/2018 12:16:11 History of traumatic brain injury 2825505371 9100 Z87.820 at baseline with poor insight [facility] Seizure disorder 4257473 02 G40.909 keppra at baselinemo nitor for activity Diabetes mellitus 644065 09 E11.9 well controlled monitor hba1c Gastroesop hageal reflux disease without esophagitis 511792000 K21.9 stable at baselinemo nitor for sx relief [id number] Jacinta Hendrix [facility] on [address] [place] [address] 04/24/2018 15:04:26 04/30/2018 16:27:53 Depressive disorder 70470455 F33.8 Risks and benefits documented on facility consent form for zoloft. Guardian wishes to continue medication . Cont. to monitorZol oft 100 [place] [id number] Jacinta Hendrix [facility] on [address] [place] [phone] 05/08/2018 11:45:38 05/14/2018 16:19:50 Gastroesophageal reflux disease without esophagitis 326897231 K21.9 Restart Protonix 40 mg dailyMonit or sxs Vomiting 998317229 R11.1 1 Add zofran 4 mg Q6h prnEncoura ge fluidsObta in stat CBC now Diarrhea 06287139 R19.7 R19.5 Encourage fluidsImod ium prnStool guiac x 3 [id number] [facility] on [address] [place] [id number] 05/21/2018 14:25:24 06/06/2018 08:57:22 Essential hypertension 46675338 I10 Norvasc 10 mg daily, Hydralazin e 25 mg TID, Lisinopril 40 mg all discontinu ed in hospital Continue Metoprolol 50 mg BIDNifedip ine 60 mg dailyMonit or bp and labs Atrial fibrillation 4943 6004 I48.2 Start on eliquis 5 mg dailysinus rhythm at this time Pneumonia 607642973 J12. 0 Augmentin 875/125 mg BID X 10 days totalmonit or resp status Diarrhea 57869066 A07.8 Stool for C. Diff nowCBC BMP tomorrowad d culturelle cap BID X 10 daysmonito r for dehydratio n, encourage fluids [id number] [facility] on [address] [place] [address] 05/23/2018 14:38:53 06/06/2018 09:49:13 Diarrhea 70481581 A07.8 Imodium now and half tab for each subsequent loose stoolencou rage fluidsrepe at CBC/BMP on saturdaymost likely due to abx courseCdif f negative Pneumonia 387454197 J12. 0 Augmentin 875/125 mg BID X 10 days totalmonit or resp status Atrial fibrillation 4943 6004 I48.2 Start on eliquis 5 mg dailysinus rhythm at this time Allergic rhinitis 793916 04 J30.2 refresh tears BID PRNloratid ine qd History of traumatic brain injury 2648186435 9100 Z87.820 Hx of TBISupport sudhir care Seizure disorder 7569745 02 G40.822 Keppra 750 mg BIDVimpat 100 mg BIDMonitor for activity Gout 22026095 Z87.39 Cont. allopurino lMonitor for sxs Diabetes mellitus 642785 09 E11.9 Glimepirid e 1 mg daily Essential hypertension 80302235 I10 Norvasc 10 mg dailyHydra lazine 25 mg TIDLisinop ril 40 mg dailyMetop rolol 25 mg QAM, 50 mg QPMNifedip ine 60 mg dailyMonit or bp and labs Gastroesop hageal reflux disease without esophagitis 744049957 K21.9 Protonix 40 mg dailyMonit or sxs Mixed hyperlipidemia 267 623079 E78.2 Atorvastat in 80 mg dailyRepea t lipid panel with next visit Constipation 87005307 K5 9.09 Encourage patient to take colaceCont [place] [id number] Jacinta Hendrix [facility] on [address] [place] [address] 05/29/2018 14:43:39 06/06/2018 11:26:01 Diarrhea 78026388 A07.8 Possibly antibiotic associated C. diff negativeAu gmentin completed yesterdayM onitor and consider further w/u if not resolving Essential hypertension 74967507 I10 Metoprolol 50 mg BIDNifedip ine 60 mg dailyMonit or bp and labs Atrial fibrillation 4943 6004 I48.2 Eliquis 5 mg dailysinus rhythm at this time Pneumonia 747920377 J12. 0 Has completed course of AugmentinR espiratory status stable [id number] Rudi Villasenor MD [facility] on [address] [place] [address] 07/22/2018 14:43:22 07/28/2018 10:57:54 Diabetes mellitus 82159864 E11.9 glimepirid e 1 mg qdmonitor hba1c Atrial fibrillation 4943 6004 I48.0 Eliquis 5 mg bidmetopro lol 50 mg bidmonitor for rate control Seizure disorder 0914054 02 G40.909 keppra 750 mg bidmonitor for activity Essential hypertension 90287688 I10 nifedipine 60 mg qdmetoprol ol 50 [place] [id number] Jacinta Hendrix [facility] on [address] [place] [address] 10/03/2018 14:56:25 10/09/2018 13:40:19 Diabetes mellitus 44799269 E11.9 glimepirid e 1 mg qdWill recheck HbA1c Atrial fibrillation 4943 6004 I48.0 Eliquis 5 mg bidmetopro lol 50 mg bidHR with good control Seizure disorder 3249457 02 G40.909 keppra 750 mg bidmonitor for activity Essential hypertension 25108601 I10 Blood pressure has been elevatedIn crease nifedipine 90 mg dailymetop rolol 50 mg bidmonitor bp Constipation 25952191 K5 9.09 Cont. colace, senna, miralaxAdd prune juice QODMonitor [id number] [facility] on [address] [place] [address] 12/15/2018 11:40:48 12/17/2018 10:28:19 Essential hypertension 03441545 I10 D/c nifedipine Start amlodipine 10 mg dailyCont. [place] [id number] [facility] on [address] [place] [address] 12/22/2018 15:33:31 12/24/2018 16:11:16 Essential hypertension 07630826 I10 Amlodipine 10 mg daily Metoprolol 50 mg BIDWill have BP checked BID and if remaining elevated consider [place] [id number] Cathi Alvarado MD [facility] on [address] [place] [address] 01/01/2019 12:31:39 01/02/2019 12:54:54 Essential hypertension 58880720 I10 No BPs documented since 12/22. Changed from nifedipine 90 mg qd to amlodipine 10 mg qd, and still on metoprolol 50 mg BID.Will write for daily BPS for a week, then weekly if stable. Can either increase amlodipine or add 3rd agent if high. Monitor labs q 6 months. Diabetes mellitus 866622 09 E11.9 HgA1C was 5.6 in 11/01. Continue glimepirid e 1 mg qdWill recheck HbA1c q 6 months. Atrial fibrillation 4943 6004 I48.0 Rate in good control on metoprolol 50 mg bid. Continue this and Eliquis 5 mg bid.Monito r HR. Seizure disorder 3733367 02 G40.009 No seizure activity noted. Continue keppra 750 mg bidMonitor for activity Constipation 19626428 K5 9.09 Now stable on colace, senna, miralax and prune juice.Talita tor History of traumatic brain injury 9207629167 9100 Z87.820 Hx of TBI. Needs supportive care and locked unit for safety. Has legal guardian. [id number] Jacinta Hendrix [facility] on [address] [place] [address] 01/30/2019 15:38:58 02/05/2019 09:57:58 Essential hypertension 56049064 I10 BP remains elevatedCo nt.Amlodip ine 10 mg qdMetoprol ol 50 mg BIDAdd lisinopril 20 mg dailyMonit or bp and labs Diabetes mellitus 112829 09 E11.9 HgA1C was 5.6 in 11/01. Continue glimepirid e 1 mg qdWill recheck HbA1c q 6 months. History of traumatic brain injury 6406244519 9100 Z87.820 Hx of TBI. Needs supportive care and locked unit for safety. Has legal guardian. Atrial fibrillation 4943 6004 I48.0 Rate in good control on metoprolol 50 mg bid. Continue this and Eliquis 5 [place]. [id number] ADRIEN NINO [facility] on [address] [place] [address] 02/24/2019 15:04:28 03/11/2019 10:37:40 Essential hypertension 78047642 I10 BPs were supposed to be checked daily x 1 week and documented in P[facility], looks like it was only done for three days and they were elevated. Will repeat bps q shift x one week and re-eval medsAmlodi pine 10 mg qdMetoprol ol 50 mg BIDlisinop ril 20 mg dailyMonit or bp and labs Diabetes mellitus 306986 09 E11.9 HgA1C was 5.6 in 11/01. Continue glimepirid e 1 mg qdWill recheck HbA1c q 6 months. History of traumatic brain injury 5318767983 9100 Z87.820 Hx of TBI. Needs supportive care and locked unit for safety. Has legal guardian. Atrial fibrillation 4943 6004 I48.0 Rate in good control on metoprolol 50 mg bid. Continue this and Eliquis 5 [place]. [id number] Cathi Alvarado MD [facility] on [address] [place] [address] 03/23/2019 17:00:52 04/01/2019 03:47:44 Essential hypertension 95631218 I10 BP had been high for several readings in February, then improved. Unclear why. Will need to be followed by PCP as outpt.Cont inue amlodipine 10 mg qd, metoprolol 50 mg BID, and lisinopril 20 mg qd.Monitor bp and labs as outpt. Diabetes mellitus 813295 09 E11.9 HgA1C was 5.6 in 11/01. Continue glimepirid e 1 mg qdFollow HgA1C q 6 months as outpt. History of traumatic brain injury 8987258316 9100 Z87.820 Hx of TBI. Needs supportive care, will be transferri to [facility] for more independen ce Has legal guardian. Atrial fibrillation 4943 6004 I48.0 Rate in good control on metoprolol 50 mg bid. Continue this and Eliquis 5 mg bid.Monito r HR as outpt. Seizure disorder 3273370 02 G40.009 No seizure activity noted. Continue keppra 750 mg bid and Vimpat 100 mg BID.Monito r for seizure activity Constipation 59535245 K5 9.09 Now stable on miralax and prune juice. Continue these and use bowel protocol prn.Monito r as outpt. Gout 06062404 Z87.39 Cont. allopurino l 200 mg qd.Monitor for sxs as outpt. Gastroesop hageal reflux disease without esophagitis 120599235 K21.9 No current sxs. Continue pantoprazo le 40 mg qd.Monitor for sxs as outpt. Depressive disorder 3548 9007 F33.8 Mood good currently. Continue sertraline 100 mg qd and f/u with outpt psych. Mixed hyperlipidemia 267 564522 E78.2 Continue atorvastat in 80 mg qd.Follow lipid profile and LFTs as outpt. [id number] ADRIEN NIELSON [address] [place] [address] 03/30/2019 08:32:15 04/01/2019 14:19:50 Essential hypertension 30937625 I10 BP had been high for several readings in February, then improved. Unclear why. Will need to be followed by PCP as outpt.Cont inue amlodipine 10 mg qd, metoprolol 50 mg BID, and lisinopril 20 mg qd.Monitor bp and labs as outpt. Diabetes mellitus 931060 09 E11.9 HgA1C was 5.6 in 11/01. Continue glimepirid e 1 mg qdFollow HgA1C q 6 months as outpt. History of traumatic brain injury 4905690544 9100 Z87.820 Hx of TBI. Needs supportive care, will be transferri to [facility] for more independen ceHas legal guardian. Atrial fibrillation 4943 6004 I48.0 Rate in good control on metoprolol 50 mg bid. Continue this and Eliquis 5 mg bid.Monito r HR as outpt. Seizure disorder 4416086 02 G40.009 No seizure activity noted. Continue keppra 750 mg bid and Vimpat 100 mg BID.Monito r for seizure activity Constipation 44271406 K5 9.09 Now stable on miralax and prune juice. Continue these and use bowel protocol prn.Monito r as outpt. Gout 02921411 Z87.39 Cont. allopurino l 200 mg qd.Monitor for sxs as outpt. Gastroesop hageal reflux disease without esophagitis 403486432 K21.9 No current sxs. Continue pantoprazo le 40 mg qd.Monitor for sxs as outpt. Depressive disorder 3548 9007 F33.8 Mood good currently. Continue sertraline 100 mg qd and f/u with outpt psych. Mixed hyperlipidemia 267 808690 E78.2 Continue atorvastat in 80 mg qd.Follow lipid profile and LFTs as outpt. Health Concerns Section Related Observation LastModified by Organization Detai ls LastModified Time None Recorded Concern Status LastModified by Organization Details LastModified Time None Recorded Advance Directives Directive Y: DNR/DNI, ok to hospitaliz e, no dialysis, no art. nutrition or hydration. Payers Encounter Date Sequence Insurance Name Policy Number Policy Rice Covered Member ID Rice Member ID Guarantor Name 01/01/2019 2 [place] [facility] Amrik Pickard [id number] [employer] 01/01/2019 1 [place] [employer] Amrik Pickard [id number] [employer] 01/30/2019 2 [place] [facility] Amrik Pickard [id number] [employer] 01/30/2019 1 [place] [employer] Amrik Pickard [id number] [employer] 02/24/2019 2 [place] AMY Pickard [id number] [employer] 02/24/2019 1 [place] [employer] Amrik Pickard [id number] [employer] 03/23/2019 2 [place] AM[place] Pickard [id number] [employer] 03/23/2019 1 [place] [employer] Amrik Pickard [id number] [employer] 03/30/2019 2 [place] AMY Pickard [id number] [employer] 03/30/2019 1 [place] [employer] Amrik Pickard [id number] [employer] Notes Date Note Type Note Provider Name and Address Organization Details Recorded Time 01/01/2019 text/html I am seeing this 63 yo man, LTC resident, for a routine MD rounding visit. Nursing has no concerns. His BP med was changed from nifedipine to amlodipine on 12/15 due to insurance coverage. He says he doesn't feel right on new med. He has no specific c/o. His PMH includes Afib, AODM, HTN, GERD, TBI, seizure disorder, gout, hx of EtOH abuse, and depression. Cathi Alvarado MD [address] [place] [address], [address], [place], [address], [employer] 01/01/2019 13:07:05 01/30/2019 text/html 63 yo male LTC resident due for annual exam. Patient with hx of depression, a. fib, gerd, htn, dm, hx of TBI, seizure disorder. Currently stable at baseline. Patient denies complaints. Jacinta costello, [employer] 01/30/2019 15:58:15 02/24/2019 text/html This is a 63 yo male LTC resident seen today for routine rounding visit. Patient with hx of depression, a. fib, gerd, htn, dm, hx of TBI, seizure disorder. Currently stable at baseline. Patient denies complaints, he is able to ambulate independently around the unit with no issues. He has been reporting to nursing staff that he is being discharged in about a month to go home, unsure if this is accurate. Otherwise no concerns at this visit, pt in pleasant mood and very cooperative. ADRIEN NINO [address] [facility], [address], [place], [address], [employer] 02/24/2019 15:16:19 03/23/2019 text/html I am seeing this 63 yo man in anticipation of d/c to a usp. I was told he is leaving tomorrow. But he says he's leaving on 03/30 and another note in chart says he's leaving on 03/27. So d/c summary may need to be redone if in fact he is not leaving tomorrow. He tells me again about how nifedipine is a better BP medicine for him than amlodipine. He was changed several months ago due ot insurance coverage. Otherwise he has no c/o and is excited about the move. He shows me pictures of the house he is moving to. He has been here LTC, but does not need this level of services as he is quite independent. His PMH includes Afib, AODM, HTN, GERD, TBI, seizure disorder, gout, hx of EtOH abuse, and depression. Cathi Alvarado MD [address] [facility], [address], [place], [address], [employer] 03/23/2019 23:21:21 03/30/2019 text/html I am seeing this 63 yo man for discharge summary visit today. He will be discharging to a usp in [place], he is very excited about this and showing pictures to the staff of his new apartment. Patient has no new concerns today and is excited about the move. He has been here LTC, but does not need this level of services as he is quite independent. Ok to discharge home today with meds and services. His PMH includes Afib, AODM, HTN, GERD, TBI, seizure disorder, gout, hx of EtOH abuse, and depression. ADRIEN NINO [address] [facility], [address], [place], [address], [facility] 03/30/2019 08:38:59
[2025-01-13 14:19] LABS: Appearance Urine Clear; Color Urine Yellow; Glucose Urine UA Negative (Negative); Leukocyte Esterase Urine Negative (Negative); Nitrite Urine Negative (Negative); Urine Blood Negative (Negative); Urine Ketones Negative (Negative); Urine Protein Negative (Neg-Trace)
[2025-01-13 14:32] LABS: Anion Gap 13 (12-20); Blood Urea Nitrogen 19 mg/dL (9-16); Calcium 9.8 mg/dL (8.4-10.2); Carbon Dioxide 27 mmol/L (22-29); Chloride 101 mmol/L (96-108); Estimated Glomerular Filt Rate > 60; Glucose Random 226 mg/dL (60-115); Potassium 4.2 mmol/L (3.3-5.1); Sodium 137 mmol/L (135-145)
[2025-01-13 14:51] LABS: Prostate Specific Antigen Scr 7.31 ng/mL (<0.05-4.0)
== END 2025-01-13 10:38 | disposition home or self-care (01) ==
LOC: HO.WFDLDS 10:37
PROVIDERS: Visit Provider Family Medicine
DX: Z00.00 Encounter for general adult medical examination without abnormal findings (principal); E87.6 Hypokalemia; I10 Essential (primary) hypertension; Z12.5 Encounter for screening for malignant neoplasm of prostate; R97.20 Elevated prostate specific antigen [PSA]
CPT/HCPCS: 36415; 80048; 81003; 84153

== ENCOUNTER 2025-01-21 15:34 | Outpatient (AMB) | payer MEDICARE, MEDICAID, SELFPAY ==
--- NOTE | 2025-01-21 16:01 | MHC.PC.OV ---
Vital Signs 01/21/25 16:05 01/21/25 16:07 Height 5 ft 6 in Weight 159 lb BMI 25.7 BP 160/70 H 150/70 H Blood Pressure Location Rt brachial Rt brachial Position Sitting Sitting Respiration 16 Pulse 91 Pulse Source Pulse Oximeter Temp 97.8 F Temp Source Oral Pulse Oximetry (%) 98 Oxygen Delivery Method Room Air Intake Visit Reasons: annual exam Intake Note: patient is scheduled for annual exam Supervisor Delivery Department Required: No Allergies No Known Allergies [No Known Allergies*] Allergy (Verified 01/21/25 16:02) Medication List - Last Reconciled 01/21/25 by Wiley Pablo MD acetaminophen 1,000 mg (2 x 500 mg) PO .Q8 PRN 30 days allopurinol 100 mg PO DAILY 90 days apixaban (Eliquis) 5 mg PO BID 90 days bisacodyl (Dulcolax (bisacodyl)) 10 mg (2 x 5 mg) PO BEDTIME blood sugar diagnostic (FreeStyle Lite Strips) check blood sugar daily and daily prn blood-glucose meter (FreeStyle Lite Meter kit) As directed carvedilol 6.25 mg PO BIDWM ezetimibe (Zetia) 10 mg PO DAILY 90 days hydrochlorothiazide 25 mg PO DAILY 90 days lacosamide 50 mg PO DAILY 90 days lancets As directed levetiracetam 500 mg PO BEDTIME 90 days levetiracetam 750 mg (3 x 250 mg) PO DAILY 90 days lisinopril 40 mg PO BEDTIME metformin 250 mg (1/2 x 500 mg) PO DAILY 30 days miscellaneous medical supply Diabetic Shoes, Daily As directed, 999 days nifedipine ER 60 mg PO BID omega 5-sap-luq-fish oil 1,000 (120-180) mg 1 cap PO BEDTIME 30 days polyethylene glycol 3350 (Miralax) 238 grams PO ONCE potassium chloride ER 20 mEq PO DAILY 30 days sildenafil 50 mg PO DAILY PRN 30 days spironolactone 25 mg PO DAILY 30 days Tobacco use date assessed: 01/20/24 Dental Screening Dental Screen Date: 03/12/24 HPI annual exam HPI Details 69 y/o male presents for an extended exam with f/u labs, health maintenance. Labs drawn 01/07/25. Reviewed labs with pt. PSA elevated 7.31 at repeat labs drawn 01/13/25. RBC 4.04. Hgb 12.0. Hct 35.8. Potassium levels are fine at 4.2 mmol/L. [facility] Medical History Epilepsy History of gout Paroxysmal atrial fibrillation History of seizures History of CVA (cerebrovascular accident) White coat syndrome with diagnosis of hypertension Essential hypertension Diabetes type 2, controlled Surgical History No pertinent past surgical history Family History Father No problems noted. Mother No problems noted. Brother No problems noted. Sister No problems noted. Sister No problems noted. Social History Household Members: Other Housing: Other Do you presently have visiting nurse or other home services: No Alcohol intake: current Alcohol intake frequency: holidays/special occasions only Patient Tobacco Use Status: Never used Tobacco e-Cigarette/Vaping Use: Never Used Second Hand Smoke Exposure: No Advance Directives Date on File: 08/02/20 service: No Current occupational status: unemployed Current occupation: Patient does not want to answer Current occupational exposures/hazards: No Cognitive needs: No Hearing needs: No Vision needs: No Questionnaire Thrive Questionnaire Date Thrive assessed: 12/03/24 I am a: Patient What is your living situation today?: I choose not to answer this question Within the past 12 months, did the food you bought not last and you didn't have the money to get more?: I choose not to answer this question Within the past 12 months, did you worry whether your food would run out before you got money to buy more?: I choose not to answer this question Do you have trouble paying for medicines?: No Do you have trouble getting transportation to medical appointments?: No Do you have trouble paying your heating and electricity bill?: No Do you have trouble taking care of your child, family member or friend?: No Do you have trouble with day-to-day activities such as bathing, preparing meals, shopping, managing finances, etc.?: I choose not to answer this question Are you currently unemployed and looking for a job?: No Are you interested in more education?: No Please select the resources that you would like help with: None Currently or been in a relationship where the following occur: I choose not to answer THRIVE Score: 0 FRANC-7 AMB Questionnaire FRANC-7 Date FRANC - 7 assessed: 01/20/24 Source: Developed by Drs. Darien Higginbotham, Erin Vargas, Dony Arevalo and colleagues, with an educational otilia from [employer]. Review of Systems Const Denies chills, Denies fatigue, Denies fever(s), Denies headache(s) and Denies weakness Eyes Denies change in vision ENT Denies dizziness, Denies headache(s), Denies hearing loss, Denies nasal congestion, Denies sinus pain, Denies sinus pressure and Denies sore throat Card Denies chest pain, Denies lightheadedness, Denies dyspnea and Denies other (palpitations) Resp Denies cough, Denies dyspnea and Denies wheezing GI Denies abdominal pain, Denies melena, Denies hematochezia, Denies change in bowel habits, Denies dyspepsia and Denies nausea Denies hematuria and Denies dysuria Musc Denies abnormal gait, Denies myalgias, Denies arthralgias, Denies numbness and Denies tingling Skin/Breast Denies rash, Denies unusual bruising and Denies wounds Neuro Denies abnormal gait, Denies dizziness, Denies headache(s), Denies memory loss, Denies numbness, Denies Sensory deficit (Neuro), Denies tingling and Denies weakness Psych Denies anxiety, Denies depression and Denies memory loss Endo Denies cold intolerance, Denies fatigue, Denies heat intolerance, Denies polydipsia and Denies polyuria Ashish/Lymph Denies easy bleeding and Denies easy bruising Aller/Immun Denies wheezing Physical exam (Primary Care) Vital Signs: Last Vital Signs Temp 97.8 F 01/21/25 16:05 Pulse 91 01/21/25 16:05 Resp 16 01/21/25 16:05 BP 150/70 H 01/21/25 16:07 Pulse Ox 98 01/21/25 16:05 Oxygen Delivery Method Room Air 01/21/25 16:05 BMI result Body Mass Index 25.7 Tobacco/Smoking Status: Tobacco use Status Tobacco use date assessed 01/20/24 01/21/25 16:07 Patient Tobacco Use Status Never used Tobacco 01/21/25 16:07 e-Cigarette/Vaping Use Never Used 01/21/25 16:07 Thrive Assessment: Date of Thrive Assessment Date Thrive assessed 12/03/24 01/21/25 16:07 Currently or been in a relationship where the following occur: I choose not to answer Const General: no acute distress, well developed, alert and awake Nutritional Appearance: well nourished Orientation/consciousness: patient oriented x3 HENMT Head: Yes normocephalic and Yes atraumatic Ears: hearing grossly normal bilaterally and TM's normal bilaterally General nose exam: Normal external nose present and Normal nares present Mouth: Normal oral and palatal mucosa present and moist mucous membranes Teeth and gingiva: dentition normal Throat: Yes posterior oropharynx normal Eyes General: appearance normal, both eyes and all related structures Pupils: Equal, round and reactive pupils present and Pupil accommodation reflex normal EOM: EOMs intact bilaterally Neck Neck: Yes normal visual inspection, Yes no lymphadenopathy and Yes trachea midline Thyroid: Thyroid normal Carotids: no bruits Lymphatic: no lymphadenopathy noted Chest Chest palpation & inspection: normal inspection of the chest Resp Effort & Inspection: normal respiratory effort Auscultation: clear to auscultation bilaterally Cardio Rate: regular rate Rhythm: regular rhythm Heart sounds: S1 normal heart sound present, S2 normal heart sound present, no gallops, no murmurs and no rubs Bruits: no abdominal aortic bruits and no carotid bruits GI Palpation (GI): No Abdominal aortic bruit present, Soft to palpation, nontender, No hepatosplenomegaly present and No Rebound tenderness present Auscultation: normal bowel sounds General: Yes no CVA tenderness Back/Spine/Pelvis Back: no CVA tenderness Cervical Spine: cervical ROM normal and No Cervical spine tenderness Thoracic/Lumbar Spine: thoraco-lumbar ROM normal, No pain with thoraco-lumbar ROM, No thoracic spinal tenderness and No lumbar spinal tenderness Skin Lesions: no lesions Rashes: no rashes Trauma: no lacerations or abrasions Wounds: no wounds Nails: normal Neuro General: patient oriented x3 Cranial nerves: Yes Equal, round and reactive pupils present Cognition (Neuro): normal cognition Gait exam (Neuro): Normal gait present Motor exam (neuro): 5/5 motor strength present throughout Sensory Exam: No Sensory deficit (Neuro) Deep tendon reflexes (DTR's): Right patellar reflex intensity grade: 2+ and Left patellar reflex intensity grade: 2+ Extrem General: Yes normal to inspection and No edema Psych Appearance: grossly normal Affect: normal affect Attitude: cooperative Thought process: Normal thought process present Coding Level of Care Code Est Pt Level 4 (83627) Diagnoses Anemia D64.9 Hypokalemia E87.6 Essential hypertension I10 Diabetes type 2, controlled E11.9 History of CVA (cerebrovascular accident) Z86.73 Screening for colon cancer Z12.11 Screening for prostate cancer Z12.5 Elevated PSA R97.20 Immunization counseling Z71.85 Adult general medical exam Z00.00 Assessment & Plan Assessment & Plan (1) Anemia: Code(s): D64.9 - Anemia, unspecified Category: Medical Plan: Mild?stable?anemia No?bleeding Will?recheck?CBC?prior?to?next?visit?and?review?with?patient (2) Hypokalemia: Code(s): E87.6 - Hypokalemia Category: Medical Plan: Resolved (3) Essential hypertension: Code(s): I10 - Essential (primary) hypertension Category: Medical Plan: History?of?white?coat?syndrome. Blood?pressures?at?home?are?controlled Continue?current?medication (4) Diabetes type 2, controlled: Code(s): E11.9 - Type 2 diabetes mellitus without complications Category: Medical Plan: A1c?at?recent?check?showed?good?control.??Goal?is?less?than?7.0% Will?be?due?for repeat?A1c?at?next?visit Continue?metformin?as?prescribed Continue?working?at?diabetic?diet (5) History of CVA (cerebrovascular accident): Code(s): Z86.73 - Personal history of transient ischemic attack (TIA), and cerebral infarction without residual deficits Category: Medical Plan: Stable As?mild?gait?imbalance Encouraged?PT/OT?at?home (6) Screening for colon cancer: Code(s): Z12.11 - Encounter for screening for malignant neoplasm of colon Category: Medical Plan: Due?for?follow-up?with?Gastroenterology (7) Screening for prostate cancer: Code(s): Z12.5 - Encounter for screening for malignant neoplasm of prostate Category: Medical Plan: PSA?is?elevated?see?below (8) Elevated PSA: Code(s): R97.20 - Elevated prostate specific antigen [PSA] Category: Medical Plan: PSA?elevated?x2 Referred?to?urology (9) Immunization counseling: Code(s): Z71.85 - Encounter for immunization safety counseling Category: Medical Plan: Last?pneumonia?shot?was?about?11?years?ago Recommend?he?get?pneumonia?shot?at?pharmacy (10) Adult general medical exam: Code(s): Z00.00 - Encounter for general adult medical examination without abnormal findings Category: Medical Plan: 69-year-old?male?presents?for?an?extended?exam Stable Plan Hearing?test?normal?bilaterally?to?6?ft?whisper?test Orders: Orders Comprehensive [place]. Panel Fast Today E11.649 - Type 2 diabetes mellitus with hypoglycemia without coma, Z00.00 - Encounter for general adult medical examination without abnormal findings Complete Blood Count Auto Diff Today D64.9 - Anemia, unspecified, Z00.00 - Encounter for general adult medical examination without abnormal findings Referrals Urology Referral R97.20 - Elevated prostate specific antigen [PSA] Medications: Changed From sildenafil administer 30 minutes to 4 hours before activity 25 mg PO DAILY 30 days PRN 4 tabs 0RF sexual activity To sildenafil administer 30 minutes to 4 hours before activity 50 mg PO DAILY 30 days PRN 6 tabs 0RF sexual activity
[2025-01-21 16:05] VITALS: BP 160/70; PULSE 91; RESP 16; TEMP 36.6; O2SAT 98; BMI 25.7
[2025-01-21 16:07] VITALS: BP 150/70
--- OUTSIDE RECORDS SUMMARY | 2025-01-21 17:47 | XMS_ITS | Encounter Summary ---
Author Organization [facility] Address [address] [place] [address] Care Team Providers Care Line Installer Name Role Phone Danni Joe MD Primary Care Provider UnaCraole Cervantes MD Primary Care Provider Unavaila George Arnold MD Primary Care Provider Unavail able Stevan Grubbs MD Primary Care Provider [phone] Declan Meneses MD Primary Care Provide r Unavailable Encounter Details Date Type Department Care Team Description 07/12/2014 Release of Information Medical Records [address] [place] [id number] Abstract, Provider Social History Tobacco Use Types [...] on filedocumented in this encounter Care Teams Line Installer Relationship Specialty Start Date End Date Danni Joe MD PCP - General Internal Medicine 06/24/14 06/16/15 Carole Olivares MD PCP - General Internal Medicine 06/17/15 04/09/16 George Marroquin MD PCP - General Internal Medicine 04/10/16 09/26/16 Stevan Grubbs MD [address] [place] [id number] PCP - General Internal Medicine 09/27/16 03/23/19 Declan Meneses MD [address] [place] [id number] PCP - General Internal Medicine 03/24/19 documented as of this encounter
--- OUTSIDE RECORDS SUMMARY | 2025-01-21 17:47 | XMS_ITS | Encounter Summary ---
Author Organization [facility] Address [address] [place] [address] Care Team Providers Care Biologics Specialist Name Role Phone Carole Olivares MD Primary Care Provider Unavaila George Arnold MD Primary Care Provider Unavail able Stevan Grubbs MD Primary Care Provider [phone] Declan Meneses MD Primary Care Provide r Unavailable Reason for Visit * Reason Onset Date Comments LAB WORK 06/22/2015 Encounter Details Date Type Department Care Team Description 06/22/2015 Telephone Nephrology - [facility] [address] [place] [address] Teddy Aguilar MD LAB WORK Social History [...] on filedocumented in this encounter Care Teams Biologics Specialist Relationship Specialty Start Date End Date Carole Olivares MD PCP - General Internal Medicine 06/17/15 04/09/16 George Marroquin MD PCP - General Internal Medicine 04/10/16 09/26/16 Stevan Grubbs MD [address] [place] [id number] PCP - General Internal Medicine 09/27/16 03/23/19 Declan Meneses MD [address] [place] [id number] PCP - General Internal Medicine 03/24/19 documented as of this encounter
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
--- OUTSIDE RECORDS SUMMARY | 2025-01-21 17:47 | XMS_ITS | Encounter Summary ---
Author Organization [employer] [facility] Address [address] [place] [address] Care Team Providers Care Geology Scientist Name Role Phone George Marroquin MD Primary Care Provider Unavail able Stevan Grubbs MD Primary Care Provider [phone] Declan Meneses MD Primary Care Provide r Unavailable Encounter Details Date Type Department Care Team Description 05/07/2016 [facility] Medical Records [address] [place] [id number] Jim Jorgensen MD Social History Tobacco Use Types Packs/Day Years [...] on filedocumented in this encounter Care Teams Geology Scientist Relationship Specialty Start Date End Date George Marroquin MD PCP - General Internal Medicine 04/10/16 09/26/16 Stevan Grubbs MD [address] [place] [address] PCP - General Internal Medicine 09/27/16 03/23/19 Declan Meneses MD [address] [place] [address] PCP - General Internal Medicine 03/24/19 documented as of this encounter
== END 2025-01-21 16:57 | disposition home or self-care (01) ==
LOC: HO.HMCFM 15:34
PROVIDERS: PCP Family Medicine; Visit Provider Family Medicine
DX: D64.9 Anemia, unspecified (principal); E87.6 Hypokalemia; I10 Essential (primary) hypertension; E11.9 Type 2 diabetes mellitus without complications; Z86.73 Personal history of transient ischemic attack (TIA), and cerebral infarction without residual deficits; Z12.11 Encounter for screening for malignant neoplasm of colon; Z12.5 Encounter for screening for malignant neoplasm of prostate; R97.20 Elevated prostate specific antigen [PSA]; Z71.85 Encounter for immunization safety counseling; Z00.00 Encounter for general adult medical examination without abnormal findings

== ENCOUNTER → 2025-01-21 15:34 | Outpatient (BNVA) | payer MEDICARE, MEDICAID, SELFPAY | PROVIDERS: PCP Family Medicine; Visit Provider Family Medicine | DX: Z00.00 Encounter for general adult medical examination without abnormal findings (principal); D64.9 Anemia, unspecified; E87.6 Hypokalemia; I10 Essential (primary) hypertension; E11.9 Type 2 diabetes mellitus without complications; R97.20 Elevated prostate specific antigen [PSA]; Z86.73 Personal history of transient ischemic attack (TIA), and cerebral infarction without residual deficits; Z71.85 Encounter for immunization safety counseling | CPT/HCPCS: 99212 ==

== ENCOUNTER 2025-02-26 14:56 | Outpatient (AMB) | payer MEDICARE, MEDICAID, SELFPAY ==
--- OUTSIDE RECORDS SUMMARY | 2025-02-26 14:59 | XMS_ITS | Encounter Summary ---
Author Organization [facility] Address [address] [place] [address] Care Team Providers Care Glassware Maker Name Role Phone Carole Olivares MD Primary Care Provider Unavaila George Arnold MD Primary Care Provider Unavail able Stevan Grubbs MD Primary Care Provider [phone] Declan Meneses MD Primary Care Provide r Unavailable Reason for Visit * Reason Onset Date Comments Provider Call Back 01/27/2016 Encounter Details Date Type Department Care Team Description 01/27/2016 Telephone Adult Medicine [facility] [address] [place] [address] Zackary Cruz PA-C Provider Call Back Social [...] 1:16 PM EDT Spoke with Bianka from [facility] Zackary Cruz PA-C ordered a non loop [...] callers name? Bianka Callers relationship to patient? [facility] If person calling is not the patient themselves, is there a verbal release in FY or permanent comments for this person: NO Reason for call back: Bianka called from [facility] and state the a order was receivedfrom Zackary Cruz for patient a None Looping Heart Monitor. Bianka state that patient does not havea land line. Bianka wanted to know if it would be all right if she order a Looping Monitor? Please call Bianka at [phone]. Caller offered to speak with the nurse [...] Palpitations documented in this encounter Care Teams Glassware Maker Relationship Specialty Start Date End Date Carole Olivares MD PCP - General Internal Medicine 06/17/15 04/09/16 George Marroquin MD PCP - General Internal Medicine 04/10/16 09/26/16 Stevan Grubbs MD [address] [place] [id number] PCP - General Internal Medicine 09/27/16 03/23/19 Declan Meneses MD [address] [place] [id number] PCP - General Internal Medicine 03/24/19 documented as of this encounter
--- OUTSIDE RECORDS SUMMARY | 2025-02-26 14:59 | XMS_ITS | Encounter Summary ---
Author Organization [facility] Address [address] [place] [address] Care Team Providers Care Black Leather Trimmer Name Role Phone Danni Joe MD Primary Care Provider Carole Diehl MD Primary Care Provider Unavaila George Arnold MD Primary Care Provider Unavail able Stevan Grubbs MD Primary Care Provider [phone] Declan Meneses MD Primary Care Provide r Unavailable Encounter Details Date Type Department Care Team Description 10/05/2014 [facility] Medical Records [address] [place] [id number] Abstract, Provider Social History Tobacco Use Types [...] on filedocumented in this encounter Care Teams Black Leather Trimmer Relationship Specialty Start Date End Date Danni Joe MD PCP - General Internal Medicine 06/24/14 06/16/15 Carole Olivares MD PCP - General Internal Medicine 06/17/15 04/09/16 George Marroquin MD PCP - General Internal Medicine 04/10/16 09/26/16 Stevan Grubbs MD [address] [place] [id number] PCP - General Internal Medicine 09/27/16 03/23/19 Declan Meneses MD [address] [place] [id number] PCP - General Internal Medicine 03/24/19 documented as of this encounter
--- OUTSIDE RECORDS SUMMARY | 2025-02-26 14:59 | XMS_ITS | Encounter Summary ---
Author Organization [facility] Address [address] [place] [address] Care Team Providers Care Remote Pilot Operator Name Role Phone Danni Joe MD Primary Care Provider UnaCarole Cervantes MD Primary Care Provider Unavaila George Arnold MD Primary Care Provider Unavail able Stevan Grubbs MD Primary Care Provider [phone] Declan Meneses MD Primary Care Provide r Unavailable Encounter Details Date Type Department Care Team Description 07/12/2014 Release of Information Medical Records [address] [place] [id number] Abstract, Provider Social History Tobacco Use Types [...] on filedocumented in this encounter Care Teams Remote Pilot Operator Relationship Specialty Start Date End Date Danni Joe MD PCP - General Internal Medicine 06/24/14 06/16/15 Carole Olivares MD PCP - General Internal Medicine 06/17/15 04/09/16 George Marroquin MD PCP - General Internal Medicine 04/10/16 09/26/16 Stevan Grubbs MD [address] [place] [id number] PCP - General Internal Medicine 09/27/16 03/23/19 Declan Meneses MD [address] [place] [id number] PCP - General Internal Medicine 03/24/19 documented as of this encounter
--- OUTSIDE RECORDS SUMMARY | 2025-02-26 14:59 | XMS_ITS | Encounter Summary ---
Author Organization [facility] Address [address] [place] [address] Care Team Providers Care Sewer Digger Name Role Phone Danni Joe MD Primary Care Provider Carole Diehl MD Primary Care Provider Unavaila George Arnold MD Primary Care Provider Unavail able Stevan Grubbs MD Primary Care Provider [phone] Declan Meneses MD Primary Care Provide r Unavailable Reason for Referral * Specialist (Routine) - Authorized/Booked Specialty Diagnoses / Procedures Referred By Contac t Referred To Contact Gastroenterology Diagnoses Screening for colon cancer Procedures REFERRAL TO GASTROENTEROLOGY Edgar Gilbert MD [address] [place] [address] Darien Marie MD [address] [place] [id number] Referral ID Status Reason Start Date Expiration Date V isits Requested Visits Authorized SEE NOTE Authorized/B ooked 04/01/2015 07/02/2015 1 1 Reason for Visit * Reason Onset Date Comments Pre-colonoscopy Instructions 03/31/2015 Encounter Details Date Type Department Care Team Description 03/31/2015 Telephone [place] [address] Edgar Gilbert MD Pre-colonoscopy Instructions Social History [...] Pt does have [facility] for insurance, which [facility] does not accept. If the recommendation still [...] colon documented in this encounter Care Teams Sewer Digger Relationship Specialty Start Date End Date Danni Joe MD PCP - General Internal Medicine 06/24/14 06/16/15 Carole Olivares MD PCP - General Internal Medicine 06/17/15 04/09/16 George Marroquin MD PCP - General Internal Medicine 04/10/16 09/26/16 Stevan Grubbs MD [address] [place] [id number] PCP - General Internal Medicine 09/27/16 03/23/19 Declan Meneses MD [address] [place] [id number] PCP - General Internal Medicine 03/24/19 documented as of this encounter
--- OUTSIDE RECORDS SUMMARY | 2025-02-26 14:59 | XMS_ITS | Encounter Summary ---
Author Organization [facility] Address [address] [place] [address] Care Team Providers Care Machinist Job Setter Name Role Phone Carole Olivares MD Primary Care Provider Unavaila George Arnold MD Primary Care Provider Unavail able Stevan Grubbs MD Primary Care Provider [phone] Declan Meneses MD Primary Care Provide r Unavailable Encounter Details Date Type Department Care Team Description 02/28/2016 [facility] Medical Records [address] [place] [address] Social History Tobacco Use Types Packs/Day Years [...] on filedocumented in this encounter Care Teams Machinist Job Setter Relationship Specialty Start Date End Date Carole Olivares MD PCP - General Internal Medicine 06/17/15 04/09/16 George Marroquin MD PCP - General Internal Medicine 04/10/16 09/26/16 Stevan Grubbs MD [address] [place] [address] [id number] PCP - General Internal Medicine 09/27/16 03/23/19 Declan Meneses MD [address] [place] [id number] PCP - General Internal Medicine 03/24/19 documented as of this encounter
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
--- OUTSIDE RECORDS SUMMARY | 2025-02-26 14:59 | XMS_ITS | Clinical Summary ---
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 [employer] MiscIndications:Well controlled type 2 diabetes mellitus with [...] just unsure what to do Educational Resources [employer] (www.diabetes.org) Centers for Disease Control [...] PNEUMOCOCCAL VACCINE (2 - PCV) 2021 07/08/2014 DTAP/TDAP/TD (2 - Td or Tdap) 07/08/2024 07/08/2014 BMI CHECK/ADVISE 10/14/2024 05/01/2016, , 02/02/2016, Additional history exists INFLUENZA (Season Ended) 2025 07/15/2015, 08/14 COLON CANCER SCREENING 09/14/2025 09/14/2015 HEPATITIS C SCREENING Completed 07/21/2014 Care Teams Director Electronics Relationship Specialty Start Date End Date Declan Meneses MD PCP - General Internal Medicine 03/24/19
--- OUTSIDE RECORDS SUMMARY | 2025-02-26 14:59 | XMS_ITS | Encounter Summary ---
Author Organization [facility] Address [address] [place] [address] Care Team Providers Care Carbonation Equipment Tender Name Role Phone Danni Joe MD Primary Care Provider Carole Diehl MD Primary Care Provider Unavaila George Arnold MD Primary Care Provider Unavail able Stevan Grubbs MD Primary Care Provider [phone] Declan Meneses MD Primary Care Provide r Unavailable Reason for Visit * Reason Onset Date Comments Call From Lab 10/22/2014 Encounter Details Date Type Department Care Team Description 10/22/2014 Telephone Adult Medicine B - [place] [address] [place] [address] Danni Joe MD Call From Lab Social History Tobacco Use Types Packs/Day Years Used Date Smoking Tobacco: Never Smokeless Tobacco: Never Alcohol Use Standard Drinks/Week Comments Yes 0 (1 standard drink = 0.6 oz pure alcohol) 1/daily - previously heavy etoh abuse Sex Assigned at Date Recorded Not on file documented as of this encounter Miscellaneous Notes * Telephone Encounter - Celeste Donaldo - 10/22/2014 4:49 PM EST Patient checked into lab but was unable to void, called patient, he will return next week to give sample. documented in this encounter Plan of Treatment Not on file documented as of this encounter Visit Diagnoses Not on filedocumented in this encounter Care Teams Carbonation Equipment Tender Relationship Specialty Start Date End Date Danni Joe MD PCP - General Internal Medicine 06/24/14 06/16/15 Carole Olivares MD PCP - General Internal Medicine 06/17/15 04/09/16 George Marroquin MD PCP - General Internal Medicine 04/10/16 09/26/16 Stevan Grubbs MD [address] [place] [id number] PCP - General Internal Medicine 09/27/16 03/23/19 Declan Meneses MD [address] [place] [id number] PCP - General Internal Medicine 03/24/19 documented as of this encounter
--- NOTE | 2025-02-26 15:03 | A.OFFVIS_ITS ---
Intake Visit Reasons: Elevated PSA Intake Note: Patient presents today for elevated PSA * 01/07 PSA 10.94 * 01/13 PSA 7.31 Urology Medication:Allopurinol Blood Thinner:Aspirin Antibiotic Allergies:None Allergies No Known Allergies [No Known Allergies*] Allergy (Verified 02/26/25 15:10) Medication List - Last Reconciled 02/26/25 by Clint Simmons MD acetaminophen 1,000 mg (2 x 500 mg) PO .Q8 PRN 30 days allopurinol 100 mg PO DAILY 90 days apixaban (Eliquis) 5 mg PO BID 90 days blood sugar diagnostic (FreeStyle Lite Strips) check blood sugar daily and daily prn blood-glucose meter (FreeStyle Lite Meter kit) As directed carvedilol 6.25 mg PO BIDWM ezetimibe (Zetia) 10 mg PO DAILY 90 days finasteride (Proscar) 5 mg PO DAILY hydrochlorothiazide 25 mg PO DAILY 90 days lacosamide 50 mg PO DAILY 90 days lancets As directed levetiracetam 500 mg PO BEDTIME 90 days levetiracetam 750 mg (3 x 250 mg) PO DAILY 90 days lisinopril 40 mg PO BEDTIME metformin 250 mg (1/2 x 500 mg) PO DAILY 30 days miscellaneous medical supply Diabetic Shoes, Daily As directed, 999 days nifedipine ER 60 mg PO BID omega 6-wor-xlm-fish oil 1,000 (120-180) mg 1 cap PO BEDTIME 30 days spironolactone 25 mg PO DAILY 30 days [facility] Medical History Epilepsy History of gout Paroxysmal atrial fibrillation History of seizures History of CVA (cerebrovascular accident) White coat syndrome with diagnosis of hypertension Essential hypertension Diabetes type 2, controlled Surgical History No pertinent past surgical history Family History Father No problems noted. Mother No problems noted. Brother No problems noted. Sister No problems noted. Sister No problems noted. Social History Household Members: Other Housing: Other Do you presently have visiting nurse or other home services: No Alcohol intake: current Alcohol intake frequency: holidays/special occasions only Patient Tobacco Use Status: Never used Tobacco e-Cigarette/Vaping Use: Never Used Second Hand Smoke Exposure: No Advance Directives Date on File: 08/02/20 service: No Current occupational status: unemployed Current occupation: Patient does not want to answer Current occupational exposures/hazards: No Cognitive needs: No Hearing needs: No Vision needs: No Review of Systems Const All systems reviewed & are unremarkable except as noted in HPI and below Reports no additional complaints Eyes Reports no additional complaints ENT Reports no additional complaints Card Reports no additional complaints Resp Reports no additional complaints GI Reports no additional complaints Reports as per HPI Musc Reports no additional complaints Skin/Breast Reports system reviewed and no additional complaints, except as documented Neuro Reports no additional complaints Psych Reports no additional complaints Endo Reports no additional complaints Ashish/Lymph Reports no additional complaints Aller/Immun Reports no additional complaints Physical Exam Const General: healthy appearing, no acute distress and well developed Orientation/consciousness: patient oriented x3 HEENT Head: Yes normocephalic and Yes atraumatic Eyes Conjunctivae: conjunctivae normal Neck Neck: Yes normal visual inspection Chest Chest palpation & inspection: normal inspection of the chest Resp Effort & Inspection: normal respiratory effort GI Inspection: Yes normal to inspection Palpation (GI): Soft to palpation Neuro General: patient oriented x3 Psych Appearance: grossly normal Affect: normal affect Assessment & Plan Assessment & Plan Orders: Orders AMB Urinalysis Automated Today Z13.9 - Encounter for screening, unspecified Medications: New finasteride (Proscar) 5 mg PO DAILY 90 tabs 3RF Coding
== END 2025-02-26 15:53 | disposition home or self-care (01) ==
LOC: HO.HUSH 14:57
PROVIDERS: PCP Family Medicine; Visit Provider Urology
DX: Z13.9 Encounter for screening, unspecified (principal)

== ENCOUNTER → 2025-02-26 14:56 | Outpatient (BNVA) | payer MEDICARE, MEDICAID, SELFPAY | PROVIDERS: PCP Family Medicine; Visit Provider Urology | DX: N40.1 Benign prostatic hyperplasia with lower urinary tract symptoms (principal); N13.8 Other obstructive and reflux uropathy; R39.198 Other difficulties with micturition; R97.20 Elevated prostate specific antigen [PSA] | CPT/HCPCS: 81003; 99202 ==

== ENCOUNTER 2025-03-02 11:37 | Emergency (ER) | payer MEDICARE, MEDICAID, SELFPAY ==
--- NOTE | ~2025-03-02 | CT_ITS ---
EXAMINATION: CT HEAD WITHOUT CONTRAST CLINICAL INFORMATION: Seizure COMPARISON: 07/18/2024, 06/04/2024. TECHNIQUE: Contiguous axial imaging was performed from the skull base to vertex without intravenous administration of contrast. This CT examination was performed using dose optimization techniques as appropriate, variously including the following: *Automated exposure control *Adjustment of mA and/or kV according to patient size (this includes techniques or standardized protocols for targeted exams where dose is matched to indication/reason for exam; i.e. extremities or head) *Use of iterative reconstruction technique FINDINGS: There is no evidence of intracranial hemorrhage or extra-axial fluid collection. There is no mass effect, or edema. No CT evidence of acute territorial infarct. Ventricles, sulci, and cisterns are somewhat diffusely prominent, in keeping with mildly advanced cerebral and cerebellar volume loss. No hydrocephalus. No midline shift. Negative hyperdense MCA sign. Negative insular ribbon sign. Patchy periventricular and deep white matter hypoattenuation is consistent with mild to moderate small vessel ischemic changes. Old lacunar type infarct left caudate head. Normal pituitary. Mild atheromatous calcification of the bilateral carotid siphons and V4 segments vertebral arteries bilaterally. Globes and orbital contents image normally. No extracranial soft tissue abnormalities. There is opacification of the left mastoid air cells, which extends into the left epitympanic space. The paranasal sinuses, right mastoid air cells, and right tympanic cavity are normally aerated. No suspicious bony abnormalities. There are no acute fractures evident. CT/CT head/brain wo IV con IMPRESSION: 1. No acute intracranial abnormality. Chronic findings as discussed, unchanged. 2. Left mastoid effusion with extension into the left epitympanic space. This has a similar appearance to the prior examination, and is chronic. Electronically signed by: Nadeem Peck MD 03/02/2025 03:17 PM EDT
[2025-03-02 11:58] VITALS: BP 134/72; PULSE 102; O2SAT 98
[2025-03-02 11:59] VITALS: BP 127/69; PULSE 94; RESP 18; TEMP 36.8; O2SAT 98; BMI 26.8
--- NOTE | 2025-03-02 12:18 | ECG_ITS ---
Test Reason : FALL ON THINNERS/SEIZURE Blood Pressure : */* mmHG Vent. Rate : 93 BPM Atrial Rate : 93 BPM P-R Int : 214 ms QRS Dur : 78 ms QT Int : 330 ms P-R-T Axes : 56 50 81 degrees QTcB Int : 410 ms Sinus rhythm with 1st degree A-V block Minimal voltage criteria for LVH, may be normal variant ( Sokolow-Cesar ) Nonspecific T wave abnormality Abnormal ECG When compared with ECG of 18-Jul-2024 18:15, QT has shortened Referred By: Generic ED Physician Electronically Signed By: Brijesh Arriola
[2025-03-02 12:31] LABS: MANUAL DIFF FLAG NO
[2025-03-02 12:32] LABS: Basophils Percent Auto 0.4 % (0-2); Eosinophils Absolute Auto 0.1 X10*3/uL (0.0-0.4); Hematocrit 34.5 % (42.0-52.0); Hemoglobin 11.5 g/dl (14.0-18.0); Imm Gran Abs Auto 0.04 X10*3/uL (0.00-0.03); Imm Gran Pct Auto 0.4 % (0.0-0.4); Lymphocytes Absolute Auto 1.8 X10*3/uL (1.2-4.9); Mean Corpuscular HGB Conc 33.3 g/dl (31.0-36.0); Mean Corpuscular Hemoglobin 30.1 pg (27.0-33.0); Mean Corpuscular Volume 90.3 fL (80.0-98.0); Mean Platelet Volume 10.1 fL (9.4-12.4); Monocytes Absolute Auto 0.8 X10*3/uL (0.1-1.2); Monocytes Percent Auto 8.5 % (2-11); Neutrophils Absolute Auto 6.3 x10*3/uL (2.0-8.3); Neutrophils Percent Auto 69.7 % (45-73); Platelet Count 195 X10*3/uL (160-400); Red Blood Count 3.82 X10*6/uL (4.60-5.80); Red Cell Distribution Width 12.8 % (11.0-16.0); White Blood Count 9.1 X10*3/uL (4.8-10.8)
[2025-03-02 12:40] LABS: INTERNATIONAL NORM RATIO 1.3 (0.9-1.1); Prothrombin Time 14.9 SEC (10.9-12.4)
[2025-03-02 12:51] LABS: Alanine Aminotransferase 15 U/L (0-40); Alkaline Phosphatase 62 U/L (39-117); Anion Gap 11 (12-20); Aspartate Amino Transferase 26 U/L (5-37); Bilirubin Total 0.2 mg/dL (0.0-1.0); Blood Urea Nitrogen 25 mg/dL (9-16); Calcium 9.4 mg/dL (8.4-10.2); Carbon Dioxide 27 mmol/L (22-29); Chloride 101 mmol/L (96-108); Creatinine Clr Calc Pharmacy 54.4; Estimated Glomerular Filt Rate > 60; Glucose Random 236 mg/dL (60-115); Potassium 4.2 mmol/L (3.3-5.1); Sodium 135 mmol/L (135-145); Total Protein 7.1 g/dL (6.5-8.0)
[2025-03-02 12:55] LABS: Appearance Urine Clear; Color Urine Yellow; Glucose Urine UA Negative (Negative); Leukocyte Esterase Urine Negative (Negative); Nitrite Urine Negative (Negative); Urine Blood Negative (Negative); Urine Ketones Negative (Negative); Urine Protein Negative (Neg-Trace)
[2025-03-02 13:04] LABS: Amphetamine Screen Urine Not Detected (Not Detect); Barbiturates, Urine Not Detected (Not Detect); Benzodiazepines Screen Urine Not Detected (Not Detect); Buprenorphine Scr Not Detected (Not Detect); Cannabinoid Screen Urine Not Detected (Not Detect); Cocaine Screen Urine Not Detected (Not Detect); Fentanyl, urine Not Detected (Not Detect); Methadone Screen, Urine Not Detected (Not Detect); Opiate Screen Urine Not Detected (Not Detect); Oxycodone Screen Urine Not Detected (Not Detect); Phencyclidine Screen Urine Not Detected (Not Detect)
[2025-03-02 13:04] LABS: Troponin-I High Sensitivity < 2.7 ng/L (<3.5-35.0)
--- NOTE | 2025-03-02 13:14 | ED.SEIZURE ---
HPI - Seizure General Chief Complaint: Seizure Stated Complaint: SZ,FALL,HIT HEAD,+ELIQUIS/KEPPR,+CCOLLAR @[facility] Time Seen by Provider: 03/02/25 13:02 Source: patient Mode of arrival: ambulatory Limitations: no limitations History of Present Illness ED Provider: DR. Almendarez HPI Narrative: 69-year-old male came in by ambulance from [facility] for evaluation after having seizure. Patient is known to have history of seizure disorder on Keppra that patient is compliant with his medication staff heard a thud patient was witnessed having a seizure for less than 2 minutes followed by postictal confusion and seizure, patient was seen having seizure on the floor on his right side no confirmed head injury a was witnessed patient is taking Eliquis for AFib. Related Data Home Medications ?Medication ?Instructions ?Recorded ?Confirmed lancets 28 gauge #100 ea 08/02/20 02/26/25 lisinopril 40 mg tablet 40 mg PO BEDTIME 07/19/24 02/26/25 Previous Rx's ?Medication ?Instructions ?Recorded blood-glucose meter (TruliooStyle #1 ea 03/26/22 Lite Meter kit) miscellaneous medical supply #1 ea 01/02/24 blood sugar diagnostic (FreeStyle #50 ea 03/11/24 Lite Strips) hydrochlorothiazide 25 mg tablet 25 mg PO DAILY 90 days #90 tabs 04/10/24 carvedilol 6.25 mg tablet 6.25 mg PO BIDWM #180 tabs 08/10/24 levetiracetam 250 mg tablet 750 mg (3 x 250 mg) PO DAILY 90 08/19/24 days #270 tabs levetiracetam 500 mg tablet 500 mg PO BEDTIME 90 days #90 tabs 08/19/24 lacosamide 50 mg tablet 50 mg PO DAILY 90 days #90 tabs 08/25/24 apixaban 5 mg tablet (Eliquis) 5 mg PO BID 90 days #180 tabs 10/13/24 metformin 500 mg tablet 250 mg (1/2 x 500 mg) PO DAILY 30 11/11/24 days #15 tabs spironolactone 25 mg tablet 25 mg PO DAILY 30 days #30 tabs 11/12/24 allopurinol 100 mg tablet 100 mg PO DAILY 90 days #90 tabs 12/03/24 ezetimibe 10 mg tablet (Zetia) 10 mg PO DAILY 90 days #90 tabs 12/03/24 nifedipine 60 mg tablet,extended 60 mg PO BID #60 tabs 12/03/24 release acetaminophen 500 mg tablet 1,000 mg (2 x 500 mg) PO .Q8 PRN 12/06/24 pain 30 days #180 tabs omega 1-nca-msp-fish oil 1,000 mg 1 cap PO BEDTIME 30 days #30 caps 12/06/24 (120 mg-180 mg) capsule finasteride 5 mg tablet (Proscar) 5 mg PO DAILY #90 tabs 02/26/25 Allergies Allergy/AdvReac Type Severity Reaction Status Date / Time No Known Allergies Allergy Verified 03/02/25 12:00 [No Known Allergies*] Review of Systems Review of Systems: All other systems are reviewed and are negative Constitutional: Reports as per HPI and Reports no additional constitutional complaints Eyes: Reports as per HPI and Reports no additional eye complaints Reports system reviewed and no additional complaints, except as documented Cardiovascular: Reports as per HPI and Reports no additional cardiovascular complaints Respiratory: Reports as per HPI and Reports no additional respiratory complaints Gastrointestinal: Reports as per HPI and Reports no additional gastrointestinal complaints Genitourinary: Reports no additional female genitourinary complaints Musculoskeletal: Reports no additional musculoskeletal complaints Skin/Breast: Reports system reviewed and no additional complaints, except as docu Psychiatric: Reports no additional psychiatric complaints Endocrine: Reports no additional endocrine complaints Hematologic/Lymphatic: Reports no additional hematologic/lymphatic complaints Allergic/Immunologic: Reports no additional allergic/immunologic complaints Reports system reviewed and no additional complaints, except as documented and Reports Abnormal speech present [facility] Past Medical History Medical History Epilepsy History of gout Paroxysmal atrial fibrillation History of seizures History of CVA (cerebrovascular accident) White coat syndrome with diagnosis of hypertension Essential hypertension Diabetes type 2, controlled Surgical History No pertinent past surgical history Family History Family History Father No problems noted. Mother No problems noted. Brother No problems noted. Sister No problems noted. Sister No problems noted. Social History Social History Household Members: Other Housing: Other Do you presently have visiting nurse or other home services: No Alcohol intake: current Alcohol intake frequency: holidays/special occasions only Patient Tobacco Use Status: Never used Tobacco e-Cigarette/Vaping Use: Never Used Second Hand Smoke Exposure: No Advance Directives Date on File: 08/02/20 service: No Current occupational status: unemployed Current occupation: Patient does not want to answer Current occupational exposures/hazards: No Cognitive needs: No Hearing needs: No Vision needs: No Physical Exam Vital Signs: Vital Signs: Last Vital Signs Temp 98.2 F 03/02/25 16:57 Pulse 95 03/02/25 16:57 Resp 18 03/02/25 16:57 BP 129/71 03/02/25 16:57 Pulse Ox 95 03/02/25 16:57 O2 Del Method Room Air 03/02/25 16:57 BMI result Body Mass Index 26.8 Vital signs have been reviewed and appear to be correct. Blood pressure elevated. Heart rate normal. Respiratory rate normal. Temperature normal. Oxygen saturation normal. Appearance: Alert. Oriented X3. No acute distress. Head: Normal external exam. Normocephalic. Atraumatic. No Stuart signs noted. No raccoon eyes noted Eyes: PERRLA. EOMI. Conjunctiva and sclera normal. Eyelids normal. ENT: TM's Normal. Pharynx normal. Uvula midline. Moist mucous membranes. No trismus noted. No drooling noted. No muffled voice noted. Neck: Normal inspection. Neck supple. FROM. No adenopathy. Thyroid Normal. No meningeal signs. No neck mass noted. CVS: Normal heart rate and rhythm. Heart sound normal. No murmurs noted. Pulses normal throughout. Respiratory: No respiratory distress. Painless inspiration. Breath sounds normal. No wheezes/rales/rhonchi noted. Chest nontender. No accessory muscle usage noted or decreased air movement noted. Abdomen: Soft and nontender. Bowel sounds normal in all 4 quadrants. No distention noted. No organomegaly noted. No visible injury noted. Back: No CVA tenderness. Full range of motion noted. Skin: Skin warm and dry. Normal skin color. Normal skin turgor. No rashes/lesions/lacerations noted. Extremities: No lower extremity edema. Extremities exhibit normal range of motion. Extremities nontender. Neuro: Oriented X 3. Cranial nerve exam: II-XII are grossly intact No motor deficit. No sensory deficit. Reflexes normal. Course Reevaluation(s) Reevaluation #1: 69-year-old male s/p seizure patient with known history of seizure, normal neuro exam, head CT is unremarkable, labs are unremarkable, Keppra level is not available now, patient is compliant with his medication. Time: 15:30 Medical Decision Making Differential Diagnosis Differential Diagnoses: The differential diagnosis associated with the presentation includes ( Seizure, subtherapeutic Keppra, electrolyte derangement, severe anemia.) Admission/Observation Consideration of admission/observation: Escalation of care including admission/observation considered Lab Data MDM Lab Attestation statement: I reviewed the patient's lab results. 03/02/25 12:26 03/02/25 12:26 Labs: Lab Results 03/02/25 03/02/25 03/02/25 Range/Units 12:26 12:49 15:31 WBC 9.1 (4.8-10.8) X10*3/uL RBC 3.82 L (4.60-5.80) X10*6/uL Hgb 11.5 L (14.0-18.0) g/dl Hct 34.5 L (42.0-52.0) % MCV 90.3 (80.0-98.0) fL MCH 30.1 (27.0-33.0) pg MCHC 33.3 (31.0-36.0) g/dl RDW 12.8 (11.0-16.0) % Plt Count 195 (160-400) X10*3/uL MPV 10.1 (9.4-12.4) fL Immature Gran % (Auto) 0.4 (0.0-0.4) % Neut % (Auto) 69.7 (45-73) % Lymph % (Auto) 20.0 (20-40) % [place] % (Auto) 8.5 (2-11) % Eos % (Auto) 1.0 (0-4) % Baso % (Auto) 0.4 (0-2) % Lymph # (Auto) 1.8 (1.2-4.9) X10*3/uL [place] # (Auto) 0.8 (0.1-1.2) X10*3/uL Eos # (Auto) 0.1 (0.0-0.4) X10*3/uL Baso # (Auto) 0.0 (0.0-0.2) X10*3/uL Abs Immat Gran (auto) 0.04 H (0.00-0.03) X10*3/uL Absolute Neuts (auto) 6.3 (2.0-8.3) x10*3/uL Absolute Nucleated RBC 0.000 (0.0-0.012) X10*3/uL Nucleated RBC % (auto) 0.0 (0.0-0.2) /100WBC PT 14.9 H (10.9-12.4) SEC INR 1.3 H (0.9-1.1) Sodium 135 (135-145) mmol/L Potassium 4.2 (3.3-5.1) mmol/L Chloride 101 (96-108) mmol/L Carbon Dioxide 27 (22-29) mmol/L Anion Gap 11 L (12-20) BUN 25 H (9-16) mg/dL Creatinine 1.13 (0.5-1.4) mg/dL Estim Creat Clear Calc 54.4 Estimated GFR > 60 POC Glucose 116 H (60-115) mg/dL Random Glucose 236 H (60-115) mg/dL Calcium 9.4 (8.4-10.2) mg/dL Total Bilirubin 0.2 (0.0-1.0) mg/dL AST 26 (5-37) U/L ALT 15 (0-40) U/L Alkaline Phosphatase 62 (39-117) U/L Troponin I High Sens < 2.7 (<3.5-35.0) ng/L Total Protein 7.1 (6.5-8.0) g/dL Albumin 4.0 (3.5-5.0) g/dL Urine Color Yellow Urine Appearance Clear Urine pH 7.0 (5.0-9.0) Ur Specific [place] 1.010 (1.005-1.025) Urine Protein Negative (Neg-Trace) mg/dL Urine Glucose (UA) Negative (Negative) mg/dL Urine Ketones Negative (Negative) mg/dL Urine Blood Negative (Negative) Urine Nitrite Negative (Negative) Ur Leukocyte Esterase Negative (Negative) Urine Opiates Screen Not Detected (Not Detect) Ur Buprenorphine Scrn Not Detected (Not Detect) ng/mL Ur Oxycodone Screen Not Detected (Not Detect) ng/mL Urine Methadone Screen Not Detected (Not Detect) ng/mL Urine Fentanyl Screen Not Detected (Not Detect) Ur Barbiturates Screen Not Detected (Not Detect) Ur Phencyclidine Scrn Not Detected (Not Detect) Ur Amphetamines Screen Not Detected (Not Detect) U Benzodiazepines Scrn Not Detected (Not Detect) Urine Cocaine Screen Not Detected (Not Detect) U Marijuana (THC) Screen Not Detected (Not Detect) Independent Interpretation I performed an independent interpretation of an: CT Scan ( Head: No acute intracranial pathology.) Radiology Impression Discussion of test interpretation with radiology: I have reviewed the radiologist's reading. Discharge Plan Discharge Clinical Impression: Seizure disorder Patient Disposition: Home, Self-Care Instructions: Epilepsy (ED) Prescriptions: No Action (DME) blood-glucose meter [FreeStyle Lite Meter] Kit See Rx Instructions .ROUTE .MEDSUPPLY Qty: 1 0RF Rx Instructions: As directed (DME) miscellaneous medical supply Misc See Rx Instructions .ROUTE .MEDSUPPLY Qty: 1 0RF Rx Instructions: Diabetic Shoes, Daily As directed, 999 days (DME) FreeStyle Lite Strips Strip See Rx Instructions .ROUTE .MEDSUPPLY Qty: 50 11RF Rx Instructions: check blood sugar daily and daily prn hydrochlorothiazide 25 mg tablet 25 mg PO DAILY 90 Days Qty: 90 3RF carvedilol 6.25 mg tablet 6.25 mg PO BIDWM Qty: 180 3RF Rx Instructions: must administer with a meal/food levetiracetam 500 mg tablet 500 mg PO BEDTIME 90 Days Qty: 90 2RF Rx Instructions: replaces prior dose of 250 mg levetiracetam 250 mg tablet 750 mg PO DAILY 90 Days Qty: 270 2RF lacosamide 50 mg tablet 50 mg PO DAILY 90 Days Qty: 90 2RF Rx Instructions: Take in evening Eliquis 5 mg tablet 5 mg PO BID 90 Days Qty: 180 2RF metformin 500 mg tablet 250 mg PO DAILY 30 Days Qty: 15 3RF spironolactone 25 mg tablet 25 mg PO DAILY 30 Days Qty: 30 2RF acetaminophen 500 mg tablet 1,000 mg PO .Q8 PRN (Reason: pain) 30 Days Qty: 180 3RF omega 9-tlc-ean-fish oil 1,000 (120-180) mg capsule 1 cap PO BEDTIME 30 Days Qty: 30 1RF lisinopril 40 mg tablet 40 mg PO BEDTIME (DME) lancets 28 gauge misc See Rx Instructions topical DAILY Qty: 100 Rx Instructions: As directed finasteride [Proscar] 5 mg tablet 5 mg PO DAILY Qty: 90 3RF allopurinol 100 mg tablet 100 mg PO DAILY 90 Days Qty: 90 2RF ezetimibe [Zetia] 10 mg tablet 10 mg PO DAILY 90 Days Qty: 90 2RF nifedipine 60 mg tablet extended release 60 mg PO BID Qty: 60 3RF Rx Instructions: Take one tablet in the morning and one tablet in the evening, without food. Referrals: Wiley Pablo MD [Primary Care Provider] - Interventions: ED Discharge Assessment Last Done: 03/02/25 16:57 Discharge Date/Time: 03/02/25 16:59 Print Language: Niuean
[2025-03-02 14:49] VITALS: BP 129/71; PULSE 95; RESP 18; O2SAT 95
[2025-03-02 15:35] LABS: Glucose, Whole Blood 116 mg/dL (60-115)
--- NOTE | 2025-03-02 16:26 | PC.NURSE ---
D/c instructions given to pet care technician Albert at bedside.
[2025-03-02 16:57] VITALS: BP 129/71; PULSE 95; RESP 18; TEMP 36.8; O2SAT 95
== END 2025-03-02 16:59 | disposition home or self-care (01) ==
PROVIDERS: Emergency Provider Emergency Medicine; PCP Family Medicine
DX: R56.9 Unspecified convulsions (principal); R94.31 Abnormal electrocardiogram [ECG] [EKG]; Z79.01 Long term (current) use of anticoagulants; Z79.899 Other long term (current) drug therapy; Z51.81 Encounter for therapeutic drug level monitoring
CPT/HCPCS: 36415; 70450; 80053; 80307; 81003; 82947; 84484; 85025; 85610; 93005; 99284; 99285

== ENCOUNTER → 2025-03-02 12:18 | Outpatient (BNV) | payer MEDICARE, MEDICAID, SELFPAY | PROVIDERS: Emergency Provider Emergency Medicine; PCP Family Medicine; Visit Provider Internal Medicine Cardiovascular Disease | DX: I44.0 Atrioventricular block, first degree (principal) | CPT/HCPCS: 93010 ==

== ENCOUNTER → 2025-03-02 14:29 | Outpatient (BNV) | payer MEDICARE, MEDICAID, SELFPAY | PROVIDERS: Emergency Provider Emergency Medicine; PCP Family Medicine; Visit Provider Radiology Diagnostic Radiology | DX: H70.092 Acute mastoiditis with other complications, left ear (principal) | CPT/HCPCS: 70450 ==

== ENCOUNTER 2025-03-10 15:11 | Outpatient (AMB) | payer MEDICARE, MEDICAID, SELFPAY ==
--- NOTE | 2025-03-10 15:18 | A.OFFPC_ITS ---
Vital Signs 03/10/25 15:23 BP 132/78 Blood Pressure Location Rt brachial Position Sitting Respiration 16 Pulse 96 Pulse Source Pulse Oximeter Temp 97.9 F Temp Source Oral Pulse Oximetry (%) 97 Oxygen Delivery Method Room Air Intake Visit Reasons: ED F/U from [facility] due to a fall on 03/02. Intake Note: patient is scheduled for follow-up ED discharge from a fall on 03/02/25 group practice pediatrician said he fine and he's back to he some old self. Allergies No Known Allergies [No Known Allergies*] Allergy (Verified 03/10/25 15:19) Medication List - Last Reconciled 03/10/25 by Wiley Pablo MD acetaminophen 1,000 mg (2 x 500 mg) PO .Q8 PRN 30 days allopurinol 100 mg PO DAILY 90 days apixaban (Eliquis) 5 mg PO BID 90 days blood sugar diagnostic (FreeStyle Lite Strips) check blood sugar daily and daily prn blood-glucose meter (FreeStyle Lite Meter kit) As directed carvedilol 6.25 mg PO BIDWM ezetimibe (Zetia) 10 mg PO DAILY 90 days finasteride (Proscar) 5 mg PO DAILY hydrochlorothiazide 25 mg PO DAILY 90 days lacosamide 50 mg PO DAILY 90 days lancets As directed levetiracetam 500 mg PO BEDTIME 90 days levetiracetam 750 mg (3 x 250 mg) PO DAILY 90 days lisinopril 40 mg PO BEDTIME metformin 250 mg (1/2 x 500 mg) PO DAILY 30 days miscellaneous medical supply Diabetic Shoes, Daily As directed, 999 days nifedipine ER 60 mg PO BID omega 3-vee-smf-fish oil 1,000 (120-180) mg 1 cap PO BEDTIME 30 days spironolactone 25 mg PO DAILY 30 days Tobacco use date assessed: 03/10/25 Fall risk assessment: 1 Fall in past year Last assessed Fall Risk: 03/02/25 Dental Screening Dental Screen Date: 03/10/25 Did you have a dental visit in the last 12 months?: Yes Did you have a dental problem in the last 6 months where you did not have access to dental care?: No Was dental information given to patient?: No HPI ED F/U from [facility] due to a fall on 03/02. HPI Details 69 y/o male presents to f/u hospital vis it 03/02/25 for fall after a seizure. Known hx of seizure. Had normal neuro exam, head CT, labs unremarkable. Blood pressure today 132/78, 96p. He is on lisinopril 40mg, spironolactone 25mg, nifedipine 60mg b.i.d. [facility] Medical History Epilepsy History of gout Paroxysmal atrial fibrillation History of seizures History of CVA (cerebrovascular accident) White coat syndrome with diagnosis of hypertension Essential hypertension Diabetes type 2, controlled Surgical History No pertinent past surgical history Family History Father No problems noted. Mother No problems noted. Brother No problems noted. Sister No problems noted. Sister No problems noted. Social History Household Members: Other Housing: Other Do you presently have visiting nurse or other home services: No Alcohol intake: current Alcohol intake frequency: holidays/special occasions only Patient Tobacco Use Status: Never used Tobacco e-Cigarette/Vaping Use: Never Used Second Hand Smoke Exposure: No Advance Directives Date on File: 08/02/20 service: No Current occupational status: unemployed Current occupation: Patient does not want to answer Current occupational exposures/hazards: No Cognitive needs: No Hearing needs: No Vision needs: No Questionnaire PHQ-9 Over the last 2 weeks, how often have you been bothered by any of the following problems? 1. Little interest or pleasure in doing things: not at all 2. Feeling down, depressed, or hopeless: not at all 3. Trouble falling or staying asleep, or sleeping too much: not at all 4. Feeling tired or having little energy: not at all 5. Poor appetite or overeating: not at all 6. Feeling bad about yourself - or that you are a failure or have let yourself or your family down: not at all 7. Trouble concentrating on things, such as reading the newspaper or watching television: not at all 8. Moving or speaking so slowly that other people could have noticed. Or the opposite - being so fidgety or restless that you have been moving around a lot more than usual: not at all 9. Thoughts that you would be better off or of hurting yourself in some way: not at all Total score: 0 Depression Screening Interpretation: Negative Depression Screening Done: Yes 60153 - PHQ-9 Billing: Yes Source: Developed by Drs. Darien Higginbotham, Erin Vargas, Dony Arevalo and colleagues, with an educational otilia from [email or web address]. Thrive Questionnaire Date Thrive assessed: 03/10/25 I am a: Patient What is your living situation today?: I choose not to answer this question Within the past 12 months, did the food you bought not last and you didn't have the money to get more?: I choose not to answer this question Within the past 12 months, did you worry whether your food would run out before you got money to buy more?: I choose not to answer this question Do you have trouble paying for medicines?: No Do you have trouble getting transportation to medical appointments?: No Do you have trouble paying your heating and electricity bill?: No Do you have trouble taking care of your child, family member or friend?: No Do you have trouble with day-to-day activities such as bathing, preparing meals, shopping, managing finances, etc.?: I choose not to answer this question Are you currently unemployed and looking for a job?: No Are you interested in more education?: No Please select the resources that you would like help with: None Currently or been in a relationship where the following occur: I choose not to answer THRIVE Score: 0 FRANC-7 AMB Questionnaire FRANC-7 Date FRANC - 7 assessed: 03/10/25 Source: Developed by Drs. Darien Higginbotham, Erin Vargas, Dony Arevalo and colleagues, with an educational otilia from [email or web address]. Review of Systems Const Denies chills, Denies fatigue, Denies fever(s), Denies headache(s) and Denies weakness ENT Denies dizziness and Denies headache(s) Card Denies dyspnea Resp Denies cough, Denies dyspnea, Denies wheezing and Denies other (shortness of breath) Musc Denies numbness and Denies tingling Neuro Denies dizziness, Denies headache(s), Denies numbness, Denies tingling and Denies weakness Psych Denies anxiety and Denies depression Endo Denies fatigue Aller/Immun Denies wheezing Physical exam (Primary Care) Vital Signs: Last Vital Signs Temp 97.9 F 03/10/25 15:23 Pulse 96 03/10/25 15:23 Resp 16 03/10/25 15:23 BP 132/78 03/10/25 15:23 Pulse Ox 97 03/10/25 15:23 Oxygen Delivery Method Room Air 03/10/25 15:23 Tobacco/Smoking Status: Tobacco use Status Tobacco use date assessed 03/10/25 03/10/25 15:30 Patient Tobacco Use Status Never used Tobacco 03/10/25 15:30 e-Cigarette/Vaping Use Never Used 03/10/25 15:30 PHQ-9: PHQ-9 Score PHQ-9: Total score 0 03/10/25 15:45 Depression Screening Interpretation: Negative Thrive Assessment: Date of Thrive Assessment Date Thrive assessed 03/10/25 03/10/25 15:30 Currently or been in a relationship where the following occur: I choose not to answer Const General: well developed; No acute distress Nutritional Appearance: well nourished Orientation/consciousness: patient oriented x3 HENMT Head: Yes normocephalic and Yes atraumatic Eyes General: appearance normal, both eyes and all related structures Pupils: Equal, round and reactive pupils present EOM: EOMs intact bilaterally Resp Effort & Inspection: normal respiratory effort Neuro General: patient oriented x3 and No gait normal Cranial nerves: Yes Equal, round and reactive pupils present Psych Affect: normal affect Coding Level of Care Code TCM High MDM <= 14 days Diagnoses Seizure R56.9 Status post fall Z91.81 Essential hypertension I10 Additional Codes PHQ-9 - 02418 - PHQ-9 Billing: Yes ([id number]) Assessment & Plan Assessment & Plan (1) Seizure: Code(s): R56.9 - Unspecified convulsions Category: Medical (2) Status post fall: Code(s): Z91.81 - History of falling Category: Medical (3) Essential hypertension: Code(s): I10 - Essential (primary) hypertension Category: Medical Plan Patient?was?seen?at?ED?on?03/02/2025?for?seizure?and?fall. Exam?did?not?reveal?any?injury?or?head?injury. He?is?on?Eliquis.??CT?scan?of?the?head?did?not?reveal?any?intracranial?bleeding? or?abnormality. He?was?neurologically?intact It?does?not?appear?that?the?checked?a?Keppra?level He?was?discharged?home.??He?has?seen?his?new?neurologist,?Dr. Barker at?[facility]?and?an?EEG?is?planned. Continue?to?take?Keppra?and?lacosamide?as?prescribed Patient?has?unsteady?gait?secondary?to?a?prior?CVA He?does?have?a?cane?but?does?not?always?use?this. Recommend?he?use?when?he?is?fatigued He?is?getting?PT/OT?at?home?and?I?would?recommend?he?continue?this Orders: Orders Lacosamide Today R56.9 - Unspecified convulsions UA CC w/rflx Micro + Cult Today E11.9 - Type 2 diabetes mellitus without complications, Z00.00 - Encounter for general adult medical examination without abnormal findings Levetiracetam Keppra Today R56.9 - Unspecified convulsions Microalbumin, Random (w Creat) Today E11.9 - Type 2 diabetes mellitus without complications, I10 - Essential (primary) hypertension Hemoglobin A1c Today E11.9 - Type 2 diabetes mellitus without complications, R73.01 - Impaired fasting glucose Comprehensive [place]. Panel Fast Today E11.9 - Type 2 diabetes mellitus without complications, Z00.00 - Encounter for general adult medical examination without abnormal findings Medications: New cane As directed, 999 1 ea 0RF R26.81 - Unsteadiness on feet, Z86.73 - Personal history of transient ischemic attack (TIA), and cerebral infarction without residual deficits
[2025-03-10 15:23] VITALS: BP 132/78; PULSE 96; RESP 16; TEMP 36.6; O2SAT 97
== END 2025-03-10 17:05 | disposition home or self-care (01) ==
LOC: HO.HMCFM 15:12
PROVIDERS: PCP Family Medicine; Visit Provider Family Medicine
DX: R56.9 Unspecified convulsions (principal); Z91.81 History of falling; I10 Essential (primary) hypertension

== ENCOUNTER → 2025-03-10 15:11 | Outpatient (BNVA) | payer MEDICARE, MEDICAID, SELFPAY | PROVIDERS: PCP Family Medicine; Visit Provider Family Medicine | DX: R56.9 Unspecified convulsions (principal); I10 Essential (primary) hypertension; Z91.81 History of falling | CPT/HCPCS: 96127; 99212 ==

== ENCOUNTER 2025-04-08 08:43 | Outpatient (REF) | payer MEDICARE, MEDICAID, SELFPAY ==
[2025-04-08 11:31] LABS: Appearance Urine Clear; Color Urine Yellow; Glucose Urine UA Negative (Negative); Leukocyte Esterase Urine Negative (Negative); Nitrite Urine Negative (Negative); PH 6.5 (5.0-9.0); Specific Gravity - Urine 1.015 (1.005-1.025); Urine Blood Negative (Negative); Urine Ketones Negative (Negative); Urine Protein Negative (Neg-Trace)
[2025-04-08 11:32] LABS: MANUAL DIFF FLAG NO
[2025-04-08 11:35] LABS: Basophils Percent Auto 0.4 % (0-2); Eosinophils Absolute Auto 0.1 X10*3/uL (0.0-0.4); Eosinophils Percent Auto 1.3 % (0-4); Hematocrit 36.5 % (42.0-52.0); Hemoglobin 12.2 g/dl (14.0-18.0); Imm Gran Abs Auto 0.03 X10*3/uL (0.00-0.03); Imm Gran Pct Auto 0.4 % (0.0-0.4); Lymphocytes Absolute Auto 2.7 X10*3/uL (1.2-4.9); Lymphocytes Percent Auto 32.9 % (20-40); Mean Corpuscular HGB Conc 33.4 g/dl (31.0-36.0); Mean Corpuscular Hemoglobin 30.3 pg (27.0-33.0); Mean Corpuscular Volume 90.6 fL (80.0-98.0); Mean Platelet Volume 10.7 fL (9.4-12.4); Monocytes Absolute Auto 0.7 X10*3/uL (0.1-1.2); Monocytes Percent Auto 8.4 % (2-11); Neutrophils Absolute Auto 4.7 x10*3/uL (2.0-8.3); Neutrophils Percent Auto 56.6 % (45-73); Platelet Count 223 X10*3/uL (160-400); Red Blood Count 4.03 X10*6/uL (4.60-5.80); Red Cell Distribution Width 12.6 % (11.0-16.0); White Blood Count 8.3 X10*3/uL (4.8-10.8)
[2025-04-08 11:55] LABS: Alanine Aminotransferase 14 U/L (0-40); Albumin Level 4.6 g/dL (3.5-5.0); Alkaline Phosphatase 59 U/L (39-117); Anion Gap 13 (12-20); Aspartate Amino Transferase 18 U/L (5-37); Bilirubin Total 0.4 mg/dL (0.0-1.0); Blood Urea Nitrogen 19 mg/dL (9-16); Calcium 10.3 mg/dL (8.4-10.2); Carbon Dioxide 28 mmol/L (22-29); Chloride 102 mmol/L (96-108); Estimated Glomerular Filt Rate > 60; Glucose Fasting 116 mg/dL (60-99); Sodium 139 mmol/L (135-145); Total Protein 7.2 g/dL (6.5-8.0)
[2025-04-08 12:04] LABS: Estimated Average Glucose 140 mg/dL; Hemoglobin A1c % 6.5 % (<6.0); Total Hemoglobin (HGBA1C) 3274.8842 umol/L
[2025-04-11 00:39] LABS: Levetiracetam Keppra 19.6 mcg/mL (6.0-46.0)
[2025-04-15 15:18] LABS: Lacosamide 2.3 mcg/mL
== END 2025-04-08 08:44 | disposition home or self-care (01) ==
LOC: HO.WFDLDS 08:43
PROVIDERS: Referring Provider Urology; Visit Provider Family Medicine
DX: Z00.00 Encounter for general adult medical examination without abnormal findings (principal); D64.9 Anemia, unspecified; E11.649 Type 2 diabetes mellitus with hypoglycemia without coma; R73.01 Impaired fasting glucose; E11.9 Type 2 diabetes mellitus without complications; R56.9 Unspecified convulsions; I10 Essential (primary) hypertension; Z87.438 Personal history of other diseases of male genital organs; Z12.5 Encounter for screening for malignant neoplasm of prostate
CPT/HCPCS: 36415; 80053; 80177; 80235; 81003; 82043; 82570; 83036; 84153; 85025

== ENCOUNTER 2025-04-08 15:33 | Outpatient (REF) | payer MEDICARE, MEDICAID, SELFPAY | END 2025-04-08 15:34 | disposition home or self-care (01) | LOC: HO.US 15:33 | PROVIDERS: PCP Family Medicine; Visit Provider Urology | DX: Z13.89 Encounter for screening for other disorder (principal) ==

== ENCOUNTER 2025-04-29 13:21 | Outpatient (AMB) | payer MEDICARE, MEDICAID, SELFPAY ==
--- NOTE | 2025-04-29 13:44 | A.OFFPC_ITS ---
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: No Allergies No Known Allergies (No Known Allergies*) Allergy (Verified 04/29/25 13:45) Medication List - Last Reconciled 04/29/25 by Wiley Pablo MD acetaminophen 1,000 mg (2 x 500 mg) PO .Q8 PRN 30 days allopurinol 100 mg PO DAILY 90 days apixaban (Eliquis) 5 mg PO BID 90 days blood sugar diagnostic (FreeStyle Lite Strips) check blood sugar daily and daily prn blood-glucose meter (FreeStyle Lite Meter kit) As directed cane As directed, 999 carvedilol 6.25 mg PO BIDWM ezetimibe (Zetia) 10 mg PO DAILY 90 days finasteride (Proscar) 5 mg PO DAILY hydrochlorothiazide 25 mg PO DAILY 90 days lacosamide 50 mg PO DAILY 90 days lancets As directed levetiracetam 500 mg PO BEDTIME 90 days levetiracetam 750 mg (3 x 250 mg) PO DAILY 90 days lisinopril 40 mg PO BEDTIME metformin 250 mg (1/2 x 500 mg) PO DAILY 30 days miscellaneous medical supply Diabetic Shoes, Daily As directed, 999 days nifedipine ER 60 mg PO BID omega 7-zhz-mdb-fish oil 1,000 (120-180) mg 1 cap PO BEDTIME 30 days spironolactone 25 mg PO DAILY 30 days Tobacco use date assessed: 03/10/25 Dental Screening Dental Screen Date: 03/10/25 HPI f/u diabetes, hypertension, labs HPI Details 69 y/o male presents to f/u diabetes, HT N, labs. Labs drawn 04/08/25. Reviewed labs with pt. Improving mild anemia. A1c 6.5%. He is on metformin 250mg daily. Ongoing microalbuminuria. Blood pressure today 130/70, 85p. He is on nifedipine 60mg b.i.d, lisinopril 40mg, spironolactone 25mg daily, ca rvedilol 6.25mg b.i.d. Pt states he would like to see a psychiatry adult physician for his mood. They also additionally report auditory hallucinations. HPI Comments History of Present Illness Details Documentation assistance for Wiley Pablo MD, was provided by Idris Wayne,? Waste Examiner on 04/29/2025 at 2:18 PM EST. I, Dr. Pablo, have read, observed, and verified documentation. [facility] Medical History Epilepsy History of gout Paroxysmal atrial fibrillation History of seizures History of CVA (cerebrovascular accident) White coat syndrome with diagnosis of hypertension Essential hypertension Diabetes type 2, controlled Surgical History No pertinent past surgical history Family History Father No problems noted. Mother No problems noted. Brother No problems noted. Sister No problems noted. Sister No problems noted. Social History Household Members: Other Housing: Other Do you presently have visiting nurse or other home services: No Alcohol intake: current Alcohol intake frequency: holidays/special occasions only Patient Tobacco Use Status: Never used Tobacco e-Cigarette/Vaping Use: Never Used Second Hand Smoke Exposure: No Advance Directives Date on File: 08/02/20 service: No Current occupational status: unemployed Current occupation: Patient does not want to answer Current occupational exposures/hazards: No Cognitive needs: No Hearing needs: No Vision needs: No Questionnaire Thrive Questionnaire Date Thrive assessed: 03/10/25 I am a: Patient What is your living situation today?: I choose not to answer this question Within the past 12 months, did the food you bought not last and you didn't have the money to get more?: I choose not to answer this question Within the past 12 months, did you worry whether your food would run out before you got money to buy more?: I choose not to answer this question Do you have trouble paying for medicines?: No Do you have trouble getting transportation to medical appointments?: No Do you have trouble paying your heating and electricity bill?: No Do you have trouble taking care of your child, family member or friend?: No Do you have trouble with day-to-day activities such as bathing, preparing meals, shopping, managing finances, etc.?: I choose not to answer this question Are you currently unemployed and looking for a job?: No Are you interested in more education?: No Please select the resources that you would like help with: None Currently or been in a relationship where the following occur: I choose not to answer THRIVE Score: 0 FRANC-7 AMB Questionnaire FRANC-7 Date FRANC - 7 assessed: 03/10/25 Source: Developed by Drs. Darien Higginbotham, Erin Vargas, Dony Arevalo and colleagues, with an educational otilia from [employer]. Review of Systems Const Denies chills, Denies fatigue, Denies fever(s), Denies headache(s) and Denies w eakness ENT Denies dizziness and Denies headache(s) Card Denies dyspnea Resp Denies cough, Denies dyspnea, Denies wheezing and Denies other (shortness of breath) Musc Denies numbness and Denies tingling Neuro Denies dizziness, Denies headache(s), Denies numbness, Denies tingling and Denies weakness Psych Reports anxiety and Reports depression Endo Denies fatigue Aller/Immun Denies wheezing Physical exam (Primary Care) Vital Signs: Last Vital Signs Temp 98.9 F 04/29/25 13:49 Pulse 85 04/29/25 13:49 Resp 14 04/29/25 13:49 BP 130/70 04/29/25 13:49 Pulse Ox 98 04/29/25 13:49 Oxygen Delivery Method Room Air 04/29/25 13:49 BMI result Body Mass Index 24.5 Tobacco/Smoking Status: Tobacco use Status Tobacco use date assessed 03/10/25 04/29/25 13:44 Patient Tobacco Use Status Never used Tobacco 04/29/25 13:44 e-Cigarette/Vaping Use Never Used 04/29/25 13:44 Thrive Assessment: Date of Thrive Assessment Date Thrive assessed 03/10/25 04/29/25 13:44 Currently or been in a relationship where the following occur: I choose not to answer Const General: well developed; No acute distress Nutritional Appearance: well nourished Orientation/consciousness: patient oriented x3 HENMT Head: Yes normocephalic and Yes atraumatic Eyes General: appearance normal, both eyes and all related structures Pupils: Equal, round and reactive pupils present EOM: EOMs intact bilaterally Resp Effort & Inspection: normal respiratory effort Auscultation: clear to auscultation bilaterally Cardio Rate: regular rate Rhythm: regular rhythm Heart sounds: S1 normal heart sound present, S2 normal heart sound present, no gallops, no murmurs and no rubs Neuro General: patient oriented x3 and No gait normal Cranial nerves: Yes Equal, round and reactive pupils present Psych Affect: normal affect Coding Level of Care Code Est Pt Level 4 (36386) Diagnoses Diabetes type 2, controlled E11.9 Essential hypertension I10 Mild anemia D64.9 Microalbuminuria R80.9 Lower extremity weakness R29.898 Unsteady gait R26.81 Auditory hallucinations R44.0 Anxiety with depression F41.8 Assessment & Plan Assessment & Plan (1) Diabetes type 2, controlled: Code(s): E11.9 - Type 2 diabetes mellitus without complications Category: Medical Plan: A1c with recent lab work was 6.5%. Good control. Goal is less than 7% Continue current medication (2) Essential hypertension: Code(s): I10 - Essential (primary) hypertension Category: Medical Plan: Blood pressure is fairly well controlled. Goal is less than 130/80 Continue current medications (3) Mild anemia: Code(s): D64.9 - Anemia, unspecified Category: Medical Plan: Improving Will continue to monitor (4) Microalbuminuria: Code(s): R80.9 - Proteinuria, unspecified Category: Medical Plan: Ongoing microalbuminuria He is on lisinopril History of diabetes and we discussed Januvia today which can be renal protective He says he will read about this (5) Lower extremity weakness: Code(s): R29.898 - Other symptoms and signs involving the musculoskeletal system Category: Medical Plan: Lower extremity weakness and unsteady gait History of falls History of CVA Referred for physical therapy (6) Unsteady gait: Code(s): R26.81 - Unsteadiness on feet Category: Medical Plan: As above Use cane Handicap placard (7) Auditory hallucinations: Code(s): R44.0 - Auditory hallucinations Category: Medical Plan: Patient with a history of CVA, epilepsy and anxiety/depression notes auditory hallucinations-hearing voices. Will refer to [facility] outpatient psychiatric consult team (8) Anxiety with depression: Code(s): F41.8 - Other specified anxiety disorders Category: Medical Plan: As above Plan Will get assistance with junior linux systems administrator at Assisted living as requested by patient Orders: Orders PT Evaluation and Treatment Today R26.81 - Unsteadiness on feet, R29.898 - Other symptoms and signs involving the musculoskeletal system, Z86.73 - Personal history of transient ischemic attack (TIA), and cerebral infarction without residual deficits, Z91.81 - History of falling Referrals Psychiatry Outpatient Consultation Service G40.909 - Epilepsy, unspecified, not intractable, without status epilepticus, R41.3 - Other amnesia, R44.0 - Auditory hallucinations, Z86.73 - Personal history of transient ischemic attack (TIA), and cerebral infarction without residual deficits
[2025-04-29 13:49] VITALS: BP 130/70; PULSE 85; RESP 14; TEMP 37.2; O2SAT 98; BMI 24.5
--- OUTSIDE RECORDS SUMMARY | 2025-04-29 13:51 | XMS_ITS | Encounter Summary ---
Author Organization [facility] Address [address] [place] [address] Care Team Providers Care Front Tender Name Role Phone Stevan Grubbs MD Primary Care Provider [phone] Declan Meneses MD Primary Care Provide r Unavailable Encounter Details Date Type Department Care Team Description 01/27/2017 Release of Information Medical Records [address] [place] [id number] Abstract, Provider Social History Tobacco Use Types [...] on filedocumented in this encounter Care Teams Front Tender Relationship Specialty Start Date End Date Stevan Grubbs MD [address] [place] [address] [id number] PCP - General Internal Medicine 09/27/16 03/23/19 Declan Meneses MD [address] [place] [id number] PCP - General Internal Medicine 03/24/19 documented as of this encounter
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
== END 2025-04-29 14:53 | disposition home or self-care (01) ==
LOC: HO.HMCFM 13:22
PROVIDERS: PCP Family Medicine; Visit Provider Family Medicine
DX: E11.9 Type 2 diabetes mellitus without complications (principal); I10 Essential (primary) hypertension; D64.9 Anemia, unspecified; R80.9 Proteinuria, unspecified; R29.898 Other symptoms and signs involving the musculoskeletal system; R26.81 Unsteadiness on feet; R44.0 Auditory hallucinations; F41.8 Other specified anxiety disorders

== ENCOUNTER → 2025-04-29 13:21 | Outpatient (BNVA) | payer MEDICARE, MEDICAID, SELFPAY | PROVIDERS: PCP Family Medicine; Visit Provider Family Medicine | DX: E11.9 Type 2 diabetes mellitus without complications (principal); I10 Essential (primary) hypertension; D64.9 Anemia, unspecified; R80.9 Proteinuria, unspecified; R29.898 Other symptoms and signs involving the musculoskeletal system; R26.81 Unsteadiness on feet; R44.0 Auditory hallucinations; F41.8 Other specified anxiety disorders | CPT/HCPCS: 99212 ==

== ENCOUNTER 2025-05-20 11:09 | Outpatient (REF) | payer MEDICARE, MEDICAID, SELFPAY ==
--- NOTE | ~2025-05-20 | US_ITS ---
EXAMINATION: US RETROPERITONEUM HISTORY: R97.20 - Elevated prostate specific antigen [PSA] TECHNIQUE: Real-time grayscale ultrasound imaging of the kidneys was performed and images were reviewed. COMPARISON: There are no prior studies available for comparison. FINDINGS: Right kidney: The right kidney measures 10.8 x 5.8 x 4.9 cm. Renal parenchymal echotexture and thickness are normal. There is a 7 x 5 x 8 mm cyst at the upper pole. There is a 2 mm nonobstructing calculus in the interpolar region. There is no hydronephrosis. Left Kidney: The left kidney measures 10.8 x 5.1 x 4.2 cm. Renal parenchymal echotexture and thickness are normal. There are no masses. There is no hydronephrosis or renal calculi. The urinary bladder is unremarkable. Bilateral ureteral jets are identified. Before voiding, the urinary bladder measured 10.0 x 7.5 x 8.4 cm, for an estimated volume of 327 mL. There is no significant change after the patient voided. The prostate measures 3.9 x 3.9 x 4.3 cm, for an estimated volume of 34.3 mL. US/US retroperitoneal comp IMPRESSION: 1. 2 mm nonobstructing right renal calculus. 2. Post void bladder residual of 327 mL. 3. Prostate volume of 34.3 mL. Electronically signed by: Darien Rogers MD 05/20/2025 12:01 PM EDT
== END 2025-05-20 11:10 | disposition home or self-care (01) ==
LOC: HO.US 11:09
PROVIDERS: PCP Family Medicine; Visit Provider Urology
DX: R97.20 Elevated prostate specific antigen [PSA] (principal); Z87.438 Personal history of other diseases of male genital organs
CPT/HCPCS: 76770

== ENCOUNTER → 2025-05-20 11:10 | Outpatient (BNV) | payer MEDICARE, MEDICAID, SELFPAY | PROVIDERS: PCP Family Medicine; Visit Provider Radiology Diagnostic Radiology | DX: N20.0 Calculus of kidney (principal) | CPT/HCPCS: 76770 ==

== ENCOUNTER 2025-05-21 19:39 | Emergency (ER) | payer MEDICARE, MEDICAID, SELFPAY ==
--- NOTE | ~2025-05-21 | CT_ITS ---
CLINICAL HISTORY: fall CT cervical spine without contrast Comparison: CT/SR - CT CERVICAL SPINE WITHOUT IV CONTRAST - 07/18/24 23:31 EDT Findings: Vertebral alignment is within normal limits. Multilevel degenerative changes. No acute fractures or dislocations. Partial opacification of the left mastoid air cells. Bilateral carotid atherosclerosis. Subarachnoid hemorrhage in the ambient cistern. No consolidation or effusion at the lung apices. IMPRESSION: No acute fracture or dislocation of the cervical spine. Subarachnoid hemorrhage in the ambient cistern. This document has been electronically signed by: Rosina Rodríguez MD on 05/21/2025 21:27:33
--- NOTE | ~2025-05-21 | CT_ITS ---
CLINICAL HISTORY: fall CT head without contrast Comparison: CT/MD/SR - CT HEAD/BRAIN WO IV CON - 03/02/25 14:57 EDT Findings: Subarachnoid hemorrhage in the ambient cistern, left temporal lobe and right frontal lobe. Small subcortical parenchymal hematomas in the left frontal lobe. No significant mass effect or hydrocephalus. Diffuse volume loss. Periventricular and subcortical white matter hypoattenuation likely chronic small-vessel ischemic changes. Intracranial atherosclerosis. Mucous retention cysts in the left maxillary sinus. The orbits are unremarkable. There is no acute fracture. IMPRESSION: 1. Subarachnoid hemorrhage in the ambient cistern, left temporal lobe and right frontal lobe 2. Small subcortical parenchymal hematomas in the left frontal lobe 3. No significant mass effect or hydrocephalus This document has been electronically signed by: Rosina Rodríguez MD on 05/21/2025 21:20:27
[2025-05-21 19:53] VITALS: BP 139/69; PULSE 102; RESP 25; TEMP 36.6; O2SAT 95
[2025-05-21 19:55] VITALS: BP 180/90; PULSE 140; O2SAT 99; BMI 23.3
--- NOTE | 2025-05-21 19:57 | ECG_ITS ---
Test Reason : SYNCOPE Blood Pressure : */* mmHG Vent. Rate : 119 BPM Atrial Rate : 119 BPM P-R Int : 186 ms QRS Dur : 82 ms QT Int : 314 ms P-R-T Axes : 74 55 90 degrees QTcB Int : 441 ms Sinus tachycardia Nonspecific T wave abnormality Abnormal ECG When compared with ECG of 02-Mar-2025 12:51, No significant change was found Referred By: Richard Johns Electronically Signed By: CHRISTIANNE COVARRUBIAS
[2025-05-21 19:59] VITALS: BP 135/73; PULSE 100; RESP 17; TEMP 36.8; O2SAT 95
--- NOTE | 2025-05-21 20:11 | ED.SEIZURE ---
HPI - Seizure General Chief Complaint: Fall Stated Complaint: fdLL, HX SEIZURES, TBI , CURRENTLY COLLERED Time Seen by Provider: 05/21/25 19:53 Source: patient and EMS Mode of arrival: EMS Limitations: no limitations History of Present Illness ED Provider: HPI Narrative: Patient is 69 years old with history of hypertension, hyperlipidemia, diabetes and paroxysmal atrial fibrillation on Eliquis, seizure on Keppra, history of CVA comes here as patient had a witnessed seizure and a fall prior to arrival which lasted for 1 minute patient was was the staff started having seizure and patient fell down hitting his head to the ground while coming by the EMS on the way patient on have another seizure which lasted about 20 seconds patient was postictal awake on arrival speaking full sentences denies any headache patient took his Eliquis earlier today in a.m. no nausea no vomiting Related Data Home Medications ?Medication ?Instructions ?Recorded ?Confirmed lancets 28 gauge #100 ea 08/02/20 04/29/25 lisinopril 40 mg tablet 40 mg PO BEDTIME 07/19/24 04/29/25 Previous Rx's ?Medication ?Instructions ?Recorded blood-glucose meter (FreeStyle #1 ea 03/26/22 Lite Meter kit) miscellaneous medical supply #1 ea 01/02/24 carvedilol 6.25 mg tablet 6.25 mg PO BIDWM #180 tabs 08/10/24 levetiracetam 500 mg tablet 500 mg PO BEDTIME 90 days #90 tabs 08/19/24 apixaban 5 mg tablet (Eliquis) 5 mg PO BID 90 days #180 tabs 10/13/24 allopurinol 100 mg tablet 100 mg PO DAILY 90 days #90 tabs 12/03/24 ezetimibe 10 mg tablet (Zetia) 10 mg PO DAILY 90 days #90 tabs 12/03/24 acetaminophen 500 mg tablet 1,000 mg (2 x 500 mg) PO .Q8 PRN 12/06/24 pain 30 days #180 tabs finasteride 5 mg tablet (Proscar) 5 mg PO DAILY #90 tabs 02/26/25 metformin 500 mg tablet 250 mg (1/2 x 500 mg) PO DAILY 30 03/05/25 days #15 tabs cane #1 ea 03/10/25 lacosamide 50 mg tablet 50 mg PO DAILY 90 days #90 tabs 03/22/25 hydrochlorothiazide 25 mg tablet 25 mg PO DAILY 90 days #90 tabs 03/30/25 omega 6-kve-yyd-fish oil 1,000 mg 1 cap PO BEDTIME 30 days #30 caps 03/30/25 (120 mg-180 mg) capsule spironolactone 25 mg tablet 25 mg PO DAILY 30 days #30 tabs 03/30/25 blood sugar diagnostic (FreeStyle #50 ea 04/12/25 Lite Strips) levetiracetam 250 mg tablet 750 mg (3 x 250 mg) PO DAILY 90 04/12/25 days #270 tabs nifedipine 60 mg tablet,extended 60 mg PO BID #60 tabs 04/12/25 release Allergies Allergy/AdvReac Type Severity Reaction Status Date / Time No Known Allergies (No Known Allergy Verified 05/21/25 19:59 Allergies*) Review of Systems Review of Systems: Yes all other systems are reviewed and are negative [facility] Past Medical History Medical History Epilepsy History of gout Paroxysmal atrial fibrillation History of seizures History of CVA (cerebrovascular accident) White coat syndrome with diagnosis of hypertension Essential hypertension Diabetes type 2, controlled Surgical History No pertinent past surgical history Family History Family History Father No problems noted. Mother No problems noted. Brother No problems noted. Sister No problems noted. Sister No problems noted. Social History Social History Household Members: Other Housing: Other Do you presently have visiting nurse or other home services: No Alcohol intake: current Alcohol intake frequency: does not drink Patient Tobacco Use Status: Never used Tobacco Smoked in Last 30 Days: No e-Cigarette/Vaping Use: Never Used Second Hand Smoke Exposure: No Use of substances other than those prescribed or required for medical reasons: No Advance Directives: Yes Advance Directives on File: Yes Advance Directives Date on File: 08/02/20 service: No Current occupational status: unemployed Current occupation: Patient does not want to answer Current occupational exposures/hazards: No Cognitive needs: No Hearing needs: No Vision needs: No Physical Exam Vital Signs: Vital Signs: Last Vital Signs Temp 97.8 F 05/22/25 00:56 Pulse 99 05/22/25 00:56 Resp 17 05/22/25 00:56 BP 140/72 H 05/22/25 00:56 Pulse Ox 97 05/22/25 00:56 O2 Del Method Room Air 05/22/25 00:56 BMI result Body Mass Index 23.3 Appearance: Alert. Oriented X3. No acute distress. Eyes: PERRLA, No Nystagmus ENT: Pharynx normal. Oral Mucosa moist Neck: Normal inspection. Neck supple. CVS: Normal heart rate and rhythm. Pulses normal. Respiratory: No respiratory distress. Equal air entry bilateral, no wheezing/rales/rhonchi Abdomen: Soft and nontender. Bowel sounds are present, no mass palpable, no CVA tenderness Skin: Skin warm and dry. Normal skin color. Normal skin turgor. Extremities: No lower extremity edema. No calf tenderness Neuro: Oriented X 3. No motor deficit. No sensory deficit.No cerebellar signs , cranial nerves II-XII intact GCS 15 Medications Administered Discontinued Medications Generic Name Dose Route Start Last Admin Trade Name Freq PRN Reason Stop Dose Admin Sodium Chloride 1,000 mls @ 999 mls/hr 05/21/25 19:56 05/21/25 21:38 Ns IV 05/21/25 20:56 Infused .Q1H1M ONE Infusion Levetiracetam 1,000 mg in 100 mls @ 400 mls/hr 05/21/25 19:58 05/21/25 21:05 Keppra IV 05/21/25 20:12 Infused ONCE ONE Infusion Medical Decision Making Medical Decision Making [facility] Narrative: Patient's history of seizure disorder paroxysmal AFib on Eliquis had a seizure and fall CT scan of the head showed subarachnoid bleed in Ambien cistern left temporal lobe and right frontal also had small subcortical parenchymal hematomas in left frontal lobe patient's GCS 15 had Eliquis more than 12 hours ago case discussed with [facility] Dr. Solares accepted the patient for transfer. After arrival patient was given 1 g of IV Keppra Differential Diagnosis Differential Diagnoses: The differential diagnosis associated with the presentation includes Admission/Observation Consideration of admission/observation: Escalation of care including admission/observation considered Lab Data [facility] Lab Attestation statement: I reviewed the patient's lab results. 05/21/25 20:12 05/21/25 20:12 Labs: Lab Results 05/21/25 05/21/25 Range/Units 20:12 22:06 WBC 8.2 (4.8-10.8) X10*3/uL RBC 3.62 L (4.60-5.80) X10*6/uL Hgb 11.3 L (14.0-18.0) g/dl Hct 31.9 L (42.0-52.0) % MCV 88.1 (80.0-98.0) fL MCH 31.2 (27.0-33.0) pg MCHC 35.4 (31.0-36.0) g/dl RDW 12.9 (11.0-16.0) % Plt Count 217 (160-400) X10*3/uL MPV 9.6 (9.4-12.4) fL Immature Gran % (Auto) 0.2 (0.0-0.4) % Neut % (Auto) 58.4 (45-73) % Lymph % (Auto) 30.1 (20-40) % [place] % (Auto) 9.2 (2-11) % Eos % (Auto) 1.7 (0-4) % Baso % (Auto) 0.4 (0-2) % Lymph # (Auto) 2.5 (1.2-4.9) X10*3/uL [place] # (Auto) 0.8 (0.1-1.2) X10*3/uL Eos # (Auto) 0.1 (0.0-0.4) X10*3/uL Baso # (Auto) 0.0 (0.0-0.2) X10*3/uL Abs Immat Gran (auto) 0.02 (0.00-0.03) X10*3/uL Absolute Neuts (auto) 4.8 (2.0-8.3) x10*3/uL Absolute Nucleated RBC 0.000 (0.0-0.012) X10*3/uL Nucleated RBC % (auto) 0.0 (0.0-0.2) /100WBC PT 11.7 D (10.9-12.4) SEC INR 1.0 (0.9-1.1) APTT 33.8 (26.7-34.1) SEC Sodium 139 (135-145) mmol/L Potassium 3.5 (3.3-5.1) mmol/L Chloride 104 (96-108) mmol/L Carbon Dioxide 25 (22-29) mmol/L Anion Gap 14 (12-20) BUN 22 H (9-16) mg/dL Creatinine 1.08 (0.5-1.4) mg/dL Estim Creat Clear Calc 65.4 Estimated GFR > 60 Random Glucose 186 H (60-115) mg/dL Calcium 9.5 D (8.4-10.2) mg/dL Total Bilirubin 0.2 (0.0-1.0) mg/dL AST 18 (5-37) U/L ALT 16 (0-40) U/L Alkaline Phosphatase 86 (39-117) U/L Troponin I High Sens < 2.7 (<3.5-35.0) ng/L Total Protein 7.2 (6.5-8.0) g/dL Albumin 4.6 (3.5-5.0) g/dL Independent Interpretation I performed an independent interpretation of an: CT Scan Radiology Impression Discussion of test interpretation with radiology: I have reviewed the radiologist's reading. Radiologist Impression: [place] [id number] CT Scan Report Signed with Desi Patient: Amrik Bateman MR#: [id number] : 1955 Acct:[id number] Age/Sex: 69 / M ADM Date: 05/21/25 Loc: HO.ED Attending Dr: Ordering Physician: Richard Johns MD Date of Service: 05/21/25 Procedure(s): CT head/brain wo IV con Accession Number(s): [id number] cc: Wiley Pablo MD; Richard Johns MD~ Report Number: [id number]: Total DLP = 1028.00 mGy-cm ADDENDUMThis document has been electronically signed by: Rosina Rodríguez MD on 05/21/2025 21:20:27 ADDENDUM: This report was discussed with Dr. Johns on May 21, 2025 21:29:00 EDT. This document has been electronically signed by: Perlita Valencia on 05/21/2025 21:30:24 Addendum Dictated By: Rosina Rodríguez MD Addendum Signed By: <Electronically signed by Rosina Rodríguez MD in OV> 05/21/252130 Addendum Cosigned By: DD/ /07/2120 TD/TT: 05/21/2506/07/2130 CLINICAL HISTORY: fall CT head without contrast Comparison: CT/VT/SR - CT HEAD/BRAIN WO IV CON - 03/02/25 14:57 EDT Findings: Subarachnoid hemorrhage in the ambient cistern, left temporal lobe and right frontal lobe. Small subcortical parenchymal hematomas in the left frontal lobe. No significant mass effect or hydrocephalus. Diffuse volume loss. Periventricular and subcortical white matter hypoattenuation likely chronic small-vessel ischemic changes. Intracranial atherosclerosis. Mucous retention cysts in the left maxillary sinus. The orbits are unremarkable. There is no acute fracture. IMPRESSION: 1. Subarachnoid hemorrhage in the ambient cistern, left temporal lobe and right frontal lobe 2. Small subcortical parenchymal hematomas in the left frontal lobe 3. No significant mass effect or hydrocephalus No acute fracture or dislocation of the cervical spine. Subarachnoid hemorrhage in the ambient cistern. Critical Care Time Critical Care Time Critical Care Time: Yes Total Critical Care Time: 65 Attestation: Time is exclusive of separately billable procedures. Time includes: direct patient care, patient reassessment, coordination of patient care, interpretation of data (laboratory data, pulse oximetry, arterial blood gases and chest xrays), review of patient's medical records, medical consultation and documentation of patient care. Procedures excluded from critical care time: central intravenous line placement and electrocardiography. Discharge Plan Discharge Clinical Impression: Seizure disorder, Subarachnoid bleed [facility]: [facility] Transfer Details: [facility] Dr. Solares Prescriptions: No Action (DME) blood-glucose meter [FreeStyle Lite Meter] Kit See Rx Instructions .ROUTE .MEDSUPPLY Qty: 1 0RF Rx Instructions: As directed (DME) miscellaneous medical supply Misc See Rx Instructions .ROUTE .MEDSUPPLY Qty: 1 0RF Rx Instructions: Diabetic Shoes, Daily As directed, 999 days carvedilol 6.25 mg tablet 6.25 mg PO BIDWM Qty: 180 3RF Rx Instructions: must administer with a meal/food levetiracetam 500 mg tablet 500 mg PO BEDTIME 90 Days Qty: 90 2RF Rx Instructions: replaces prior dose of 250 mg Eliquis 5 mg tablet 5 mg PO BID 90 Days Qty: 180 2RF acetaminophen 500 mg tablet 1,000 mg PO .Q8 PRN (Reason: pain) 30 Days Qty: 180 3RF metformin 500 mg tablet 250 mg PO DAILY 30 Days Qty: 15 3RF lacosamide 50 mg tablet 50 mg PO DAILY 90 Days Qty: 90 2RF Rx Instructions: Take in evening hydrochlorothiazide 25 mg tablet 25 mg PO DAILY 90 Days Qty: 90 3RF omega 2-ilg-yxk-fish oil 1,000 (120-180) mg capsule 1 cap PO BEDTIME 30 Days Qty: 30 1RF spironolactone 25 mg tablet 25 mg PO DAILY 30 Days Qty: 30 2RF levetiracetam 250 mg tablet 750 mg PO DAILY 90 Days Qty: 270 2RF nifedipine 60 mg tablet extended release 60 mg PO BID Qty: 60 0RF Rx Instructions: Take one tablet in the morning and one tablet in the evening, without food. (DME) FreeStyle Lite Strips Strip See Rx Instructions .ROUTE .MEDSUPPLY Qty: 50 11RF Rx Instructions: check blood sugar daily and daily prn lisinopril 40 mg tablet 40 mg PO BEDTIME (DME) lancets 28 gauge misc See Rx Instructions topical DAILY Qty: 100 Rx Instructions: As directed finasteride [Proscar] 5 mg tablet 5 mg PO DAILY Qty: 90 3RF (DME) cane Device See Rx Instructions .Route Qty: 1 0RF Rx Instructions: As directed, 999 allopurinol 100 mg tablet 100 mg PO DAILY 90 Days Qty: 90 2RF ezetimibe [Zetia] 10 mg tablet 10 mg PO DAILY 90 Days Qty: 90 2RF Interventions: Acute Care Transfer Worksheet (ED) Last Done: 05/22/25 00:56 Discharge Date/Time: 05/22/25 01:07 Print Language: Nepali
[2025-05-21 20:14] VITALS: BP 144/80; PULSE 121; RESP 22; TEMP 36.9; O2SAT 98
[2025-05-21 20:17] LABS: Hematocrit 31.9 % (42.0-52.0); Hemoglobin 11.3 g/dl (14.0-18.0); Imm Gran Abs Auto 0.02 X10*3/uL (0.00-0.03); Imm Gran Pct Auto 0.2 % (0.0-0.4); Lymphocytes Absolute Auto 2.5 X10*3/uL (1.2-4.9); MANUAL DIFF FLAG NO; Mean Corpuscular HGB Conc 35.4 g/dl (31.0-36.0); Mean Corpuscular Hemoglobin 31.2 pg (27.0-33.0); Mean Corpuscular Volume 88.1 fL (80.0-98.0); NRBC Abs Auto 0.000 X10*3/uL (0.0-0.012); NRBC Pct Auto 0.0 /100WBC (0.0-0.2); Platelet Count 217 X10*3/uL (160-400); Red Blood Count 3.62 X10*6/uL (4.60-5.80); White Blood Count 8.2 X10*3/uL (4.8-10.8)
[2025-05-21] MEDS: levETIRAcetam in NaCl (iso-os) 1,000 MG/100 ML PIGGYBACK 400 MG IV (20:17)
[2025-05-21 20:31] LABS: Alanine Aminotransferase 16 U/L (0-40); Albumin Level 4.6 g/dL (3.5-5.0); Alkaline Phosphatase 86 U/L (39-117); Anion Gap 14 (12-20); Aspartate Amino Transferase 18 U/L (5-37); Blood Urea Nitrogen 22 mg/dL (9-16); Calcium 9.5 mg/dL (8.4-10.2); Carbon Dioxide 25 mmol/L (22-29); Chloride 104 mmol/L (96-108); Creatinine Clr Calc Pharmacy 65.4; Estimated Glomerular Filt Rate > 60; Potassium 3.5 mmol/L (3.3-5.1); Sodium 139 mmol/L (135-145); Total Protein 7.2 g/dL (6.5-8.0)
[2025-05-21 21:13] LABS: Troponin-I High Sensitivity < 2.7 ng/L (<3.5-35.0)
[2025-05-21 21:38] VITALS: BP 139/69; PULSE 103; RESP 20; TEMP 36.6; O2SAT 94
--- NOTE | 2025-05-21 21:42 | PC.NURSE ---
senior living staff at bedside reporting pt had a seizure and then had a fall.
[2025-05-21 22:01] VITALS: BP 142/73; PULSE 114; RESP 16; TEMP 36.6; O2SAT 97
[2025-05-21 22:23] LABS: INTERNATIONAL NORM RATIO 1.0 (0.9-1.1); Prothrombin Time 11.7 SEC (10.9-12.4)
[2025-05-21 22:26] LABS: Partial Thromboplastin Time 33.8 SEC (26.7-34.1)
[2025-05-22 00:56] VITALS: BP 140/72; PULSE 99; RESP 17; TEMP 36.6; O2SAT 97
--- NOTE | 2025-05-22 01:05 | PC.NURSE ---
nurse to nurse report called to Ike DUNCAN at [facility]
== END 2025-05-22 01:07 | disposition short-term general hospital (02) ==
PROVIDERS: Emergency Provider Internal Medicine; PCP Family Medicine
DX: S06.6XAA Traumatic subarachnoid hemorrhage with loss of consciousness status unknown, initial encounter (principal); W19.XXXA Unspecified fall, initial encounter; Y93.9 Activity, unspecified; Y92.9 Unspecified place or not applicable; Y99.9 Unspecified external cause status; G40.909 Epilepsy, unspecified, not intractable, without status epilepticus; R55 Syncope and collapse; I10 Essential (primary) hypertension; E11.9 Type 2 diabetes mellitus without complications; I48.0 Paroxysmal atrial fibrillation; Z79.01 Long term (current) use of anticoagulants; Z79.899 Other long term (current) drug therapy
CPT/HCPCS: 36415; 70450; 72125; 80053; 84484; 85025; 85610; 85730; 93005; 96361; 96374; 99285; 99291; J1953

== ENCOUNTER → 2025-05-21 19:57 | Outpatient (BNV) | payer MEDICARE, MEDICAID, SELFPAY | PROVIDERS: Emergency Provider Internal Medicine; PCP Family Medicine; Visit Provider Internal Medicine | DX: R00.0 Tachycardia, unspecified (principal); R94.31 Abnormal electrocardiogram [ECG] [EKG] | CPT/HCPCS: 93010 ==

== ENCOUNTER → 2025-05-21 19:57 | Outpatient (BNV) | payer MEDICARE, MEDICAID, SELFPAY | PROVIDERS: Emergency Provider Internal Medicine; PCP Family Medicine; Visit Provider Radiology Diagnostic Radiology | DX: I60.8 Other nontraumatic subarachnoid hemorrhage (principal) | CPT/HCPCS: 70450; 72125 ==

== ENCOUNTER 2025-06-22 09:24 | Outpatient (REF) | payer MEDICARE, MEDICAID, SELFPAY ==
[2025-06-22 11:21] LABS: MANUAL DIFF FLAG NO
[2025-06-22 11:34] LABS: Hematocrit 33.3 % (42.0-52.0); Hemoglobin 11.1 g/dl (14.0-18.0); Imm Gran Abs Auto 0.03 X10*3/uL (0.00-0.03); Imm Gran Pct Auto 0.4 % (0.0-0.4); Lymphocytes Absolute Auto 2.2 X10*3/uL (1.2-4.9); Mean Corpuscular HGB Conc 33.3 g/dl (31.0-36.0); Mean Corpuscular Hemoglobin 30.8 pg (27.0-33.0); Mean Corpuscular Volume 92.5 fL (80.0-98.0); NRBC Abs Auto 0.000 X10*3/uL (0.0-0.012); NRBC Pct Auto 0.0 /100WBC (0.0-0.2); Platelet Count 226 X10*3/uL (160-400); Red Blood Count 3.60 X10*6/uL (4.60-5.80); White Blood Count 7.3 X10*3/uL (4.8-10.8)
[2025-06-22 11:52] LABS: Alanine Aminotransferase 10 U/L (0-40); Albumin Level 4.6 g/dL (3.5-5.0); Alkaline Phosphatase 65 U/L (39-117); Anion Gap 13 (12-20); Aspartate Amino Transferase 18 U/L (5-37); Blood Urea Nitrogen 21 mg/dL (9-16); Calcium 10.7 mg/dL (8.4-10.2); Carbon Dioxide 28 mmol/L (22-29); Chloride 106 mmol/L (96-108); Cholesterol 176 mg/dL (<200); Estimated Glomerular Filt Rate > 60; HDL Cholesterol 43 mg/dL (>40); Potassium 4.6 mmol/L (3.3-5.1); Sodium 142 mmol/L (135-145); Total Protein 7.3 g/dL (6.5-8.0); Triglycerides 79 mg/dL (<150)
[2025-06-22 14:49] LABS: Appearance Urine Clear; Glucose Urine UA Negative (Negative); PH 6.0 (5.0-9.0); Specific Gravity - Urine 1.015 (1.005-1.025)
[2025-06-22 15:20] LABS: Microalbum/Creatinine Ratio Ur 17.7 ug/mg cr (<30)
== END 2025-06-22 09:25 | disposition home or self-care (01) ==
LOC: HO.WFDLDS 09:24
PROVIDERS: Visit Provider Family Medicine
DX: Z00.00 Encounter for general adult medical examination without abnormal findings (principal); I10 Essential (primary) hypertension; Z12.5 Encounter for screening for malignant neoplasm of prostate
CPT/HCPCS: 36415; 80053; 80061; 81003; 82043; 82570; 84153; 84443; 85025

== ENCOUNTER 2025-06-22 11:10 | Emergency (ER) | payer MEDICARE, MEDICAID, SELFPAY ==
--- NOTE | ~2025-06-22 | CT_ITS ---
EXAMINATION: CT HEAD WITHOUT IV CONTRAST HISTORY: fall with head strike hx bleed. TECHNIQUE: Unenhanced helical CT of the head was performed per standard departmental protocol. Coronal and sagittal reformats of the head were also evaluated. One or more of the following techniques was used for dose reduction: Automated exposure control, adjustment of the mA and/or kV according to patient size, use of iterative reconstruction technique. DLP: 745 mGy-cm COMPARISON: Comparison is made with the prior examination dated 05/21/2025. FINDINGS: BRAIN: There is diffuse prominence of the ventricular system and cortical sulci, consistent with atrophy. Periventricular and subcortical white matter hypodensities are noted which are nonspecific, but often seen in the setting of small vessel ischemic disease. There is a small acute left-sided frontoparietal subdural hematoma measuring up to 8mm in thickness. There is no mass effect or midline shift. The previously seen subarachnoid hemorrhage has resolved. SINUSES: The visualized paranasal sinuses are clear. The mastoid air cells and middle ear cavities are well pneumatized. ORBITS: The visualized orbits are unremarkable. BONES/SOFT TISSUES: The extracranial soft tissues are unremarkable. The calvarium is intact. No suspicious lytic or sclerotic lesions. CT/CT head/brain wo IV con IMPRESSION: Small acute left frontoparietal subdural hematoma as described. These findings were discussed with Aline Chavez in the emergency room on 06/22/2025 at 12:17 PM. Electronically signed by: Darien Rogers MD 06/22/2025 12:17 PM EDT
--- NOTE | ~2025-06-22 | CT_ITS ---
EXAMINATION: CT CERVICAL SPINE WITHOUT CONTRAST CLINICAL INFORMATION: Fall, head trauma COMPARISON: May 21, 2025 TECHNIQUE: Axial imaging was performed from the base of the skull through T2 without IV contrast. Coronal and sagittal reformatted images were generated from the original axial data set. ALARA: The examination used one or more of the following radiation dose reduction techniques: Automated exposure control, iterative reconstruction, and/or adjustment of mA and/or KV. DLP: 304 mGY*cm FINDINGS: No fracture lines are identified. There is uhml-so-nuauraxv disc space during, endplate osteophytes, endplate sclerosis, uncovertebral and facet osteophytes and sclerosis, most pronounced in the cervical spine between C2-3 and C5-6. Additionally, disc osteophyte complex extends into the left subarticular zone at C3-4. There is no prevertebral soft tissue edema. CT/CT cervical spine wo IV con IMPRESSION: No acute fracture. Moderate degenerative disc disease with vertebral and facet osteoarthritis with focal disc osteophyte complex in the left subarticular zone at C3-4, unchanged. Electronically signed by: Daniel Goins MD 06/22/2025 12:19 PM EDT
[2025-06-22 11:18] VITALS: BP 146/76; PULSE 104; O2SAT 97
[2025-06-22 11:20] VITALS: BP 152/80; PULSE 100; RESP 18; TEMP 36.8; O2SAT 98; BMI 24.2
--- NOTE | 2025-06-22 11:28 | ED.FALL ---
HPI - Fall General Chief Complaint: Fall Stated Complaint: FALL WITH HEADSTRIKE Time Seen by Provider: 06/22/25 11:28 Source: patient Mode of arrival: ambulatory Limitations: no limitations History of Present Illness ED Provider: ALINE CHAVEZ PA-C HPI Narrative: 69 year old male with pmhx significant for TBI, DM, seizures on keppra, GERD, HN, hyperkalemia, afib no longer on Eliquis, etoh abuse, recent subarachnoid bleed (05/21/25) presents to the ED today via EMS from [facility] following an unwitnessed fall. Patient reports having routine blood work done at his facility this morning. Upon returning to his room, he felt faint which he attributed to not eating this morning prior to blood work. Reports falling off of his ottomon in his room. It is unclear whether or not he lost consciousness. Caregiver at bedside states she heard a thud in his room and immediately entered. States patient was awake and alert on the floor. States he was down for approximately a few seconds. Patient reports left posterior head strike on a table in his room. Upon EMS arrival, patient was placed in a cervical collar and transported to ED for further evaluation. At present, patient only endorses discomfort from cervical collar. Denies joint pain, headache, neck pain, back pain, vision changes. Related Data Home Medications ?Medication ?Instructions ?Recorded ?Confirmed lancets 28 gauge #100 ea 08/02/20 04/29/25 Previous Rx's ?Medication ?Instructions ?Recorded blood-glucose meter (FreeStyle #1 ea 03/26/22 Lite Meter kit) miscellaneous medical supply #1 ea 01/02/24 carvedilol 6.25 mg tablet 6.25 mg PO BIDWM #180 tabs 08/10/24 levetiracetam 500 mg tablet 500 mg PO BEDTIME 90 days #90 tabs 08/19/24 apixaban 5 mg tablet (Eliquis) 5 mg PO BID 90 days #180 tabs 10/13/24 allopurinol 100 mg tablet 100 mg PO DAILY 90 days #90 tabs 12/03/24 ezetimibe 10 mg tablet (Zetia) 10 mg PO DAILY 90 days #90 tabs 12/03/24 acetaminophen 500 mg tablet 1,000 mg (2 x 500 mg) PO .Q8 PRN 12/06/24 pain 30 days #180 tabs finasteride 5 mg tablet (Proscar) 5 mg PO DAILY #90 tabs 02/26/25 cane #1 ea 03/10/25 lacosamide 50 mg tablet 50 mg PO DAILY 90 days #90 tabs 03/22/25 hydrochlorothiazide 25 mg tablet 25 mg PO DAILY 90 days #90 tabs 03/30/25 spironolactone 25 mg tablet 25 mg PO DAILY 30 days #30 tabs 03/30/25 blood sugar diagnostic (FreeStyle #50 ea 04/12/25 Lite Strips) levetiracetam 250 mg tablet 750 mg (3 x 250 mg) PO DAILY 90 04/12/25 days #270 tabs lisinopril 40 mg tablet 40 mg PO BEDTIME #90 tabs 06/09/25 metformin 500 mg tablet 250 mg (1/2 x 500 mg) PO DAILY 30 06/10/25 days #15 tabs omega 1-zcl-vmk-fish oil 1,000 mg 1 cap PO BEDTIME 30 days #30 caps 06/10/25 (120 mg-180 mg) capsule nifedipine 60 mg tablet,extended 60 mg PO BID #60 tabs 06/12/25 release Allergies Allergy/AdvReac Type Severity Reaction Status Date / Time No Known Allergies (No Known Allergy Verified 06/22/25 11:22 Allergies*) Review of Systems Review of Systems: Yes all other systems are reviewed and are negative [facility] Past Medical History Attestation statement: The following information was validated with the patient. Source: old records reviewed and nursing notes reviewed Medical History Epilepsy History of gout Paroxysmal atrial fibrillation History of seizures History of CVA (cerebrovascular accident) White coat syndrome with diagnosis of hypertension Essential hypertension Diabetes type 2, controlled Surgical History No pertinent past surgical history Family History Family History Father No problems noted. Mother No problems noted. Brother No problems noted. Sister No problems noted. Sister No problems noted. Social History Social History Household Members: Other Housing: Other Do you presently have visiting nurse or other home services: No Alcohol intake: current Alcohol intake frequency: does not drink Patient Tobacco Use Status: Never used Tobacco e-Cigarette/Vaping Use: Never Used Second Hand Smoke Exposure: No Use of substances other than those prescribed or required for medical reasons: No Advance Directives Date on File: 08/02/20 Do you have a plan to hurt others: No Plan service: No Current occupational status: unemployed Current occupation: Patient does not want to answer Current occupational exposures/hazards: No Cognitive needs: No Hearing needs: No Vision needs: No Physical Exam Vital Signs: Vital Signs: Last Vital Signs Temp 97.9 F 06/22/25 12:00 Pulse 97 06/22/25 12:00 Resp 16 06/22/25 12:00 BP 157/82 H 06/22/25 12:00 Pulse Ox 99 06/22/25 12:00 O2 Del Method Room Air 06/22/25 12:00 BMI result Body Mass Index 24.2 hypertensive, vitals are otherwise wnl General: Well appearing, in no acute distress. Skin: Warm, dry, intact. No rashes or lesions. Head: small hematoma noted to left posterior scalp w/ overlying abrasion EENT: Hearing is intact b/l. Conjunctiva clear. PERRLA. EOM intact. Moist mucous membranes.? Neck: in cervical collar Cardiac: Chest wall symmetric. RRR Lungs: Normal respiratory effort without accessory muscle use. CTA bilaterally Abdomen: Soft, non-tender, non-distended. No rebound tenderness or guarding Ext: Upper and lower extremities atraumatic, without tenderness, deformity, swelling or erythema Neuro: GCS 15. AOx3. Normal speech. Strength 5/5 intact throughout.Sensation intact to light touch. NV intact distally. ambulation not assess as patient is in cervical collar. ambulates w/ cane at baseline. Psych: Appropriate mood and affect. Responds appropriately to questions. Course Course Course Narrative: 1220 -- CT head shows small acute left frontoparietal subdural hematoma. No mass effect or midline shift. Patient and SET UP AND LAY OUT INSPECTOR at bedside made aware. Call out to [facility] trauma. 1230 -- Spoke with trauma physician Dr. Dominguez who has accepted transfer for [facility] ED for trauma consult. Patient and SET UP AND LAY OUT INSPECTOR agreeable w/ transfer. stable at this time. > CBC without leukocytosis. H and H around baseline and above transfusion threshold. Chemistry without acute electrolyte abnormality requiring intervention. Renal function around baseline. Random glucose 274 without gap. Troponin undetectable. Liver function at baseline. EKG showing sinus tachycardia at a rate of 101 beats per minute, first-degree AV block. No acute ischemic changes or ST elevations. Medical Decision Making Medical Decision Making [facility] Narrative: 69 year old male with pmhx significant for TBI, DM, seizures on keppra, GERD, HN, hyperkalemia, afib no longer on Eliquis, etoh abuse, recent subarachnoid bleed (05/21/25) presents to the ED today via EMS from [facility] following an unwitnessed fall. Patient is hypertensive, vitals are otherwise WNL. Patient is well appearing, GCS 15, exam nonfocal, PERRLA, there is a small hematoma noted to left posterior scalp w/ overlying abrasion. Differential diagnosis includes anemia, electrolyte abnormality, dehydration, hypoglycemia, seizure, intracranial bleed, concussion, cervical fracture, cervical sprain/strain, arrhythmia, ACS Plan for screening labs, EKG, CT head/ C-spine, re-evaluation. Patient remains in cervical collar. Head of bed elevated. Differential Diagnosis Differential Diagnoses: The differential diagnosis associated with the presentation includes as above. Admission/Observation Consideration of admission/observation: Escalation of care including admission/observation considered Patient to be transferred to [facility] ED for trauma consult, accepting physician Dr. Dominguez. Lab Data [facility] Lab Attestation statement: I reviewed the patient's lab results. as above. 06/22/25 12:11 06/22/25 12:11 Labs: Lab Results 06/22/25 Range/Units 12:11 WBC 7.0 (4.8-10.8) X10*3/uL RBC 3.56 L (4.60-5.80) X10*6/uL Hgb 11.0 L (14.0-18.0) g/dl Hct 31.9 L (42.0-52.0) % MCV 89.6 (80.0-98.0) fL MCH 30.9 (27.0-33.0) pg MCHC 34.5 (31.0-36.0) g/dl RDW 12.9 (11.0-16.0) % Plt Count 221 (160-400) X10*3/uL MPV 9.9 (9.4-12.4) fL Immature Gran % (Auto) 0.6 H (0.0-0.4) % Neut % (Auto) 63.9 (45-73) % Lymph % (Auto) 25.0 (20-40) % Hooker % (Auto) 9.0 (2-11) % Eos % (Auto) 1.1 (0-4) % Baso % (Auto) 0.4 (0-2) % Lymph # (Auto) 1.8 (1.2-4.9) X10*3/uL Hooker # (Auto) 0.6 (0.1-1.2) X10*3/uL Eos # (Auto) 0.1 (0.0-0.4) X10*3/uL Baso # (Auto) 0.0 (0.0-0.2) X10*3/uL Abs Immat Gran (auto) 0.04 H (0.00-0.03) X10*3/uL Absolute Neuts (auto) 4.5 (2.0-8.3) x10*3/uL Absolute Nucleated RBC 0.000 (0.0-0.012) X10*3/uL Nucleated RBC % (auto) 0.0 (0.0-0.2) /100WBC Sodium 141 (135-145) mmol/L Potassium 4.2 (3.3-5.1) mmol/L Chloride 104 (96-108) mmol/L Carbon Dioxide 27 (22-29) mmol/L Anion Gap 14 (12-20) BUN 22 H (9-16) mg/dL Creatinine 1.04 (0.5-1.4) mg/dL Estim Creat Clear Calc 61.3 Estimated GFR > 60 Random Glucose 274 H (60-115) mg/dL Calcium 10.6 H (8.4-10.2) mg/dL Magnesium 1.8 (1.6-2.6) mg/dL Total Bilirubin 0.3 (0.0-1.0) mg/dL AST 15 (5-37) U/L ALT 12 (0-40) U/L Alkaline Phosphatase 68 (39-117) U/L Total Protein 7.0 (6.5-8.0) g/dL Albumin 4.4 (3.5-5.0) g/dL Independent Interpretation I performed an independent interpretation of an: EKG and CT Scan Interpretation: CT head showing left frontoparietal subdural hematoma CT cervical spine without fracture EKG showing sinus tachycardia with first-degree AV block, rate of 101 beats per minute, QT 342, QTC 443, no acute ischemic changes or ST elevations Radiology Impression Discussion of test interpretation with radiology: I have reviewed the radiologist's reading. Radiologist Impression: Procedure(s): CT head/brain wo IV con Accession Number(s): [id number] cc: Wiley Pablo MD; Aline Chavez~ Report Number: [id number]: Total DLP = 0.00 mGy-cm Reason for Exam: fall with head strike hx bleed EXAMINATION: CT HEAD WITHOUT IV CONTRAST HISTORY: fall with head strike hx bleed. TECHNIQUE: Unenhanced helical CT of the head was performed per standard departmental protocol. Coronal and sagittal reformats of the head were also evaluated. One or more of the following techniques was used for dose reduction: Automated exposure control, adjustment of the mA and/or kV according to patient size, use of iterative reconstruction technique. DLP: 745 mGy-cm COMPARISON: Comparison is made with the prior examination dated 05/21/2025. FINDINGS: BRAIN: There is diffuse prominence of the ventricular system and cortical sulci, consistent with atrophy. Periventricular and subcortical white matter hypodensities are noted which are nonspecific, but often seen in the setting of small vessel ischemic disease. There is a small acute left-sided frontoparietal subdural hematoma measuring up to 8mm in thickness. There is no mass effect or midline shift. The previously seen subarachnoid hemorrhage has resolved. SINUSES: The visualized paranasal sinuses are clear. The mastoid air cells and middle ear cavities are well pneumatized. ORBITS: The visualized orbits are unremarkable. BONES/SOFT TISSUES: The extracranial soft tissues are unremarkable. The calvarium is intact. No suspicious lytic or sclerotic lesions. CT/CT head/brain wo IV con IMPRESSION: Small acute left frontoparietal subdural hematoma as described. These findings were discussed with Aline Chavez in the emergency room on 06/22/2025 at 12:17 PM. Electronically signed by: Darien Rogers MD 06/22/2025 12:17 PM EDT RP Procedure(s): CT cervical spine wo IV con Accession Number(s): [id number] cc: Wiley Pablo MD; Aline Chavez [place]~ Report Number: [id number]: Total DLP = 1056.00 mGy-cm Reason for Exam: fall with head strike EXAMINATION: CT CERVICAL SPINE WITHOUT CONTRAST CLINICAL INFORMATION: Fall, head trauma COMPARISON: May 21, 2025 TECHNIQUE: Axial imaging was performed from the base of the skull through T2 without IV contrast. Coronal and sagittal reformatted images were generated from the original axial data set. ALARA: The examination used one or more of the following radiation dose reduction techniques: Automated exposure control, iterative reconstruction, and/or adjustment of mA and/or KV. DLP: 304 mGY*cm FINDINGS: No fracture lines are identified. There is dgus-gg-lahkhwly disc space during, endplate osteophytes, endplate sclerosis, uncovertebral and facet osteophytes and sclerosis, most pronounced in the cervical spine between C2-3 and C5-6. Additionally, disc osteophyte complex extends into the left subarticular zone at C3-4. There is no prevertebral soft tissue edema. CT/CT cervical spine wo IV con IMPRESSION: No acute fracture. Moderate degenerative disc disease with vertebral and facet osteoarthritis with focal disc osteophyte complex in the left subarticular zone at C3-4, unchanged. Electronically signed by: Daniel Goins MD 06/22/2025 12:19 PM EDT RP Independent Historian Clinical information obtained from an independent historian. History obtained from or confirmed by: EMS and Other (caregiver) External Record Review External record reviewed: Inpatient record Social Determinants Patient?s care significantly limited by Social Determinants of Health including: Other Social Determinant of Health Critical Care Time Critical Care Time Critical Care Time: Yes Total Critical Care Time: 35 Attestation: Critical care time in the amount of 35 minutes has been provided to the patient in terms of direct patient care, frequent reevaluation, consultation with [facility] trauma, review and interpretation of medical data and results, and management of potentially life-threatening conditions. This is all outside of any medical procedures. Discharge Plan Discharge Clinical Impression: Acute subdural hematoma Patient Disposition: [facility] Transfer Details: [facility] ED - trauma accepting physician Dr. Dominguez Additional Instructions: CT/CT head/brain wo IV con IMPRESSION: Small acute left frontoparietal subdural hematoma as described. These findings were discussed with Aline Chavez in the emergency room on 06/22/2025 at 12:17 PM. Prescriptions: No Action (DME) blood-glucose meter [FreeStyle Lite Meter] Kit See Rx Instructions .ROUTE .MEDSUPPLY Qty: 1 0RF Rx Instructions: As directed (DME) miscellaneous medical supply Misc See Rx Instructions .ROUTE .MEDSUPPLY Qty: 1 0RF Rx Instructions: Diabetic Shoes, Daily As directed, 999 days carvedilol 6.25 mg tablet 6.25 mg PO BIDWM Qty: 180 3RF Rx Instructions: must administer with a meal/food levetiracetam 500 mg tablet 500 mg PO BEDTIME 90 Days Qty: 90 2RF Rx Instructions: replaces prior dose of 250 mg Eliquis 5 mg tablet 5 mg PO BID 90 Days Qty: 180 2RF acetaminophen 500 mg tablet 1,000 mg PO .Q8 PRN (Reason: pain) 30 Days Qty: 180 3RF lacosamide 50 mg tablet 50 mg PO DAILY 90 Days Qty: 90 2RF Rx Instructions: Take in evening hydrochlorothiazide 25 mg tablet 25 mg PO DAILY 90 Days Qty: 90 3RF spironolactone 25 mg tablet 25 mg PO DAILY 30 Days Qty: 30 2RF levetiracetam 250 mg tablet 750 mg PO DAILY 90 Days Qty: 270 2RF (DME) FreeStyle Lite Strips Strip See Rx Instructions .ROUTE .MEDSUPPLY Qty: 50 11RF Rx Instructions: check blood sugar daily and daily prn lisinopril 40 mg tablet 40 mg PO BEDTIME Qty: 90 3RF metformin 500 mg tablet 250 mg PO DAILY 30 Days Qty: 15 3RF omega 0-afl-tne-fish oil 1,000 (120-180) mg capsule 1 cap PO BEDTIME 30 Days Qty: 30 1RF nifedipine 60 mg tablet extended release 60 mg PO BID Qty: 60 0RF Rx Instructions: Take one tablet in the morning and one tablet in the evening, without food. (DME) lancets 28 gauge misc See Rx Instructions topical DAILY Qty: 100 Rx Instructions: As directed finasteride [Proscar] 5 mg tablet 5 mg PO DAILY Qty: 90 3RF (DME) cane Device See Rx Instructions .Route Qty: 1 0RF Rx Instructions: As directed, 999 allopurinol 100 mg tablet 100 mg PO DAILY 90 Days Qty: 90 2RF ezetimibe [Zetia] 10 mg tablet 10 mg PO DAILY 90 Days Qty: 90 2RF Print Language: Haitian
--- NOTE | 2025-06-22 11:34 | ECG_ITS ---
Test Reason : FALL Blood Pressure : */* mmHG Vent. Rate : 101 BPM Atrial Rate : 101 BPM P-R Int : 212 ms QRS Dur : 76 ms QT Int : 342 ms P-R-T Axes : 66 51 95 degrees QTcB Int : 443 ms Poor data quality Sinus tachycardia with 1st degree A-V block Nonspecific ST and T wave abnormality Abnormal ECG When compared with ECG of 21-May-2025 20:24, ST elevation now present in Inferior leads Referred By: Aline Chavez Electronically Signed By: SKIP VARGAS MD
[2025-06-22 12:00] VITALS: BP 157/82; PULSE 97; RESP 16; TEMP 36.6; O2SAT 99
[2025-06-22 12:15] LABS: MANUAL DIFF FLAG NO
[2025-06-22 12:16] LABS: Hematocrit 31.9 % (42.0-52.0); Hemoglobin 11.0 g/dl (14.0-18.0); Imm Gran Abs Auto 0.04 X10*3/uL (0.00-0.03); Imm Gran Pct Auto 0.6 % (0.0-0.4); Lymphocytes Absolute Auto 1.8 X10*3/uL (1.2-4.9); Mean Corpuscular HGB Conc 34.5 g/dl (31.0-36.0); Mean Corpuscular Hemoglobin 30.9 pg (27.0-33.0); Mean Corpuscular Volume 89.6 fL (80.0-98.0); NRBC Abs Auto 0.000 X10*3/uL (0.0-0.012); NRBC Pct Auto 0.0 /100WBC (0.0-0.2); Platelet Count 221 X10*3/uL (160-400); Red Blood Count 3.56 X10*6/uL (4.60-5.80); White Blood Count 7.0 X10*3/uL (4.8-10.8)
[2025-06-22 12:34] LABS: Alanine Aminotransferase 12 U/L (0-40); Albumin Level 4.4 g/dL (3.5-5.0); Alkaline Phosphatase 68 U/L (39-117); Anion Gap 14 (12-20); Aspartate Amino Transferase 15 U/L (5-37); Blood Urea Nitrogen 22 mg/dL (9-16); Calcium 10.6 mg/dL (8.4-10.2); Carbon Dioxide 27 mmol/L (22-29); Chloride 104 mmol/L (96-108); Creatinine Clr Calc Pharmacy 61.3; Estimated Glomerular Filt Rate > 60; Magnesium 1.8 mg/dL (1.6-2.6); Potassium 4.2 mmol/L (3.3-5.1); Sodium 141 mmol/L (135-145); Total Protein 7.0 g/dL (6.5-8.0)
[2025-06-22 12:41] LABS: Troponin-I High Sensitivity < 2.7 ng/L (<3.5-35.0)
--- NOTE | 2025-06-22 12:43 | PC.NURSE ---
nad, no pain, collar removed, iv in place l ac, aware of care plan
[2025-06-22 12:58] LABS: Appearance Urine Clear; Glucose Urine UA 100 mg/dL (Negative); PH 6.5 (5.0-9.0); Specific Gravity - Urine 1.010 (1.005-1.025)
--- NOTE | 2025-06-22 12:59 | PC.NURSE ---
attempt to call [facility] x 2 , first call i got hung up on, 2nd call, i let it ring for 4 minutes, no answer
[2025-06-22 13:02] LABS: INTERNATIONAL NORM RATIO 1.0 (0.9-1.1); Prothrombin Time 11.7 SEC (10.9-12.4)
[2025-06-22 13:05] LABS: Partial Thromboplastin Time 33.1 SEC (26.7-34.1)
--- NOTE | 2025-06-22 13:18 | PC.NURSE ---
Rn to Rn report given to Kandi at [facility] and stated pt is coming as a trauma consyult
[2025-06-22 14:47] VITALS: BP 157/82; PULSE 97; RESP 16; TEMP 36.6; O2SAT 99
== END 2025-06-22 14:52 | disposition short-term general hospital (02) ==
PROVIDERS: Physician Assistant Medical; Emergency Provider Emergency Medicine; PCP Family Medicine
DX: S06.5X0A Traumatic subdural hemorrhage without loss of consciousness, initial encounter (principal); S00.03XA Contusion of scalp, initial encounter; R51.9 Headache, unspecified; M54.2 Cervicalgia; E11.9 Type 2 diabetes mellitus without complications; R00.0 Tachycardia, unspecified; I44.0 Atrioventricular block, first degree; X50.1XXA Overexertion from prolonged static or awkward postures, initial encounter; Y93.9 Activity, unspecified; Y92.009 Unspecified place in unspecified non-institutional (private) residence as the place of occurrence of the external cause; Y99.8 Other external cause status; Z79.899 Other long term (current) drug therapy; Z79.84 Long term (current) use of oral hypoglycemic drugs
CPT/HCPCS: 36415; 70450; 72125; 80053; 81003; 83735; 84484; 85025; 85610; 85730; 93005; 99285; 99291

== ENCOUNTER → 2025-06-22 11:33 | Outpatient (BNV) | payer MEDICARE, MEDICAID, SELFPAY | PROVIDERS: Emergency Provider Emergency Medicine; PCP Family Medicine; Visit Provider Radiology Diagnostic Radiology | DX: S06.5X0A Traumatic subdural hemorrhage without loss of consciousness, initial encounter (principal); W19.XXXA Unspecified fall, initial encounter | CPT/HCPCS: 70450 ==

== ENCOUNTER → 2025-06-22 11:34 | Outpatient (BNV) | payer MEDICARE, MEDICAID, SELFPAY | PROVIDERS: Emergency Provider Emergency Medicine; PCP Family Medicine; Visit Provider Internal Medicine Cardiovascular Disease | DX: I44.0 Atrioventricular block, first degree (principal); R00.0 Tachycardia, unspecified | CPT/HCPCS: 93010 ==

== ENCOUNTER 2025-07-02 10:13 | Outpatient (AMB) | payer MEDICARE, MEDICAID, SELFPAY ==
--- NOTE | 2025-07-02 10:33 | A.OFFVIS_ITS ---
Intake Visit Reasons: 4m/US/PSA Intake Note: Patient presents today for 4m/US/PSA * 05/20 Retroperitoneal US * 06/22 PSA 1.82 Urology Medication:Allopurinol Blood Thinner:Aspirin Antibiotic Allergies:None Allergies No Known Allergies (No Known Allergies*) Allergy (Verified 07/02/25 10:39) Medication List - Last Reconciled 07/02/25 by Clint Simmons MD acetaminophen 1,000 mg (2 x 500 mg) PO .Q8 PRN 30 days allopurinol 100 mg PO DAILY 90 days blood sugar diagnostic (FreeStyle Lite Strips) check blood sugar daily and daily prn blood-glucose meter (FreeStyle Lite Meter kit) As directed cane As directed, 999 carvedilol 6.25 mg PO BIDWM ezetimibe (Zetia) 10 mg PO DAILY 90 days finasteride (Proscar) 5 mg PO DAILY lacosamide 50 mg PO DAILY 90 days lancets As directed levetiracetam 750 mg (3 x 250 mg) PO DAILY 90 days lisinopril 40 mg PO BEDTIME metformin 250 mg (1/2 x 500 mg) PO DAILY 30 days miscellaneous medical supply Diabetic Shoes, Daily As directed, 999 days multivit with min-folic acid 200 mcg (Daily Gummies) 1 tab PO DAILY nifedipine ER 60 mg PO BID omega 5-oua-mjy-fish oil 1,000 (120-180) mg 1 cap PO BEDTIME 30 days spironolactone 25 mg PO DAILY 30 days thiamine HCl (vitamin B1) 100 mg PO DAILY HPI Comments Details: 07/02/25--Amrik is a 69-year-old male who is here for follow-up he had an elevated PSA and I discussed repeating the PSA which is now normal at 1.82 he is on finasteride. History of Present Illness The patient is a 69-year-old male presenting with a follow-up for Benign Prostatic Hyperplasia (BPH) and elevated Prostate-Specific Antigen (PSA) levels. The patient was previously noted to have an elevated PSA level of 7, which prompted further evaluation and management. The patient was started on finasteride 5 mg daily as part of the management plan for BPH. Following this intervention, the PSA level has normalized to 1.82, which falls within the normal range of 0 to 4. A renal ultrasound conducted on 05/20/25 revealed a 2 mm kidney stone in the right kidney. The stone is considered very small and not currently a cause for concern. Results - PSA level: 1.82 (normal range: 0-4) - Renal ultrasound: 2 mm right kidney stone Plan 1. Benign Prostatic Hyperplasia (Bph) - Continue finasteride 5 mg daily. - Monitor PSA levels and post-void residuals. - Follow-up in 9 months for reassessment. 2. Kidney Stone - No immediate intervention required due to the small size of the stone. - Monitor for any symptoms or changes. 02/26/25--Amrik is here for evaluation for elevated PSA. He has symptoms of slowing of urinary steam. I have discussed PSA is a blood test, prostate specific antigen and is an enzyme secreted by the prostate gland. Elevated PSA may be due to multiple conditions including prostate inflammatory condition, enlarged prostate or prostate cancer. Results PSA 01/13/25-7.31 Plan proscar 5 mg daily, US Retroperitoneal, repeat PSA, pending results, prostate bx discussed [facility] Medical History Epilepsy History of gout Paroxysmal atrial fibrillation History of seizures History of CVA (cerebrovascular accident) White coat syndrome with diagnosis of hypertension Essential hypertension Diabetes type 2, controlled Surgical History No pertinent past surgical history Family History Father No problems noted. Mother No problems noted. Brother No problems noted. Sister No problems noted. Sister No problems noted. Social History Household Members: Other Housing: Other Do you presently have visiting nurse or other home services: No Alcohol intake: current Alcohol intake frequency: does not drink Patient Tobacco Use Status: Never used Tobacco e-Cigarette/Vaping Use: Never Used Second Hand Smoke Exposure: No Advance Directives Date on File: 08/02/20 service: No Current occupational status: unemployed Current occupation: Patient does not want to answer Current occupational exposures/hazards: No Cognitive needs: No Hearing needs: No Vision needs: No Review of Systems Const All systems reviewed & are unremarkable except as noted in HPI and below Reports no additional complaints Eyes Reports no additional complaints ENT Reports no additional complaints Card Reports no additional complaints Resp Reports no additional complaints GI Reports no additional complaints Reports as per HPI Musc Reports no additional complaints Skin/Breast Reports system reviewed and no additional complaints, except as documented Neuro Reports no additional complaints Psych Reports no additional complaints Endo Reports no additional complaints Ashish/Lymph Reports no additional complaints Aller/Immun Reports no additional complaints Results AMB Urinalysis, Automated UA Leukoctes 0 Caty/uL Last Edit by Mahi Babin on 07/02/25 17:07 UA Nitrite Negative Last Edit by Mahi Babin on 07/02/25 17:07 UA Urobilinogen 3.5 mg/dL Last Edit by Mahi Babin on 07/02/25 17:07 UA Protein 0 mg/dL Last Edit by Mahi Babin on 07/02/25 17:07 UA pH 6.0 Last Edit by Mahi Babin on 07/02/25 17:07 UA Blood 0 Anselmo/uL Last Edit by Mahi Babin on 07/02/25 17:07 UA Specific Ortley 1.010 Last Edit by Mahi Babin on 07/02/25 17:07 UA Ketone Negative Last Edit by Mahi Babin on 07/02/25 17:07 UA Bilirubin 0 mg/dL Last Edit by Mahi Babin on 07/02/25 17:07 UA Glucose 0 mg/dL Last Edit by Mahi Babin on 07/02/25 17:07 Results Reviewed Results Reviewed: Laboratory Last Values Urine pH (Auto) 6.0 07/02/25 11:52 Specific Ortley (Auto) 1.010 07/02/25 11:52 Urine Protein (Auto) 0 mg/dL 07/02/25 11:52 Glucose (UA)(Auto) 0 mg/dL 07/02/25 11:52 Urine Ketones (Auto) Negative 07/02/25 11:52 Urine Blood (Auto) 0 Anselmo/uL 07/02/25 11:52 Urine Nitrite (Auto) Negative 07/02/25 11:52 Urine Bilirubin (Auto) 0 mg/dL 07/02/25 11:52 Urine Urobilinogen (Auto) 3.5 mg/dL 07/02/25 11:52 Leukocyte Esterase (Auto) 0 Caty/uL 07/02/25 11:52 Date of Service: 05/20/25 Procedure(s): US retroperitoneal comp Accession Number(s): [id number] cc: Clint Simmons MD; Wiley Pablo MD~ EXAMINATION: US RETROPERITONEUM HISTORY: R97.20 - Elevated prostate specific antigen [PSA] TECHNIQUE: Real-time grayscale ultrasound imaging of the kidneys was performed and images were reviewed. COMPARISON: There are no prior studies available for comparison. FINDINGS: Right kidney: The right kidney measures 10.8 x 5.8 x 4.9 cm. Renal parenchymal echotexture and thickness are normal. There is a 7 x 5 x 8 mm cyst at the upper pole. There is a 2 mm nonobstructing calculus in the interpolar region. There is no hydronephrosis. Left Kidney: The left kidney measures 10.8 x 5.1 x 4.2 cm. Renal parenchymal echotexture and thickness are normal. There are no masses. There is no hydronephrosis or renal calculi. The urinary bladder is unremarkable. Bilateral ureteral jets are identified. Before voiding, the urinary bladder measured 10.0 x 7.5 x 8.4 cm, for an estimated volume of 327 mL. There is no significant change after the patient voided. The prostate measures 3.9 x 3.9 x 4.3 cm, for an estimated volume of 34.3 mL. IMPRESSION: 1. 2 mm nonobstructing right renal calculus. 2. Post void bladder residual of 327 mL. 3. Prostate volume of 34.3 mL. Assessment & Plan Assessment & Plan (1) Screening for prostate cancer: Code(s): Z12.5 - Encounter for screening for malignant neoplasm of prostate Category: Medical (2) Elevated PSA: Code(s): R97.20 - Elevated prostate specific antigen [PSA] Category: Medical (3) BPH loc w urin obs/LUTS: Code(s): N40.1 - Benign prostatic hyperplasia with lower urinary tract symptoms Category: Medical (4) Kidney stone: Code(s): N20.0 - Calculus of kidney Category: Medical Plan 1. Benign Prostatic Hyperplasia (Bph) - Continue finasteride 5 mg daily. - Monitor PSA levels and post-void residuals. - Follow-up in 9 months for reassessment. 2. Kidney Stone - No immediate intervention required due to the small size of the stone. - Monitor for any symptoms or changes. Orders: Orders AMB Urinalysis Automated 07/02/25 N40.1 - Benign prostatic hyperplasia with lower urinary tract symptoms PSA,Total (Free>4and<10) 8 Months N40.1 - Benign prostatic hyperplasia with lower urinary tract symptoms, R97.20 - Elevated prostate specific antigen [PSA], Z12.5 - Encounter for screening for malignant neoplasm of prostate US renal BI 8 Months N20.0 - Calculus of kidney, N40.1 - Benign prostatic hyperplasia with lower urinary tract symptoms Medications: Refilled finasteride (Proscar) 5 mg PO DAILY 90 tabs 3RF Patient Instructions: The patient had an opportunity to ask questions regarding treatment plan. The patient expressed understanding and agreement with the above treatment plan. The patient is aware they should contact our office by phone for worsening of their current condition or the appearance of new symptoms. Compliance is encouraged with any medications and followup testing that is ordered. It is a privilege to be allowed the opportunity to participate in the urologic care of your patient. If you have any questions or concerns regarding treatment for the above conditions please do not hesitate to contact me. The office telephone contact is [phone]. This note is constructed in part using voice recognition software. While every effort has been made to ensure accuracy fence maker errors may have been included. Yours sincerely, Clint Simmons MD Scribe Plan - Not visible on output: Patient was informed and verbally consented to the use of an ambient scribe for clinic note documentation during this visit. Coding Level of Care Code Est Pt Level 4 (21393) Diagnoses Screening for prostate cancer Z12.5 Elevated PSA R97.20 BPH loc w urin obs/LUTS N40.1 Kidney stone N20.0
== END 2025-07-02 11:37 | disposition home or self-care (01) ==
LOC: HO.HUSH 10:14
PROVIDERS: PCP Family Medicine; Visit Provider Urology
DX: N40.1 Benign prostatic hyperplasia with lower urinary tract symptoms (principal)
CPT/HCPCS: 99214

== ENCOUNTER → 2025-07-02 10:13 | Outpatient (BNVA) | payer MEDICARE, MEDICAID, SELFPAY | PROVIDERS: PCP Family Medicine; Visit Provider Urology | DX: Z12.5 Encounter for screening for malignant neoplasm of prostate (principal); R97.20 Elevated prostate specific antigen [PSA]; N40.1 Benign prostatic hyperplasia with lower urinary tract symptoms; N20.0 Calculus of kidney | CPT/HCPCS: 81003; 99212 ==

== ENCOUNTER 2025-07-06 11:01 | Outpatient (AMB) | payer MEDICARE, MEDICAID, SELFPAY ==
--- NOTE | 2025-07-06 11:29 | MHC.PC.OV ---
Intake Visit Reasons: [place] [facility] [place]24 Intake Note: Amrik presents in the office today for hospital discharge. Allergies No Known Allergies (No Known Allergies*) Allergy (Verified 07/06/25 11:54) Medication List - Last Reconciled 07/06/25 by Addie Conde RN acetaminophen 1,000 mg (2 x 500 mg) PO .Q8 PRN 30 days allopurinol 100 mg PO DAILY 90 days blood sugar diagnostic (FreeStyle Lite Strips) check blood sugar daily and daily prn blood-glucose meter (FreeStyle Lite Meter kit) As directed cane As directed, 999 carvedilol 3.125 mg (1/2 x 6.25 mg) PO BID ezetimibe (Zetia) 10 mg PO DAILY 90 days finasteride (Proscar) 5 mg PO DAILY lacosamide 100 mg PO BID lancets As directed levetiracetam 1,000 mg PO BID lisinopril 40 mg PO BEDTIME metformin 250 mg (1/2 x 500 mg) PO DAILY 30 days miscellaneous medical supply Diabetic Shoes, Daily As directed, 999 days multivit with min-folic acid 200 mcg (Daily Gummies) 1 tab PO DAILY nifedipine ER 30 mg PO BID omega 9-mtt-aku-fish oil 1,000 (120-180) mg 1 cap PO BEDTIME 30 days spironolactone 25 mg PO DAILY 30 days thiamine HCl (vitamin B1) 100 mg PO DAILY tranexamic acid 650 mg PO ONCE Tobacco use date assessed: 07/06/25 Dental Screening Dental Screen Date: 07/06/25 Did you have a dental visit in the last 12 months?: Yes Did you have a dental problem in the last 6 months where you did not have access to dental care?: No Was dental information given to patient?: Patient has dentist HPI D[place] [facility] [place] and 06/24 HPI Details 69 y/o male presents to f/u hospital visit. Patient seizure and fall Imaging showed 8 mm frontoparietal subdural hematoma He had been off Eliquis since prior head injury. Patient had a fall with head strike resulting in acute on chronic subdural hematoma. On evaluation he had orthostatic hypotension leading to adjustment in his blood pressure medications including reduced doses of nifedipine and carvedilol. Patient has follow-up with his neurologist last week. Continues lacosamide and Keppra Recommended follow-up with PCP and Cardiology for orthostatic hypotension Has appointment with new inventory transcriber on and will discuss filter placement as patient is no longer a candidate for Eliquis. Blood pressure in office today is 128/78 and this is consistent with log brought in with measurements from the past week. No dizziness Ambulating with a walker. [facility] Medical History Epilepsy History of gout Paroxysmal atrial fibrillation History of seizures History of CVA (cerebrovascular accident) White coat syndrome with diagnosis of hypertension Essential hypertension Diabetes type 2, controlled Surgical History No pertinent past surgical history Family History Father No problems noted. Mother No problems noted. Brother No problems noted. Sister No problems noted. Sister No problems noted. Social History (Updated 07/06/25 @ 11:54 by Allyn Roper CMA) Household Members: Other Housing: Other Do you presently have visiting nurse or other home services: No Alcohol intake: current Alcohol intake frequency: does not drink Patient Tobacco Use Status: Never used Tobacco e-Cigarette/Vaping Use: Never Used Second Hand Smoke Exposure: No Advance Directives Date on File: 08/02/20 service: No Current occupational status: unemployed Current occupation: Patient does not want to answer Current occupational exposures/hazards: No Cognitive needs: No Hearing needs: No Vision needs: No Questionnaire Thrive Questionnaire Date Thrive assessed: 12/03/24 I am a: Patient What is your living situation today?: I choose not to answer this question Within the past 12 months, did the food you bought not last and you didn't have the money to get more?: I choose not to answer this question Within the past 12 months, did you worry whether your food would run out before you got money to buy more?: I choose not to answer this question Do you have trouble paying for medicines?: No Do you have trouble getting transportation to medical appointments?: No Do you have trouble paying your heating and electricity bill?: No Do you have trouble taking care of your child, family member or friend?: No Do you have trouble with day-to-day activities such as bathing, preparing meals, shopping, managing finances, etc.?: I choose not to answer this question Are you currently unemployed and looking for a job?: No Are you interested in more education?: No Please select the resources that you would like help with: None Currently or been in a relationship where the following occur: I choose not to answer THRIVE Score: 0 FRANC-7 AMB Questionnaire FRANC-7 Date FRANC - 7 assessed: 03/10/25 Source: Developed by Drs. Darien Higginbotham, Erin Vargas, Dony Arevalo and colleagues, with an educational otilia from [employer]. Review of Systems Const Denies chills, Denies fatigue, Denies fever(s), Denies headache(s) and Denies weakness ENT Denies dizziness and Denies headache(s) Card Denies dyspnea Resp Denies cough, Denies dyspnea, Denies wheezing and Denies other (shortness of breath) Musc Denies numbness and Denies tingling Neuro Denies dizziness, Denies headache(s), Denies numbness, Denies tingling and Denies weakness Psych Denies anxiety and Denies depression Endo Denies fatigue Aller/Immun Denies wheezing Physical exam (Primary Care) Tobacco/Smoking Status: Tobacco use Status Tobacco use date assessed 07/06/25 07/06/25 11:58 Patient Tobacco Use Status Never used Tobacco 07/06/25 11:54 e-Cigarette/Vaping Use Never Used 07/06/25 11:54 Thrive Assessment: Date of Thrive Assessment Date Thrive assessed 12/03/24 07/06/25 11:30 Currently or been in a relationship where the following occur: I choose not to answer Const General: well developed; No acute distress Nutritional Appearance: well nourished Orientation/consciousness: patient oriented x3 HENMT Head: Yes normocephalic and Yes atraumatic Eyes General: appearance normal, both eyes and all related structures Pupils: Equal, round and reactive pupils present EOM: EOMs intact bilaterally Resp Effort & Inspection: normal respiratory effort Neuro General: patient oriented x3 and gait normal Cranial nerves: Yes Equal, round and reactive pupils present Psych Affect: normal affect Results AMB Hemoglobin A1c AMB Hemoglobin A1c 6.5 % Last Edit by Allyn Roper CMA on 07/06/25 12:23 Results Reviewed Results Reviewed: Laboratory Last Values Hgb A1c (Clinic) 6.5 % (4.0-6.0) H 07/06/25 12:22 Coding Level of Care Code Est Pt Level 4 (88361) Diagnoses Seizure R56.9 SDH (subdural hematoma) S06.5XAA Orthostatic hypotension I95.1 Essential hypertension I10 Diabetes type 2, controlled E11.9 Type 2 diabetes mellitus with hypoglycemia E11.649 Assessment & Plan Assessment & Plan (1) Seizure: Code(s): R56.9 - Unspecified convulsions Category: Medical (2) SDH (subdural hematoma): Code(s): S06.5XAA - Traumatic subdural hemorrhage with loss of consciousness status unknown, initial encounter Category: Medical (3) Orthostatic hypotension: Code(s): I95.1 - Orthostatic hypotension Category: Medical (4) Essential hypertension: Code(s): I10 - Essential (primary) hypertension Category: Medical (5) Diabetes type 2, controlled: Code(s): E11.9 - Type 2 diabetes mellitus without complications Category: Medical (6) Type 2 diabetes mellitus with hypoglycemia: Code(s): E11.649 - Type 2 diabetes mellitus with hypoglycemia without coma Category: Medical Plan Early May Seizure and possible head trauma w/ intraparencymal hematoma of brain vs subarachnoid hemorrhage. Ad[place] [facility] [place] MRI of the brain showed bleeding likely originated from the midbrain with subarachnoid hemorrhage around cisterns and brainstem and likely hypertensive in etiology; it was unclear if a breakthrough seizure led to hypertension and the sprain bleeding. He had been on Eliquis which was discontinued Lacosamide and Keppra were adjusted and maintained in therapeutic range. June: Patient seizure and fall Imaging showed 8 mm frontoparietal subdural hematoma He had been off Eliquis since prior head injury. Patient had a fall with head strike resulting in acute on chronic subdural hematoma. On evaluation he had orthostatic hypotension leading to adjustment in his blood pressure medications including reduced doses of nifedipine and carvedilol. Patient has follow-up with his neurologist last week. Continues lacosamide and Keppra Recommended follow-up with PCP and Cardiology for orthostatic hypotension Has appointment with new inventory transcriber on and will discuss filter placement as patient is no longer a candidate for Eliquis. Use walker for mobility/ambulation Orders: Orders AMB Hemoglobin A1c Today Wiley Pablo MD E11.649 - Type 2 diabetes mellitus with hypoglycemia without coma, E11.9 - Type 2 diabetes mellitus without complications Medications: Discontinued nifedipine ER Take one tablet in the morning and one tablet in the evening, without food. Discontinued Reason: Patient no longer taking 30 mg PO BID Addie Conde RN
--- OUTSIDE RECORDS SUMMARY | 2025-07-06 13:40 | XMS_ITS | Encounter Summary ---
Author Organization [employer] [facility] Address [address] [place] [address] Care Team Providers Care Computer Assembler Name Role Phone Stevan Grubbs MD Primary Care Provider [phone] Declan Meneses MD Primary Care Provide r Unavailable Encounter Details Date Type Department Care Team Description 01/27/2017 Release of Information Medical Records [address] [place] [id number] Abstract, Provider Social History Tobacco Use Types [...] on filedocumented in this encounter Care Teams Computer Assembler Relationship Specialty Start Date End Date Stevan Grubbs MD [address] [place] [address] [id number] PCP - General Internal Medicine 09/27/16 03/23/19 Declan Meneses MD [address] [place] [id number] PCP - General Internal Medicine 03/24/19 documented as of this encounter
--- OUTSIDE RECORDS SUMMARY | 2025-07-06 13:40 | XMS_ITS | Encounter Summary ---
Author Organization [facility] Address [address] [place] [address] Care Team Providers Care Career Orientation Teacher Name Role Phone Carole Olivares MD Primary Care Provider Unavaila George Arnold MD Primary Care Provider Unavail able Stevan Grubbs MD Primary Care Provider [phone] Declan Meneses MD Primary Care Provide r Unavailable Reason for Visit * Reason Onset Date Comments LAB WORK 06/22/2015 Encounter Details Date Type Department Care Team Description 06/22/2015 Telephone Nephrology - [place] [address] [place] [address] Teddy Aguilar MD LAB WORK Social History [...] on filedocumented in this encounter Care Teams Career Orientation Teacher Relationship Specialty Start Date End Date Carole Olivares MD PCP - General Internal Medicine 06/17/15 04/09/16 George Marroquin MD PCP - General Internal Medicine 04/10/16 09/26/16 Stevan Grubbs MD [address] [place] [id number] PCP - General Internal Medicine 09/27/16 03/23/19 Declan Meneses MD [address] [place] [id number] PCP - General Internal Medicine 03/24/19 documented as of this encounter
--- OUTSIDE RECORDS SUMMARY | 2025-07-06 13:40 | XMS_ITS | Encounter Summary ---
Author Organization [employer] [facility] Address [address] [place] [address] Care Team Providers Care Kiln Cleaner Name Role Phone Danni Joe MD Primary Care Provider UnaCarole Cervantes MD Primary Care Provider Unavaila George Arnold MD Primary Care Provider Unavail able Stevan Grubbs MD Primary Care Provider [phone] Declan Meneses MD Primary Care Provide r Unavailable Encounter Details Date Type Department Care Team Description 10/22/2014 Orders Only Adult Medicine B - [place] [address] [place] [address] Danni Joe MD Proteinuria (Primary Dx) Social [...] URINE 357 mg/dL 11/12/2014 11:55 AM EST [facility] 11/11/2014 11:3 7 AM EST 11/11/2014 11:38 AM EST Danni Joe MD LAB [address] * PROTEIN, RANDOM URINE (11/11/2014 11:37 AM EST) TOTAL PROTEIN, RANDOM URINE 98 mg/dL 11/11/2014 4:35 PM EST [facility] 11/11/2014 11:3 7 AM EST 11/11/2014 11:38 AM EST Narrative [facility] - 11/11/2014 4:35 PM EST Specify Random or 24Hr->Random Danni Joe MD LAB Performing Organization Address City/[facility] Co de Phone Number [facility] documented in this encounter Visit Diagnoses Diagnosis Proteinuria- Primary documented in this encounter Care Teams Kiln Cleaner Relationship Specialty Start Date End Date Danni Joe MD PCP - General Internal Medicine 06/24/14 06/16/15 Carole Olivares MD PCP - General Internal Medicine 06/17/15 04/09/16 George Marroquin MD PCP - General Internal Medicine 04/10/16 09/26/16 Stevan Grubbs MD [address] [place] [id number] PCP - General Internal Medicine 09/27/16 03/23/19 Declan Meneses MD [address] [place] [id number] PCP - General Internal Medicine 03/24/19 documented as of this encounter
--- OUTSIDE RECORDS SUMMARY | 2025-07-06 13:40 | XMS_ITS | Encounter Summary ---
Author Organization [email or web address] [facility] Address [address] [place] [address] Care Team Providers Care Dish Network Installer Name Role Phone Carole Olivares MD Primary Care Provider Unavaila George Arnold MD Primary Care Provider Unavail able Stevan Grubbs MD Primary Care Provider [phone] Declan Meneses MD Primary Care Provide r Unavailable Encounter Details Date Type Department Care Team Description 02/28/2016 [facility] Medical Records [address] [place] [address] Social History Tobacco Use Types Packs/Day Years [...] on filedocumented in this encounter Care Teams Dish Network Installer Relationship Specialty Start Date End Date Carole Olivares MD PCP - General Internal Medicine 06/17/15 04/09/16 George Marroquin MD PCP - General Internal Medicine 04/10/16 09/26/16 Stevan Grubbs MD [address] [place] [address] [phone] PCP - General Internal Medicine 09/27/16 03/23/19 Declan Meneses MD [address] [place] [id number] PCP - General Internal Medicine 03/24/19 documented as of this encounter
--- OUTSIDE RECORDS SUMMARY | 2025-07-06 13:40 | XMS_ITS | Clinical Summary ---
Author Organization [facility] Address [address] [place] [address] Care Team Providers Care Sap Gatherer Name Role Phone Declan Meneses MD Primary [...] meals: 110-160 Bedtime: 110-150 Use the Results Bring your glucometer to every appointment Write your fingerstick blood sugars down on a log sheet or record book. Bring them to your appointment Look for patterns in the numbers. The [...] just unsure what to do Educational Resources [employer] (www.diabetes.org) Centers for Disease Control [...] 82 05/01/2016 12:56 PM EDT Temperature 36.9 C (98.4 F) 05/01/2016 12:56 PM EDT Respiratory Rate 16 08/25/2014 3:57 [...] FOOT EXAM 11/03/2016 11/03/2015, DIABETES/HEART DISEASE: BORA AL CHOLESTEROL (LDL) 01/17/2017 01/18/2016, 06/22/2015, 01/26/2015, Additional history exists DIABETES: ANNUAL URINE PROTE IN TEST (MICROALBUMIN) 05/01/2017 05/01/2016, 03/10/2015, 10/20/2014, Additional history exists PNEUMOCOCCAL VACCINE (2 - PCV) 2021 07/08/2014 DTAP/TDAP/TD (2 - Td or Tdap) 07/08/2024 07/08/2014 BMI CHECK/ADVISE 10/14/2024 05/01/2016, , 02/02/2016, Additional history exists INFLUENZA (#1) 2025 07/15/2015, 08/25/2014 COLON CANCER SCREENING 09/14/2025 09/14/2015 HEPATITIS C SCREENING Completed 07/21/2014 Care Teams Sap Gatherer Relationship Specialty Start Date End Date Declan Meneses MD PCP - General Internal Medicine 03/24/19
== END 2025-07-06 13:01 | disposition home or self-care (01) ==
LOC: HO.HMCFM 11:02
PROVIDERS: PCP Family Medicine; Visit Provider Family Medicine
DX: E11.9 Type 2 diabetes mellitus without complications (principal); E11.649 Type 2 diabetes mellitus with hypoglycemia without coma

== ENCOUNTER → 2025-07-06 11:01 | Outpatient (BNVA) | payer MEDICARE, MEDICAID, SELFPAY | PROVIDERS: PCP Family Medicine; Visit Provider Family Medicine | DX: I10 Essential (primary) hypertension (principal); I95.1 Orthostatic hypotension; R56.9 Unspecified convulsions; E11.649 Type 2 diabetes mellitus with hypoglycemia without coma; S06.5XAA Traumatic subdural hemorrhage with loss of consciousness status unknown, initial encounter; W19.XXXA Unspecified fall, initial encounter; Y93.9 Activity, unspecified; Y92.9 Unspecified place or not applicable; Y99.9 Unspecified external cause status | CPT/HCPCS: 83036; 99212 ==

== ENCOUNTER 2025-09-07 10:47 | Outpatient (AMB) | payer MEDICARE, MEDICAID, SELFPAY ==
--- NOTE | 2025-09-07 11:04 | MHC.PC.OV ---
Vital Signs 09/07/25 11:11 Height 5 ft 6 in Weight 152 lb BMI 24.5 BP 138/82 Blood Pressure Location Rt brachial Position Sitting Respiration 16 Pulse 84 Pulse Source Pulse Oximeter Temp 98.5 F Temp Source Temporal Artery Scan Pulse Oximetry (%) 99 Oxygen Delivery Method Room Air Intake Visit Reasons: f/u HTN, diabetes, chronic conditions Intake Note: Amrik presents in the office to follow up to hypertension and diabetes. Allergies No Known Allergies (No Known Allergies*) Allergy (Verified 09/07/25 11:09) Medication List - Last Reconciled 09/07/25 by Wiley Pablo MD acetaminophen 1,000 mg (2 x 500 mg) PO .Q8 PRN 30 days allopurinol 100 mg PO DAILY 90 days blood sugar diagnostic (FreeStyle Lite Strips) check blood sugar daily and daily prn blood-glucose meter (FreeStyle Lite Meter kit) As directed cane As directed, 999 carvedilol 3.125 mg PO BID 90 days ezetimibe (Zetia) 10 mg PO DAILY 90 days finasteride (Proscar) 5 mg PO DAILY lacosamide 100 mg PO BID 90 days lancets As directed levetiracetam 1,000 mg PO BID lisinopril 40 mg PO BEDTIME metformin 250 mg (1/2 x 500 mg) PO DAILY 30 days miscellaneous medical supply Diabetic Shoes, Daily As directed, 999 days multivit with min-folic acid 200 mcg (Daily Gummies) 1 tab PO DAILY 90 days nifedipine ER 30 mg PO BID 90 days omega 9-lyy-bvp-fish oil 1,000 (120-180) mg 1 cap PO BEDTIME 30 days spironolactone 25 mg PO DAILY 30 days thiamine HCl (vitamin B1) 100 mg PO DAILY 90 days Tobacco use date assessed: 09/07/25 Dental Screening Dental Screen Date: 09/07/25 Did you have a dental visit in the last 12 months?: Yes Did you have a dental problem in the last 6 months where you did not have access to dental care?: No Was dental information given to patient?: Patient has dentist HPI f/u HTN, diabetes, chronic conditions HPI Details 69 y/o male presents to f/u HTN, diabetes, chronic conditions. BP today 138/82, 84p. He is on lisinopril 40mg, spironolactone 25mg daily, carvedilol 3.125mg b.i.d, nifedipine 30mg b.i.d. A1c today 5.9%. Hx of paroxysmal AFib, SDH, CVA. [facility] Medical History Epilepsy History of gout Paroxysmal atrial fibrillation History of seizures History of CVA (cerebrovascular accident) White coat syndrome with diagnosis of hypertension Essential hypertension Diabetes type 2, controlled Surgical History No pertinent past surgical history Family History Father No problems noted. Mother No problems noted. Brother No problems noted. Sister No problems noted. Sister No problems noted. Social History (Updated 09/07/25 @ 11:11 by Allyn Roper CMA) Household Members: Other Housing: Other Do you presently have visiting nurse or other home services: No Alcohol intake: current Alcohol intake frequency: does not drink Patient Tobacco Use Status: Never used Tobacco e-Cigarette/Vaping Use: Never Used Second Hand Smoke Exposure: No Use of substances other than those prescribed or required for medical reasons: No Advance Directives Date on File: 08/02/20 service: No Current occupational status: unemployed Current occupation: Patient does not want to answer Current occupational exposures/hazards: No Cognitive needs: No Hearing needs: No Vision needs: No Questionnaire Thrive Questionnaire Date Thrive assessed: 12/03/24 I am a: Patient What is your living situation today?: I choose not to answer this question Within the past 12 months, did the food you bought not last and you didn't have the money to get more?: I choose not to answer this question Within the past 12 months, did you worry whether your food would run out before you got money to buy more?: I choose not to answer this question Do you have trouble paying for medicines?: No Do you have trouble getting transportation to medical appointments?: No Do you have trouble paying your heating and electricity bill?: No Do you have trouble taking care of your child, family member or friend?: No Do you have trouble with day-to-day activities such as bathing, preparing meals, shopping, managing finances, etc.?: I choose not to answer this question Are you currently unemployed and looking for a job?: No Are you interested in more education?: No Please select the resources that you would like help with: None Currently or been in a relationship where the following occur: I choose not to answer THRIVE Score: 0 FRANC-7 AMB Questionnaire FRANC-7 Date FRANC - 7 assessed: 03/10/25 Source: Developed by Drs. Darien Higginbotham, Erin Vargas, Dony Arevalo and colleagues, with an educational otilia from [employer]. Review of Systems Const Denies chills, Denies fatigue, Denies fever(s), Denies headache(s) and Denies weakness ENT Denies dizziness and Denies headache(s) Card Denies dyspnea Resp Denies cough, Denies dyspnea, Denies wheezing and Denies other (shortness of breath) Musc Denies numbness and Denies tingling Neuro Denies dizziness, Denies headache(s), Denies numbness, Denies tingling and Denies weakness Psych Denies anxiety and Denies depression Endo Denies fatigue Aller/Immun Denies wheezing Physical exam (Primary Care) Vital Signs: Last Vital Signs Temp 98.5 F 09/07/25 11:11 Pulse 84 09/07/25 11:11 Resp 16 09/07/25 11:11 BP 138/82 09/07/25 11:11 Pulse Ox 99 09/07/25 11:11 Oxygen Delivery Method Room Air 09/07/25 11:11 BMI result Body Mass Index 24.5 Tobacco/Smoking Status: Tobacco use Status Tobacco use date assessed 09/07/25 09/07/25 11:16 Patient Tobacco Use Status Never used Tobacco 09/07/25 11:11 e-Cigarette/Vaping Use Never Used 09/07/25 11:11 Thrive Assessment: Date of Thrive Assessment Date Thrive assessed 12/03/24 09/07/25 11:06 Currently or been in a relationship where the following occur: I choose not to answer Const General: well developed; No acute distress Nutritional Appearance: well nourished Orientation/consciousness: patient oriented x3 HENMT Head: Yes normocephalic and Yes atraumatic Eyes General: appearance normal, both eyes and all related structures Pupils: Equal, round and reactive pupils present EOM: EOMs intact bilaterally Resp Effort & Inspection: normal respiratory effort Neuro General: patient oriented x3 and gait normal Cranial nerves: Yes Equal, round and reactive pupils present Psych Affect: normal affect Results AMB Hemoglobin A1c AMB Hemoglobin A1c 5.9 % Last Edit by Allyn Roper CMA on 09/07/25 11:20 Results Reviewed Results Reviewed: Laboratory Last Values Hgb A1c (Clinic) 5.9 % (4.0-6.0) 09/07/25 11:16 Coding Level of Care Code Est Pt Level 4 (70003) Diagnoses Diabetes type 2, controlled E11.9 Essential hypertension I10 Paroxysmal atrial fibrillation I48.0 Assessment & Plan Assessment & Plan (1) Diabetes type 2, controlled: Code(s): E11.9 - Type 2 diabetes mellitus without complications Category: Medical Plan: A1c 5.9%. Good control. Goal is less than 7.0% Continue current medications, diabetic diet and exercise (2) Essential hypertension: Code(s): I10 - Essential (primary) hypertension Category: Medical Plan: Blood pressure fairly well controlled in the office today and he keeps track of blood pressures at home which are well controlled. Goal is less than 130/80 Continue current medications (3) Paroxysmal atrial fibrillation: Code(s): I48.0 - Paroxysmal atrial fibrillation Category: Medical Plan: History of paroxysmal atrial fibrillation. Also history of CVA and more recently SDH. He is not on blood thinners. He is awaiting a Watchman procedure. Can hold fish oil x 7 days and will hold metformin on day of procedure. Orders: Orders AMB Hemoglobin A1c Today E11.9 - Type 2 diabetes mellitus without complications
[2025-09-07 11:11] VITALS: BP 138/82; PULSE 84; RESP 16; TEMP 36.9; O2SAT 99; BMI 24.5
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
== END 2025-09-07 11:58 | disposition home or self-care (01) ==
LOC: HO.HMCFM 10:48
PROVIDERS: PCP Family Medicine; Visit Provider Family Medicine
DX: E11.9 Type 2 diabetes mellitus without complications (principal); I10 Essential (primary) hypertension; I48.0 Paroxysmal atrial fibrillation

== ENCOUNTER → 2025-09-07 10:47 | Outpatient (BNVA) | payer MEDICARE, MEDICAID, SELFPAY | PROVIDERS: PCP Family Medicine; Visit Provider Family Medicine | DX: E11.9 Type 2 diabetes mellitus without complications (principal); I10 Essential (primary) hypertension; I48.0 Paroxysmal atrial fibrillation | CPT/HCPCS: 83036; 99212 ==